=== PATIENT | female | born 1940 | race Caucasian/White ===

== ENCOUNTER → 2017-07-07 09:55 | Outpatient (CLI) | payer MEDICARE, OTHER, SELFPAY ==
--- NOTE | 2017-07-07 | DI.NM.S_ITS ---
PROCEDURE: NM BONE 3 PHASE RADIOPHARMACEUTICAL: 21.5 mCi Tc-99m MDP IV. INDICATIONS: LEFT KNEE PROSTHETIC LOOSENING TECHNIQUE: Multiple bone scintigrams were obtained after intravenous injection of Tc-99m MDP, including flow, blood pool, and delayed images centered to the region of interest. COMPARISON: [facility] MARISOL Bhatti, KNEE SERIES LT, 08/06/2014, 11:54. FINDINGS: On the blood flow and blood pool imaging asymmetric increased isotope deposition at the left knee joint prosthesis margins is not identified. However, on the delayed imaging there is slightly greater isotope deposition at the right knee prosthesis margins when compared to the left knee. IMPRESSION: The patient on plain film imaging of 08/06/14 had a left knee arthroplasty in place and the current nuclear medicine bone scan shows bilateral knee arthroplasties. As discussed above there is mild right-sided asymmetric increased isotope deposition along the borders of the right total knee arthroplasty. The clinical history provided for this examination appears to indicate that the laterality of concern is actually the left knee. Therefore, assuming the laterality of clinical concern is correct there is no evidence of left total knee arthroplasty loosening. Dictated by: Gautam Araiza M.D. on 07/07/2017 at 13:50 Approved by: Gautam Araiza M.D. on 07/07/2017 at 13:54
== END ==
PROVIDERS: Family Provider Internal Medicine; PCP Internal Medicine; Visit Provider Orthopaedic Surgery
DX: T84.033A Mechanical loosening of internal left knee prosthetic joint, initial encounter (principal)
CPT/HCPCS: 78315; A9503

== ENCOUNTER → 2017-07-16 13:25 | Outpatient (CLI) | payer MEDICARE, OTHER, SELFPAY ==
[2017-07-16 14:40] LABS: Add Manual Diff / Slide Review NO; Basophils Percent Auto 0.5 % (0-2); Eosinophils Percent Auto 1.1 % (2-4); Hematocrit 34.3 % (36-46); Hemoglobin 11.5 g/dL (12.0-16.0); Lymphocytes Percent Auto 35.2 % (25-40); Mean Corpuscular HGB Conc 33.6 % (30-36); Mean Corpuscular Hemoglobin 28.1 PG (26-34); Mean Corpuscular Volume 83.7 fL (80-100); Neutrophils Absolute Auto 3700 /uL (3000-5900); Neutrophils Percent Auto 53.2 % (50-75); Platelet Count 181 X10^3/uL (150-400); Red Cell Distribution Width 14.8 % (11.6-14.8); White Blood Cell Count 6.9 X10^3/uL (4.5-11.0)
[2017-07-16 15:04] LABS: Alanine Aminotransferase 28 IU/L (9-52); Albumin 4.1 g/dL (3.5-5.0); Albumin Globulin Ratio 1.2 (1.0-2.8); Alkaline Phosphatase 61 U/L (38-126); Aspartate Aminotransferase 20 IU/L (14-36); BUN Creatinine Ratio 26.3 (6-22); Bilirubin Total 0.4 mg/dL (0.2-1.3); Calcium 9.2 mg/dL (8.4-10.2); Cholesterol 136 mg/dL (140-199); Estimated Glomerular Filt Rate > 60.0 mL/min (>60); Globulin 3.3 g/dL (1.7-4.1); Glucose 100 mg/dL (80-110); HDL Cholesterol 38 mg/dL (40-60); HEMOLYSIS < 15 (0-50); LDL Cholesterol Calculated 76 mg/dL (<100); Potassium 4.6 mmol/L (3.4-5.1); Sodium 138 mmol/L (137-145); Total Protein 7.4 g/dL (6.3-8.2); Triglycerides 110 mg/dL (35-150)
== END ==
PROVIDERS: PCP Physician Assistant; Visit Provider Physician Assistant
DX: E24.8 Other Cushing's syndrome (principal); E78.5 Hyperlipidemia, unspecified; D64.9 Anemia, unspecified
CPT/HCPCS: 36415; 80053; 80061; 85025

== ENCOUNTER → 2017-07-20 13:43 | Outpatient (CLI) | payer MEDICARE, OTHER, SELFPAY ==
[2017-07-22 16:04] LABS: Cortisol, Free, Urine 23.6 mcg/24 h (4.0-50.0); Total Volume 1200 mL
== END ==
PROVIDERS: PCP Physician Assistant; Visit Provider Physician Assistant
DX: E24.8 Other Cushing's syndrome (principal)
CPT/HCPCS: 82530

== ENCOUNTER → 2017-12-21 15:01 | Outpatient (CLI) | payer MEDICARE, OTHER, SELFPAY ==
--- NOTE | 2017-12-21 | DI.RAD.S_ITS ---
PROCEDURE: XR HIP W PEL IF DONE RT 2V INDICATIONS: Right hip pain TECHNIQUE: AP pelvis with lateral view(s) of the right hip(s). COMPARISON: [facility], , ABDOMEN 2 VIEW, 11/16/2014, 17:04. [facility], [place], [place] BONE 3 PHASE, 07/07/2017, 10:31. FINDINGS: Bones: No fractures or dislocations. Pelvic ring appears intact. Mild symmetric hip joint degeneration is noted bilaterally. Mild to moderate degenerative disc disease at L5-S1. No suspicious bony lesions. Soft tissues: The visualized bowel gas pattern is normal. No suspicious soft tissue calcifications. IMPRESSION: 1. 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 2. 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 Dictated by: Rianna Ware M.D. on 12/21/2017 at 17:21 Approved by: Rianna Ware M.D. on 12/21/2017 at 17:24
== END ==
PROVIDERS: Family Provider Internal Medicine; PCP Internal Medicine; Visit Provider Physician Assistant
DX: M25.551 Pain in right hip (principal); M16.0 Bilateral primary osteoarthritis of hip; M51.37 Other intervertebral disc degeneration, lumbosacral region
CPT/HCPCS: 73502

== ENCOUNTER 2017-12-29 12:30 | Outpatient (RCR) | payer MEDICARE, OTHER, SELFPAY ==
--- NOTE | 2017-07-09 17:40 | PT.OIE ---
Current Diagnoses Unspecified rotator cuff tear or rupture of left shoulder, not specified as traumatic (07/09/17) Impingement syndrome of right shoulder (07/09/17) Abnormal posture (07/09/17) Weakness (07/09/17) Provider Visit Care Team Role Provider Type Johnathon Rojas MD Family Provider Physician Primary Care Provider Specialty: Internal Medicine Address: [address] [place] [address], [address] Email: Mario Blair MD Attending Provider Physician Specialty: Orthopedic Surgery Address: [address] [place] [address], [address] Email: [email or web address] Physical Therapy Initial Evaluation PT-OP-A Visit Information Start: 07/09/17 17:07 Freq: Status: Active Protocol: Document 07/09/17 09:03 [facility] (Rec: 07/09/17 17:39 [facility] [id number]) Out-Patient Physical Therapy Visit Information Visit Information Visit Type Initial Evaluation Visit Start Time 09:03 Visit Stop Time 09:58 Total Visit Minutes 55 Visit Number 1 Number of PROJECT MANAGER ENTERTAINMENT AND MEDIA Visits 0 Evaluation Information Evaluation Date 07/09/17 PT-OP-B Current Condition Start: 07/09/17 09:03 Freq: Status: Active Protocol: Document 07/09/17 09:03 [facility] (Rec: 07/09/17 09:17 [facility] [id number]) Current Condition History of Current Condition History of Current Condition Patient evaluated in March for right shoulder pain; had done land-based PT with poor tolerance. Wasn't able to attend aquatic PT due to waiting list as well as going on vacation and had other medical issues which prevented her from coming back. Pain increases with reaching overhead, behind her back, and doing usual ADL's and activities including driving, managing her seatbelt, and computer work. Has not had kinesiotape to right shoulder Prior Treatments and Tests MRI 01/13/17 showed high grade partial thickness articular surface tear anterior supraspinatus, partial thickness tear right infraspinatus musculotendinous junction, mild AC joint degeneration. Treatment Goals Patient/Caregiver Goals Decrease pain to enable reach overhead, behind back, out to side without severe pain. Able to manage seatbelt without severe pain. Prior Functional Status Baseline Function- ADL's Independent Baseline Function- Mobility Independent Current Functional Impairments (Reported) Functional Limitations- ADL's Unable to reach overhead, out to side, behind her back without an increase in pain which is limiting her normal functional activities and tolerance and decreasing her quality of life. PT-OP-C Subjective Start: 07/09/17 09:03 Freq: Status: Active Protocol: Document 07/09/17 09:03 [facility] (Rec: 07/09/17 17:39 [facility] [id number]) Patient Questionnaires Quick Dash- Upper Extremity Quick Dash UE Impairment 40 to 59% Impaired (Score 40- 59) OP-PT Pain Assessment Pain Assessment Grid Paper Pain Assessment Grid Completed Yes Location Right Shoulder Pain Location Details right shoulder Intensity 9 Scale Used Numeric (1 - 10) Description Aching Sharp Shooting Frequency Constant Variations/Patterns always 5-6, increases to 8-9 with movement Pain Aggravating Factors Activity Pain Behaviors Pain Behaviors Facial Grimacing Wincing PT-OP-E Functional Tests Start: 07/09/17 17:07 Freq: Status: Active Protocol: Document 07/09/17 09:03 [facility] (Rec: 07/09/17 17:39 [facility] [id number]) Functional Tests Apley's Scratch Test Action 1: The subject is instructed to touch the opposite shoulder with his/her hand. This motion checks Glenohumeral adduction, internal rotation , horizontal adduction and scapular protraction Action 2: The subject is instructed to place his/her arm overhead and reach behind the neck to touch his/her upper back. This motion checks Glenohumeral abduction, external rotation and scapular upward rotation and elevation. Action 3: The subject puts his/her hand on the lower back and reaches upward as far as possible. This motion checks glenohumeral adduction, internal rotation and scapular retraction with downward rotation Action 1- Left front of shoulder Action 1- Right front of chest Action 2- Left C3 Action 2- Right ear Action 3- Left T10 Action 3- Right lateral hip PT-OP-J Posture/Palpation/Skin Start: 07/09/17 17:07 Freq: Status: Active Protocol: Document 07/09/17 09:03 [facility] (Rec: 07/09/17 17:39 [facility] [id number]) Posture Evaluation Position Sitting Head/C-Spine Posture Forward Head T-Spine Posture Increased Kyphosis PT-OP-K Range of Motion Start: 07/09/17 17:07 Freq: Status: Active Protocol: Document 07/09/17 09:03 [facility] (Rec: 07/09/17 17:39 [facility] [id number]) Cervical Spine Range of Motion Cervical Spine Active ROM Limitations Soft Tissue Tightness Bony Restriction Shoulder Goniometric Range of Motion Shoulder Measured in Degrees Right Shoulder ROM WFL No Testing Position Sitting Flexion 85 Extension 37 Abduction 75 Horizontal Abduction 60 External Rotation at 45 degrees 20 Abduction Internal Rotation 20 Left Shoulder ROM WFL No Testing Position Sitting Flexion 150 Extension 50 Abduction 125 Horizontal Abduction 85 External Rotation at 45 degrees 45 Abduction Internal Rotation 55 Shoulder ROM Limitations Shoulder ROM Limitations Pain PT-OP-L Special Tests Start: 07/09/17 17:07 Freq: Status: Active Protocol: Document 07/09/17 09:03 [facility] (Rec: 07/09/17 17:39 [facility] [id number]) Special Tests Shoulder Special Tests Elevation Impingement Test Results positive bilaterally Drop Arm Rotator Cuff Test Results positive right PT-OP-M Strength Start: 07/09/17 17:07 Freq: Status: Active Protocol: Document 07/09/17 09:03 [facility] (Rec: 07/09/17 17:39 [facility] [id number]) Shoulder Strength Shoulder Manual Muscle Testing Right Reason Not Measured Pain Left Flexion 4- Good- Extension 4 Good Abduction (C5) 4- Good- External Rotation 3+ Fair+ Internal Rotation 4 Good PT-OP-Q Treatments Start: 07/09/17 17:07 Freq: Status: Active Protocol: Document 07/09/17 09:03 [facility] (Rec: 07/09/17 17:39 [facility] [id number]) Manual Therapy Treatment Soft Tissue Mobilization 1 Body Location right upper traps, GH joint region Mobilization Type Strumming Intensity/Depth Moderate Body Position Supine Taping 1 Body Location right shoulder Treatment Focus support and pain management Type of Tape Kinesio Tape Self-Care/Home Management Treatment Education Patient Education Pain Management PT-OP-R Modalities Start: 07/09/17 17:07 Freq: Status: Active Protocol: Document 07/09/17 09:03 [facility] (Rec: 07/09/17 17:39 [facility] [id number]) Hot Pack/Cold Pack Treatment Hot Pack Location right shoulder Patient Position Hooklying Patient Tolerance Good PT-OP-T Assessment and Plan Start: 07/09/17 17:07 Freq: Status: Active Protocol: Document 07/09/17 09:03 [facility] (Rec: 07/09/17 17:39 [facility] [id number]) Physical Therapy Assessment Rehab Potential Rehabilitation Potential Fair Evaluation Complexity Number of Personal Factors/Comorbidities 3 or More Number of Body Systems Impaired 3 Clinical Presentation at Evaluation Unstable Impairments Impairments Activity Tolerance Functional Activities Posture ROM Strength Other Concerns Barriers to Rehabilitation chronicity of condition Goals Four Impairment Activity tolerance Short Term Goal (STG) Patient to tolerate 45 aquatic exercise session without an increase in pain STG Duration 6 wks Tourist Information Officer Goal (LTG) Patient to be safe and independent with aquatic exercise program for residential 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 Three Impairment strength Short Term Goal (STG) Improve right UE strength by 1 /2 grade STG Duration 6 wks Tourist Information Officer Goal (LTG) Improve right UE strength to at least 4+/5 all motions to improve her ability to perform usual activities LTG Duration 12 wks Two Impairment Functional activities Short Term Goal (STG) Improve Quickdash UE score to 30 STG Duration 6 wks Tourist Information Officer Goal (LTG) Improve Quickdash UE score to 20 LTG Duration 12 wks One Impairment functional activites Short Term Goal (STG) Patient to report 50% improvement in ability to reach overhead and behind her back for purposes of ADL's and usual activities` STG Duration 6 wks Halfway Goal (LTG) Patient able to resume all usual activities using right UE without an increase in pain including reaching overhead, behind her back, drive, do computer work LTG Duration 12 wks Assessment Summary Assessment Patient presents with chronic, function-limiting right shoulder pain with rotator cuff pathology diagnosed via imaging. Feel she would benefit from aquatic PT for pain management, ROM, strengthening to address all deficit areas and return her to improved function of her right shoulder and improved quality of life. Physical Therapy Plan Frequency and Duration Frequency of Treatment 2x/Week Duration of Treatment 12 wks Plan of Care Start Date 07/09/17 Plan of Care End Date 09/08/17 Therapeutic Interventions Therapeutic Interventions Aquatic Therapy Manual Therapy Self-Care/Home Management Taping Next Visit Focus/Plan Next Visit Plan Initiate aquatic therapy Provider Signature Date
--- NOTE | 2017-07-09 17:41 | PT.OPPOC ---
Current Diagnoses Unspecified rotator cuff tear or rupture of left shoulder, not specified as traumatic (07/09/17) Impingement syndrome of right shoulder (07/09/17) Abnormal posture (07/09/17) Weakness (07/09/17) Provider Visit Care Team Role Provider Type Johnathon Rojas MD Family Provider Physician Primary Care Provider Specialty: Internal Medicine Address: [address] [place] [address], [id number] Email: Mario Blair MD Attending Provider Physician Specialty: Orthopedic Surgery Address: [address] [place] [address], [address] Email: [email or web address] Plan Of Care PT-OP-T Assessment and Plan Start: 07/09/17 17:07 Freq: Status: Active Protocol: Document 07/09/17 09:03 [facility] (Rec: 07/09/17 17:39 [facility] [id number]) Physical Therapy Assessment Rehab Potential Rehabilitation Potential Fair Evaluation Complexity Number of Personal Factors/Comorbidities 3 or More Number of Body Systems Impaired 3 Clinical Presentation at Evaluation Unstable Impairments Impairments Activity Tolerance Functional Activities Posture ROM Strength Other Concerns Barriers to Rehabilitation chronicity of condition Goals Four Impairment Activity tolerance Short Term Goal (STG) Patient to tolerate 45 aquatic exercise session without an increase in pain STG Duration 6 wks Halfway Goal (LTG) Patient to be safe and independent with aquatic exercise program for retirement 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 Three Impairment strength Short Term Goal (STG) Improve right UE strength by 1 /2 grade STG Duration 6 wks Living Nurse Goal (LTG) Improve right UE strength to at least 4+/5 all motions to improve her ability to perform usual activities LTG Duration 12 wks Two Impairment Functional activities Short Term Goal (STG) Improve Quickdash UE score to 30 STG Duration 6 wks Halfway Goal (LTG) Improve Quickdash UE score to 20 LTG Duration 12 wks One Impairment functional activites Short Term Goal (STG) Patient to report 50% improvement in ability to reach overhead and behind her back for purposes of ADL's and usual activities` STG Duration 6 wks Living Nurse Goal (LTG) Patient able to resume all usual activities using right UE without an increase in pain including reaching overhead, behind her back, drive, do computer work LTG Duration 12 wks Assessment Summary Assessment Patient presents with chronic, function-limiting right shoulder pain with rotator cuff pathology diagnosed via imaging. Feel she would benefit from aquatic PT for pain management, ROM, strengthening to address all deficit areas and return her to improved function of her right shoulder and improved quality of life. Physical Therapy Plan Frequency and Duration Frequency of Treatment 2x/Week Duration of Treatment 12 wks Plan of Care Start Date 07/09/17 Plan of Care End Date 09/08/17 Therapeutic Interventions Therapeutic Interventions Aquatic Therapy Manual Therapy Self-Care/Home Management Taping Next Visit Focus/Plan Next Visit Plan Initiate aquatic therapy Plan of Care Dates Plan of Care Start Date 07/09/17 Plan of Care End Date 09/08/17 Please Sign and Return: I have reviewed this Plan of Care and certify that the skilled therapy services above are required to meet the patient???s needs. Physician Signature Date Printed Name and Credentials
--- NOTE | 2017-07-22 11:29 | PT.OTN ---
Current Diagnoses Unspecified rotator cuff tear or rupture of left shoulder, not specified as traumatic (07/09/17) Impingement syndrome of right shoulder (07/09/17) Abnormal posture (07/09/17) Weakness (07/09/17) Physical Therapy Treatment Note PT-OP-A Visit Information Start: 07/09/17 17:07 Freq: Status: Active Protocol: Document 07/21/17 10:15 [facility] (Rec: 07/22/17 11:26 [facility] [id number]) Out-Patient Physical Therapy Visit Information Visit Information Visit Type Treatment Note Visit Start Time 10:15 Visit Stop Time 11:00 Total Visit Minutes 45 Visit Number 2 Number of OSTOMY NURSE Visits 0 Evaluation Information Evaluation Date 07/09/17 PT-OP-B Current Condition Start: 07/09/17 09:03 Freq: Status: Active Protocol: Document 07/09/17 09:03 [facility] (Rec: 07/09/17 09:17 [facility] [id number]) Current Condition History of Current Condition History of Current Condition Patient evaluated in March for right shoulder pain; had done land-based PT with poor tolerance. Wasn't able to attend aquatic PT due to waiting list as well as going on vacation and had other medical issues which prevented her from coming back. Pain increases with reaching overhead, behind her back, and doing usual ADL's and activities including driving, managing her seatbelt, and computer work. Has not had kinesiotape to right shoulder Prior Treatments and Tests MRI 01/13/17 showed high grade partial thickness articular surface tear anterior supraspinatus, partial thickness tear right infraspinatus musculotendinous junction, mild AC joint degeneration. Treatment Goals Patient/Caregiver Goals Decrease pain to enable reach overhead, behind back, out to side without severe pain. Able to manage seatbelt without severe pain. Prior Functional Status Baseline Function- ADL's Independent Baseline Function- Mobility Independent Current Functional Impairments (Reported) Functional Limitations- ADL's Unable to reach overhead, out to side, behind her back without an increase in pain which is limiting her normal functional activities and tolerance and decreasing her quality of life. PT-OP-C Subjective Start: 07/09/17 09:03 Freq: Status: Active Protocol: Document 07/21/17 10:15 [facility] (Rec: 07/22/17 11:27 [facility] [id number]) OP-PT Subjective Patient Comments Patient Comments excited to start aquatic therapy PT-OP-E Functional Tests Start: 07/09/17 17:07 Freq: Status: Active Protocol: Document 07/09/17 09:03 [facility] (Rec: 07/09/17 17:39 [facility] [id number]) Functional Tests Apley's Scratch Test Action 1: The subject is instructed to touch the opposite shoulder with his/her hand. This motion checks Glenohumeral adduction, internal rotation , horizontal adduction and scapular protraction Action 2: The subject is instructed to place his/her arm overhead and reach behind the neck to touch his/her upper back. This motion checks Glenohumeral abduction, external rotation and scapular upward rotation and elevation. Action 3: The subject puts his/her hand on the lower back and reaches upward as far as possible. This motion checks glenohumeral adduction, internal rotation and scapular retraction with downward rotation Action 1- Left front of shoulder Action 1- Right front of chest Action 2- Left C3 Action 2- Right ear Action 3- Left T10 Action 3- Right lateral hip PT-OP-J Posture/Palpation/Skin Start: 07/09/17 17:07 Freq: Status: Active Protocol: Document 07/09/17 09:03 [facility] (Rec: 07/09/17 17:39 [facility] [id number]) Posture Evaluation Position Sitting Head/C-Spine Posture Forward Head T-Spine Posture Increased Kyphosis PT-OP-K Range of Motion Start: 07/09/17 17:07 Freq: Status: Active Protocol: Document 07/09/17 09:03 [facility] (Rec: 07/09/17 17:39 [facility] [id number]) Cervical Spine Range of Motion Cervical Spine Active ROM Limitations Soft Tissue Tightness Bony Restriction Shoulder Goniometric Range of Motion Shoulder Measured in Degrees Right Shoulder ROM WFL No Testing Position Sitting Flexion 85 Extension 37 Abduction 75 Horizontal Abduction 60 External Rotation at 45 degrees 20 Abduction Internal Rotation 20 Left Shoulder ROM WFL No Testing Position Sitting Flexion 150 Extension 50 Abduction 125 Horizontal Abduction 85 External Rotation at 45 degrees 45 Abduction Internal Rotation 55 Shoulder ROM Limitations Shoulder ROM Limitations Pain PT-OP-L Special Tests Start: 07/09/17 17:07 Freq: Status: Active Protocol: Document 07/09/17 09:03 [facility] (Rec: 07/09/17 17:39 [facility] [id number]) Special Tests Shoulder Special Tests Elevation Impingement Test Results positive bilaterally Drop Arm Rotator Cuff Test Results positive right PT-OP-M Strength Start: 07/09/17 17:07 Freq: Status: Active Protocol: Document 07/09/17 09:03 [facility] (Rec: 07/09/17 17:39 [facility] [id number]) Shoulder Strength Shoulder Manual Muscle Testing Right Reason Not Measured Pain Left Flexion 4- Good- Extension 4 Good Abduction (C5) 4- Good- External Rotation 3+ Fair+ Internal Rotation 4 Good PT-OP-Q Treatments Start: 07/09/17 17:07 Freq: Status: Active Protocol: Document 07/09/17 09:03 [facility] (Rec: 07/09/17 17:39 [facility] [id number]) Manual Therapy Treatment Soft Tissue Mobilization 1 Body Location right upper traps, GH joint region Mobilization Type Strumming Intensity/Depth Moderate Body Position Supine Taping 1 Body Location right shoulder Treatment Focus support and pain management Type of Tape Kinesio Tape Self-Care/Home Management Treatment Education Patient Education Pain Management PT-OP-R Modalities Start: 07/09/17 17:07 Freq: Status: Active Protocol: Document 07/09/17 09:03 [facility] (Rec: 07/09/17 17:39 [facility] [id number]) Hot Pack/Cold Pack Treatment Hot Pack Location right shoulder Patient Position Hooklying Patient Tolerance Good PT-OP-S Aquatic Treatment Start: 07/09/17 17:07 Freq: Status: Active Protocol: Document 07/21/17 10:15 [facility] (Rec: 07/22/17 10:28 [facility] [id number]) Aquatics Treatment Water Walking Other- 1 Comments fwd, back, side, april with gentle UE breastroke/reverse breastroke UE's Upper Extremity Exercises 1 Details shoulder hor ab/ad, flex/ext, circles, shld ER/IR, scapular retraction Body Position Standing Water Level Neck Level Reps/Duration 10x ea [place] Activities [place] Activities Bicycle Equipment small noodle between legs Duration 10' Comments gentle UE breastroke UE's during bicicycle Swim Strokes Crawl Equipment Mask/Snorkel Noodle Laps/Duration 6 min Comments gentle crawl in pain-free ROM PT-OP-T Assessment and Plan Start: 07/09/17 17:07 Freq: Status: Active Protocol: Document 07/21/17 10:15 [facility] (Rec: 07/22/17 11:26 [facility] [id number]) Physical Therapy Assessment Assessment Summary Assessment Patient had good tolerance for aquatic exercises today with cues for exercise in pain-free ROM, emphasis on postural alignment. Some leaking issues with her mask and snorkel limiting prone exercises, improved ability to relax prone with small noodle under pelvis. Physical Therapy Plan Frequency and Duration Frequency of Treatment 2x/Week Duration of Treatment 12 wks Plan of Care Start Date 07/09/17 Plan of Care End Date 09/08/17 Therapeutic Interventions Therapeutic Interventions Aquatic Therapy Manual Therapy Self-Care/Home Management Taping Next Visit Focus/Plan Next Visit Plan progression of aquatic exercises per log with emphasis on shoulder ROM, strengthening,postural alignment. Initiate supine manual techniques for muscle relaxation and pain management , ROM Please Sign and Return: I have reviewed this Plan of Care and certify that the skilled therapy services above are required to meet the patient???s needs. Physician Signature Date Printed Name and Credentials Clinical Instructor Signature Printed Name and Credentials
--- NOTE | 2017-07-26 15:41 | PT.OTN ---
Current Diagnoses Unspecified rotator cuff tear or rupture of left shoulder, not specified as traumatic (07/09/17) Impingement syndrome of right shoulder (07/09/17) Abnormal posture (07/09/17) Weakness (07/09/17) Physical Therapy Treatment Note PT-OP-A Visit Information Start: 07/09/17 17:07 Freq: Status: Active Protocol: Document 07/26/17 15:31 TMS (Rec: 07/26/17 15:41 TMS [email or web address]) Out-Patient Physical Therapy Visit Information Visit Information Visit Type Treatment Note Visit Start Time 11:00 Visit Stop Time 11:45 Total Visit Minutes 45 Visit Number 3 Number of JOINTER OPERATOR Visits 1 PT-OP-B Current Condition Start: 07/09/17 09:03 Freq: Status: Active Protocol: Document 07/09/17 09:03 SAK (Rec: 07/09/17 09:17 SAK [id number]) Current Condition History of Current Condition History of Current Condition Patient evaluated in March for right shoulder pain; had done land-based PT with poor tolerance. Wasn't able to attend aquatic PT due to waiting list as well as going on vacation and had other medical issues which prevented her from coming back. Pain increases with reaching overhead, behind her back, and doing usual ADL's and activities including driving, managing her seatbelt, and computer work. Has not had kinesiotape to right shoulder Prior Treatments and Tests MRI 01/13/17 showed high grade partial thickness articular surface tear anterior supraspinatus, partial thickness tear right infraspinatus musculotendinous junction, mild AC joint degeneration. Treatment Goals Patient/Caregiver Goals Decrease pain to enable reach overhead, behind back, out to side without severe pain. Able to manage seatbelt without severe pain. Prior Functional Status Baseline Function- ADL's Independent Baseline Function- Mobility Independent Current Functional Impairments (Reported) Functional Limitations- ADL's Unable to reach overhead, out to side, behind her back without an increase in pain which is limiting her normal functional activities and tolerance and decreasing her quality of life. PT-OP-C Subjective Start: 07/09/17 09:03 Freq: Status: Active Protocol: Document 07/26/17 15:31 TMS (Rec: 07/26/17 15:41 TMS [email or web address]) OP-PT Subjective Patient Comments Patient Comments Pt. states she tolerated last aquatic session OK. PT-OP-E Functional Tests Start: 07/09/17 17:07 Freq: Status: Active Protocol: Document 07/09/17 09:03 [facility] (Rec: 07/09/17 17:39 [facility] [id number]) Functional Tests Apley's Scratch Test Action 1: The subject is instructed to touch the opposite shoulder with his/her hand. This motion checks Glenohumeral adduction, internal rotation , horizontal adduction and scapular protraction Action 2: The subject is instructed to place his/her arm overhead and reach behind the neck to touch his/her upper back. This motion checks Glenohumeral abduction, external rotation and scapular upward rotation and elevation. Action 3: The subject puts his/her hand on the lower back and reaches upward as far as possible. This motion checks glenohumeral adduction, internal rotation and scapular retraction with downward rotation Action 1- Left front of shoulder Action 1- Right front of chest Action 2- Left C3 Action 2- Right ear Action 3- Left T10 Action 3- Right lateral hip PT-OP-J Posture/Palpation/Skin Start: 07/09/17 17:07 Freq: Status: Active Protocol: Document 07/09/17 09:03 [facility] (Rec: 07/09/17 17:39 [facility] [id number]) Posture Evaluation Position Sitting Head/C-Spine Posture Forward Head T-Spine Posture Increased Kyphosis PT-OP-K Range of Motion Start: 07/09/17 17:07 Freq: Status: Active Protocol: Document 07/09/17 09:03 [facility] (Rec: 07/09/17 17:39 [facility] [id number]) Cervical Spine Range of Motion Cervical Spine Active ROM Limitations Soft Tissue Tightness Bony Restriction Shoulder Goniometric Range of Motion Shoulder Measured in Degrees Right Shoulder ROM WFL No Testing Position Sitting Flexion 85 Extension 37 Abduction 75 Horizontal Abduction 60 External Rotation at 45 degrees 20 Abduction Internal Rotation 20 Left Shoulder ROM WFL No Testing Position Sitting Flexion 150 Extension 50 Abduction 125 Horizontal Abduction 85 External Rotation at 45 degrees 45 Abduction Internal Rotation 55 Shoulder ROM Limitations Shoulder ROM Limitations Pain PT-OP-L Special Tests Start: 07/09/17 17:07 Freq: Status: Active Protocol: Document 07/09/17 09:03 [facility] (Rec: 07/09/17 17:39 [facility] [id number]) Special Tests Shoulder Special Tests Elevation Impingement Test Results positive bilaterally Drop Arm Rotator Cuff Test Results positive right PT-OP-M Strength Start: 07/09/17 17:07 Freq: Status: Active Protocol: Document 07/09/17 09:03 [facility] (Rec: 07/09/17 17:39 [facility] [id number]) Shoulder Strength Shoulder Manual Muscle Testing Right Reason Not Measured Pain Left Flexion 4- Good- Extension 4 Good Abduction (C5) 4- Good- External Rotation 3+ Fair+ Internal Rotation 4 Good PT-OP-Q Treatments Start: 07/09/17 17:07 Freq: Status: Active Protocol: Document 07/09/17 09:03 [facility] (Rec: 07/09/17 17:39 [facility] [id number]) Manual Therapy Treatment Soft Tissue Mobilization 1 Body Location right upper traps, GH joint region Mobilization Type Strumming Intensity/Depth Moderate Body Position Supine Taping 1 Body Location right shoulder Treatment Focus support and pain management Type of Tape Kinesio Tape Self-Care/Home Management Treatment Education Patient Education Pain Management PT-OP-R Modalities Start: 07/09/17 17:07 Freq: Status: Active Protocol: Document 07/09/17 09:03 [facility] (Rec: 07/09/17 17:39 [facility] [id number]) Hot Pack/Cold Pack Treatment Hot Pack Location right shoulder Patient Position Hooklying Patient Tolerance Good PT-OP-S Aquatic Treatment Start: 07/09/17 17:07 Freq: Status: Active Protocol: Document 07/26/17 15:31 TMS (Rec: 07/26/17 15:41 TMS [email or web address]) Aquatics Treatment Pool Entry/Exit Pool Entry/Exit Method Stairs Assistance Standby Assistance Water Walking Other- 1 Comments fwd, back, side, april with gentle UE breastroke/reverse breastroke UE's Upper Extremity Exercises 1 Details shoulder hor ab/ad, flex/ext, circles, shld ER/IR, scapular retraction Body Position Standing Water Level Neck Level Reps/Duration 10x ea [place] Activities [place] Activities Bicycle Equipment small noodle between legs Duration 10' Comments gentle UE breastroke UE's during bicicycle Swim Strokes Backstroke Laps/Duration 2 min Crawl Equipment Mask/Snorkel Laps/Duration 6 min Comments gentle crawl in pain-free ROM PT-OP-T Assessment and Plan Start: 07/09/17 17:07 Freq: Status: Active Protocol: Document 07/26/17 15:31 TMS (Rec: 07/26/17 15:41 TMS [email or web address]) Physical Therapy Assessment Assessment Summary Assessment Pt. complained of right shoulder fatigue with exercises, also complained of a feeling that right lateral lower leg was with swimming. Physical Therapy Plan Frequency and Duration Frequency of Treatment 2x/Week Duration of Treatment 12 wks Plan of Care Start Date 07/09/17 Plan of Care End Date 09/08/17 Next Visit Focus/Plan Next Visit Plan progression of aquatic exercises per log with emphasis on shoulder ROM, strengthening,postural alignment. Initiate supine manual techniques for muscle relaxation and pain management , ROM Please Sign and Return: I have reviewed this Plan of Care and certify that the skilled therapy services above are required to meet the patient?s needs. Physician Signature Date Printed Name and Credentials Clinical Instructor Signature Printed Name and Credentials
--- NOTE | 2017-07-30 15:11 | PT.OTN ---
Current Diagnoses Unspecified rotator cuff tear or rupture of left shoulder, not specified as traumatic (07/26/17) Impingement syndrome of right shoulder (07/26/17) Physical Therapy Treatment Note PT-OP-A Visit Information Start: 07/09/17 17:07 Freq: Status: Active Protocol: Document 07/30/17 15:06 TMS (Rec: 07/30/17 15:11 TMS [email or web address]) Out-Patient Physical Therapy Visit Information Visit Information Visit Type Treatment Note Visit Start Time 11:59 Visit Stop Time 12:30 Total Visit Minutes 31 Number of REAL ESTATE ACCOUNTANT Visits 2 PT-OP-B Current Condition Start: 07/09/17 09:03 Freq: Status: Active Protocol: Document 07/09/17 09:03 SAK (Rec: 07/09/17 09:17 SAK [id number]) Current Condition History of Current Condition History of Current Condition Patient evaluated in March for right shoulder pain; had done land-based PT with poor tolerance. Wasn't able to attend aquatic PT due to waiting list as well as going on vacation and had other medical issues which prevented her from coming back. Pain increases with reaching overhead, behind her back, and doing usual ADL's and activities including driving, managing her seatbelt, and computer work. Has not had kinesiotape to right shoulder Prior Treatments and Tests MRI 01/13/17 showed high grade partial thickness articular surface tear anterior supraspinatus, partial thickness tear right infraspinatus musculotendinous junction, mild AC joint degeneration. Treatment Goals Patient/Caregiver Goals Decrease pain to enable reach overhead, behind back, out to side without severe pain. Able to manage seatbelt without severe pain. Prior Functional Status Baseline Function- ADL's Independent Baseline Function- Mobility Independent Current Functional Impairments (Reported) Functional Limitations- ADL's Unable to reach overhead, out to side, behind her back without an increase in pain which is limiting her normal functional activities and tolerance and decreasing her quality of life. PT-OP-C Subjective Start: 07/09/17 09:03 Freq: Status: Active Protocol: Document 07/30/17 15:06 TMS (Rec: 07/30/17 15:11 TMS [email or web address]) OP-PT Subjective Patient Comments Patient Comments Pt. states she tolerated last treatment well without increased fatigue or pain. PT-OP-E Functional Tests Start: 07/09/17 17:07 Freq: Status: Active Protocol: Document 07/09/17 09:03 [facility] (Rec: 07/09/17 17:39 [facility] [id number]) Functional Tests Apley's Scratch Test Action 1: The subject is instructed to touch the opposite shoulder with his/her hand. This motion checks Glenohumeral adduction, internal rotation , horizontal adduction and scapular protraction Action 2: The subject is instructed to place his/her arm overhead and reach behind the neck to touch his/her upper back. This motion checks Glenohumeral abduction, external rotation and scapular upward rotation and elevation. Action 3: The subject puts his/her hand on the lower back and reaches upward as far as possible. This motion checks glenohumeral adduction, internal rotation and scapular retraction with downward rotation Action 1- Left front of shoulder Action 1- Right front of chest Action 2- Left C3 Action 2- Right ear Action 3- Left T10 Action 3- Right lateral hip PT-OP-J Posture/Palpation/Skin Start: 07/09/17 17:07 Freq: Status: Active Protocol: Document 07/09/17 09:03 [facility] (Rec: 07/09/17 17:39 [facility] [id number]) Posture Evaluation Position Sitting Head/C-Spine Posture Forward Head T-Spine Posture Increased Kyphosis PT-OP-K Range of Motion Start: 07/09/17 17:07 Freq: Status: Active Protocol: Document 07/09/17 09:03 [facility] (Rec: 07/09/17 17:39 [facility] [id number]) Cervical Spine Range of Motion Cervical Spine Active ROM Limitations Soft Tissue Tightness Bony Restriction Shoulder Goniometric Range of Motion Shoulder Measured in Degrees Right Shoulder ROM WFL No Testing Position Sitting Flexion 85 Extension 37 Abduction 75 Horizontal Abduction 60 External Rotation at 45 degrees 20 Abduction Internal Rotation 20 Left Shoulder ROM WFL No Testing Position Sitting Flexion 150 Extension 50 Abduction 125 Horizontal Abduction 85 External Rotation at 45 degrees 45 Abduction Internal Rotation 55 Shoulder ROM Limitations Shoulder ROM Limitations Pain PT-OP-L Special Tests Start: 07/09/17 17:07 Freq: Status: Active Protocol: Document 07/09/17 09:03 [facility] (Rec: 07/09/17 17:39 [facility] [id number]) Special Tests Shoulder Special Tests Elevation Impingement Test Results positive bilaterally Drop Arm Rotator Cuff Test Results positive right PT-OP-M Strength Start: 07/09/17 17:07 Freq: Status: Active Protocol: Document 07/09/17 09:03 SAK (Rec: 07/09/17 17:39 SAK [id number]) Shoulder Strength Shoulder Manual Muscle Testing Right Reason Not Measured Pain Left Flexion 4- Good- Extension 4 Good Abduction (C5) 4- Good- External Rotation 3+ Fair+ Internal Rotation 4 Good PT-OP-Q Treatments Start: 07/09/17 17:07 Freq: Status: Active Protocol: Document 07/09/17 09:03 SAK (Rec: 07/09/17 17:39 [facility] [id number]) Manual Therapy Treatment Soft Tissue Mobilization 1 Body Location right upper traps, GH joint region Mobilization Type Strumming Intensity/Depth Moderate Body Position Supine Taping 1 Body Location right shoulder Treatment Focus support and pain management Type of Tape Kinesio Tape Self-Care/Home Management Treatment Education Patient Education Pain Management PT-OP-R Modalities Start: 07/09/17 17:07 Freq: Status: Active Protocol: Document 07/09/17 09:03 [facility] (Rec: 07/09/17 17:39 [facility] [id number]) Hot Pack/Cold Pack Treatment Hot Pack Location right shoulder Patient Position Hooklying Patient Tolerance Good PT-OP-S Aquatic Treatment Start: 07/09/17 17:07 Freq: Status: Active Protocol: Document 07/30/17 15:06 TMS (Rec: 07/30/17 15:11 TMS [email or web address]) Aquatics Treatment Pool Entry/Exit Pool Entry/Exit Method Stairs Assistance Standby Assistance Water Walking Other- 1 Comments fwd, back, side, april with gentle UE breastroke/reverse breastroke UE's Upper Extremity Exercises 1 Details shoulder hor ab/ad, flex/ext, circles, shld ER/IR, scapular retraction Body Position Standing Water Level Neck Level Reps/Duration 10x ea [place] Activities [place] Activities Bicycle [place] Equipment small noodle between legs Duration 10' Comments gentle UE breastroke UE's during bicicycle PT-OP-T Assessment and Plan Start: 07/09/17 17:07 Freq: Status: Active Protocol: Document 07/30/17 15:06 TMS (Rec: 07/30/17 15:11 TMS [email or web address]) Physical Therapy Assessment Assessment Summary Assessment Pt. complained of right shoulder fatigue at end of treatment, no complaints of right L.E. feeling . Didn't bring swim googles and was late for appointment so swimming was omitted. Physical Therapy Plan Frequency and Duration Frequency of Treatment 2x/Week Duration of Treatment 12 wks Plan of Care Start Date 07/09/17 Plan of Care End Date 09/08/17 Next Visit Focus/Plan Next Visit Plan progression of aquatic exercises per log with emphasis on shoulder ROM, strengthening,postural alignment. Initiate supine manual techniques for muscle relaxation and pain management , ROM Please Sign and Return: I have reviewed this Plan of Care and certify that the skilled therapy services above are required to meet the patient?s needs. Physician Signature Date Printed Name and Credentials Clinical Instructor Signature Printed Name and Credentials
--- NOTE | 2017-08-02 14:59 | PT.OTN ---
Current Diagnoses Unspecified rotator cuff tear or rupture of left shoulder, not specified as traumatic (08/02/17) Impingement syndrome of right shoulder (08/02/17) Physical Therapy Treatment Note PT-OP-A Visit Information Start: 07/09/17 17:07 Freq: Status: Active Protocol: Document 08/02/17 11:50 CLB (Rec: 08/02/17 14:59 CLB [email or web address]) Out-Patient Physical Therapy Visit Information Visit Information Visit Type Treatment Note Visit Start Time 11:50 Visit Stop Time 12:30 Total Visit Minutes 40 Number of STARS COORDINATOR Visits 3 PT-OP-B Current Condition Start: 07/09/17 09:03 Freq: Status: Active Protocol: Document 07/09/17 09:03 SAK (Rec: 07/09/17 09:17 SAK [id number]) Current Condition History of Current Condition History of Current Condition Patient evaluated in March for right shoulder pain; had done land-based PT with poor tolerance. Wasn't able to attend aquatic PT due to waiting list as well as going on vacation and had other medical issues which prevented her from coming back. Pain increases with reaching overhead, behind her back, and doing usual ADL's and activities including driving, managing her seatbelt, and computer work. Has not had kinesiotape to right shoulder Prior Treatments and Tests MRI 01/13/17 showed high grade partial thickness articular surface tear anterior supraspinatus, partial thickness tear right infraspinatus musculotendinous junction, mild AC joint degeneration. Treatment Goals Patient/Caregiver Goals Decrease pain to enable reach overhead, behind back, out to side without severe pain. Able to manage seatbelt without severe pain. Prior Functional Status Baseline Function- ADL's Independent Baseline Function- Mobility Independent Current Functional Impairments (Reported) Functional Limitations- ADL's Unable to reach overhead, out to side, behind her back without an increase in pain which is limiting her normal functional activities and tolerance and decreasing her quality of life. PT-OP-C Subjective Start: 07/09/17 09:03 Freq: Status: Active Protocol: Document 08/02/17 11:50 CLB (Rec: 08/02/17 14:59 CLB [email or web address]) OP-PT Subjective Patient Comments Patient Comments Pt tolerated last treatment well and is encouraged she will make progress. PT-OP-E Functional Tests Start: 07/09/17 17:07 Freq: Status: Active Protocol: Document 07/09/17 09:03 SAK (Rec: 07/09/17 17:39 [facility] [id number]) Functional Tests Apley's Scratch Test Action 1: The subject is instructed to touch the opposite shoulder with his/her hand. This motion checks Glenohumeral adduction, internal rotation , horizontal adduction and scapular protraction Action 2: The subject is instructed to place his/her arm overhead and reach behind the neck to touch his/her upper back. This motion checks Glenohumeral abduction, external rotation and scapular upward rotation and elevation. Action 3: The subject puts his/her hand on the lower back and reaches upward as far as possible. This motion checks glenohumeral adduction, internal rotation and scapular retraction with downward rotation Action 1- Left front of shoulder Action 1- Right front of chest Action 2- Left C3 Action 2- Right ear Action 3- Left T10 Action 3- Right lateral hip PT-OP-J Posture/Palpation/Skin Start: 07/09/17 17:07 Freq: Status: Active Protocol: Document 07/09/17 09:03 [facility] (Rec: 07/09/17 17:39 [facility] [id number]) Posture Evaluation Position Sitting Head/C-Spine Posture Forward Head T-Spine Posture Increased Kyphosis PT-OP-K Range of Motion Start: 07/09/17 17:07 Freq: Status: Active Protocol: Document 07/09/17 09:03 [facility] (Rec: 07/09/17 17:39 [facility] [id number]) Cervical Spine Range of Motion Cervical Spine Active ROM Limitations Soft Tissue Tightness Bony Restriction Shoulder Goniometric Range of Motion Shoulder Measured in Degrees Right Shoulder ROM WFL No Testing Position Sitting Flexion 85 Extension 37 Abduction 75 Horizontal Abduction 60 External Rotation at 45 degrees 20 Abduction Internal Rotation 20 Left Shoulder ROM WFL No Testing Position Sitting Flexion 150 Extension 50 Abduction 125 Horizontal Abduction 85 External Rotation at 45 degrees 45 Abduction Internal Rotation 55 Shoulder ROM Limitations Shoulder ROM Limitations Pain PT-OP-L Special Tests Start: 07/09/17 17:07 Freq: Status: Active Protocol: Document 07/09/17 09:03 SAK (Rec: 07/09/17 17:39 [facility] [id number]) Special Tests Shoulder Special Tests Elevation Impingement Test Results positive bilaterally Drop Arm Rotator Cuff Test Results positive right PT-OP-M Strength Start: 07/09/17 17:07 Freq: Status: Active Protocol: Document 07/09/17 09:03 SAK (Rec: 07/09/17 17:39 SAK [id number]) Shoulder Strength Shoulder Manual Muscle Testing Right Reason Not Measured Pain Left Flexion 4- Good- Extension 4 Good Abduction (C5) 4- Good- External Rotation 3+ Fair+ Internal Rotation 4 Good PT-OP-Q Treatments Start: 07/09/17 17:07 Freq: Status: Active Protocol: Document 07/09/17 09:03 SAK (Rec: 07/09/17 17:39 SAK [id number]) Manual Therapy Treatment Soft Tissue Mobilization 1 Body Location right upper traps, GH joint region Mobilization Type Strumming Intensity/Depth Moderate Body Position Supine Taping 1 Body Location right shoulder Treatment Focus support and pain management Type of Tape Kinesio Tape Self-Care/Home Management Treatment Education Patient Education Pain Management PT-OP-R Modalities Start: 07/09/17 17:07 Freq: Status: Active Protocol: Document 07/09/17 09:03 SAK (Rec: 07/09/17 17:39 [facility] [id number]) Hot Pack/Cold Pack Treatment Hot Pack Location right shoulder Patient Position Hooklying Patient Tolerance Good PT-OP-S Aquatic Treatment Start: 07/09/17 17:07 Freq: Status: Active Protocol: Document 08/02/17 11:50 CLB (Rec: 08/02/17 14:59 CLB [email or web address]) Aquatics Treatment Pool Entry/Exit Pool Entry/Exit Method Stairs Assistance Standby Assistance Water Walking Other- 1 Comments fwd, back, side, april with gentle UE breaststroke/reverse breaststroke UE's Upper Extremity Exercises 1 Details shoulder hor ab/ad, flex/ext, circles, shld ER/IR, scapular retraction Body Position Standing Water Level Neck Level Reps/Duration 10x ea [place] Activities [place] Activities Bicycle [place] Equipment small noodle between legs Duration 15 minutes Comments gentle UE breaststroke UE's during bicycle Swim Strokes Crawl Laps/Duration 6 min Comments gentle crawl in pain-free ROM PT-OP-T Assessment and Plan Start: 07/09/17 17:07 Freq: Status: Active Protocol: Document 08/02/17 11:50 [facility] (Rec: 08/02/17 14:59 CLJerry [email or web address]) Physical Therapy Assessment Assessment Summary Assessment Pt tolerated todays treatment well, pt did c/o left knee pain during swim strokes but did not experience the feeling in her leg with todays treatment. Physical Therapy Plan Frequency and Duration Frequency of Treatment 2x/Week Duration of Treatment 12 wks Plan of Care Start Date 07/09/17 Plan of Care End Date 09/08/17 Next Visit Focus/Plan Next Visit Plan progression of aquatic exercises per log with emphasis on shoulder ROM, strengthening,postural alignment. Initiate supine manual techniques for muscle relaxation and pain management , ROM Please Sign and Return: I have reviewed this Plan of Care and certify that the skilled therapy services above are required to meet the patient?s needs. Physician Signature Date Printed Name and Credentials Clinical Instructor Signature Printed Name and Credentials
--- NOTE | 2017-08-09 16:13 | PT.OTN ---
Current Diagnoses Unspecified rotator cuff tear or rupture of left shoulder, not specified as traumatic (08/02/17) Impingement syndrome of right shoulder (08/02/17) Physical Therapy Treatment Note PT-OP-A Visit Information Start: 07/09/17 17:07 Freq: Status: Active Protocol: Document 08/02/17 11:50 CLB (Rec: 08/02/17 14:59 CLB [id number]) Out-Patient Physical Therapy Visit Information Visit Information Visit Type Treatment Note Visit Start Time 11:50 Visit Stop Time 12:30 Total Visit Minutes 40 Number of COMPLEX CASE MANAGER Visits 3 PT-OP-B Current Condition Start: 07/09/17 09:03 Freq: Status: Active Protocol: Document 07/09/17 09:03 SAK (Rec: 07/09/17 09:17 SAK [id number]) Current Condition History of Current Condition History of Current Condition Patient evaluated in March for right shoulder pain; had done land-based PT with poor tolerance. Wasn't able to attend aquatic PT due to waiting list as well as going on vacation and had other medical issues which prevented her from coming back. Pain increases with reaching overhead, behind her back, and doing usual ADL's and activities including driving, managing her seatbelt, and computer work. Has not had kinesiotape to right shoulder Prior Treatments and Tests MRI 01/13/17 showed high grade partial thickness articular surface tear anterior supraspinatus, partial thickness tear right infraspinatus musculotendinous junction, mild AC joint degeneration. Treatment Goals Patient/Caregiver Goals Decrease pain to enable reach overhead, behind back, out to side without severe pain. Able to manage seatbelt without severe pain. Prior Functional Status Baseline Function- ADL's Independent Baseline Function- Mobility Independent Current Functional Impairments (Reported) Functional Limitations- ADL's Unable to reach overhead, out to side, behind her back without an increase in pain which is limiting her normal functional activities and tolerance and decreasing her quality of life. PT-OP-C Subjective Start: 07/09/17 09:03 Freq: Status: Active Protocol: Document 08/02/17 11:50 CLB (Rec: 08/02/17 14:59 CLB [email or web address]) OP-PT Subjective Patient Comments Patient Comments Pt tolerated last treatment well and is encouraged she will make progress. PT-OP-E Functional Tests Start: 07/09/17 17:07 Freq: Status: Active Protocol: Document 07/09/17 09:03 SAK (Rec: 07/09/17 17:39 [facility] [id number]) Functional Tests Apley's Scratch Test Action 1: The subject is instructed to touch the opposite shoulder with his/her hand. This motion checks Glenohumeral adduction, internal rotation , horizontal adduction and scapular protraction Action 2: The subject is instructed to place his/her arm overhead and reach behind the neck to touch his/her upper back. This motion checks Glenohumeral abduction, external rotation and scapular upward rotation and elevation. Action 3: The subject puts his/her hand on the lower back and reaches upward as far as possible. This motion checks glenohumeral adduction, internal rotation and scapular retraction with downward rotation Action 1- Left front of shoulder Action 1- Right front of chest Action 2- Left C3 Action 2- Right ear Action 3- Left T10 Action 3- Right lateral hip PT-OP-J Posture/Palpation/Skin Start: 07/09/17 17:07 Freq: Status: Active Protocol: Document 07/09/17 09:03 [facility] (Rec: 07/09/17 17:39 [facility] [id number]) Posture Evaluation Position Sitting Head/C-Spine Posture Forward Head T-Spine Posture Increased Kyphosis PT-OP-K Range of Motion Start: 07/09/17 17:07 Freq: Status: Active Protocol: Document 07/09/17 09:03 [facility] (Rec: 07/09/17 17:39 [facility] [id number]) Cervical Spine Range of Motion Cervical Spine Active ROM Limitations Soft Tissue Tightness Bony Restriction Shoulder Goniometric Range of Motion Shoulder Measured in Degrees Right Shoulder ROM WFL No Testing Position Sitting Flexion 85 Extension 37 Abduction 75 Horizontal Abduction 60 External Rotation at 45 degrees 20 Abduction Internal Rotation 20 Left Shoulder ROM WFL No Testing Position Sitting Flexion 150 Extension 50 Abduction 125 Horizontal Abduction 85 External Rotation at 45 degrees 45 Abduction Internal Rotation 55 Shoulder ROM Limitations Shoulder ROM Limitations Pain PT-OP-L Special Tests Start: 07/09/17 17:07 Freq: Status: Active Protocol: Document 07/09/17 09:03 SAK (Rec: 07/09/17 17:39 [facility] [id number]) Special Tests Shoulder Special Tests Elevation Impingement Test Results positive bilaterally Drop Arm Rotator Cuff Test Results positive right PT-OP-M Strength Start: 07/09/17 17:07 Freq: Status: Active Protocol: Document 07/09/17 09:03 SAK (Rec: 07/09/17 17:39 SAK [id number]) Shoulder Strength Shoulder Manual Muscle Testing Right Reason Not Measured Pain Left Flexion 4- Good- Extension 4 Good Abduction (C5) 4- Good- External Rotation 3+ Fair+ Internal Rotation 4 Good PT-OP-Q Treatments Start: 07/09/17 17:07 Freq: Status: Active Protocol: Document 07/09/17 09:03 SAK (Rec: 07/09/17 17:39 SAK [id number]) Manual Therapy Treatment Soft Tissue Mobilization 1 Body Location right upper traps, GH joint region Mobilization Type Strumming Intensity/Depth Moderate Body Position Supine Taping 1 Body Location right shoulder Treatment Focus support and pain management Type of Tape Kinesio Tape Self-Care/Home Management Treatment Education Patient Education Pain Management PT-OP-R Modalities Start: 07/09/17 17:07 Freq: Status: Active Protocol: Document 07/09/17 09:03 SAK (Rec: 07/09/17 17:39 SAK [id number]) Hot Pack/Cold Pack Treatment Hot Pack Location right shoulder Patient Position Hooklying Patient Tolerance Good PT-OP-S Aquatic Treatment Start: 07/09/17 17:07 Freq: Status: Active Protocol: Document 08/02/17 11:50 CLB (Rec: 08/02/17 14:59 CLB [email or web address]) Aquatics Treatment Pool Entry/Exit Pool Entry/Exit Method Stairs Assistance Standby Assistance Water Walking Other- 1 Comments fwd, back, side, april with gentle UE breastroke/reverse breastroke UE's Upper Extremity Exercises 1 Details shoulder hor ab/ad, flex/ext, circles, shld ER/IR, scapular retraction Body Position Standing Water Level Neck Level Reps/Duration 10x ea [place] Activities [place] Activities Bicycle Cross [place] Equipment small noodle between legs Duration 15 minutes Comments gentle UE breastroke UE's during bicicycle Swim Strokes Crawl Laps/Duration 6 min Comments gentle crawl in pain-free ROM PT-OP-T Assessment and Plan Start: 07/09/17 17:07 Freq: Status: Active Protocol: Document 08/02/17 11:50 CLB (Rec: 08/02/17 14:59 CLB [email or web address]) Physical Therapy Assessment Assessment Summary Assessment Pt tolerated todays treatment well, pt did c/o left knee pain during swim strokes but did not experience the feeling in her leg with todays treatment. Physical Therapy Plan Frequency and Duration Frequency of Treatment 2x/Week Duration of Treatment 12 wks Plan of Care Start Date 07/09/17 Plan of Care End Date 09/08/17 Next Visit Focus/Plan Next Visit Plan progression of aquatic exercises per log with emphasis on shoulder ROM, strengthening,postural alignment. Initiate supine manual techniques for muscle relaxation and pain management , ROM
--- NOTE | 2017-08-09 16:16 | PT.OTN ---
Current Diagnoses Unspecified rotator cuff tear or rupture of left shoulder, not specified as traumatic (08/02/17) Impingement syndrome of right shoulder (08/02/17) Physical Therapy Treatment Note PT-OP-A Visit Information Start: 07/09/17 17:07 Freq: Status: Active Protocol: Document 08/02/17 11:50 CLB (Rec: 08/02/17 14:59 CLB [email or web address]) Out-Patient Physical Therapy Visit Information Visit Information Visit Type Treatment Note Visit Start Time 11:50 Visit Stop Time 12:30 Total Visit Minutes 40 Number of JOURNALIST Visits 3 PT-OP-B Current Condition Start: 07/09/17 09:03 Freq: Status: Active Protocol: Document 07/09/17 09:03 SAK (Rec: 07/09/17 09:17 SAK [id number]) Current Condition History of Current Condition History of Current Condition Patient evaluated in March for right shoulder pain; had done land-based PT with poor tolerance. Wasn't able to attend aquatic PT due to waiting list as well as going on vacation and had other medical issues which prevented her from coming back. Pain increases with reaching overhead, behind her back, and doing usual ADL's and activities including driving, managing her seatbelt, and computer work. Has not had kinesiotape to right shoulder Prior Treatments and Tests MRI 01/13/17 showed high grade partial thickness articular surface tear anterior supraspinatus, partial thickness tear right infraspinatus musculotendinous junction, mild AC joint degeneration. Treatment Goals Patient/Caregiver Goals Decrease pain to enable reach overhead, behind back, out to side without severe pain. Able to manage seatbelt without severe pain. Prior Functional Status Baseline Function- ADL's Independent Baseline Function- Mobility Independent Current Functional Impairments (Reported) Functional Limitations- ADL's Unable to reach overhead, out to side, behind her back without an increase in pain which is limiting her normal functional activities and tolerance and decreasing her quality of life. PT-OP-C Subjective Start: 07/09/17 09:03 Freq: Status: Active Protocol: Document 08/02/17 11:50 CLB (Rec: 08/02/17 14:59 CLB [email or web address]) OP-PT Subjective Patient Comments Patient Comments Pt tolerated last treatment well and is encouraged she will make progress. PT-OP-E Functional Tests Start: 07/09/17 17:07 Freq: Status: Active Protocol: Document 07/09/17 09:03 SAK (Rec: 07/09/17 17:39 [facility] [id number]) Functional Tests Apley's Scratch Test Action 1: The subject is instructed to touch the opposite shoulder with his/her hand. This motion checks Glenohumeral adduction, internal rotation , horizontal adduction and scapular protraction Action 2: The subject is instructed to place his/her arm overhead and reach behind the neck to touch his/her upper back. This motion checks Glenohumeral abduction, external rotation and scapular upward rotation and elevation. Action 3: The subject puts his/her hand on the lower back and reaches upward as far as possible. This motion checks glenohumeral adduction, internal rotation and scapular retraction with downward rotation Action 1- Left front of shoulder Action 1- Right front of chest Action 2- Left C3 Action 2- Right ear Action 3- Left T10 Action 3- Right lateral hip PT-OP-J Posture/Palpation/Skin Start: 07/09/17 17:07 Freq: Status: Active Protocol: Document 07/09/17 09:03 [facility] (Rec: 07/09/17 17:39 [facility] [id number]) Posture Evaluation Position Sitting Head/C-Spine Posture Forward Head T-Spine Posture Increased Kyphosis PT-OP-K Range of Motion Start: 07/09/17 17:07 Freq: Status: Active Protocol: Document 07/09/17 09:03 [facility] (Rec: 07/09/17 17:39 [facility] [id number]) Cervical Spine Range of Motion Cervical Spine Active ROM Limitations Soft Tissue Tightness Bony Restriction Shoulder Goniometric Range of Motion Shoulder Measured in Degrees Right Shoulder ROM WFL No Testing Position Sitting Flexion 85 Extension 37 Abduction 75 Horizontal Abduction 60 External Rotation at 45 degrees 20 Abduction Internal Rotation 20 Left Shoulder ROM WFL No Testing Position Sitting Flexion 150 Extension 50 Abduction 125 Horizontal Abduction 85 External Rotation at 45 degrees 45 Abduction Internal Rotation 55 Shoulder ROM Limitations Shoulder ROM Limitations Pain PT-OP-L Special Tests Start: 07/09/17 17:07 Freq: Status: Active Protocol: Document 07/09/17 09:03 SAK (Rec: 07/09/17 17:39 [facility] [id number]) Special Tests Shoulder Special Tests Elevation Impingement Test Results positive bilaterally Drop Arm Rotator Cuff Test Results positive right PT-OP-M Strength Start: 07/09/17 17:07 Freq: Status: Active Protocol: Document 07/09/17 09:03 SAK (Rec: 07/09/17 17:39 SAK [id number]) Shoulder Strength Shoulder Manual Muscle Testing Right Reason Not Measured Pain Left Flexion 4- Good- Extension 4 Good Abduction (C5) 4- Good- External Rotation 3+ Fair+ Internal Rotation 4 Good PT-OP-Q Treatments Start: 07/09/17 17:07 Freq: Status: Active Protocol: Document 07/09/17 09:03 SAK (Rec: 07/09/17 17:39 SAK [id number]) Manual Therapy Treatment Soft Tissue Mobilization 1 Body Location right upper traps, GH joint region Mobilization Type Strumming Intensity/Depth Moderate Body Position Supine Taping 1 Body Location right shoulder Treatment Focus support and pain management Type of Tape Kinesio Tape Self-Care/Home Management Treatment Education Patient Education Pain Management PT-OP-R Modalities Start: 07/09/17 17:07 Freq: Status: Active Protocol: Document 07/09/17 09:03 SAK (Rec: 07/09/17 17:39 SAK [id number]) Hot Pack/Cold Pack Treatment Hot Pack Location right shoulder Patient Position Hooklying Patient Tolerance Good PT-OP-S Aquatic Treatment Start: 07/09/17 17:07 Freq: Status: Active Protocol: Document 08/02/17 11:50 CLB (Rec: 08/02/17 14:59 CLB [email or web address]) Aquatics Treatment Pool Entry/Exit Pool Entry/Exit Method Stairs Assistance Standby Assistance Water Walking Other- 1 Comments fwd, back, side, april with gentle UE breastroke/reverse breastroke UE's Upper Extremity Exercises 1 Details shoulder hor ab/ad, flex/ext, circles, shld ER/IR, scapular retraction Body Position Standing Water Level Neck Level Reps/Duration 10x ea [place] Activities [place] Activities Bicycle [place] Equipment small noodle between legs Duration 15 minutes Comments gentle UE breastroke UE's during bicicycle Swim Strokes Crawl Laps/Duration 6 min Comments gentle crawl in pain-free ROM PT-OP-T Assessment and Plan Start: 07/09/17 17:07 Freq: Status: Active Protocol: Document 08/02/17 11:50 CLB (Rec: 08/02/17 14:59 CLB [email or web address]) Physical Therapy Assessment Assessment Summary Assessment Pt tolerated todays treatment well, pt did c/o left knee pain during swim strokes but did not experience the feeling in her leg with todays treatment. Physical Therapy Plan Frequency and Duration Frequency of Treatment 2x/Week Duration of Treatment 12 wks Plan of Care Start Date 07/09/17 Plan of Care End Date 09/08/17 Next Visit Focus/Plan Next Visit Plan progression of aquatic exercises per log with emphasis on shoulder ROM, strengthening,postural alignment. Initiate supine manual techniques for muscle relaxation and pain management , ROM
--- NOTE | 2017-08-09 16:23 | PT.OTN ---
Current Diagnoses Unspecified rotator cuff tear or rupture of left shoulder, not specified as traumatic (08/09/17) Impingement syndrome of right shoulder (08/09/17) Physical Therapy Treatment Note PT-OP-A Visit Information Start: 07/09/17 17:07 Freq: Status: Active Protocol: Document 08/09/17 16:07 TMS (Rec: 08/09/17 16:23 TMS [id number]) Out-Patient Physical Therapy Visit Information Visit Information Visit Type Treatment Note Visit Start Time 13:05 Visit Stop Time 13:45 Total Visit Minutes 40 Visit Number 6 Number of CATH LABORATORY TECHNICIAN Visits 4 PT-OP-B Current Condition Start: 07/09/17 09:03 Freq: Status: Active Protocol: Document 07/09/17 09:03 SAK (Rec: 07/09/17 09:17 SAK [id number]) Current Condition History of Current Condition History of Current Condition Patient evaluated in March for right shoulder pain; had done land-based PT with poor tolerance. Wasn't able to attend aquatic PT due to waiting list as well as going on vacation and had other medical issues which prevented her from coming back. Pain increases with reaching overhead, behind her back, and doing usual ADL's and activities including driving, managing her seatbelt, and computer work. Has not had kinesiotape to right shoulder Prior Treatments and Tests MRI 01/13/17 showed high grade partial thickness articular surface tear anterior supraspinatus, partial thickness tear right infraspinatus musculotendinous junction, mild AC joint degeneration. Treatment Goals Patient/Caregiver Goals Decrease pain to enable reach overhead, behind back, out to side without severe pain. Able to manage seatbelt without severe pain. Prior Functional Status Baseline Function- ADL's Independent Baseline Function- Mobility Independent Current Functional Impairments (Reported) Functional Limitations- ADL's Unable to reach overhead, out to side, behind her back without an increase in pain which is limiting her normal functional activities and tolerance and decreasing her quality of life. PT-OP-C Subjective Start: 07/09/17 09:03 Freq: Status: Active Protocol: Document 08/09/17 16:07 TMS (Rec: 08/09/17 16:23 TMS [id number]) OP-PT Subjective Patient Comments Patient Comments Pt. states she drove to [facility] and back last week. States increased shoulder and knee pain since. PT-OP-E Functional Tests Start: 07/09/17 17:07 Freq: Status: Active Protocol: Document 07/09/17 09:03 SAK (Rec: 07/09/17 17:39 [facility] [id number]) Functional Tests Apley's Scratch Test Action 1: The subject is instructed to touch the opposite shoulder with his/her hand. This motion checks Glenohumeral adduction, internal rotation , horizontal adduction and scapular protraction Action 2: The subject is instructed to place his/her arm overhead and reach behind the neck to touch his/her upper back. This motion checks Glenohumeral abduction, external rotation and scapular upward rotation and elevation. Action 3: The subject puts his/her hand on the lower back and reaches upward as far as possible. This motion checks glenohumeral adduction, internal rotation and scapular retraction with downward rotation Action 1- Left front of shoulder Action 1- Right front of chest Action 2- Left C3 Action 2- Right ear Action 3- Left T10 Action 3- Right lateral hip PT-OP-J Posture/Palpation/Skin Start: 07/09/17 17:07 Freq: Status: Active Protocol: Document 07/09/17 09:03 [facility] (Rec: 07/09/17 17:39 [facility] [id number]) Posture Evaluation Position Sitting Head/C-Spine Posture Forward Head T-Spine Posture Increased Kyphosis PT-OP-K Range of Motion Start: 07/09/17 17:07 Freq: Status: Active Protocol: Document 07/09/17 09:03 [facility] (Rec: 07/09/17 17:39 [facility] [id number]) Cervical Spine Range of Motion Cervical Spine Active ROM Limitations Soft Tissue Tightness Bony Restriction Shoulder Goniometric Range of Motion Shoulder Measured in Degrees Right Shoulder ROM WFL No Testing Position Sitting Flexion 85 Extension 37 Abduction 75 Horizontal Abduction 60 External Rotation at 45 degrees 20 Abduction Internal Rotation 20 Left Shoulder ROM WFL No Testing Position Sitting Flexion 150 Extension 50 Abduction 125 Horizontal Abduction 85 External Rotation at 45 degrees 45 Abduction Internal Rotation 55 Shoulder ROM Limitations Shoulder ROM Limitations Pain PT-OP-L Special Tests Start: 07/09/17 17:07 Freq: Status: Active Protocol: Document 07/09/17 09:03 SAK (Rec: 07/09/17 17:39 [facility] [id number]) Special Tests Shoulder Special Tests Elevation Impingement Test Results positive bilaterally Drop Arm Rotator Cuff Test Results positive right PT-OP-M Strength Start: 07/09/17 17:07 Freq: Status: Active Protocol: Document 07/09/17 09:03 SAK (Rec: 07/09/17 17:39 SAK [id number]) Shoulder Strength Shoulder Manual Muscle Testing Right Reason Not Measured Pain Left Flexion 4- Good- Extension 4 Good Abduction (C5) 4- Good- External Rotation 3+ Fair+ Internal Rotation 4 Good PT-OP-Q Treatments Start: 07/09/17 17:07 Freq: Status: Active Protocol: Document 07/09/17 09:03 SAK (Rec: 07/09/17 17:39 SAK [id number]) Manual Therapy Treatment Soft Tissue Mobilization 1 Body Location right upper traps, GH joint region Mobilization Type Strumming Intensity/Depth Moderate Body Position Supine Taping 1 Body Location right shoulder Treatment Focus support and pain management Type of Tape Kinesio Tape Self-Care/Home Management Treatment Education Patient Education Pain Management PT-OP-R Modalities Start: 07/09/17 17:07 Freq: Status: Active Protocol: Document 07/09/17 09:03 SAK (Rec: 07/09/17 17:39 SAK [id number]) Hot Pack/Cold Pack Treatment Hot Pack Location right shoulder Patient Position Hooklying Patient Tolerance Good PT-OP-S Aquatic Treatment Start: 07/09/17 17:07 Freq: Status: Active Protocol: Document 08/09/17 16:07 TMS (Rec: 08/09/17 16:23 TMS [email or web address]) Aquatics Treatment Water Walking Other- 1 Comments fwd, back, side, april with gentle UE breastroke/reverse breastroke UE's [place] Activities [place] Activities Bicycle [place] Equipment small noodle between legs Duration 15 minutes Comments gentle UE breastroke UE's during bicicycle Swim Strokes Crawl Equipment Mask/Snorkel Laps/Duration 6 min Comments gentle crawl in pain-free ROM PT-OP-T Assessment and Plan Start: 07/09/17 17:07 Freq: Status: Active Protocol: Document 08/09/17 16:07 TMS (Rec: 08/09/17 16:23 TMS [email or web address]) Physical Therapy Plan Frequency and Duration Frequency of Treatment 2x/Week Duration of Treatment 12 wks
--- NOTE | 2017-08-16 16:40 | PT.OTN ---
Current Diagnoses Unspecified rotator cuff tear or rupture of left shoulder, not specified as traumatic (08/16/17) Impingement syndrome of right shoulder (08/16/17) Physical Therapy Treatment Note PT-OP-A Visit Information Start: 07/09/17 17:07 Freq: Status: Active Protocol: Document 08/16/17 14:30 TMS (Rec: 08/16/17 16:40 TMS [id number]) Out-Patient Physical Therapy Visit Information Visit Information Visit Type Treatment Note Visit Start Time 13:45 Visit Stop Time 14:30 Total Visit Minutes 45 Visit Number 7 Number of [employer] Visits 0 PT-OP-B Current Condition Start: 07/09/17 09:03 Freq: Status: Active Protocol: Document 07/09/17 09:03 SAK (Rec: 07/09/17 09:17 SAK [id number]) Current Condition History of Current Condition History of Current Condition Patient evaluated in March for right shoulder pain; had done land-based PT with poor tolerance. Wasn't able to attend aquatic PT due to waiting list as well as going on vacation and had other medical issues which prevented her from coming back. Pain increases with reaching overhead, behind her back, and doing usual ADL's and activities including driving, managing her seatbelt, and computer work. Has not had kinesiotape to right shoulder Prior Treatments and Tests MRI 01/13/17 showed high grade partial thickness articular surface tear anterior supraspinatus, partial thickness tear right infraspinatus musculotendinous junction, mild AC joint degeneration. Treatment Goals Patient/Caregiver Goals Decrease pain to enable reach overhead, behind back, out to side without severe pain. Able to manage seatbelt without severe pain. Prior Functional Status Baseline Function- ADL's Independent Baseline Function- Mobility Independent Current Functional Impairments (Reported) Functional Limitations- ADL's Unable to reach overhead, out to side, behind her back without an increase in pain which is limiting her normal functional activities and tolerance and decreasing her quality of life. PT-OP-C Subjective Start: 07/09/17 09:03 Freq: Status: Active Protocol: Document 08/16/17 14:30 TMS (Rec: 08/16/17 16:40 TMS [id number]) OP-PT Subjective Patient Comments Patient Comments Pt. states she's going to call Orthopedic surgeon this afternoon about her left knee. PT-OP-E Functional Tests Start: 07/09/17 17:07 Freq: Status: Active Protocol: Document 07/09/17 09:03 SAK (Rec: 07/09/17 17:39 [facility] [id number]) Functional Tests Apley's Scratch Test Action 1: The subject is instructed to touch the opposite shoulder with his/her hand. This motion checks Glenohumeral adduction, internal rotation , horizontal adduction and scapular protraction Action 2: The subject is instructed to place his/her arm overhead and reach behind the neck to touch his/her upper back. This motion checks Glenohumeral abduction, external rotation and scapular upward rotation and elevation. Action 3: The subject puts his/her hand on the lower back and reaches upward as far as possible. This motion checks glenohumeral adduction, internal rotation and scapular retraction with downward rotation Action 1- Left front of shoulder Action 1- Right front of chest Action 2- Left C3 Action 2- Right ear Action 3- Left T10 Action 3- Right lateral hip PT-OP-J Posture/Palpation/Skin Start: 07/09/17 17:07 Freq: Status: Active Protocol: Document 07/09/17 09:03 [facility] (Rec: 07/09/17 17:39 [facility] [id number]) Posture Evaluation Position Sitting Head/C-Spine Posture Forward Head T-Spine Posture Increased Kyphosis PT-OP-K Range of Motion Start: 07/09/17 17:07 Freq: Status: Active Protocol: Document 07/09/17 09:03 [facility] (Rec: 07/09/17 17:39 [facility] [id number]) Cervical Spine Range of Motion Cervical Spine Active ROM Limitations Soft Tissue Tightness Bony Restriction Shoulder Goniometric Range of Motion Shoulder Measured in Degrees Right Shoulder ROM WFL No Testing Position Sitting Flexion 85 Extension 37 Abduction 75 Horizontal Abduction 60 External Rotation at 45 degrees 20 Abduction Internal Rotation 20 Left Shoulder ROM WFL No Testing Position Sitting Flexion 150 Extension 50 Abduction 125 Horizontal Abduction 85 External Rotation at 45 degrees 45 Abduction Internal Rotation 55 Shoulder ROM Limitations Shoulder ROM Limitations Pain PT-OP-L Special Tests Start: 07/09/17 17:07 Freq: Status: Active Protocol: Document 07/09/17 09:03 SAK (Rec: 07/09/17 17:39 [facility] [id number]) Special Tests Shoulder Special Tests Elevation Impingement Test Results positive bilaterally Drop Arm Rotator Cuff Test Results positive right PT-OP-M Strength Start: 07/09/17 17:07 Freq: Status: Active Protocol: Document 07/09/17 09:03 SAK (Rec: 07/09/17 17:39 SAK [id number]) Shoulder Strength Shoulder Manual Muscle Testing Right Reason Not Measured Pain Left Flexion 4- Good- Extension 4 Good Abduction (C5) 4- Good- External Rotation 3+ Fair+ Internal Rotation 4 Good PT-OP-Q Treatments Start: 07/09/17 17:07 Freq: Status: Active Protocol: Document 07/09/17 09:03 SAK (Rec: 07/09/17 17:39 SAK [id number]) Manual Therapy Treatment Soft Tissue Mobilization 1 Body Location right upper traps, GH joint region Mobilization Type Strumming Intensity/Depth Moderate Body Position Supine Taping 1 Body Location right shoulder Treatment Focus support and pain management Type of Tape Kinesio Tape Self-Care/Home Management Treatment Education Patient Education Pain Management PT-OP-R Modalities Start: 07/09/17 17:07 Freq: Status: Active Protocol: Document 07/09/17 09:03 SAK (Rec: 07/09/17 17:39 SAK [id number]) Hot Pack/Cold Pack Treatment Hot Pack Location right shoulder Patient Position Hooklying Patient Tolerance Good PT-OP-S Aquatic Treatment Start: 07/09/17 17:07 Freq: Status: Active Protocol: Document 08/16/17 14:30 TMS (Rec: 08/16/17 16:40 TMS [id number]) Aquatics Treatment Pool Entry/Exit Pool Entry/Exit Method Stairs Assistance Standby Assistance Water Walking Other- 1 Water Level Waist Level Comments With U.E. gentle breast stroke motion Lower Extremity Exercises 1 Details Step up on box Body Position Standing Water Level Waist Level Comments 4 inch step, U.E. support. Upper Extremity Exercises 1 Details shoulder hor ab/ad, flex/ext, circles, shld ER/IR, scapular ction Body Position Standing Water Level Neck Level Reps/Duration 12x each [place] Activities [place] Activities Bicycle [place] Equipment white noodle between legs Duration 15 minutes Comments gentle UE breastroke UE's during bicicycle Swim Strokes Crawl Equipment Mask/Snorkel Laps/Duration 6 min Comments gentle crawl in pain-free ROM PT-OP-T Assessment and Plan Start: 07/09/17 17:07 Freq: Status: Active Protocol: Document 08/16/17 14:30 TMS (Rec: 08/16/17 16:40 TMS [id number]) Physical Therapy Plan Frequency and Duration Frequency of Treatment 2x/Week Duration of Treatment 12 wks Plan of Care Start Date 07/09/17 Plan of Care End Date 09/08/17 Next Visit Focus/Plan Next Visit Plan progression of aquatic exercises per log with emphasis on shoulder ROM, strengthening,postural alignment. Initiate supine manual techniques for muscle relaxation and pain management , ROM
--- NOTE | 2017-08-20 15:52 | PT.OTN ---
Current Diagnoses Unspecified rotator cuff tear or rupture of left shoulder, not specified as traumatic (08/20/17) Impingement syndrome of right shoulder (08/20/17) Physical Therapy Treatment Note PT-OP-A Visit Information Start: 07/09/17 17:07 Freq: Status: Active Protocol: Document 08/20/17 15:32 [facility] (Rec: 08/20/17 15:48 [facility] [id number]) Out-Patient Physical Therapy Visit Information Visit Information Visit Type Treatment Note Visit Start Time 11:45 Visit Stop Time 12:30 Total Visit Minutes 45 Visit Number [address] PT-OP-B Current Condition Start: 07/09/17 09:03 Freq: Status: Active Protocol: Document 07/09/17 09:03 SAK (Rec: 07/09/17 09:17 [facility] [id number]) Current Condition History of Current Condition History of Current Condition Patient evaluated in March for right shoulder pain; had done land-based PT with poor tolerance. Wasn't able to attend aquatic PT due to waiting list as well as going on vacation and had other medical issues which prevented her from coming back. Pain increases with reaching overhead, behind her back, and doing usual ADL's and activities including driving, managing her seatbelt, and computer work. Has not had kinesiotape to right shoulder Prior Treatments and Tests MRI 01/13/17 showed high grade partial thickness articular surface tear anterior supraspinatus, partial thickness tear right infraspinatus musculotendinous junction, mild AC joint degeneration. Treatment Goals Patient/Caregiver Goals Decrease pain to enable reach overhead, behind back, out to side without severe pain. Able to manage seatbelt without severe pain. Prior Functional Status Baseline Function- ADL's Independent Baseline Function- Mobility Independent Current Functional Impairments (Reported) Functional Limitations- ADL's Unable to reach overhead, out to side, behind her back without an increase in pain which is limiting her normal functional activities and tolerance and decreasing her quality of life. PT-OP-C Subjective Start: 07/09/17 09:03 Freq: Status: Active Protocol: Document 08/20/17 15:32 SAK (Rec: 08/20/17 15:48 [facility] [id number]) OP-PT Subjective Patient Comments Patient Comments Reports aquatic PT mostly tolerated well but minimal change in symptoms. PT-OP-E Functional Tests Start: 07/09/17 17:07 Freq: Status: Active Protocol: Document 07/09/17 09:03 SAK (Rec: 07/09/17 17:39 [facility] [id number]) Functional Tests Apley's Scratch Test Action 1: The subject is instructed to touch the opposite shoulder with his/her hand. This motion checks Glenohumeral adduction, internal rotation , horizontal adduction and scapular protraction Action 2: The subject is instructed to place his/her arm overhead and reach behind the neck to touch his/her upper back. This motion checks Glenohumeral abduction, external rotation and scapular upward rotation and elevation. Action 3: The subject puts his/her hand on the lower back and reaches upward as far as possible. This motion checks glenohumeral adduction, internal rotation and scapular retraction with downward rotation Action 1- Left front of shoulder Action 1- Right front of chest Action 2- Left C3 Action 2- Right ear Action 3- Left T10 Action 3- Right lateral hip PT-OP-J Posture/Palpation/Skin Start: 07/09/17 17:07 Freq: Status: Active Protocol: Document 07/09/17 09:03 [facility] (Rec: 07/09/17 17:39 [facility] [id number]) Posture Evaluation Position Sitting Head/C-Spine Posture Forward Head T-Spine Posture Increased Kyphosis PT-OP-K Range of Motion Start: 07/09/17 17:07 Freq: Status: Active Protocol: Document 07/09/17 09:03 [facility] (Rec: 07/09/17 17:39 [facility] [id number]) Cervical Spine Range of Motion Cervical Spine Active ROM Limitations Soft Tissue Tightness Bony Restriction Shoulder Goniometric Range of Motion Shoulder Measured in Degrees Right Shoulder ROM WFL No Testing Position Sitting Flexion 85 Extension 37 Abduction 75 Horizontal Abduction 60 External Rotation at 45 degrees 20 Abduction Internal Rotation 20 Left Shoulder ROM WFL No Testing Position Sitting Flexion 150 Extension 50 Abduction 125 Horizontal Abduction 85 External Rotation at 45 degrees 45 Abduction Internal Rotation 55 Shoulder ROM Limitations Shoulder ROM Limitations Pain PT-OP-L Special Tests Start: 07/09/17 17:07 Freq: Status: Active Protocol: Document 07/09/17 09:03 SAK (Rec: 07/09/17 17:39 [facility] [id number]) Special Tests Shoulder Special Tests Elevation Impingement Test Results positive bilaterally Drop Arm Rotator Cuff Test Results positive right PT-OP-M Strength Start: 07/09/17 17:07 Freq: Status: Active Protocol: Document 07/09/17 09:03 [facility] (Rec: 07/09/17 17:39 [facility] [id number]) Shoulder Strength Shoulder Manual Muscle Testing Right Reason Not Measured Pain Left Flexion 4- Good- Extension 4 Good Abduction (C5) 4- Good- External Rotation 3+ Fair+ Internal Rotation 4 Good PT-OP-Q Treatments Start: 07/09/17 17:07 Freq: Status: Active Protocol: Document 07/09/17 09:03 [facility] (Rec: 07/09/17 17:39 [facility] [id number]) Manual Therapy Treatment Soft Tissue Mobilization 1 Body Location right upper traps, GH joint region Mobilization Type Strumming Intensity/Depth Moderate Body Position Supine Taping 1 Body Location right shoulder Treatment Focus support and pain management Type of Tape Kinesio Tape Self-Care/Home Management Treatment Education Patient Education Pain Management PT-OP-R Modalities Start: 07/09/17 17:07 Freq: Status: Active Protocol: Document 07/09/17 09:03 [facility] (Rec: 07/09/17 17:39 [facility] [id number]) Hot Pack/Cold Pack Treatment Hot Pack Location right shoulder Patient Position Hooklying Patient Tolerance Good PT-OP-S Aquatic Treatment Start: 07/09/17 17:07 Freq: Status: Active Protocol: Document 08/20/17 15:32 [facility] (Rec: 08/20/17 15:48 [facility] [id number]) Aquatics Treatment Pool Entry/Exit Pool Entry/Exit Method Stairs Water Walking Other- 1 Water Level Waist Level Comments With U.E. gentle breast stroke motion Upper Extremity Exercises 3 Details standing gentle humeral rotation (pull posterior shoulder crease to armpit Reps/Duration 10 Comments manual cues 2 Details scapular clock with manual facilitation Body Position Standing Water Level Chest Level Reps/Duration 10 1 Details shoulder hor ab/ad, flex/ext, circles, shld ER/IR, scapular ction Body Position Standing Water Level Neck Level Reps/Duration 12x each Spinal Exercises 1 Details standing UT stretch with deep breathing Reps/Duration 2 Manual Techniques Bad Ragaz supine Bad Ragaz for thoracic, scapulothoracic and GH mobility Aquatic Joint Mobilizations Gentle thoracic PA's for increasing thoracic mobility Aquatic Massage supine aquatic massage to upper traps, rhomboids, Other 1 Details kinesiotape Body Position Sitting Comments right RC, left knee PT-OP-T Assessment and Plan Start: 07/09/17 17:07 Freq: Status: Active Protocol: Document 08/20/17 15:32 [facility] (Rec: 08/20/17 15:48 [facility] [id number]) Physical Therapy Assessment Assessment Summary Assessment Patient needed much verbal and manual cues for new exercises , to prevent overuse of upper traps with all activities, and to incorparate deep breathing into activities. Difficulty relaxing with supine manual treatment Physical Therapy Plan Frequency and Duration Frequency of Treatment 2x/Week Duration of Treatment 12 wks Plan of Care Start Date 07/09/17 Plan of Care End Date 09/08/17 Next Visit Focus/Plan Next Visit Plan Assess response to treatment modification last session including kinesiotape and progress as indicated.
--- NOTE | 2017-09-01 16:55 | PT.OTN ---
Current Diagnoses Unspecified rotator cuff tear or rupture of left shoulder, not specified as traumatic (08/20/17) Impingement syndrome of right shoulder (08/20/17) Physical Therapy Treatment Note PT-OP-A Visit Information Start: 07/09/17 17:07 Freq: Status: Active Protocol: Document 09/01/17 12:15 [facility] (Rec: 09/01/17 16:55 [facility] [id number]) Out-Patient Physical Therapy Visit Information Visit Information Visit Type Treatment Note Visit Start Time 12:15 Visit Stop Time 13:00 Total Visit Minutes 45 Visit Number 9 Number of HEEL PAINTER Visits 0 PT-OP-B Current Condition Start: 07/09/17 09:03 Freq: Status: Active Protocol: Document 07/09/17 09:03 [facility] (Rec: 07/09/17 09:17 [facility] [id number]) Current Condition History of Current Condition History of Current Condition Patient evaluated in March for right shoulder pain; had done land-based PT with poor tolerance. Wasn't able to attend aquatic PT due to waiting list as well as going on vacation and had other medical issues which prevented her from coming back. Pain increases with reaching overhead, behind her back, and doing usual ADL's and activities including driving, managing her seatbelt, and computer work. Has not had kinesiotape to right shoulder Prior Treatments and Tests MRI 01/13/17 showed high grade partial thickness articular surface tear anterior supraspinatus, partial thickness tear right infraspinatus musculotendinous junction, mild AC joint degeneration. Treatment Goals Patient/Caregiver Goals Decrease pain to enable reach overhead, behind back, out to side without severe pain. Able to manage seatbelt without severe pain. Prior Functional Status Baseline Function- ADL's Independent Baseline Function- Mobility Independent Current Functional Impairments (Reported) Functional Limitations- ADL's Unable to reach overhead, out to side, behind her back without an increase in pain which is limiting her normal functional activities and tolerance and decreasing her quality of life. PT-OP-C Subjective Start: 07/09/17 09:03 Freq: Status: Active Protocol: Document 09/01/17 12:15 [facility] (Rec: 09/01/17 16:55 [facility] [id number]) OP-PT Subjective Patient Comments Patient Comments Had injections 08/27/17 bilateral shoulders, thinks pain may be a little better. Hoping to be able to get into aquatic therapy more frequently PT-OP-E Functional Tests Start: 07/09/17 17:07 Freq: Status: Active Protocol: Document 07/09/17 09:03 [facility] (Rec: 07/09/17 17:39 [facility] [id number]) Functional Tests Apley's Scratch Test Action 1: The subject is instructed to touch the opposite shoulder with his/her hand. This motion checks Glenohumeral adduction, internal rotation , horizontal adduction and scapular protraction Action 2: The subject is instructed to place his/her arm overhead and reach behind the neck to touch his/her upper back. This motion checks Glenohumeral abduction, external rotation and scapular upward rotation and elevation. Action 3: The subject puts his/her hand on the lower back and reaches upward as far as possible. This motion checks glenohumeral adduction, internal rotation and scapular retraction with downward rotation Action 1- Left front of shoulder Action 1- Right front of chest Action 2- Left C3 Action 2- Right ear Action 3- Left T10 Action 3- Right lateral hip PT-OP-J Posture/Palpation/Skin Start: 07/09/17 17:07 Freq: Status: Active Protocol: Document 07/09/17 09:03 [facility] (Rec: 07/09/17 17:39 [facility] [id number]) Posture Evaluation Position Sitting Head/C-Spine Posture Forward Head T-Spine Posture Increased Kyphosis PT-OP-K Range of Motion Start: 07/09/17 17:07 Freq: Status: Active Protocol: Document 07/09/17 09:03 [facility] (Rec: 07/09/17 17:39 [facility] [id number]) Cervical Spine Range of Motion Cervical Spine Active ROM Limitations Soft Tissue Tightness Bony Restriction Shoulder Goniometric Range of Motion Shoulder Measured in Degrees Right Shoulder ROM WFL No Testing Position Sitting Flexion 85 Extension 37 Abduction 75 Horizontal Abduction 60 External Rotation at 45 degrees 20 Abduction Internal Rotation 20 Left Shoulder ROM WFL No Testing Position Sitting Flexion 150 Extension 50 Abduction 125 Horizontal Abduction 85 External Rotation at 45 degrees 45 Abduction Internal Rotation 55 Shoulder ROM Limitations Shoulder ROM Limitations Pain PT-OP-L Special Tests Start: 07/09/17 17:07 Freq: Status: Active Protocol: Document 07/09/17 09:03 [facility] (Rec: 07/09/17 17:39 [facility] [id number]) Special Tests Shoulder Special Tests Elevation Impingement Test Results positive bilaterally Drop Arm Rotator Cuff Test Results positive right PT-OP-M Strength Start: 07/09/17 17:07 Freq: Status: Active Protocol: Document 07/09/17 09:03 [facility] (Rec: 07/09/17 17:39 [facility] [id number]) Shoulder Strength Shoulder Manual Muscle Testing Right Reason Not Measured Pain Left Flexion 4- Good- Extension 4 Good Abduction (C5) 4- Good- External Rotation 3+ Fair+ Internal Rotation 4 Good PT-OP-Q Treatments Start: 07/09/17 17:07 Freq: Status: Active Protocol: Document 07/09/17 09:03 [facility] (Rec: 07/09/17 17:39 [facility] [id number]) Manual Therapy Treatment Soft Tissue Mobilization 1 Body Location right upper traps, GH joint region Mobilization Type Strumming Intensity/Depth Moderate Body Position Supine Taping 1 Body Location right shoulder Treatment Focus support and pain management Type of Tape Kinesio Tape Self-Care/Home Management Treatment Education Patient Education Pain Management PT-OP-R Modalities Start: 07/09/17 17:07 Freq: Status: Active Protocol: Document 07/09/17 09:03 [facility] (Rec: 07/09/17 17:39 [facility] [id number]) Hot Pack/Cold Pack Treatment Hot Pack Location right shoulder Patient Position Hooklying Patient Tolerance Good PT-OP-S Aquatic Treatment Start: 07/09/17 17:07 Freq: Status: Active Protocol: Document 08/20/17 15:32 [facility] (Rec: 08/20/17 15:48 [facility] [id number]) Aquatics Treatment Pool Entry/Exit Pool Entry/Exit Method Stairs Water Walking Other- 1 Water Level Waist Level Comments With U.E. gentle breast stroke motion Upper Extremity Exercises 3 Details standing gentle humeral rotation (pull posterior shoulder crease to armpit Reps/Duration 10 Comments manual cues 2 Details scapular clock with manual facilitation Body Position Standing Water Level Chest Level Reps/Duration 10 1 Details shoulder hor ab/ad, flex/ext, circles, shld ER/IR, scapular ction Body Position Standing Water Level Neck Level Reps/Duration 12x each Spinal Exercises 1 Details standing UT stretch with deep breathing Reps/Duration 2 Manual Techniques Bad Ragaz supine Bad Ragaz for thoracic, scapulothoracic and GH mobility Aquatic Joint Mobilizations Gentle thoracic PA's for increasing thoracic mobility Aquatic Massage supine aquatic massage to upper traps, rhomboids, Other 1 Details kinesiotape Body Position Sitting Comments right RC, left knee PT-OP-T Assessment and Plan Start: 07/09/17 17:07 Freq: Status: Active Protocol: Document 09/01/17 12:15 [facility] (Rec: 09/01/17 16:55 [facility] [id number]) Physical Therapy Assessment Goals Four Impairment Activity tolerance Short Term Goal (STG) Patient to tolerate 45 aquatic exercise session without an increase in pain (goal progress) STG Duration 6 wks Insurance Claims Analyst Goal (LTG) Patient to be safe and independent with aquatic exercise program for senior living 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 Three Impairment strength Short Term Goal (STG) Improve right UE strength by 1 /2 grade (goal progress) STG Duration 6 wks Insurance Claims Analyst Goal (LTG) Improve right UE strength to at least 4+/5 all motions to improve her ability to perform usual activities LTG Duration 12 wks Two Impairment Functional activities Short Term Goal (STG) Improve Quickdash UE score to 30 (goal progress) STG Duration 6 wks Insurance Claims Analyst Goal (LTG) Improve Quickdash UE score to 20 LTG Duration 12 wks One Impairment functional activites Short Term Goal (STG) Patient to report 50% improvement in ability to reach overhead and behind her back for purposes of ADL's and usual activities (goal progress) STG Duration 6 wks Insurance Claims Analyst Goal (LTG) Patient able to resume all usual activities using right UE without an increase in pain including reaching overhead, behind her back, drive, do computer work LTG Duration 12 wks Progress Towards Goals Progress Comments Patient would benefit from continued aquatic PT, hopefully on a more regular basis. She hopes to prevent the need for shoulder surgery. Is highly motivated. Assessment Summary Assessment Improved ability to activate lower traps and inhibit upper traps; better body awareness. Physical Therapy Plan Frequency and Duration Frequency of Treatment 2x/Week Duration of Treatment 12 wks Plan of Care Start Date 09/01/17 Plan of Care End Date 12/02/17 Therapeutic Interventions Therapeutic Interventions Aquatic Therapy Manual Therapy Self-Care/Home Management Taping Next Visit Focus/Plan Next Note Type Treatment Note Next Visit Plan Progression of aquatic therapy activities as tolerated for pain management, strengthening , postural correction.
--- NOTE | 2017-09-01 16:55 | PT.OPPOC ---
Current Diagnoses Unspecified rotator cuff tear or rupture of left shoulder, not specified as traumatic (08/20/17) Impingement syndrome of right shoulder (08/20/17) Provider Visit Care Team Role Provider Type Johnathon Rojas MD Family Provider Physician Primary Care Provider Specialty: Internal Medicine Address: [address] [place] [address], [id number] Email: Mario Blair MD Attending Provider Physician Specialty: Orthopedic Surgery Address: [address] [place] [address], [id number] Email: [email or web address] Plan Of Care PT-OP-T Assessment and Plan Start: 07/09/17 17:07 Freq: Status: Active Protocol: Document 09/01/17 12:15 [facility] (Rec: 09/01/17 16:55 [facility] [id number]) Physical Therapy Assessment Goals Four Impairment Activity tolerance Short Term Goal (STG) Patient to tolerate 45 aquatic exercise session without an increase in pain (goal progress) STG Duration 6 wks Principal Security Architect Goal (LTG) Patient to be safe and independent with aquatic exercise program for retirement 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 Three Impairment strength Short Term Goal (STG) Improve right UE strength by 1 /2 grade (goal progress) STG Duration 6 wks Half-Way Goal (LTG) Improve right UE strength to at least 4+/5 all motions to improve her ability to perform usual activities LTG Duration 12 wks Two Impairment Functional activities Short Term Goal (STG) Improve Quickdash UE score to 30 (goal progress) STG Duration 6 wks Principal Security Architect Goal (LTG) Improve Quickdash UE score to 20 LTG Duration 12 wks One Impairment functional activites Short Term Goal (STG) Patient to report 50% improvement in ability to reach overhead and behind her back for purposes of ADL's and usual activities (goal progress) STG Duration 6 wks Principal Security Architect Goal (LTG) Patient able to resume all usual activities using right UE without an increase in pain including reaching overhead, behind her back, drive, do computer work LTG Duration 12 wks Progress Towards Goals Progress Comments Patient would benefit from continued aquatic PT, hopefully on a more regular basis. She hopes to prevent the need for shoulder surgery. Is highly motivated. Assessment Summary Assessment Improved ability to activate lower traps and inhibit upper traps; better body awareness. Physical Therapy Plan Frequency and Duration Frequency of Treatment 2x/Week Duration of Treatment 12 wks Plan of Care Start Date 09/01/17 Plan of Care End Date 12/02/17 Therapeutic Interventions Therapeutic Interventions Aquatic Therapy Manual Therapy Self-Care/Home Management Taping Next Visit Focus/Plan Next Note Type Treatment Note Next Visit Plan Progression of aquatic therapy activities as tolerated for pain management, strengthening , postural correction. Plan of Care Dates Plan of Care Start Date 09/01/17 Plan of Care End Date 12/02/17 Please Sign and Return: I have reviewed this Plan of Care and certify that the skilled therapy services above are required to meet the patient?s needs. Physician Signature Date Printed Name and Credentials Clinical Instructor Signature Printed Name and Credentials
--- NOTE | 2017-09-06 16:44 | PT.OTN ---
Current Diagnoses Unspecified rotator cuff tear or rupture of left shoulder, not specified as traumatic (09/06/17) Impingement syndrome of right shoulder (09/06/17) Physical Therapy Treatment Note PT-OP-A Visit Information Start: 07/09/17 17:07 Freq: Status: Active Protocol: Document 09/06/17 11:00 [facility] (Rec: 09/06/17 16:43 [facility] [id number]) Out-Patient Physical Therapy Visit Information Visit Information Visit Type Treatment Note Visit Start Time 11:00 Visit Stop Time 11:45 Total Visit Minutes 45 Visit Number 10 Number of FIELD GEOLOGIST Visits 0 PT-OP-B Current Condition Start: 07/09/17 09:03 Freq: Status: Active Protocol: Document 07/09/17 09:03 [facility] (Rec: 07/09/17 09:17 [facility] [id number]) Current Condition History of Current Condition History of Current Condition Patient evaluated in March for right shoulder pain; had done land-based PT with poor tolerance. Wasn't able to attend aquatic PT due to waiting list as well as going on vacation and had other medical issues which prevented her from coming back. Pain increases with reaching overhead, behind her back, and doing usual ADL's and activities including driving, managing her seatbelt, and computer work. Has not had kinesiotape to right shoulder Prior Treatments and Tests MRI 01/13/17 showed high grade partial thickness articular surface tear anterior supraspinatus, partial thickness tear right infraspinatus musculotendinous junction, mild AC joint degeneration. Treatment Goals Patient/Caregiver Goals Decrease pain to enable reach overhead, behind back, out to side without severe pain. Able to manage seatbelt without severe pain. Prior Functional Status Baseline Function- ADL's Independent Baseline Function- Mobility Independent Current Functional Impairments (Reported) Functional Limitations- ADL's Unable to reach overhead, out to side, behind her back without an increase in pain which is limiting her normal functional activities and tolerance and decreasing her quality of life. PT-OP-C Subjective Start: 07/09/17 09:03 Freq: Status: Active Protocol: Document 09/06/17 11:00 [facility] (Rec: 09/06/17 16:43 [facility] [id number]) OP-PT Subjective Patient Comments Patient Comments Overall feeling better, feels aquatc therapy helpful and shots are working Patient Reported Progress Improving PT-OP-E Functional Tests Start: 07/09/17 17:07 Freq: Status: Active Protocol: Document 07/09/17 09:03 [facility] (Rec: 07/09/17 17:39 [facility] [id number]) Functional Tests Apley's Scratch Test Action 1: The subject is instructed to touch the opposite shoulder with his/her hand. This motion checks Glenohumeral adduction, internal rotation , horizontal adduction and scapular protraction Action 2: The subject is instructed to place his/her arm overhead and reach behind the neck to touch his/her upper back. This motion checks Glenohumeral abduction, external rotation and scapular upward rotation and elevation. Action 3: The subject puts his/her hand on the lower back and reaches upward as far as possible. This motion checks glenohumeral adduction, internal rotation and scapular retraction with downward rotation Action 1- Left front of shoulder Action 1- Right front of chest Action 2- Left C3 Action 2- Right ear Action 3- Left T10 Action 3- Right lateral hip PT-OP-J Posture/Palpation/Skin Start: 07/09/17 17:07 Freq: Status: Active Protocol: Document 07/09/17 09:03 [facility] (Rec: 07/09/17 17:39 [facility] [id number]) Posture Evaluation Position Sitting Head/C-Spine Posture Forward Head T-Spine Posture Increased Kyphosis PT-OP-K Range of Motion Start: 07/09/17 17:07 Freq: Status: Active Protocol: Document 07/09/17 09:03 [facility] (Rec: 07/09/17 17:39 [facility] [id number]) Cervical Spine Range of Motion Cervical Spine Active ROM Limitations Soft Tissue Tightness Bony Restriction Shoulder Goniometric Range of Motion Shoulder Measured in Degrees Right Shoulder ROM WFL No Testing Position Sitting Flexion 85 Extension 37 Abduction 75 Horizontal Abduction 60 External Rotation at 45 degrees 20 Abduction Internal Rotation 20 Left Shoulder ROM WFL No Testing Position Sitting Flexion 150 Extension 50 Abduction 125 Horizontal Abduction 85 External Rotation at 45 degrees 45 Abduction Internal Rotation 55 Shoulder ROM Limitations Shoulder ROM Limitations Pain PT-OP-L Special Tests Start: 07/09/17 17:07 Freq: Status: Active Protocol: Document 07/09/17 09:03 [facility] (Rec: 07/09/17 17:39 [facility] [id number]) Special Tests Shoulder Special Tests Elevation Impingement Test Results positive bilaterally Drop Arm Rotator Cuff Test Results positive right PT-OP-M Strength Start: 07/09/17 17:07 Freq: Status: Active Protocol: Document 07/09/17 09:03 [facility] (Rec: 07/09/17 17:39 [facility] [id number]) Shoulder Strength Shoulder Manual Muscle Testing Right Reason Not Measured Pain Left Flexion 4- Good- Extension 4 Good Abduction (C5) 4- Good- External Rotation 3+ Fair+ Internal Rotation 4 Good PT-OP-Q Treatments Start: 07/09/17 17:07 Freq: Status: Active Protocol: Document 07/09/17 09:03 [facility] (Rec: 07/09/17 17:39 [facility] [id number]) Manual Therapy Treatment Soft Tissue Mobilization 1 Body Location right upper traps, GH joint region Mobilization Type Strumming Intensity/Depth Moderate Body Position Supine Taping 1 Body Location right shoulder Treatment Focus support and pain management Type of Tape Kinesio Tape Self-Care/Home Management Treatment Education Patient Education Pain Management PT-OP-R Modalities Start: 07/09/17 17:07 Freq: Status: Active Protocol: Document 07/09/17 09:03 [facility] (Rec: 07/09/17 17:39 [facility] [id number]) Hot Pack/Cold Pack Treatment Hot Pack Location right shoulder Patient Position Hooklying Patient Tolerance Good PT-OP-S Aquatic Treatment Start: 07/09/17 17:07 Freq: Status: Active Protocol: Document 09/06/17 11:00 [facility] (Rec: 09/06/17 16:43 [facility] [id number]) Aquatics Treatment Upper Extremity Exercises 4 Details serratus punches with hands on pool wall Reps/Duration 10 3 Details standing gentle humeral rotation (pull posterior shoulder crease to armpit Reps/Duration 10 Comments manual cues 2 Details scapular clock with manual facilitation Body Position Standing Water Level Chest Level Reps/Duration 10 1 Details shoulder hor ab/ad, flex/ext, circles, shld ER/IR, scapular ction Body Position Standing Water Level Neck Level Reps/Duration 12x each Spinal Exercises 1 Details standing UT stretch with deep breathing Reps/Duration 2 Swim Strokes Crawl Equipment Mask/Snorkel Laps/Duration 6 min Comments gentle crawl in pain-free ROM Manual Techniques Bad Ragaz supine Bad Ragaz for thoracic, scapulothoracic and GH mobility Aquatic Joint Mobilizations Gentle thoracic PA's for increasing thoracic mobility Aquatic Massage supine aquatic massage to upper traps, rhomboids, PT-OP-T Assessment and Plan Start: 07/09/17 17:07 Freq: Status: Active Protocol: Document 09/06/17 11:00 [facility] (Rec: 09/06/17 16:43 [facility] [id number]) Physical Therapy Assessment Goals Four Impairment Activity tolerance Short Term Goal (STG) Patient to tolerate 45 aquatic exercise session without an increase in pain (goal progress) STG Duration 6 wks Loss Prevention Auditor Goal (LTG) Patient to be safe and independent with aquatic 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 Three Impairment strength Short Term Goal (STG) Improve right UE strength by 1 /2 grade (goal progress) STG Duration 6 wks Half-Way Goal (LTG) Improve right UE strength to at least 4+/5 all motions to improve her ability to perform usual activities LTG Duration 12 wks Two Impairment Functional activities Short Term Goal (STG) Improve Quickdash UE score to 30 (goal progress) STG Duration 6 wks Loss Prevention Auditor Goal (LTG) Improve Quickdash UE score to 20 LTG Duration 12 wks One Impairment functional activites Short Term Goal (STG) Patient to report 50% improvement in ability to reach overhead and behind her back for purposes of ADL's and usual activities (goal progress) STG Duration 6 wks Loss Prevention Auditor Goal (LTG) Patient able to resume all usual activities using right UE without an increase in pain including reaching overhead, behind her back, drive, do computer work LTG Duration 12 wks Assessment Summary Assessment Needs moderate cues for best performance of exercises and activation of appropriate scapular stabilizers. Physical Therapy Plan Next Visit Focus/Plan Next Note Type Treatment Note Next Visit Plan Progression of aquatic therapy activities as tolerated for pain management, strengthening , postural correction.
--- NOTE | 2017-10-13 16:34 | PT.OTN ---
Current Diagnoses Unspecified rotator cuff tear or rupture of left shoulder, not specified as traumatic (10/13/17) Impingement syndrome of right shoulder (10/13/17) Physical Therapy Treatment Note PT-OP-A Visit Information Start: 07/09/17 17:07 Freq: Status: Active Protocol: Document 10/13/17 13:00 [facility] (Rec: 10/13/17 16:34 [facility] [id number]) Out-Patient Physical Therapy Visit Information Visit Information Visit Type Treatment Note Visit Start Time 13:00 Visit Stop Time 13:45 Total Visit Minutes 45 Visit Number 11 Number of QUALITY IMPROVEMENT COORDINATOR Visits 0 Evaluation Information Evaluation Date 07/09/17 PT-OP-B Current Condition Start: 07/09/17 09:03 Freq: Status: Active Protocol: Document 07/09/17 09:03 [facility] (Rec: 07/09/17 09:17 [facility] [id number]) Current Condition History of Current Condition History of Current Condition Patient evaluated in March for right shoulder pain; had done land-based PT with poor tolerance. Wasn't able to attend aquatic PT due to waiting list as well as going on vacation and had other medical issues which prevented her from coming back. Pain increases with reaching overhead, behind her back, and doing usual ADL's and activities including driving, managing her seatbelt, and computer work. Has not had kinesiotape to right shoulder Prior Treatments and Tests MRI 01/13/17 showed high grade partial thickness articular surface tear anterior supraspinatus, partial thickness tear right infraspinatus musculotendinous junction, mild AC joint degeneration. Treatment Goals Patient/Caregiver Goals Decrease pain to enable reach overhead, behind back, out to side without severe pain. Able to manage seatbelt without severe pain. Prior Functional Status Baseline Function- ADL's Independent Baseline Function- Mobility Independent Current Functional Impairments (Reported) Functional Limitations- ADL's Unable to reach overhead, out to side, behind her back without an increase in pain which is limiting her normal functional activities and tolerance and decreasing her quality of life. PT-OP-C Subjective Start: 07/09/17 09:03 Freq: Status: Active Protocol: Document 10/13/17 13:00 [facility] (Rec: 10/13/17 16:34 [facility] [id number]) OP-PT Subjective Patient Comments Patient Comments Not seen in PT for over a month, didn't get to pool on own at all. States she feels shot has worn off, pain inc again PT-OP-E Functional Tests Start: 07/09/17 17:07 Freq: Status: Active Protocol: Document 07/09/17 09:03 [facility] (Rec: 07/09/17 17:39 [facility] [id number]) Functional Tests Apley's Scratch Test Action 1: The subject is instructed to touch the opposite shoulder with his/her hand. This motion checks Glenohumeral adduction, internal rotation , horizontal adduction and scapular protraction Action 2: The subject is instructed to place his/her arm overhead and reach behind the neck to touch his/her upper back. This motion checks Glenohumeral abduction, external rotation and scapular upward rotation and elevation. Action 3: The subject puts his/her hand on the lower back and reaches upward as far as possible. This motion checks glenohumeral adduction, internal rotation and scapular retraction with downward rotation Action 1- Left front of shoulder Action 1- Right front of chest Action 2- Left C3 Action 2- Right ear Action 3- Left T10 Action 3- Right lateral hip PT-OP-J Posture/Palpation/Skin Start: 07/09/17 17:07 Freq: Status: Active Protocol: Document 07/09/17 09:03 [facility] (Rec: 07/09/17 17:39 [facility] [id number]) Posture Evaluation Position Sitting Head/C-Spine Posture Forward Head T-Spine Posture Increased Kyphosis PT-OP-K Range of Motion Start: 07/09/17 17:07 Freq: Status: Active Protocol: Document 07/09/17 09:03 [facility] (Rec: 07/09/17 17:39 [facility] [id number]) Cervical Spine Range of Motion Cervical Spine Active ROM Limitations Soft Tissue Tightness Bony Restriction Shoulder Goniometric Range of Motion Shoulder Measured in Degrees Right Shoulder ROM WFL No Testing Position Sitting Flexion 85 Extension 37 Abduction 75 Horizontal Abduction 60 External Rotation at 45 degrees 20 Abduction Internal Rotation 20 Left Shoulder ROM WFL No Testing Position Sitting Flexion 150 Extension 50 Abduction 125 Horizontal Abduction 85 External Rotation at 45 degrees 45 Abduction Internal Rotation 55 Shoulder ROM Limitations Shoulder ROM Limitations Pain PT-OP-L Special Tests Start: 07/09/17 17:07 Freq: Status: Active Protocol: Document 07/09/17 09:03 [facility] (Rec: 07/09/17 17:39 [facility] [id number]) Special Tests Shoulder Special Tests Elevation Impingement Test Results positive bilaterally Drop Arm Rotator Cuff Test Results positive right PT-OP-M Strength Start: 07/09/17 17:07 Freq: Status: Active Protocol: Document 07/09/17 09:03 [facility] (Rec: 07/09/17 17:39 [facility] [id number]) Shoulder Strength Shoulder Manual Muscle Testing Right Reason Not Measured Pain Left Flexion 4- Good- Extension 4 Good Abduction (C5) 4- Good- External Rotation 3+ Fair+ Internal Rotation 4 Good PT-OP-Q Treatments Start: 07/09/17 17:07 Freq: Status: Active Protocol: Document 07/09/17 09:03 [facility] (Rec: 07/09/17 17:39 [facility] [id number]) Manual Therapy Treatment Soft Tissue Mobilization 1 Body Location right upper traps, GH joint region Mobilization Type Strumming Intensity/Depth Moderate Body Position Supine Taping 1 Body Location right shoulder Treatment Focus support and pain management Type of Tape Kinesio Tape Self-Care/Home Management Treatment Education Patient Education Pain Management PT-OP-R Modalities Start: 07/09/17 17:07 Freq: Status: Active Protocol: Document 07/09/17 09:03 [facility] (Rec: 07/09/17 17:39 [facility] [id number]) Hot Pack/Cold Pack Treatment Hot Pack Location right shoulder Patient Position Hooklying Patient Tolerance Good PT-OP-S Aquatic Treatment Start: 07/09/17 17:07 Freq: Status: Active Protocol: Document 10/13/17 13:00 [facility] (Rec: 10/13/17 16:34 [facility] [id number]) Aquatics Treatment Pool Entry/Exit Pool Entry/Exit Method Stairs Water Walking Other- 1 Water Level Chest Level Comments With U.E. gentle breast stroke motion Upper Extremity Exercises 3 Details standing gentle humeral rotation (pull posterior shoulder crease to armpit Reps/Duration 10 Comments manual cues 2 Details scapular clock with manual facilitation Body Position Standing Water Level Chest Level Reps/Duration 10 1 Details shoulder hor ab/ad, flex/ext, circles, shld ER/IR, scapular ction Body Position Standing Water Level Neck Level Reps/Duration 12x each Spinal Exercises 1 Details standing UT stretch with deep breathing Reps/Duration 2 [place] Activities [place] Activities Bicycle Cross [place] Equipment flotation belt Duration 15 minutes Comments gentle UE breastroke UE's during bicicycle Swim Strokes Crawl Equipment Mask/Snorkel Laps/Duration 6 min Comments gentle crawl in pain-free ROM Manual Techniques Bad Ragaz supine Bad Ragaz for thoracic, scapulothoracic and GH mobility Aquatic Joint Mobilizations Gentle thoracic PA's for increasing thoracic mobility Aquatic Massage supine aquatic massage to upper traps, rhomboids, PT-OP-T Assessment and Plan Start: 07/09/17 17:07 Freq: Status: Active Protocol: Document 10/13/17 13:00 [facility] (Rec: 10/13/17 16:34 [facility] [id number]) Physical Therapy Assessment Goals Four Impairment Activity tolerance Short Term Goal (STG) Patient to tolerate 45 aquatic exercise session without an increase in pain (goal progress) STG Duration 6 wks Chef Instructor Goal (LTG) Patient to be safe and independent with aquatic 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 Three Impairment strength Short Term Goal (STG) Improve right UE strength by 1 /2 grade (goal progress) STG Duration 6 wks Assisted Goal (LTG) Improve right UE strength to at least 4+/5 all motions to improve her ability to perform usual activities LTG Duration 12 wks Two Impairment Functional activities Short Term Goal (STG) Improve Quickdash UE score to 30 (goal progress) STG Duration 6 wks Assisted Goal (LTG) Improve Quickdash UE score to 20 LTG Duration 12 wks One Impairment functional activites Short Term Goal (STG) Patient to report 50% improvement in ability to reach overhead and behind her back for purposes of ADL's and usual activities (goal progress) STG Duration 6 wks Assisted Goal (LTG) Patient able to resume all usual activities using right UE without an increase in pain including reaching overhead, behind her back, drive, do computer work LTG Duration 12 wks Assessment Summary Assessment Patient reporting increase in pain, decreased functional use of UE. No compliance with coming to pool for gentle exercise when not scheduled for PT. Physical Therapy Plan Frequency and Duration Frequency of Treatment 2x/Week Duration of Treatment 12 wks Plan of Care Start Date 09/01/17 Plan of Care End Date 12/02/17 Therapeutic Interventions Therapeutic Interventions Aquatic Therapy Manual Therapy Self-Care/Home Management Taping Next Visit Focus/Plan Next Note Type Treatment Note Next Visit Plan Continue with aquatic PT for pain management, strengthening , postural correction, ROM.
--- NOTE | 2017-10-15 16:51 | PT.OPPN ---
Current Diagnoses Unspecified rotator cuff tear or rupture of left shoulder, not specified as traumatic (10/15/17) Impingement syndrome of right shoulder (10/15/17) Physical Therapy Progress Note PT-OP-A Visit Information Start: 07/09/17 17:07 Freq: Status: Active Protocol: Document 10/13/17 13:00 [facility] (Rec: 10/13/17 16:34 [facility] [id number]) Out-Patient Physical Therapy Visit Information Visit Information Visit Type Treatment Note Visit Start Time 13:00 Visit Stop Time 13:45 Total Visit Minutes 45 Visit Number 11 Number of GIS MANAGER Visits 0 Evaluation Information Evaluation Date 07/09/17 PT-OP-B Current Condition Start: 07/09/17 09:03 Freq: Status: Active Protocol: Document 07/09/17 09:03 [facility] (Rec: 07/09/17 09:17 [facility] [id number]) Current Condition History of Current Condition History of Current Condition Patient evaluated in March for right shoulder pain; had done land-based PT with poor tolerance. Wasn't able to attend aquatic PT due to waiting list as well as going on vacation and had other medical issues which prevented her from coming back. Pain increases with reaching overhead, behind her back, and doing usual ADL's and activities including driving, managing her seatbelt, and computer work. Has not had kinesiotape to right shoulder Prior Treatments and Tests MRI 01/13/17 showed high grade partial thickness articular surface tear anterior supraspinatus, partial thickness tear right infraspinatus musculotendinous junction, mild AC joint degeneration. Treatment Goals Patient/Caregiver Goals Decrease pain to enable reach overhead, behind back, out to side without severe pain. Able to manage seatbelt without severe pain. Prior Functional Status Baseline Function- ADL's Independent Baseline Function- Mobility Independent Current Functional Impairments (Reported) Functional Limitations- ADL's Unable to reach overhead, out to side, behind her back without an increase in pain which is limiting her normal functional activities and tolerance and decreasing her quality of life. PT-OP-C Subjective Start: 07/09/17 09:03 Freq: Status: Active Protocol: Document 10/13/17 13:00 [facility] (Rec: 10/13/17 16:34 [facility] [id number]) OP-PT Subjective Patient Comments Patient Comments Not seen in PT for over a month, didn't get to pool on own at all. States she feels shot has worn off, pain inc again PT-OP-E Functional Tests Start: 07/09/17 17:07 Freq: Status: Active Protocol: Document 07/09/17 09:03 [facility] (Rec: 07/09/17 17:39 [facility] [id number]) Functional Tests Apley's Scratch Test Action 1: The subject is instructed to touch the opposite shoulder with his/her hand. This motion checks Glenohumeral adduction, internal rotation , horizontal adduction and scapular protraction Action 2: The subject is instructed to place his/her arm overhead and reach behind the neck to touch his/her upper back. This motion checks Glenohumeral abduction, external rotation and scapular upward rotation and elevation. Action 3: The subject puts his/her hand on the lower back and reaches upward as far as possible. This motion checks glenohumeral adduction, internal rotation and scapular retraction with downward rotation Action 1- Left front of shoulder Action 1- Right front of chest Action 2- Left C3 Action 2- Right ear Action 3- Left T10 Action 3- Right lateral hip PT-OP-J Posture/Palpation/Skin Start: 07/09/17 17:07 Freq: Status: Active Protocol: Document 07/09/17 09:03 [facility] (Rec: 07/09/17 17:39 [facility] [id number]) Posture Evaluation Position Sitting Head/C-Spine Posture Forward Head T-Spine Posture Increased Kyphosis PT-OP-K Range of Motion Start: 07/09/17 17:07 Freq: Status: Active Protocol: Document 07/09/17 09:03 [facility] (Rec: 07/09/17 17:39 [facility] [id number]) Cervical Spine Range of Motion Cervical Spine Active ROM Limitations Soft Tissue Tightness Bony Restriction Shoulder Goniometric Range of Motion Shoulder Measured in Degrees Right Shoulder ROM WFL No Testing Position Sitting Flexion 85 Extension 37 Abduction 75 Horizontal Abduction 60 External Rotation at 45 degrees 20 Abduction Internal Rotation 20 Left Shoulder ROM WFL No Testing Position Sitting Flexion 150 Extension 50 Abduction 125 Horizontal Abduction 85 External Rotation at 45 degrees 45 Abduction Internal Rotation 55 Shoulder ROM Limitations Shoulder ROM Limitations Pain PT-OP-L Special Tests Start: 07/09/17 17:07 Freq: Status: Active Protocol: Document 07/09/17 09:03 [facility] (Rec: 07/09/17 17:39 [facility] [id number]) Special Tests Shoulder Special Tests Elevation Impingement Test Results positive bilaterally Drop Arm Rotator Cuff Test Results positive right PT-OP-M Strength Start: 07/09/17 17:07 Freq: Status: Active Protocol: Document 07/09/17 09:03 [facility] (Rec: 07/09/17 17:39 [facility] [id number]) Shoulder Strength Shoulder Manual Muscle Testing Right Reason Not Measured Pain Left Flexion 4- Good- Extension 4 Good Abduction (C5) 4- Good- External Rotation 3+ Fair+ Internal Rotation 4 Good PT-OP-T Assessment and Plan Start: 07/09/17 17:07 Freq: Status: Active Protocol: Document 10/13/17 13:00 [facility] (Rec: 10/13/17 16:34 [facility] [id number]) Physical Therapy Assessment Goals Four Impairment Activity tolerance Short Term Goal (STG) Patient to tolerate 45 aquatic exercise session without an increase in pain (goal progress) STG Duration 6 wks Jail Goal (LTG) Patient to be safe and independent 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 Three Impairment strength Short Term Goal (STG) Improve right UE strength by 1 /2 grade (goal progress) STG Duration 6 wks Milking System Installer Goal (LTG) Improve right UE strength to at least 4+/5 all motions to improve her ability to perform usual activities LTG Duration 12 wks Two Impairment Functional activities Short Term Goal (STG) Improve Quickdash UE score to 30 (goal progress) STG Duration 6 wks Milking System Installer Goal (LTG) Improve Quickdash UE score to 20 LTG Duration 12 wks One Impairment functional activites Short Term Goal (STG) Patient to report 50% improvement in ability to reach overhead and behind her back for purposes of ADL's and usual activities (goal progress) STG Duration 6 wks Milking System Installer Goal (LTG) Patient able to resume all usual activities using right UE without an increase in pain including reaching overhead, behind her back, drive, do computer work LTG Duration 12 wks Assessment Summary Assessment Patient reporting increase in pain, decreased functional use of UE. No compliance with coming to pool for gentle exercise when not scheduled for PT. Physical Therapy Plan Frequency and Duration Frequency of Treatment 2x/Week Duration of Treatment 12 wks Plan of Care Start Date 09/01/17 Plan of Care End Date 12/02/17 Therapeutic Interventions Therapeutic Interventions Aquatic Therapy Manual Therapy Self-Care/Home Management Taping Next Visit Focus/Plan Next Note Type Treatment Note Next Visit Plan Continue with aquatic PT for pain management, strengthening , postural correction, ROM.
--- NOTE | 2017-10-15 16:58 | PT.OTN ---
Current Diagnoses Unspecified rotator cuff tear or rupture of left shoulder, not specified as traumatic (10/15/17) Impingement syndrome of right shoulder (10/15/17) Physical Therapy Treatment Note PT-OP-A Visit Information Start: 07/09/17 17:07 Freq: Status: Active Protocol: Document 10/15/17 11:45 [facility]AK (Rec: 10/15/17 16:58 [facility] [id number]) Out-Patient Physical Therapy Visit Information Visit Information Visit Type Treatment Note Visit Start Time 13:00 Visit Stop Time 13:45 Total Visit Minutes 45 Visit Number 12 Number of ORGANIZATIONAL EFFECTIVENESS DIRECTOR Visits 0 Evaluation Information Evaluation Date 07/09/17 PT-OP-B Current Condition Start: 07/09/17 09:03 Freq: Status: Active Protocol: Document 07/09/17 09:03 SAK (Rec: 07/09/17 09:17 [facility] [id number]) Current Condition History of Current Condition History of Current Condition Patient evaluated in March for right shoulder pain; had done land-based PT with poor tolerance. Wasn't able to attend aquatic PT due to waiting list as well as going on vacation and had other medical issues which prevented her from coming back. Pain increases with reaching overhead, behind her back, and doing usual ADL's and activities including driving, managing her seatbelt, and computer work. Has not had kinesiotape to right shoulder Prior Treatments and Tests MRI 01/13/17 showed high grade partial thickness articular surface tear anterior supraspinatus, partial thickness tear right infraspinatus musculotendinous junction, mild AC joint degeneration. Treatment Goals Patient/Caregiver Goals Decrease pain to enable reach overhead, behind back, out to side without severe pain. Able to manage seatbelt without severe pain. Prior Functional Status Baseline Function- ADL's Independent Baseline Function- Mobility Independent Current Functional Impairments (Reported) Functional Limitations- ADL's Unable to reach overhead, out to side, behind her back without an increase in pain which is limiting her normal functional activities and tolerance and decreasing her quality of life. PT-OP-C Subjective Start: 07/09/17 09:03 Freq: Status: Active Protocol: Document 10/15/17 11:45 SAK (Rec: 10/15/17 16:58 [facility] [id number]) OP-PT Subjective Patient Comments Patient Comments Patient reported sore, a little increase in pain after last session but glad to be back at therapy and trying to motivate herself to commit to increasing fitness and compliance to HEP. PT-OP-E Functional Tests Start: 07/09/17 17:07 Freq: Status: Active Protocol: Document 07/09/17 09:03 [facility] (Rec: 07/09/17 17:39 [facility] [id number]) Functional Tests Apley's Scratch Test Action 1: The subject is instructed to touch the opposite shoulder with his/her hand. This motion checks Glenohumeral adduction, internal rotation , horizontal adduction and scapular protraction Action 2: The subject is instructed to place his/her arm overhead and reach behind the neck to touch his/her upper back. This motion checks Glenohumeral abduction, external rotation and scapular upward rotation and elevation. Action 3: The subject puts his/her hand on the lower back and reaches upward as far as possible. This motion checks glenohumeral adduction, internal rotation and scapular retraction with downward rotation Action 1- Left front of shoulder Action 1- Right front of chest Action 2- Left C3 Action 2- Right ear Action 3- Left T10 Action 3- Right lateral hip PT-OP-J Posture/Palpation/Skin Start: 07/09/17 17:07 Freq: Status: Active Protocol: Document 07/09/17 09:03 [facility] (Rec: 07/09/17 17:39 [facility] [id number]) Posture Evaluation Position Sitting Head/C-Spine Posture Forward Head T-Spine Posture Increased Kyphosis PT-OP-K Range of Motion Start: 07/09/17 17:07 Freq: Status: Active Protocol: Document 07/09/17 09:03 [facility] (Rec: 07/09/17 17:39 [facility] [id number]) Cervical Spine Range of Motion Cervical Spine Active ROM Limitations Soft Tissue Tightness Bony Restriction Shoulder Goniometric Range of Motion Shoulder Measured in Degrees Right Shoulder ROM WFL No Testing Position Sitting Flexion 85 Extension 37 Abduction 75 Horizontal Abduction 60 External Rotation at 45 degrees 20 Abduction Internal Rotation 20 Left Shoulder ROM WFL No Testing Position Sitting Flexion 150 Extension 50 Abduction 125 Horizontal Abduction 85 External Rotation at 45 degrees 45 Abduction Internal Rotation 55 Shoulder ROM Limitations Shoulder ROM Limitations Pain PT-OP-L Special Tests Start: 07/09/17 17:07 Freq: Status: Active Protocol: Document 07/09/17 09:03 [facility] (Rec: 07/09/17 17:39 [facility] [id number]) Special Tests Shoulder Special Tests Elevation Impingement Test Results positive bilaterally Drop Arm Rotator Cuff Test Results positive right PT-OP-M Strength Start: 07/09/17 17:07 Freq: Status: Active Protocol: Document 07/09/17 09:03 [facility]AK (Rec: 07/09/17 17:39 [facility] [id number]) Shoulder Strength Shoulder Manual Muscle Testing Right Reason Not Measured Pain Left Flexion 4- Good- Extension 4 Good Abduction (C5) 4- Good- External Rotation 3+ Fair+ Internal Rotation 4 Good PT-OP-Q Treatments Start: 07/09/17 17:07 Freq: Status: Active Protocol: Document 07/09/17 09:03 [facility] (Rec: 07/09/17 17:39 [facility] [id number]) Manual Therapy Treatment Soft Tissue Mobilization 1 Body Location right upper traps, GH joint region Mobilization Type Strumming Intensity/Depth Moderate Body Position Supine Taping 1 Body Location right shoulder Treatment Focus support and pain management Type of Tape Kinesio Tape Self-Care/Home Management Treatment Education Patient Education Pain Management PT-OP-R Modalities Start: 07/09/17 17:07 Freq: Status: Active Protocol: Document 07/09/17 09:03 [facility] (Rec: 07/09/17 17:39 [facility] [id number]) Hot Pack/Cold Pack Treatment Hot Pack Location right shoulder Patient Position Hooklying Patient Tolerance Good PT-OP-S Aquatic Treatment Start: 07/09/17 17:07 Freq: Status: Active Protocol: Document 10/15/17 11:45 [facility] (Rec: 10/15/17 16:58 [facility] [id number]) Aquatics Treatment Pool Entry/Exit Pool Entry/Exit Method Stairs Water Walking Other- 1 Water Level Chest Level Comments With U.E. gentle breast stroke motion Lower Extremity Stretches 2 Details DKTC, SKTC Body Position Standing Water Level [place] Equipment wall Reps/Duration 2x 1 Details HS, hip add, IT band Body Position Standing Water Level Chest Level Equipment Small Noodle Reps/Duration 2x Upper Extremity Exercises 3 Details standing gentle humeral rotation (pull posterior shoulder crease to armpit Reps/Duration 10 Comments manual cues 2 Details scapular clock with manual facilitation Body Position Standing Water Level Chest Level Reps/Duration 10 1 Details shoulder hor ab/ad, flex/ext, circles, shld ER/IR, scapular ction Body Position Standing Water Level Neck Level Reps/Duration 12x each [place] Activities [place] Activities Bicycle Bicycle Backwards [place] Hip Abduction/Adduction Equipment flotation belt Duration 20 minutes Comments gentle UE breastroke UE's during bicicycle Swim Strokes Crawl Equipment Mask/Snorkel Laps/Duration 5 min Comments gentle crawl in pain-free ROM PT-OP-T Assessment and Plan Start: 07/09/17 17:07 Freq: Status: Active Protocol: Document 10/15/17 11:45 [facility]AK (Rec: 10/15/17 16:58 [facility] [id number]) Physical Therapy Assessment Goals Four Impairment Activity tolerance Short Term Goal (STG) Patient to tolerate 45 aquatic exercise session without an increase in pain (goal progress) STG Duration 6 wks Mcfp Goal (LTG) 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 Three Impairment strength Short Term Goal (STG) Improve right UE strength by 1 /2 grade (goal progress) STG Duration 6 wks Mcfp Goal (LTG) Improve right UE strength to at least 4+/5 all motions to improve her ability to perform usual activities LTG Duration 12 wks Two Impairment Functional activities Short Term Goal (STG) Improve Quickdash UE score to 30 (goal progress) STG Duration 6 wks [facility]fp Goal (LTG) Improve Quickdash UE score to 20 LTG Duration 12 wks One Impairment functional activites Short Term Goal (STG) Patient to report 50% improvement in ability to reach overhead and behind her back for purposes of ADL's and usual activities (goal progress) STG Duration 6 wks Mcfp Goal (LTG) Patient able to resume all usual activities using right UE without an increase in pain including reaching overhead, behind her back, drive, do computer work LTG Duration 12 wks Assessment Summary Assessment Good tolerance for aquatic exercise today, increased emphasis on LE flexibility and strengthening as 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 UE's incorporated into all ther ex Physical Therapy Plan Frequency and Duration Frequency of Treatment 2x/Week Duration of Treatment 12 wks Plan of Care Start Date 09/01/17 Plan of Care End Date 12/02/17 Next Visit Focus/Plan Next Note Type Treatment Note Next Visit Plan Continue with aquatic PT for pain management, strengthening , postural correction, ROM.
--- NOTE | 2017-10-19 10:31 | PT.OTN ---
Current Diagnoses Unspecified rotator cuff tear or rupture of left shoulder, not specified as traumatic (10/18/17) Impingement syndrome of right shoulder (10/18/17) Physical Therapy Treatment Note PT-OP-A Visit Information Start: 07/09/17 17:07 Freq: Status: Active Protocol: Document 10/18/17 13:00 [facility] (Rec: 10/19/17 10:31 [facility] [id number]) Out-Patient Physical Therapy Visit Information Visit Information Visit Type Treatment Note Visit Start Time 13:00 Visit Stop Time 13:45 Total Visit Minutes 45 Visit Number 13 Number of INSIDE PHONE SALES Visits 0 PT-OP-B Current Condition Start: 07/09/17 09:03 Freq: Status: Active Protocol: Document 07/09/17 09:03 [facility] (Rec: 07/09/17 09:17 [facility] [id number]) Current Condition History of Current Condition History of Current Condition Patient evaluated in March for right shoulder pain; had done land-based PT with poor tolerance. Wasn't able to attend aquatic PT due to waiting list as well as going on vacation and had other medical issues which prevented her from coming back. Pain increases with reaching overhead, behind her back, and doing usual ADL's and activities including driving, managing her seatbelt, and computer work. Has not had kinesiotape to right shoulder Prior Treatments and Tests MRI 01/13/17 showed high grade partial thickness articular surface tear anterior supraspinatus, partial thickness tear right infraspinatus musculotendinous junction, mild AC joint degeneration. Treatment Goals Patient/Caregiver Goals Decrease pain to enable reach overhead, behind back, out to side without severe pain. Able to manage seatbelt without severe pain. Prior Functional Status Baseline Function- ADL's Independent Baseline Function- Mobility Independent Current Functional Impairments (Reported) Functional Limitations- ADL's Unable to reach overhead, out to side, behind her back without an increase in pain which is limiting her normal functional activities and tolerance and decreasing her quality of life. PT-OP-C Subjective Start: 07/09/17 09:03 Freq: Status: Active Protocol: Document 10/18/17 13:00 [facility] (Rec: 10/19/17 10:31 [facility] [id number]) OP-PT Subjective Patient Comments Patient Comments No new c/o, fatigued but no increase in pain after last PT session. PT-OP-E Functional Tests Start: 07/09/17 17:07 Freq: Status: Active Protocol: Document 07/09/17 09:03 [facility] (Rec: 07/09/17 17:39 [facility] [id number]) Functional Tests Apley's Scratch Test Action 1: The subject is instructed to touch the opposite shoulder with his/her hand. This motion checks Glenohumeral adduction, internal rotation , horizontal adduction and scapular protraction Action 2: The subject is instructed to place his/her arm overhead and reach behind the neck to touch his/her upper back. This motion checks Glenohumeral abduction, external rotation and scapular upward rotation and elevation. Action 3: The subject puts his/her hand on the lower back and reaches upward as far as possible. This motion checks glenohumeral adduction, internal rotation and scapular retraction with downward rotation Action 1- Left front of shoulder Action 1- Right front of chest Action 2- Left C3 Action 2- Right ear Action 3- Left T10 Action 3- Right lateral hip PT-OP-J Posture/Palpation/Skin Start: 07/09/17 17:07 Freq: Status: Active Protocol: Document 07/09/17 09:03 [facility] (Rec: 07/09/17 17:39 [facility] [id number]) Posture Evaluation Position Sitting Head/C-Spine Posture Forward Head T-Spine Posture Increased Kyphosis PT-OP-K Range of Motion Start: 07/09/17 17:07 Freq: Status: Active Protocol: Document 07/09/17 09:03 [facility] (Rec: 07/09/17 17:39 [facility] [id number]) Cervical Spine Range of Motion Cervical Spine Active ROM Limitations Soft Tissue Tightness Bony Restriction Shoulder Goniometric Range of Motion Shoulder Measured in Degrees Right Shoulder ROM WFL No Testing Position Sitting Flexion 85 Extension 37 Abduction 75 Horizontal Abduction 60 External Rotation at 45 degrees 20 Abduction Internal Rotation 20 Left Shoulder ROM WFL No Testing Position Sitting Flexion 150 Extension 50 Abduction 125 Horizontal Abduction 85 External Rotation at 45 degrees 45 Abduction Internal Rotation 55 Shoulder ROM Limitations Shoulder ROM Limitations Pain PT-OP-L Special Tests Start: 07/09/17 17:07 Freq: Status: Active Protocol: Document 07/09/17 09:03 [facility] (Rec: 07/09/17 17:39 [facility] [id number]) Special Tests Shoulder Special Tests Elevation Impingement Test Results positive bilaterally Drop Arm Rotator Cuff Test Results positive right PT-OP-M Strength Start: 07/09/17 17:07 Freq: Status: Active Protocol: Document 07/09/17 09:03 [facility] (Rec: 07/09/17 17:39 [facility] [id number]) Shoulder Strength Shoulder Manual Muscle Testing Right Reason Not Measured Pain Left Flexion 4- Good- Extension 4 Good Abduction (C5) 4- Good- External Rotation 3+ Fair+ Internal Rotation 4 Good PT-OP-Q Treatments Start: 07/09/17 17:07 Freq: Status: Active Protocol: Document 07/09/17 09:03 [facility] (Rec: 07/09/17 17:39 [facility] [id number]) Manual Therapy Treatment Soft Tissue Mobilization 1 Body Location right upper traps, GH joint region Mobilization Type Strumming Intensity/Depth Moderate Body Position Supine Taping 1 Body Location right shoulder Treatment Focus support and pain management Type of Tape Kinesio Tape Self-Care/Home Management Treatment Education Patient Education Pain Management PT-OP-R Modalities Start: 07/09/17 17:07 Freq: Status: Active Protocol: Document 07/09/17 09:03 [facility] (Rec: 07/09/17 17:39 [facility] [id number]) Hot Pack/Cold Pack Treatment Hot Pack Location right shoulder Patient Position Hooklying Patient Tolerance Good PT-OP-S Aquatic Treatment Start: 07/09/17 17:07 Freq: Status: Active Protocol: Document 10/18/17 13:00 [facility] (Rec: 10/19/17 10:31 [facility] [id number]) Aquatics Treatment Pool Entry/Exit Pool Entry/Exit Method Stairs Assistance Independent Water Walking Other- 1 Water Level Chest Level Comments With U.E. gentle breast stroke motion Upper Extremity Exercises 4 Details serratus punches with hands on pool wall Reps/Duration 10 1 Details shoulder hor ab/ad, flex/ext, circles, shld ER/IR, scapular ction Body Position Standing Water Level Neck Level Reps/Duration 12x each Spinal Exercises 1 Details standing UT stretch with deep breathing Reps/Duration 2 [place] Activities [place] Activities Bicycle Bicycle Backwards [place] Hip Abduction/Adduction Equipment flotation belt Duration 20 minutes Comments gentle UE breastroke UE's during all activities Manual Techniques Bad Ragaz supine Bad Ragaz for thoracic, scapulothoracic and GH mobility Aquatic Joint Mobilizations Gentle thoracic PA's for increasing thoracic mobility Aquatic Massage supine aquatic massage to upper traps, rhomboids, PT-OP-T Assessment and Plan Start: 07/09/17 17:07 Freq: Status: Active Protocol: Document 10/18/17 13:00 [facility] (Rec: 10/19/17 10:31 [facility] [id number]) Physical Therapy Assessment Goals Four Impairment Activity tolerance Short Term Goal (STG) Patient to tolerate 45 aquatic exercise session without an increase in pain (goal progress) STG Duration 6 wks Nursing Home Goal (LTG) Patient to be safe and independent with aquatic exercise program for [facility] 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 Three Impairment strength Short Term Goal (STG) Improve right UE strength by 1 /2 grade (goal progress) STG Duration 6 wks Nursing Home Goal (LTG) Improve right UE strength to at least 4+/5 all motions to improve her ability to perform usual activities LTG Duration 12 wks Two Impairment Functional activities Short Term Goal (STG) Improve Quickdash UE score to 30 (goal progress) STG Duration 6 wks Service Sprinkler Helper Goal (LTG) Improve Quickdash UE score to 20 LTG Duration 12 wks One Impairment functional activites Short Term Goal (STG) Patient to report 50% improvement in ability to reach overhead and behind her back for purposes of ADL's and usual activities (goal progress) STG Duration 6 wks Nursing Home Goal (LTG) Patient able to resume all usual activities using right UE without an increase in pain including reaching overhead, behind her back, drive, do computer work LTG Duration 12 wks Assessment Summary Assessment Improved GH motion with manual techniques today, denied pain , improving postural awareness . Physical Therapy Plan Frequency and Duration Frequency of Treatment 2x/Week Duration of Treatment 12 wks Plan of Care Start Date 09/01/17 Plan of Care End Date 12/02/17 Therapeutic Interventions Therapeutic Interventions Aquatic Therapy Manual Therapy Self-Care/Home Management Taping Next Visit Focus/Plan Next Note Type Treatment Note Next Visit Plan emphasis on posterior shoulder strengthening, postural correction, manual techniques for pain management and ROM.
--- NOTE | 2017-10-20 16:53 | PT.OTN ---
Current Diagnoses Unspecified rotator cuff tear or rupture of left shoulder, not specified as traumatic (10/20/17) Impingement syndrome of right shoulder (10/20/17) Physical Therapy Treatment Note PT-OP-A Visit Information Start: 07/09/17 17:07 Freq: Status: Active Protocol: Document 10/20/17 13:45 [facility]B (Rec: 10/20/17 16:52 [facility]B [id number]) Out-Patient Physical Therapy Visit Information Visit Information Visit Type Treatment Note Visit Start Time 13:00 Visit Stop Time 13:45 Total Visit Minutes 45 Visit Number 14 Number of BUILDING TECH Visits 1 PT-OP-B Current Condition Start: 07/09/17 09:03 Freq: Status: Active Protocol: Document 07/09/17 09:03 [facility] (Rec: 07/09/17 09:17 [facility] [id number]) Current Condition History of Current Condition History of Current Condition Patient evaluated in March for right shoulder pain; had done land-based PT with poor tolerance. Wasn't able to attend aquatic PT due to waiting list as well as going on vacation and had other medical issues which prevented her from coming back. Pain increases with reaching overhead, behind her back, and doing usual ADL's and activities including driving, managing her seatbelt, and computer work. Has not had kinesiotape to right shoulder Prior Treatments and Tests MRI 01/13/17 showed high grade partial thickness articular surface tear anterior supraspinatus, partial thickness tear right infraspinatus musculotendinous junction, mild AC joint degeneration. Treatment Goals Patient/Caregiver Goals Decrease pain to enable reach overhead, behind back, out to side without severe pain. Able to manage seatbelt without severe pain. Prior Functional Status Baseline Function- ADL's Independent Baseline Function- Mobility Independent Current Functional Impairments (Reported) Functional Limitations- ADL's Unable to reach overhead, out to side, behind her back without an increase in pain which is limiting her normal functional activities and tolerance and decreasing her quality of life. PT-OP-C Subjective Start: 07/09/17 09:03 Freq: Status: Active Protocol: Document 10/20/17 13:45 CLB (Rec: 10/20/17 16:52 CLB [id number]) OP-PT Subjective Patient Comments Patient Comments Pt c/o pain after last treatment session but overall feels aquatic therapy is going well for her. PT-OP-E Functional Tests Start: 07/09/17 17:07 Freq: Status: Active Protocol: Document 07/09/17 09:03 [facility] (Rec: 07/09/17 17:39 [facility] [id number]) Functional Tests Apley's Scratch Test Action 1: The subject is instructed to touch the opposite shoulder with his/her hand. This motion checks Glenohumeral adduction, internal rotation , horizontal adduction and scapular protraction Action 2: The subject is instructed to place his/her arm overhead and reach behind the neck to touch his/her upper back. This motion checks Glenohumeral abduction, external rotation and scapular upward rotation and elevation. Action 3: The subject puts his/her hand on the lower back and reaches upward as far as possible. This motion checks glenohumeral adduction, internal rotation and scapular retraction with downward rotation Action 1- Left front of shoulder Action 1- Right front of chest Action 2- Left C3 Action 2- Right ear Action 3- Left T10 Action 3- Right lateral hip PT-OP-J Posture/Palpation/Skin Start: 07/09/17 17:07 Freq: Status: Active Protocol: Document 07/09/17 09:03 [facility] (Rec: 07/09/17 17:39 [facility] [id number]) Posture Evaluation Position Sitting Head/C-Spine Posture Forward Head T-Spine Posture Increased Kyphosis PT-OP-K Range of Motion Start: 07/09/17 17:07 Freq: Status: Active Protocol: Document 07/09/17 09:03 [facility] (Rec: 07/09/17 17:39 [facility] [id number]) Cervical Spine Range of Motion Cervical Spine Active ROM Limitations Soft Tissue Tightness Bony Restriction Shoulder Goniometric Range of Motion Shoulder Measured in Degrees Right Shoulder ROM WFL No Testing Position Sitting Flexion 85 Extension 37 Abduction 75 Horizontal Abduction 60 External Rotation at 45 degrees 20 Abduction Internal Rotation 20 Left Shoulder ROM WFL No Testing Position Sitting Flexion 150 Extension 50 Abduction 125 Horizontal Abduction 85 External Rotation at 45 degrees 45 Abduction Internal Rotation 55 Shoulder ROM Limitations Shoulder ROM Limitations Pain PT-OP-L Special Tests Start: 07/09/17 17:07 Freq: Status: Active Protocol: Document 07/09/17 09:03 [facility] (Rec: 07/09/17 17:39 [facility] [id number]) Special Tests Shoulder Special Tests Elevation Impingement Test Results positive bilaterally Drop Arm Rotator Cuff Test Results positive right PT-OP-M Strength Start: 07/09/17 17:07 Freq: Status: Active Protocol: Document 07/09/17 09:03 [facility] (Rec: 07/09/17 17:39 [facility] [id number]) Shoulder Strength Shoulder Manual Muscle Testing Right Reason Not Measured Pain Left Flexion 4- Good- Extension 4 Good Abduction (C5) 4- Good- External Rotation 3+ Fair+ Internal Rotation 4 Good PT-OP-Q Treatments Start: 07/09/17 17:07 Freq: Status: Active Protocol: Document 07/09/17 09:03 [facility] (Rec: 07/09/17 17:39 [facility] [id number]) Manual Therapy Treatment Soft Tissue Mobilization 1 Body Location right upper traps, GH joint region Mobilization Type Strumming Intensity/Depth Moderate Body Position Supine Taping 1 Body Location right shoulder Treatment Focus support and pain management Type of Tape Kinesio Tape Self-Care/Home Management Treatment Education Patient Education Pain Management PT-OP-R Modalities Start: 07/09/17 17:07 Freq: Status: Active Protocol: Document 07/09/17 09:03 [facility] (Rec: 07/09/17 17:39 [facility] [id number]) Hot Pack/Cold Pack Treatment Hot Pack Location right shoulder Patient Position Hooklying Patient Tolerance Good PT-OP-S Aquatic Treatment Start: 07/09/17 17:07 Freq: Status: Active Protocol: Document 10/20/17 13:45 [facility] (Rec: 10/20/17 16:52 [facility] [id number]) Aquatics Treatment Pool Entry/Exit Pool Entry/Exit Method Stairs Assistance Independent Water Walking Other- 1 Water Level Chest Level Comments With U.E. gentle breast stroke motion Upper Extremity Exercises 4 Details serratus punches with hands on pool wall Reps/Duration 10 1 Details shoulder hor ab/ad, flex/ext, circles, shld ER/IR, scapular ction Body Position Standing Water Level Neck Level Reps/Duration 15x each Spinal Exercises 1 Details standing UT stretch with deep breathing Reps/Duration 2 [place] Activities [place] Activities Bicycle Bicycle Backwards [place] Hip Abduction/Adduction Equipment flotation belt Duration 20 minutes Comments gentle UE breastroke UE's during all activities Swim Strokes Crawl Equipment Mask/Snorkel Laps/Duration 6 min Comments gentle crawl in pain-free ROM PT-OP-T Assessment and Plan Start: 07/09/17 17:07 Freq: Status: Active Protocol: Document 10/20/17 13:45 [facility] (Rec: 10/20/17 16:52 [facility] [id number]) Physical Therapy Assessment Goals Four Impairment Activity tolerance Short Term Goal (STG) Patient to tolerate 45 aquatic exercise session without an increase in pain (goal progress) STG Duration 6 wks Water Project Engineer Goal (LTG) Patient to be safe and independent with aquatic exercise program for long term care 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 Three Impairment strength Short Term Goal (STG) Improve right UE strength by 1 /2 grade (goal progress) STG Duration 6 wks Water Project Engineer Goal (LTG) Improve right UE strength to at least 4+/5 all motions to improve her ability to perform usual activities LTG Duration 12 wks Two Impairment Functional activities Short Term Goal (STG) Improve Quickdash UE score to 30 (goal progress) STG Duration 6 wks Water Project Engineer Goal (LTG) Improve Quickdash UE score to 20 LTG Duration 12 wks One Impairment functional activities Short Term Goal (STG) Patient to report 50% improvement in ability to reach overhead and behind her back for purposes of ADL's and usual activities (goal progress) STG Duration 6 wks Detention Goal (LTG) Patient able to resume all usual activities using right UE without an increase in pain including reaching overhead, behind her back, drive, do computer work LTG Duration 12 wks Assessment Summary Assessment Pt needing cues for posture in deep water. Pt tolerated shoulder ther ex and crawl strokes w/o complaint of increased pain. Physical Therapy Plan Frequency and Duration Frequency of Treatment 2x/Week Duration of Treatment 12 wks Plan of Care Start Date 09/01/17 Plan of Care End Date 12/02/17 Next Visit Focus/Plan Next Visit Plan Continue with aquatic therapy for strengthening, pain management and ROM of shoulder region.
--- NOTE | 2017-10-28 09:39 | PT.OTN ---
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 Wasn't able to attend aquatic PT due to waiting list as well as going on vacation and had other medical issues which prevented her from coming back. Pain increases with reaching overhead, behind her back, and doing usual ADL's and activities including driving, managing her seatbelt, and computer work. Has not had kinesiotape to right shoulder Prior Treatments and Tests MRI 01/13/17 showed high grade partial thickness articular surface tear anterior supraspinatus, partial thickness tear right infraspinatus musculotendinous junction, mild AC joint degeneration. Treatment Goals Patient/Caregiver Goals Decrease pain to enable reach overhead, behind back, out to side without severe pain. Able to manage seatbelt without severe pain. Prior Functional Status Baseline Function- ADL's Independent Baseline Function- Mobility Independent Current Functional Impairments (Reported) Functional Limitations- ADL's Unable to reach overhead, out to side, behind her back without an increase in pain which is limiting her normal functional activities and tolerance and decreasing her quality of life. PT-OP-C Subjective Start: 07/09/17 09:03 Freq: Status: Active Protocol: Document 10/27/17 11:00 [facility] (Rec: 10/28/17 09:39 [facility] [id number]) OP-PT Subjective Patient Comments Patient Comments No new c/o, states it is difficult for her to try to correct her posture at this stage in her life. PT-OP-E Functional Tests Start: 07/09/17 17:07 Freq: Status: Active Protocol: Document 07/09/17 09:03 [facility] (Rec: 07/09/17 17:39 [facility] [id number]) Functional Tests Apley's Scratch Test Action 1: The subject is instructed to touch the opposite shoulder with his/her hand. This motion checks Glenohumeral adduction, internal rotation , horizontal adduction and scapular protraction Action 2: The subject is instructed to place his/her arm overhead and reach behind the neck to touch his/her upper back. This motion checks Glenohumeral abduction, external rotation and scapular upward rotation and elevation. Action 3: The subject puts his/her hand on the lower back and reaches upward as far as possible. This motion checks glenohumeral adduction, internal rotation and scapular retraction with downward rotation Action 1- Left front of shoulder Action 1- Right front of chest Action 2- Left C3 Action 2- Right ear Action 3- Left T10 Action 3- Right lateral hip PT-OP-J Posture/Palpation/Skin Start: 07/09/17 17:07 Freq: Status: Active Protocol: Document 07/09/17 09:03 [facility] (Rec: 07/09/17 17:39 [facility] [id number]) Posture Evaluation Position Sitting Head/C-Spine Posture Forward Head T-Spine Posture Increased Kyphosis PT-OP-K Range of Motion Start: 07/09/17 17:07 Freq: Status: Active Protocol: Document 07/09/17 09:03 [facility] (Rec: 07/09/17 17:39 [facility] [id number]) Cervical Spine Range of Motion Cervical Spine Active ROM Limitations Soft Tissue Tightness Bony Restriction Shoulder Goniometric Range of Motion Shoulder Measured in Degrees Right Shoulder ROM WFL No Testing Position Sitting Flexion 85 Extension 37 Abduction 75 Horizontal Abduction 60 External Rotation at 45 degrees 20 Abduction Internal Rotation 20 Left Shoulder ROM WFL No Testing Position Sitting Flexion 150 Extension 50 Abduction 125 Horizontal Abduction 85 External Rotation at 45 degrees 45 Abduction Internal Rotation 55 Shoulder ROM Limitations Shoulder ROM Limitations Pain PT-OP-L Special Tests Start: 07/09/17 17:07 Freq: Status: Active Protocol: Document 07/09/17 09:03 [facility] (Rec: 07/09/17 17:39 [facility] [id number]) Special Tests Shoulder Special Tests Elevation Impingement Test Results positive bilaterally Drop Arm Rotator Cuff Test Results positive right PT-OP-M Strength Start: 07/09/17 17:07 Freq: Status: Active Protocol: Document 07/09/17 09:03 [facility] (Rec: 07/09/17 17:39 [facility] [id number]) Shoulder Strength Shoulder Manual Muscle Testing Right Reason Not Measured Pain Left Flexion 4- Good- Extension 4 Good Abduction (C5) 4- Good- External Rotation 3+ Fair+ Internal Rotation 4 Good PT-OP-Q Treatments Start: 07/09/17 17:07 Freq: Status: Active Protocol: Document 07/09/17 09:03 [facility] (Rec: 07/09/17 17:39 [facility] [id number]) Manual Therapy Treatment Soft Tissue Mobilization 1 Body Location right upper traps, GH joint region Mobilization Type Strumming Intensity/Depth Moderate Body Position Supine Taping 1 Body Location right shoulder Treatment Focus support and pain management Type of Tape Kinesio Tape Self-Care/Home Management Treatment Education Patient Education Pain Management PT-OP-R Modalities Start: 07/09/17 17:07 Freq: Status: Active Protocol: Document 07/09/17 09:03 [facility] (Rec: 07/09/17 17:39 [facility] [id number]) Hot Pack/Cold Pack Treatment Hot Pack Location right shoulder Patient Position Hooklying Patient Tolerance Good PT-OP-S Aquatic Treatment Start: 07/09/17 17:07 Freq: Status: Active Protocol: Document 10/27/17 11:00 [facility] (Rec: 10/28/17 09:39 [facility] [id number]) Aquatics Treatment Pool Entry/Exit Pool Entry/Exit Method Stairs Assistance Independent Water Walking Other- 1 Water Level Chest Level Comments With U.E. gentle breast stroke motion Lower Extremity Stretches 2 Details DKTC, SKTC Body Position Standing Water Level [place] Equipment wall Reps/Duration 2x 1 Details HS, hip add, IT band Body Position Standing Water Level Chest Level Equipment Small Noodle Reps/Duration 2x Upper Extremity Exercises 3 Details standing gentle humeral rotation (pull posterior shoulder crease to armpit Reps/Duration 10 Comments manual cues 2 Details scapular clock with manual facilitation Body Position Standing Water Level Chest Level Reps/Duration 10 1 Details shoulder hor ab/ad, flex/ext, circles, shld ER/IR, scapular ction Body Position Standing Water Level Neck Level Reps/Duration 15x each [place] Activities [place] Activities Bicycle Bicycle Backwards [place] Hip Abduction/Adduction Equipment flotation belt Duration 20 minutes Comments gentle UE breastroke, reverse breastroke, UE's during all activities Manual Techniques Bad Ragaz supine Bad Ragaz for thoracic, scapulothoracic and GH mobility Aquatic Joint Mobilizations Gentle thoracic PA's for increasing thoracic mobility Aquatic Massage supine aquatic massage to upper traps, rhomboids, PT-OP-T Assessment and Plan Start: 07/09/17 17:07 Freq: Status: Active Protocol: Document 10/27/17 11:00 [facility] (Rec: 10/28/17 09:39 [facility] [id number]) Physical Therapy Assessment Goals Four Impairment Activity tolerance Short Term Goal (STG) Patient to tolerate 45 aquatic exercise session without an increase in pain (goal progress) STG Duration 6 wks Halfway Goal (LTG) Patient to be safe and independent with aquatic exercise program for skilled nursing 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 Three Impairment strength Short Term Goal (STG) Improve right UE strength by 1 /2 grade (goal progress) STG Duration 6 wks Membership Director Goal (LTG) Improve right UE strength to at least 4+/5 all motions to improve her ability to perform usual activities LTG Duration 12 wks Two Impairment Functional activities Short Term Goal (STG) Improve Quickdash UE score to 30 (goal progress) STG Duration 6 wks Halfway Goal (LTG) Improve Quickdash UE score to 20 LTG Duration 12 wks One Impairment functional activites Short Term Goal (STG) Patient to report 50% improvement in ability to reach overhead and behind her back for purposes of ADL's and usual activities (goal progress) STG Duration 6 wks Halfway Goal (LTG) Patient able to resume all usual activities using right UE without an increase in pain including reaching overhead, behind her back, drive, do computer work LTG Duration 12 wks Assessment Summary Assessment Improved GH motion again with manual techniques but c/o some pain on right so intensity of stretch decreased. Physical Therapy Plan Frequency and Duration Frequency of Treatment 2x/Week Duration of Treatment 12 wks Plan of Care Start Date 09/01/17 Plan of Care End Date 12/02/17 Therapeutic Interventions Therapeutic Interventions Aquatic Therapy Manual Therapy Self-Care/Home Management Taping Next Visit Focus/Plan Next Visit Plan Continue with aquatic therapy for strengthening, pain management and ROM of shoulder region.
--- NOTE | 2017-11-01 14:54 | PT.OTN ---
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 Wasn't able to attend aquatic PT due to waiting list as well as going on vacation and had other medical issues which prevented her from coming back. Pain increases with reaching overhead, behind her back, and doing usual ADL's and activities including driving, managing her seatbelt, and computer work. Has not had kinesiotape to right shoulder Prior Treatments and Tests MRI 01/13/17 showed high grade partial thickness articular surface tear anterior supraspinatus, partial thickness tear right infraspinatus musculotendinous junction, mild AC joint degeneration. Treatment Goals Patient/Caregiver Goals Decrease pain to enable reach overhead, behind back, out to side without severe pain. Able to manage seatbelt without severe pain. Prior Functional Status Baseline Function- ADL's Independent Baseline Function- Mobility Independent Current Functional Impairments (Reported) Functional Limitations- ADL's Unable to reach overhead, out to side, behind her back without an increase in pain which is limiting her normal functional activities and tolerance and decreasing her quality of life. PT-OP-C Subjective Start: 07/09/17 09:03 Freq: Status: Active Protocol: Document 11/01/17 11:00 CLB (Rec: 11/01/17 14:54 CLB [id number]) OP-PT Subjective Patient Comments Patient Comments Pt c/o knee pain with deep water cycling. PT-OP-E Functional Tests Start: 07/09/17 17:07 Freq: Status: Active Protocol: Document 07/09/17 09:03 [facility] (Rec: 07/09/17 17:39 [facility] [id number]) Functional Tests Apley's Scratch Test Action 1: The subject is instructed to touch the opposite shoulder with his/her hand. This motion checks Glenohumeral adduction, internal rotation , horizontal adduction and scapular protraction Action 2: The subject is instructed to place his/her arm overhead and reach behind the neck to touch his/her upper back. This motion checks Glenohumeral abduction, external rotation and scapular upward rotation and elevation. Action 3: The subject puts his/her hand on the lower back and reaches upward as far as possible. This motion checks glenohumeral adduction, internal rotation and scapular retraction with downward rotation Action 1- Left front of shoulder Action 1- Right front of chest Action 2- Left C3 Action 2- Right ear Action 3- Left T10 Action 3- Right lateral hip PT-OP-J Posture/Palpation/Skin Start: 07/09/17 17:07 Freq: Status: Active Protocol: Document 07/09/17 09:03 [facility] (Rec: 07/09/17 17:39 [facility] [id number]) Posture Evaluation Position Sitting Head/C-Spine Posture Forward Head T-Spine Posture Increased Kyphosis PT-OP-K Range of Motion Start: 07/09/17 17:07 Freq: Status: Active Protocol: Document 07/09/17 09:03 [facility] (Rec: 07/09/17 17:39 [facility] [id number]) Cervical Spine Range of Motion Cervical Spine Active ROM Limitations Soft Tissue Tightness Bony Restriction Shoulder Goniometric Range of Motion Shoulder Measured in Degrees Right Shoulder ROM WFL No Testing Position Sitting Flexion 85 Extension 37 Abduction 75 Horizontal Abduction 60 External Rotation at 45 degrees 20 Abduction Internal Rotation 20 Left Shoulder ROM WFL No Testing Position Sitting Flexion 150 Extension 50 Abduction 125 Horizontal Abduction 85 External Rotation at 45 degrees 45 Abduction Internal Rotation 55 Shoulder ROM Limitations Shoulder ROM Limitations Pain PT-OP-L Special Tests Start: 07/09/17 17:07 Freq: Status: Active Protocol: Document 07/09/17 09:03 SAK (Rec: 07/09/17 17:39 [facility] [id number]) Special Tests Shoulder Special Tests Elevation Impingement Test Results positive bilaterally Drop Arm Rotator Cuff Test Results positive right PT-OP-M Strength Start: 07/09/17 17:07 Freq: Status: Active Protocol: Document 07/09/17 09:03 SAK (Rec: 07/09/17 17:39 SAK [id number]) Shoulder Strength Shoulder Manual Muscle Testing Right Reason Not Measured Pain Left Flexion 4- Good- Extension 4 Good Abduction (C5) 4- Good- External Rotation 3+ Fair+ Internal Rotation 4 Good PT-OP-Q Treatments Start: 07/09/17 17:07 Freq: Status: Active Protocol: Document 07/09/17 09:03 SAK (Rec: 07/09/17 17:39 SAK [id number]) Manual Therapy Treatment Soft Tissue Mobilization 1 Body Location right upper traps, GH joint region Mobilization Type Strumming Intensity/Depth Moderate Body Position Supine Taping 1 Body Location right shoulder Treatment Focus support and pain management Type of Tape Kinesio Tape Self-Care/Home Management Treatment Education Patient Education Pain Management PT-OP-R Modalities Start: 07/09/17 17:07 Freq: Status: Active Protocol: Document 07/09/17 09:03 SAK (Rec: 07/09/17 17:39 [facility] [id number]) Hot Pack/Cold Pack Treatment Hot Pack Location right shoulder Patient Position Hooklying Patient Tolerance Good PT-OP-S Aquatic Treatment Start: 07/09/17 17:07 Freq: Status: Active Protocol: Document 11/01/17 11:00 CLB (Rec: 11/01/17 14:54 CLB [id number]) Aquatics Treatment Pool Entry/Exit Pool Entry/Exit Method Stairs Assistance Independent Water Walking Other- 1 Water Level Chest Level Comments With U.E. gentle breast stroke motion Lower Extremity Stretches 2 Details DKTC, SKTC Body Position Standing Water Level [place] Equipment wall Reps/Duration 2x 1 Details HS, hip add, IT band Body Position Standing Water Level Chest Level Equipment Small Noodle Reps/Duration 2x Upper Extremity Exercises 1 Details shoulder hor ab/ad, flex/ext, circles, shld ER/IR, scapular ction Body Position Standing Water Level Neck Level Reps/Duration 15x each Spinal Exercises 1 Details standing UT stretch with deep breathing Reps/Duration 2 Swim Strokes Crawl Equipment Mask/Snorkel Laps/Duration 6 min Comments gentle crawl in pain-free ROM PT-OP-T Assessment and Plan Start: 07/09/17 17:07 Freq: Status: Active Protocol: Document 11/01/17 11:00 CLB (Rec: 11/01/17 14:54 CLB [id number]) Physical Therapy Assessment Goals Four Impairment Activity tolerance Short Term Goal (STG) Patient to tolerate 45 aquatic exercise session without an increase in pain (goal progress) STG Duration 6 wks Senior Care Goal (LTG) Patient to be safe and independent with aquatic exercise program for intermediate card tender 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 Three Impairment strength Short Term Goal (STG) Improve right UE strength by 1 /2 grade (goal progress) STG Duration 6 wks Drying Tumbler Operator Goal (LTG) Improve right UE strength to at least 4+/5 all motions to improve her ability to perform usual activities LTG Duration 12 wks Two Impairment Functional activities Short Term Goal (STG) Improve Quickdash UE score to 30 (goal progress) STG Duration 6 wks Senior Care Goal (LTG) Improve Quickdash UE score to 20 LTG Duration 12 wks One Impairment functional activites Short Term Goal (STG) Patient to report 50% improvement in ability to reach overhead and behind her back for purposes of ADL's and usual activities (goal progress) STG Duration 6 wks Senior Care Goal (LTG) Patient able to resume all usual activities using right UE without an increase in pain including reaching overhead, behind her back, drive, do computer work LTG Duration 12 wks Assessment Summary Assessment Pt reported pain of L knee with deep water bicycling and needed cues to use small ROM. Pt needed cues to relax shoulders during UE ther ex. Physical Therapy Plan Frequency and Duration Frequency of Treatment 2x/Week Duration of Treatment 12 wks Plan of Care Start Date 09/01/17 Plan of Care End Date 12/02/17 Next Visit Focus/Plan Next Visit Plan Continue with aquatic therapy for strengthening, pain management and ROM of shoulder region.
--- NOTE | 2017-11-03 15:05 | PT.OTN ---
Current Diagnoses Unspecified rotator cuff tear or rupture of left shoulder, not specified as traumatic (11/01/17) Impingement syndrome of right shoulder (11/01/17) Physical Therapy Treatment Note PT-OP-A Visit Information Start: 07/09/17 17:07 Freq: Status: Active Protocol: Document 11/03/17 15:00 [facility] (Rec: 11/03/17 15:05 [facility] [id number]) Out-Patient Physical Therapy Visit Information Visit Information Visit Type Treatment Note Visit Start Time 12:00 Visit Stop Time 12:30 Total Visit Minutes 30 Visit Number 17 Number of LEAD TECHNOLOGIST IN CYTOGENETICS Visits 0 PT-OP-B Current Condition Start: 07/09/17 09:03 Freq: Status: Active Protocol: Document 07/09/17 09:03 SAK (Rec: 07/09/17 09:17 [facility] [id number]) Current Condition History of Current Condition History of Current Condition Patient evaluated in March for right shoulder pain; had done land-based PT with poor tolerance. Wasn't able to attend aquatic PT due to waiting list as well as going on vacation and had other medical issues which prevented her from coming back. Pain increases with reaching overhead, behind her back, and doing usual ADL's and activities including driving, managing her seatbelt, and computer work. Has not had kinesiotape to right shoulder Prior Treatments and Tests MRI 01/13/17 showed high grade partial thickness articular surface tear anterior supraspinatus, partial thickness tear right infraspinatus musculotendinous junction, mild AC joint degeneration. Treatment Goals Patient/Caregiver Goals Decrease pain to enable reach overhead, behind back, out to side without severe pain. Able to manage seatbelt without severe pain. Prior Functional Status Baseline Function- ADL's Independent Baseline Function- Mobility Independent Current Functional Impairments (Reported) Functional Limitations- ADL's Unable to reach overhead, out to side, behind her back without an increase in pain which is limiting her normal functional activities and tolerance and decreasing her quality of life. PT-OP-C Subjective Start: 07/09/17 09:03 Freq: Status: Active Protocol: Document 11/03/17 15:00 [facility] (Rec: 11/03/17 15:05 [facility] [id number]) OP-PT Subjective Patient Comments Patient Comments Everything hurts. I feel better for a few hours after PT, but then pain returns. PT-OP-E Functional Tests Start: 07/09/17 17:07 Freq: Status: Active Protocol: Document 07/09/17 09:03 SAK (Rec: 07/09/17 17:39 [facility] [id number]) Functional Tests Apley's Scratch Test Action 1: The subject is instructed to touch the opposite shoulder with his/her hand. This motion checks Glenohumeral adduction, internal rotation , horizontal adduction and scapular protraction Action 2: The subject is instructed to place his/her arm overhead and reach behind the neck to touch his/her upper back. This motion checks Glenohumeral abduction, external rotation and scapular upward rotation and elevation. Action 3: The subject puts his/her hand on the lower back and reaches upward as far as possible. This motion checks glenohumeral adduction, internal rotation and scapular retraction with downward rotation Action 1- Left front of shoulder Action 1- Right front of chest Action 2- Left C3 Action 2- Right ear Action 3- Left T10 Action 3- Right lateral hip PT-OP-J Posture/Palpation/Skin Start: 07/09/17 17:07 Freq: Status: Active Protocol: Document 07/09/17 09:03 [facility] (Rec: 07/09/17 17:39 [facility] [id number]) Posture Evaluation Position Sitting Head/C-Spine Posture Forward Head T-Spine Posture Increased Kyphosis PT-OP-K Range of Motion Start: 07/09/17 17:07 Freq: Status: Active Protocol: Document 07/09/17 09:03 [facility] (Rec: 07/09/17 17:39 [facility] [id number]) Cervical Spine Range of Motion Cervical Spine Active ROM Limitations Soft Tissue Tightness Bony Restriction Shoulder Goniometric Range of Motion Shoulder Measured in Degrees Right Shoulder ROM WFL No Testing Position Sitting Flexion 85 Extension 37 Abduction 75 Horizontal Abduction 60 External Rotation at 45 degrees 20 Abduction Internal Rotation 20 Left Shoulder ROM WFL No Testing Position Sitting Flexion 150 Extension 50 Abduction 125 Horizontal Abduction 85 External Rotation at 45 degrees 45 Abduction Internal Rotation 55 Shoulder ROM Limitations Shoulder ROM Limitations Pain PT-OP-L Special Tests Start: 07/09/17 17:07 Freq: Status: Active Protocol: Document 07/09/17 09:03 SAK (Rec: 07/09/17 17:39 [facility] [id number]) Special Tests Shoulder Special Tests Elevation Impingement Test Results positive bilaterally Drop Arm Rotator Cuff Test Results positive right PT-OP-M Strength Start: 07/09/17 17:07 Freq: Status: Active Protocol: Document 07/09/17 09:03 [facility] (Rec: 07/09/17 17:39 [facility] [id number]) Shoulder Strength Shoulder Manual Muscle Testing Right Reason Not Measured Pain Left Flexion 4- Good- Extension 4 Good Abduction (C5) 4- Good- External Rotation 3+ Fair+ Internal Rotation 4 Good PT-OP-Q Treatments Start: 07/09/17 17:07 Freq: Status: Active Protocol: Document 07/09/17 09:03 [facility] (Rec: 07/09/17 17:39 [facility] [id number]) Manual Therapy Treatment Soft Tissue Mobilization 1 Body Location right upper traps, GH joint region Mobilization Type Strumming Intensity/Depth Moderate Body Position Supine Taping 1 Body Location right shoulder Treatment Focus support and pain management Type of Tape Kinesio Tape Self-Care/Home Management Treatment Education Patient Education Pain Management PT-OP-R Modalities Start: 07/09/17 17:07 Freq: Status: Active Protocol: Document 07/09/17 09:03 [facility] (Rec: 07/09/17 17:39 [facility] [id number]) Hot Pack/Cold Pack Treatment Hot Pack Location right shoulder Patient Position Hooklying Patient Tolerance Good PT-OP-S Aquatic Treatment Start: 07/09/17 17:07 Freq: Status: Active Protocol: Document 11/03/17 15:00 [facility] (Rec: 11/03/17 15:05 [facility] [id number]) Aquatics Treatment Pool Entry/Exit Pool Entry/Exit Method Stairs Assistance Independent Water Walking Other- 1 Water Level Chest Level Comments With U.E. gentle breast stroke motion Lower Extremity Exercises 1 Details Step up on box Body Position Standing Water Level Waist Level Comments 4 inch step, U.E. support. Lower Extremity Stretches 2 Details DKTC, SKTC Body Position Standing Water Level [place] Equipment wall Reps/Duration 2x 1 Details HS, hip add, IT band Body Position Standing Water Level Chest Level Equipment Small Noodle Reps/Duration 2x Upper Extremity Exercises 4 Details serratus punches with hands on pool wall Reps/Duration 10 3 Details standing gentle humeral rotation (pull posterior shoulder crease to armpit Reps/Duration 10 Comments manual cues 2 Details scapular clock with manual facilitation Body Position Standing Water Level Chest Level Reps/Duration 10 1 Details shoulder hor ab/ad, flex/ext, circles, shld ER/IR, scapular ction Body Position Standing Water Level Neck Level Reps/Duration 15x each Spinal Exercises 1 Details standing UT stretch with deep breathing Reps/Duration 2 [place] Activities [place] Activities Bicycle [place] Hip Abduction/Adduction Equipment flotation belt Duration 10 minutes Comments gentle UE breastroke, reverse breastroke, UE's during all activities Manual Techniques Bad Ragaz supine Bad Ragaz for thoracic, scapulothoracic and GH mobility Aquatic Joint Mobilizations Gentle thoracic PA's for increasing thoracic mobility Aquatic Massage supine aquatic massage to upper traps, rhomboids, PT-OP-T Assessment and Plan Start: 07/09/17 17:07 Freq: Status: Active Protocol: Document 11/03/17 15:00 [facility] (Rec: 11/03/17 15:05 [facility] [id number]) Physical Therapy Assessment Goals Four Impairment Activity tolerance Short Term Goal (STG) Patient to tolerate 45 aquatic exercise session without an increase in pain (goal progress) STG Duration 6 wks Space Systems Operations Superintendent Goal (LTG) Patient to be safe and independent with aquatic exercise program for shelter 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 Three Impairment strength Short Term Goal (STG) Improve right UE strength by 1 /2 grade (goal progress) STG Duration 6 wks Senior Living Goal (LTG) Improve right UE strength to at least 4+/5 all motions to improve her ability to perform usual activities LTG Duration 12 wks Two Impairment Functional activities Short Term Goal (STG) Improve Quickdash UE score to 30 (goal progress) STG Duration 6 wks Space Systems Operations Superintendent Goal (LTG) Improve Quickdash UE score to 20 LTG Duration 12 wks One Impairment functional activites Short Term Goal (STG) Patient to report 50% improvement in ability to reach overhead and behind her back for purposes of ADL's and usual activities (goal progress) STG Duration 6 wks Senior Living Goal (LTG) Patient able to resume all usual activities using right UE without an increase in pain including reaching overhead, behind her back, drive, do computer work LTG Duration 12 wks Assessment Summary Assessment shortened treatment due to patient being late. Long-term postural habits with tissue changes highly contributory to patient's pain. Decreased body awareness requiring verbal and manual cues for exercise performance and muscle activation. Physical Therapy Plan Frequency and Duration Frequency of Treatment 2x/Week Duration of Treatment 12 wks Plan of Care Start Date 09/01/17 Plan of Care End Date 12/02/17 Therapeutic Interventions Therapeutic Interventions Aquatic Therapy Manual Therapy Self-Care/Home Management Taping Next Visit Focus/Plan Next Note Type Treatment Note Next Visit Plan Progression of aquatic exercise and aquatic manual therapy tecniques as tolerated
--- NOTE | 2017-11-08 16:32 | PT.OTN ---
Current Diagnoses Unspecified rotator cuff tear or rupture of left shoulder, not specified as traumatic (11/08/17) Impingement syndrome of right shoulder (11/08/17) Physical Therapy Treatment Note PT-OP-A Visit Information Start: 07/09/17 17:07 Freq: Status: Active Protocol: Document 11/08/17 16:25 [facility] (Rec: 11/08/17 16:32 [facility] [id number]) Out-Patient Physical Therapy Visit Information Visit Information Visit Type Treatment Note Visit Start Time 11:45 Visit Stop Time 12:30 Total Visit Minutes 30 Visit Number 18 Number of FUNCTIONAL MANAGER Visits 0 Evaluation Information Evaluation Date 07/09/17 PT-OP-B Current Condition Start: 07/09/17 09:03 Freq: Status: Active Protocol: Document 07/09/17 09:03 [facility]AK (Rec: 07/09/17 09:17 [facility] [id number]) Current Condition History of Current Condition History of Current Condition Patient evaluated in March for right shoulder pain; had done land-based PT with poor tolerance. Wasn't able to attend aquatic PT due to waiting list as well as going on vacation and had other medical issues which prevented her from coming back. Pain increases with reaching overhead, behind her back, and doing usual ADL's and activities including driving, managing her seatbelt, and computer work. Has not had kinesiotape to right shoulder Prior Treatments and Tests MRI 01/13/17 showed high grade partial thickness articular surface tear anterior supraspinatus, partial thickness tear right infraspinatus musculotendinous junction, mild AC joint degeneration. Treatment Goals Patient/Caregiver Goals Decrease pain to enable reach overhead, behind back, out to side without severe pain. Able to manage seatbelt without severe pain. Prior Functional Status Baseline Function- ADL's Independent Baseline Function- Mobility Independent Current Functional Impairments (Reported) Functional Limitations- ADL's Unable to reach overhead, out to side, behind her back without an increase in pain which is limiting her normal functional activities and tolerance and decreasing her quality of life. PT-OP-C Subjective Start: 07/09/17 09:03 Freq: Status: Active Protocol: Document 11/08/17 16:25 SAK (Rec: 11/08/17 16:32 [facility] [id number]) OP-PT Subjective Patient Comments Patient Comments Feel like I'm getting stronger, but still really hurt. OP-PT Pain Assessment Pain Behaviors Pain Behaviors Facial Grimacing Wincing PT-OP-E Functional Tests Start: 07/09/17 17:07 Freq: Status: Active Protocol: Document 07/09/17 09:03 [facility] (Rec: 07/09/17 17:39 [facility] [id number]) Functional Tests Apley's Scratch Test Action 1: The subject is instructed to touch the opposite shoulder with his/her hand. This motion checks Glenohumeral adduction, internal rotation , horizontal adduction and scapular protraction Action 2: The subject is instructed to place his/her arm overhead and reach behind the neck to touch his/her upper back. This motion checks Glenohumeral abduction, external rotation and scapular upward rotation and elevation. Action 3: The subject puts his/her hand on the lower back and reaches upward as far as possible. This motion checks glenohumeral adduction, internal rotation and scapular retraction with downward rotation Action 1- Left front of shoulder Action 1- Right front of chest Action 2- Left C3 Action 2- Right ear Action 3- Left T10 Action 3- Right lateral hip PT-OP-J Posture/Palpation/Skin Start: 07/09/17 17:07 Freq: Status: Active Protocol: Document 07/09/17 09:03 [facility] (Rec: 07/09/17 17:39 [facility] [id number]) Posture Evaluation Position Sitting Head/C-Spine Posture Forward Head T-Spine Posture Increased Kyphosis PT-OP-K Range of Motion Start: 07/09/17 17:07 Freq: Status: Active Protocol: Document 07/09/17 09:03 [facility] (Rec: 07/09/17 17:39 [facility] [id number]) Cervical Spine Range of Motion Cervical Spine Active ROM Limitations Soft Tissue Tightness Bony Restriction Shoulder Goniometric Range of Motion Shoulder Measured in Degrees Right Shoulder ROM WFL No Testing Position Sitting Flexion 85 Extension 37 Abduction 75 Horizontal Abduction 60 External Rotation at 45 degrees 20 Abduction Internal Rotation 20 Left Shoulder ROM WFL No Testing Position Sitting Flexion 150 Extension 50 Abduction 125 Horizontal Abduction 85 External Rotation at 45 degrees 45 Abduction Internal Rotation 55 Shoulder ROM Limitations Shoulder ROM Limitations Pain PT-OP-L Special Tests Start: 07/09/17 17:07 Freq: Status: Active Protocol: Document 07/09/17 09:03 [facility] (Rec: 07/09/17 17:39 [facility] [id number]) Special Tests Shoulder Special Tests Elevation Impingement Test Results positive bilaterally Drop Arm Rotator Cuff Test Results positive right PT-OP-M Strength Start: 07/09/17 17:07 Freq: Status: Active Protocol: Document 07/09/17 09:03 [facility] (Rec: 07/09/17 17:39 [facility] [id number]) Shoulder Strength Shoulder Manual Muscle Testing Right Reason Not Measured Pain Left Flexion 4- Good- Extension 4 Good Abduction (C5) 4- Good- External Rotation 3+ Fair+ Internal Rotation 4 Good PT-OP-Q Treatments Start: 07/09/17 17:07 Freq: Status: Active Protocol: Document 07/09/17 09:03 [facility] (Rec: 07/09/17 17:39 [facility] [id number]) Manual Therapy Treatment Soft Tissue Mobilization 1 Body Location right upper traps, GH joint region Mobilization Type Strumming Intensity/Depth Moderate Body Position Supine Taping 1 Body Location right shoulder Treatment Focus support and pain management Type of Tape Kinesio Tape Self-Care/Home Management Treatment Education Patient Education Pain Management PT-OP-R Modalities Start: 07/09/17 17:07 Freq: Status: Active Protocol: Document 07/09/17 09:03 [facility] (Rec: 07/09/17 17:39 [facility] [id number]) Hot Pack/Cold Pack Treatment Hot Pack Location right shoulder Patient Position Hooklying Patient Tolerance Good PT-OP-S Aquatic Treatment Start: 07/09/17 17:07 Freq: Status: Active Protocol: Document 11/08/17 16:25 [facility] (Rec: 11/08/17 16:32 [facility] [id number]) Aquatics Treatment Pool Entry/Exit Pool Entry/Exit Method Stairs Assistance Independent Water Walking Other- 1 Water Level Chest Level Comments With U.E. gentle breast stroke motion Lower Extremity Exercises 1 Details Step up on box Body Position Standing Water Level Waist Level Comments 4 inch step, U.E. support. Lower Extremity Stretches 2 Details DKTC, SKTC Body Position Standing Water Level [place] Equipment wall Reps/Duration 2x 1 Details HS, hip add, IT band Body Position Standing Water Level Chest Level Equipment Small Noodle Reps/Duration 2x Upper Extremity Exercises 4 Details serratus punches with hands on pool wall Reps/Duration 10 3 Details standing gentle humeral rotation (pull posterior shoulder crease to armpit Reps/Duration 10 Comments manual cues 2 Details scapular clock with manual facilitation Body Position Standing Water Level Chest Level Reps/Duration 10 1 Details shoulder hor ab/ad, flex/ext, circles, shld ER/IR, scapular ction Body Position Standing Water Level Neck Level Reps/Duration 15x each Spinal Exercises 1 Details standing UT stretch with deep breathing Reps/Duration 2 Plains Activities Plains Activities Bicycle Cross Country Hip Abduction/Adduction Equipment flotation belt Duration 10 minutes Comments gentle UE breastroke, reverse breastroke, UE's during all activities Swim Strokes Backstroke Laps/Duration 2 min Crawl Equipment Mask/Snorkel Laps/Duration 6 min Comments gentle crawl in pain-free ROM Manual Techniques Bad Ragaz supine Bad Ragaz for thoracic, scapulothoracic and GH mobility Aquatic Joint Mobilizations Gentle thoracic PA's for increasing thoracic mobility Inferior glide R GH joint Aquatic Massage supine aquatic massage to upper traps, rhomboids, PT-OP-T Assessment and Plan Start: 07/09/17 17:07 Freq: Status: Active Protocol: Document 11/08/17 16:25 [facility] (Rec: 11/08/17 16:32 [facility] [id number]) Physical Therapy Assessment Impairments Impairments Activity Tolerance Functional Activities Posture ROM Strength Other Concerns Barriers to Rehabilitation chronicity of condition Goals Four Impairment Activity tolerance Short Term Goal (STG) Patient to tolerate 45 aquatic exercise session without an increase in pain (goal progress) STG Duration 6 wks Fpc Goal (LTG) Patient to be safe and independent with aquatic 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 Three Impairment strength Short Term Goal (STG) Improve right UE strength by 1 /2 grade (goal progress) STG Duration 6 wks Fpc Goal (LTG) Improve right UE strength to at least 4+/5 all motions to improve her ability to perform usual activities LTG Duration 12 wks Two Impairment Functional activities Short Term Goal (STG) Improve Quickdash UE score to 30 (goal progress) STG Duration 6 wks Transportation Design Engineer Goal (LTG) Improve Quickdash UE score to 20 LTG Duration 12 wks One Impairment functional activites Short Term Goal (STG) Patient to report 50% improvement in ability to reach overhead and behind her back for purposes of ADL's and usual activities (goal progress) STG Duration 6 wks Fpc Goal (LTG) Patient able to resume all usual activities using right UE without an increase in pain including reaching overhead, behind her back, drive, do computer work LTG Duration 12 wks Assessment Summary Assessment Improved shoulder ROM with treatment; patient able to partially lift UE's out of water for modified crawl stroke after manual treatment for first time Physical Therapy Plan Frequency and Duration Frequency of Treatment 2x/Week Duration of Treatment 12 wks Plan of Care Start Date 09/01/17 Plan of Care End Date 12/02/17 Therapeutic Interventions Therapeutic Interventions Aquatic Therapy Manual Therapy Self-Care/Home Management Taping Next Visit Focus/Plan Next Note Type Treatment Note Next Visit Plan Emphasis on increasing shoulder girdle mobility and strength, decrease pain through aquatic PT exercises and manual techniques
--- NOTE | 2017-11-10 16:01 | PT.OTN ---
Current Diagnoses Unspecified rotator cuff tear or rupture of left shoulder, not specified as traumatic (11/10/17) Impingement syndrome of right shoulder (11/10/17) Physical Therapy Treatment Note PT-OP-A Visit Information Start: 07/09/17 17:07 Freq: Status: Active Protocol: Document 11/10/17 15:56 [facility] (Rec: 11/10/17 16:01 [facility] [id number]) Out-Patient Physical Therapy Visit Information Visit Information Visit Type Treatment Note Visit Start Time 11:45 Visit Stop Time 12:30 Total Visit Minutes 45 Visit Number 19 Number of ENTRY LEVEL BUYER Visits 0 Evaluation Information Evaluation Date 07/09/17 PT-OP-B Current Condition Start: 07/09/17 09:03 Freq: Status: Active Protocol: Document 07/09/17 09:03 [facility] (Rec: 07/09/17 09:17 [facility] [id number]) Current Condition History of Current Condition History of Current Condition Patient evaluated in March for right shoulder pain; had done land-based PT with poor tolerance. Wasn't able to attend aquatic PT due to waiting list as well as going on vacation and had other medical issues which prevented her from coming back. Pain increases with reaching overhead, behind her back, and doing usual ADL's and activities including driving, managing her seatbelt, and computer work. Has not had kinesiotape to right shoulder Prior Treatments and Tests MRI 01/13/17 showed high grade partial thickness articular surface tear anterior supraspinatus, partial thickness tear right infraspinatus musculotendinous junction, mild AC joint degeneration. Treatment Goals Patient/Caregiver Goals Decrease pain to enable reach overhead, behind back, out to side without severe pain. Able to manage seatbelt without severe pain. Prior Functional Status Baseline Function- ADL's Independent Baseline Function- Mobility Independent Current Functional Impairments (Reported) Functional Limitations- ADL's Unable to reach overhead, out to side, behind her back without an increase in pain which is limiting her normal functional activities and tolerance and decreasing her quality of life. PT-OP-C Subjective Start: 07/09/17 09:03 Freq: Status: Active Protocol: Document 11/10/17 15:56 [facility] (Rec: 11/10/17 16:01 [facility] [id number]) OP-PT Subjective Patient Comments Patient Comments Pleased with ability to reach arm out of water for crawl stroke last session though reports soreness after. Didn' t use ice. PT-OP-E Functional Tests Start: 07/09/17 17:07 Freq: Status: Active Protocol: Document 07/09/17 09:03 [facility] (Rec: 07/09/17 17:39 [facility] [id number]) Functional Tests Apley's Scratch Test Action 1: The subject is instructed to touch the opposite shoulder with his/her hand. This motion checks Glenohumeral adduction, internal rotation , horizontal adduction and scapular protraction Action 2: The subject is instructed to place his/her arm overhead and reach behind the neck to touch his/her upper back. This motion checks Glenohumeral abduction, external rotation and scapular upward rotation and elevation. Action 3: The subject puts his/her hand on the lower back and reaches upward as far as possible. This motion checks glenohumeral adduction, internal rotation and scapular retraction with downward rotation Action 1- Left front of shoulder Action 1- Right front of chest Action 2- Left C3 Action 2- Right ear Action 3- Left T10 Action 3- Right lateral hip PT-OP-J Posture/Palpation/Skin Start: 07/09/17 17:07 Freq: Status: Active Protocol: Document 07/09/17 09:03 [facility] (Rec: 07/09/17 17:39 [facility] [id number]) Posture Evaluation Position Sitting Head/C-Spine Posture Forward Head T-Spine Posture Increased Kyphosis PT-OP-K Range of Motion Start: 07/09/17 17:07 Freq: Status: Active Protocol: Document 07/09/17 09:03 [facility] (Rec: 07/09/17 17:39 [facility] [id number]) Cervical Spine Range of Motion Cervical Spine Active ROM Limitations Soft Tissue Tightness Bony Restriction Shoulder Goniometric Range of Motion Shoulder Measured in Degrees Right Shoulder ROM WFL No Testing Position Sitting Flexion 85 Extension 37 Abduction 75 Horizontal Abduction 60 External Rotation at 45 degrees 20 Abduction Internal Rotation 20 Left Shoulder ROM WFL No Testing Position Sitting Flexion 150 Extension 50 Abduction 125 Horizontal Abduction 85 External Rotation at 45 degrees 45 Abduction Internal Rotation 55 Shoulder ROM Limitations Shoulder ROM Limitations Pain PT-OP-L Special Tests Start: 07/09/17 17:07 Freq: Status: Active Protocol: Document 07/09/17 09:03 [facility] (Rec: 07/09/17 17:39 [facility] [id number]) Special Tests Shoulder Special Tests Elevation Impingement Test Results positive bilaterally Drop Arm Rotator Cuff Test Results positive right PT-OP-M Strength Start: 07/09/17 17:07 Freq: Status: Active Protocol: Document 07/09/17 09:03 [facility] (Rec: 07/09/17 17:39 [facility] [id number]) Shoulder Strength Shoulder Manual Muscle Testing Right Reason Not Measured Pain Left Flexion 4- Good- Extension 4 Good Abduction (C5) 4- Good- External Rotation 3+ Fair+ Internal Rotation 4 Good PT-OP-Q Treatments Start: 07/09/17 17:07 Freq: Status: Active Protocol: Document 07/09/17 09:03 [facility] (Rec: 07/09/17 17:39 [facility] [id number]) Manual Therapy Treatment Soft Tissue Mobilization 1 Body Location right upper traps, GH joint region Mobilization Type Strumming Intensity/Depth Moderate Body Position Supine Taping 1 Body Location right shoulder Treatment Focus support and pain management Type of Tape Kinesio Tape Self-Care/Home Management Treatment Education Patient Education Pain Management PT-OP-R Modalities Start: 07/09/17 17:07 Freq: Status: Active Protocol: Document 07/09/17 09:03 [facility] (Rec: 07/09/17 17:39 [facility] [id number]) Hot Pack/Cold Pack Treatment Hot Pack Location right shoulder Patient Position Hooklying Patient Tolerance Good PT-OP-S Aquatic Treatment Start: 07/09/17 17:07 Freq: Status: Active Protocol: Document 11/10/17 15:56 [facility] (Rec: 11/10/17 16:01 [facility] [id number]) Aquatics Treatment Pool Entry/Exit Pool Entry/Exit Method Stairs Assistance Independent Water Walking Other- 1 Water Level Chest Level Comments With U.E. gentle breast stroke motion Upper Extremity Exercises 4 Details serratus punches with hands on pool wall Reps/Duration 10 3 Details standing gentle humeral rotation (pull posterior shoulder crease to armpit Reps/Duration 10 Comments manual cues 2 Details scapular clock with manual facilitation Body Position Standing Water Level Chest Level Reps/Duration 10 1 Details shoulder hor ab/ad, flex/ext, circles, shld ER/IR, scapular ction Body Position Standing Water Level Neck Level Reps/Duration 15x each [place] Activities [place] Activities Bicycle [place] Hip Abduction/Adduction Equipment flotation belt Duration 10 minutes Comments gentle UE breastroke, reverse breastroke, UE's during all activities Manual Techniques Bad Ragaz supine Bad Ragaz for thoracic, scapulothoracic and GH mobility Aquatic Joint Mobilizations Gentle thoracic PA's for increasing thoracic mobility Inferior glide R GH joint Aquatic Massage supine aquatic massage to upper traps, rhomboids, PT-OP-T Assessment and Plan Start: 07/09/17 17:07 Freq: Status: Active Protocol: Document 11/10/17 15:56 [facility] (Rec: 11/10/17 16:01 [facility] [id number]) Physical Therapy Assessment Goals Four Impairment Activity tolerance Short Term Goal (STG) Patient to tolerate 45 aquatic exercise session without an increase in pain (goal progress) STG Duration 6 wks Accordion Repairer Goal (LTG) Patient to be safe and independent with aquatic exercise program for senior living 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 Three Impairment strength Short Term Goal (STG) Improve right UE strength by 1 /2 grade (goal progress) STG Duration 6 wks Accordion Repairer Goal (LTG) Improve right UE strength to at least 4+/5 all motions to improve her ability to perform usual activities LTG Duration 12 wks Two Impairment Functional activities Short Term Goal (STG) Improve Quickdash UE score to 30 (goal progress) STG Duration 6 wks Intermediate Goal (LTG) Improve Quickdash UE score to 20 LTG Duration 12 wks One Impairment functional activites Short Term Goal (STG) Patient to report 50% improvement in ability to reach overhead and behind her back for purposes of ADL's and usual activities (goal progress) STG Duration 6 wks Accordion Repairer Goal (LTG) Patient able to resume all usual activities using right UE without an increase in pain including reaching overhead, behind her back, drive, do computer work LTG Duration 12 wks Assessment Summary Assessment Longer time spent with manual techniques and noted increased right shoulder ROM and increased thoracic and scapular mobility. Denied increase in pain Physical Therapy Plan Frequency and Duration Frequency of Treatment 2x/Week Duration of Treatment 12 wks Plan of Care Start Date 09/01/17 Plan of Care End Date 12/02/17 Therapeutic Interventions Therapeutic Interventions Aquatic Therapy Manual Therapy Self-Care/Home Management Taping Next Visit Focus/Plan Next Note Type Re-Evaluation Next Visit Plan Continue aquatic PT with emphasis on manual techniques for GH and scapulothoracic mobility; patient doing prone swim after PT.
--- NOTE | 2017-11-15 14:33 | PT.OTN ---
Current Diagnoses Unspecified rotator cuff tear or rupture of left shoulder, not specified as traumatic (11/15/17) Impingement syndrome of right shoulder (11/15/17) Physical Therapy Treatment Note PT-OP-A Visit Information Start: 07/09/17 17:07 Freq: Status: Active Protocol: Document 11/15/17 14:18 CLB (Rec: 11/15/17 14:31 CLB [id number]) Out-Patient Physical Therapy Visit Information Visit Information Visit Start Time 10:20 Visit Stop Time 11:00 Total Visit Minutes 40 Visit Number 20 Number of MACHINE BUNCH MAKER Visits 1 PT-OP-B Current Condition Start: 07/09/17 09:03 Freq: Status: Active Protocol: Document 07/09/17 09:03 SAK (Rec: 07/09/17 09:17 SAK [id number]) Current Condition History of Current Condition History of Current Condition Patient evaluated in March for right shoulder pain; had done land-based PT with poor tolerance. Wasn't able to attend aquatic PT due to waiting list as well as going on vacation and had other medical issues which prevented her from coming back. Pain increases with reaching overhead, behind her back, and doing usual ADL's and activities including driving, managing her seatbelt, and computer work. Has not had kinesiotape to right shoulder Prior Treatments and Tests MRI 01/13/17 showed high grade partial thickness articular surface tear anterior supraspinatus, partial thickness tear right infraspinatus musculotendinous junction, mild AC joint degeneration. Treatment Goals Patient/Caregiver Goals Decrease pain to enable reach overhead, behind back, out to side without severe pain. Able to manage seatbelt without severe pain. Prior Functional Status Baseline Function- ADL's Independent Baseline Function- Mobility Independent Current Functional Impairments (Reported) Functional Limitations- ADL's Unable to reach overhead, out to side, behind her back without an increase in pain which is limiting her normal functional activities and tolerance and decreasing her quality of life. PT-OP-C Subjective Start: 07/09/17 09:03 Freq: Status: Active Protocol: Document 11/15/17 14:31 CLB (Rec: 11/15/17 14:33 CLB [id number]) OP-PT Subjective Patient Comments Patient Comments Pt continues to c/o L knee pain with deep water cycling PT-OP-E Functional Tests Start: 07/09/17 17:07 Freq: Status: Active Protocol: Document 07/09/17 09:03 [facility] (Rec: 07/09/17 17:39 [facility] [id number]) Functional Tests Apley's Scratch Test Action 1: The subject is instructed to touch the opposite shoulder with his/her hand. This motion checks Glenohumeral adduction, internal rotation , horizontal adduction and scapular protraction Action 2: The subject is instructed to place his/her arm overhead and reach behind the neck to touch his/her upper back. This motion checks Glenohumeral abduction, external rotation and scapular upward rotation and elevation. Action 3: The subject puts his/her hand on the lower back and reaches upward as far as possible. This motion checks glenohumeral adduction, internal rotation and scapular retraction with downward rotation Action 1- Left front of shoulder Action 1- Right front of chest Action 2- Left C3 Action 2- Right ear Action 3- Left T10 Action 3- Right lateral hip PT-OP-J Posture/Palpation/Skin Start: 07/09/17 17:07 Freq: Status: Active Protocol: Document 07/09/17 09:03 [facility] (Rec: 07/09/17 17:39 [facility] [id number]) Posture Evaluation Position Sitting Head/C-Spine Posture Forward Head T-Spine Posture Increased Kyphosis PT-OP-K Range of Motion Start: 07/09/17 17:07 Freq: Status: Active Protocol: Document 07/09/17 09:03 [facility] (Rec: 07/09/17 17:39 [facility] [id number]) Cervical Spine Range of Motion Cervical Spine Active ROM Limitations Soft Tissue Tightness Bony Restriction Shoulder Goniometric Range of Motion Shoulder Measured in Degrees Right Shoulder ROM WFL No Testing Position Sitting Flexion 85 Extension 37 Abduction 75 Horizontal Abduction 60 External Rotation at 45 degrees 20 Abduction Internal Rotation 20 Left Shoulder ROM WFL No Testing Position Sitting Flexion 150 Extension 50 Abduction 125 Horizontal Abduction 85 External Rotation at 45 degrees 45 Abduction Internal Rotation 55 Shoulder ROM Limitations Shoulder ROM Limitations Pain PT-OP-L Special Tests Start: 07/09/17 17:07 Freq: Status: Active Protocol: Document 07/09/17 09:03 [facility] (Rec: 07/09/17 17:39 [facility] [id number]) Special Tests Shoulder Special Tests Elevation Impingement Test Results positive bilaterally Drop Arm Rotator Cuff Test Results positive right PT-OP-M Strength Start: 07/09/17 17:07 Freq: Status: Active Protocol: Document 07/09/17 09:03 SAK (Rec: 07/09/17 17:39 SAK [id number]) Shoulder Strength Shoulder Manual Muscle Testing Right Reason Not Measured Pain Left Flexion 4- Good- Extension 4 Good Abduction (C5) 4- Good- External Rotation 3+ Fair+ Internal Rotation 4 Good PT-OP-Q Treatments Start: 07/09/17 17:07 Freq: Status: Active Protocol: Document 07/09/17 09:03 SAK (Rec: 07/09/17 17:39 SAK [id number]) Manual Therapy Treatment Soft Tissue Mobilization 1 Body Location right upper traps, GH joint region Mobilization Type Strumming Intensity/Depth Moderate Body Position Supine Taping 1 Body Location right shoulder Treatment Focus support and pain management Type of Tape Kinesio Tape Self-Care/Home Management Treatment Education Patient Education Pain Management PT-OP-R Modalities Start: 07/09/17 17:07 Freq: Status: Active Protocol: Document 07/09/17 09:03 SAK (Rec: 07/09/17 17:39 [facility] [id number]) Hot Pack/Cold Pack Treatment Hot Pack Location right shoulder Patient Position Hooklying Patient Tolerance Good PT-OP-S Aquatic Treatment Start: 07/09/17 17:07 Freq: Status: Active Protocol: Document 11/15/17 14:18 CLB (Rec: 11/15/17 14:31 CLB [email or web address]) Aquatics Treatment Pool Entry/Exit Pool Entry/Exit Method Stairs Assistance Independent Lower Extremity Stretches 2 Details DKTC, SKTC Body Position Standing Water Level [place] Equipment wall Reps/Duration 2x 1 Details HS, hip add, IT band Body Position Standing Water Level Chest Level Equipment Small Noodle Reps/Duration 2x Comments 11/15 added quad stretch Upper Extremity Exercises 4 Details serratus punches with hands on pool wall Reps/Duration 10 3 Details standing gentle humeral rotation (pull posterior shoulder crease to armpit Reps/Duration 10 Comments manual cues 1 Details shoulder hor ab/ad, flex/ext, circles, shld ER/IR, scapular ction Body Position Standing Water Level Neck Level Reps/Duration 15x each Spinal Exercises 1 Details standing UT stretch with deep breathing Reps/Duration 2 [place] Activities [place] Activities Bicycle [place] Hip Abduction/Adduction Equipment flotation belt Duration 10 minutes Comments gentle UE breastroke, reverse breastroke, UE's during all activities Swim Strokes Crawl Equipment Mask/Snorkel Laps/Duration 6 min Comments gentle crawl in pain-free ROM Manual Techniques Bad Ragaz supine Bad Ragaz for thoracic, scapulothoracic and GH mobility Aquatic Joint Mobilizations Gentle thoracic PA's for increasing thoracic mobility Inferior glide R GH joint Aquatic Massage supine aquatic massage to upper traps, rhomboids, PT-OP-T Assessment and Plan Start: 07/09/17 17:07 Freq: Status: Active Protocol: Document 11/15/17 14:18 CLB (Rec: 11/15/17 14:31 CLB [id number]) Physical Therapy Assessment Goals Four Impairment Activity tolerance Short Term Goal (STG) Patient to tolerate 45 aquatic exercise session without an increase in pain (goal progress) STG Duration 6 wks Burial Needs Salesperson Goal (LTG) Patient to be safe and independent with aquatic exercise program for alf 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 Three Impairment strength Short Term Goal (STG) Improve right UE strength by 1 /2 grade (goal progress) STG Duration 6 wks Burial Needs Salesperson Goal (LTG) Improve right UE strength to at least 4+/5 all motions to improve her ability to perform usual activities LTG Duration 12 wks Two Impairment Functional activities Short Term Goal (STG) Improve Quickdash UE score to 30 (goal progress) STG Duration 6 wks Burial Needs Salesperson Goal (LTG) Improve Quickdash UE score to 20 LTG Duration 12 wks One Impairment functional activites Short Term Goal (STG) Patient to report 50% improvement in ability to reach overhead and behind her back for purposes of ADL's and usual activities (goal progress) STG Duration 6 wks Retirement Goal (LTG) Patient able to resume all usual activities using right UE without an increase in pain including reaching overhead, behind her back, drive, do computer work LTG Duration 12 wks Assessment Summary Assessment Pt continues to have increased right shoulder ROM with therese techniques. Physical Therapy Plan Frequency and Duration Frequency of Treatment 2x/Week Duration of Treatment 12 wks Plan of Care Start Date 09/01/17 Plan of Care End Date 12/02/17 Next Visit Focus/Plan Next Note Type Treatment Note Next Visit Plan Continue aquatic PT with emphasis on manual techniques for GH and scapulothoracic mobility; patient doing prone swim after PT.
--- NOTE | 2017-11-22 14:33 | PT.OTN ---
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 Wasn't able to attend aquatic PT due to waiting list as well as going on vacation and had other medical issues which prevented her from coming back. Pain increases with reaching overhead, behind her back, and doing usual ADL's and activities including driving, managing her seatbelt, and computer work. Has not had kinesiotape to right shoulder Prior Treatments and Tests MRI 01/13/17 showed high grade partial thickness articular surface tear anterior supraspinatus, partial thickness tear right infraspinatus musculotendinous junction, mild AC joint degeneration. Treatment Goals Patient/Caregiver Goals Decrease pain to enable reach overhead, behind back, out to side without severe pain. Able to manage seatbelt without severe pain. Prior Functional Status Baseline Function- ADL's Independent Baseline Function- Mobility Independent Current Functional Impairments (Reported) Functional Limitations- ADL's Unable to reach overhead, out to side, behind her back without an increase in pain which is limiting her normal functional activities and tolerance and decreasing her quality of life. PT-OP-C Subjective Start: 07/09/17 09:03 Freq: Status: Active Protocol: Document 11/22/17 11:45 CLB (Rec: 11/22/17 14:33 CLB [id number]) OP-PT Subjective Patient Comments Patient Comments Pt feeling discouraged with progress. PT-OP-E Functional Tests Start: 07/09/17 17:07 Freq: Status: Active Protocol: Document 07/09/17 09:03 [facility] (Rec: 07/09/17 17:39 [facility] [id number]) Functional Tests Apley's Scratch Test Action 1: The subject is instructed to touch the opposite shoulder with his/her hand. This motion checks Glenohumeral adduction, internal rotation , horizontal adduction and scapular protraction Action 2: The subject is instructed to place his/her arm overhead and reach behind the neck to touch his/her upper back. This motion checks Glenohumeral abduction, external rotation and scapular upward rotation and elevation. Action 3: The subject puts his/her hand on the lower back and reaches upward as far as possible. This motion checks glenohumeral adduction, internal rotation and scapular retraction with downward rotation Action 1- Left front of shoulder Action 1- Right front of chest Action 2- Left C3 Action 2- Right ear Action 3- Left T10 Action 3- Right lateral hip PT-OP-J Posture/Palpation/Skin Start: 07/09/17 17:07 Freq: Status: Active Protocol: Document 07/09/17 09:03 [facility] (Rec: 07/09/17 17:39 [facility] [id number]) Posture Evaluation Position Sitting Head/C-Spine Posture Forward Head T-Spine Posture Increased Kyphosis PT-OP-K Range of Motion Start: 07/09/17 17:07 Freq: Status: Active Protocol: Document 07/09/17 09:03 [facility] (Rec: 07/09/17 17:39 [facility] [id number]) Cervical Spine Range of Motion Cervical Spine Active ROM Limitations Soft Tissue Tightness Bony Restriction Shoulder Goniometric Range of Motion Shoulder Measured in Degrees Right Shoulder ROM WFL No Testing Position Sitting Flexion 85 Extension 37 Abduction 75 Horizontal Abduction 60 External Rotation at 45 degrees 20 Abduction Internal Rotation 20 Left Shoulder ROM WFL No Testing Position Sitting Flexion 150 Extension 50 Abduction 125 Horizontal Abduction 85 External Rotation at 45 degrees 45 Abduction Internal Rotation 55 Shoulder ROM Limitations Shoulder ROM Limitations Pain PT-OP-L Special Tests Start: 07/09/17 17:07 Freq: Status: Active Protocol: Document 07/09/17 09:03 [facility] (Rec: 07/09/17 17:39 [facility] [id number]) Special Tests Shoulder Special Tests Elevation Impingement Test Results positive bilaterally Drop Arm Rotator Cuff Test Results positive right PT-OP-M Strength Start: 07/09/17 17:07 Freq: Status: Active Protocol: Document 07/09/17 09:03 SAK (Rec: 07/09/17 17:39 SAK [id number]) Shoulder Strength Shoulder Manual Muscle Testing Right Reason Not Measured Pain Left Flexion 4- Good- Extension 4 Good Abduction (C5) 4- Good- External Rotation 3+ Fair+ Internal Rotation 4 Good PT-OP-Q Treatments Start: 07/09/17 17:07 Freq: Status: Active Protocol: Document 07/09/17 09:03 SAK (Rec: 07/09/17 17:39 SAK [id number]) Manual Therapy Treatment Soft Tissue Mobilization 1 Body Location right upper traps, GH joint region Mobilization Type Strumming Intensity/Depth Moderate Body Position Supine Taping 1 Body Location right shoulder Treatment Focus support and pain management Type of Tape Kinesio Tape Self-Care/Home Management Treatment Education Patient Education Pain Management PT-OP-R Modalities Start: 07/09/17 17:07 Freq: Status: Active Protocol: Document 07/09/17 09:03 SAK (Rec: 07/09/17 17:39 [facility] [id number]) Hot Pack/Cold Pack Treatment Hot Pack Location right shoulder Patient Position Hooklying Patient Tolerance Good PT-OP-S Aquatic Treatment Start: 07/09/17 17:07 Freq: Status: Active Protocol: Document 11/22/17 14:18 CLB (Rec: 11/22/17 14:33 CLB [id number]) Aquatics Treatment Lower Extremity Stretches 2 Details DKTC, SKTC Body Position Standing Water Level [place] Equipment wall Reps/Duration 2x 1 Details HS, hip add, IT band Body Position Standing Water Level Chest Level Equipment Small Noodle Reps/Duration 2x Comments 11/15 added quad stretch Upper Extremity Exercises 4 Details serratus punches with hands on pool wall Reps/Duration 10 3 Details standing gentle humeral rotation (pull posterior shoulder crease to armpit Reps/Duration 10 Comments manual cues 1 Details shoulder hor ab/ad, flex/ext, circles, shld ER/IR, scapular ction Body Position Standing Water Level Neck Level Reps/Duration 15x each Manual Techniques Aquatic Massage supine aquatic massage to upper traps, rhomboids, PT-OP-T Assessment and Plan Start: 07/09/17 17:07 Freq: Status: Active Protocol: Document 11/22/17 14:18 CLB (Rec: 11/22/17 14:33 CLB [id number]) Physical Therapy Assessment Goals Four Impairment Activity tolerance Short Term Goal (STG) Patient to tolerate 45 aquatic exercise session without an increase in pain (goal progress) STG Duration 6 wks Baseball Glove Stuffer Goal (LTG) Patient to be safe and independent with aquatic exercise program for half-way 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 Three Impairment strength Short Term Goal (STG) Improve right UE strength by 1 /2 grade (goal progress) STG Duration 6 wks Penitentiary Goal (LTG) Improve right UE strength to at least 4+/5 all motions to improve her ability to perform usual activities LTG Duration 12 wks Two Impairment Functional activities Short Term Goal (STG) Improve Quickdash UE score to 30 (goal progress) STG Duration 6 wks Baseball Glove Stuffer Goal (LTG) Improve Quickdash UE score to 20 LTG Duration 12 wks One Impairment functional activites Short Term Goal (STG) Patient to report 50% improvement in ability to reach overhead and behind her back for purposes of ADL's and usual activities (goal progress) STG Duration 6 wks Penitentiary Goal (LTG) Patient able to resume all usual activities using right UE without an increase in pain including reaching overhead, behind her back, drive, do computer work LTG Duration 12 wks Assessment Summary Assessment Pt had difficulty in deep water activities due to increase pain in shoulders and L knee due to driving trip she just took. Physical Therapy Plan Frequency and Duration Frequency of Treatment 2x/Week Duration of Treatment 12 wks Plan of Care Start Date 09/01/17 Plan of Care End Date 12/02/17 Next Visit Focus/Plan Next Note Type Treatment Note Next Visit Plan Continue aquatic PT with emphasis on manual techniques for GH and scapulothoracic mobility.
--- NOTE | 2017-12-15 17:07 | PT.OPPOC ---
Current Diagnoses Unspecified rotator cuff tear or rupture of left shoulder, not specified as traumatic (12/13/17) Impingement syndrome of right shoulder (12/13/17) Provider Visit Care Team Role Provider Type Johnathon Rojas MD Family Provider Physician Primary Care Provider Specialty: Internal Medicine Address: [address] [place] [address], [id number] Email: Mario Blair MD Attending Provider Physician Specialty: Orthopedic Surgery Address: [address] [place] [address], [id number] Email: [email or web address] Plan Of Care PT-OP-T Assessment and Plan Start: 07/09/17 17:07 Freq: Status: Active Protocol: Document 12/13/17 12:30 SAK (Rec: 12/15/17 17:07 SAK [id number]) Physical Therapy Assessment Goals Four Impairment Activity tolerance Jail Goal (LTG) Patient to be safe and independent with aquatic exercise program for alf 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 LTG Duration 1 month Three Impairment strength Jail Goal (LTG) Improve right UE strength to at least 4+/5 all motions to improve her ability to perform usual activities (goal progress) LTG Duration 1 month Two Impairment Functional activities Jail Goal (LTG) Improve Quickdash UE score to 20 (goal progress) LTG Duration 1 month One Impairment functional activites Sanitation Worker Cleaning Equipment Goal (LTG) Patient able to resume all usual activities using right UE without an increase in pain including reaching overhead, behind her back, drive, do computer work (goal progress) LTG Duration 1 month Assessment Summary Assessment Patient has made some progress though has potential for more with compliance to HEP and aquatic exercise program; compliance so far has been poor with patient verbalizing she's not sure why she can't get herself to be compliant with caring for her physical health. Agrees she needs to start coming to pool independently. Physical Therapy Plan Frequency and Duration Frequency of Treatment 2x/Week Duration of Treatment 1 month Plan of Care Start Date 12/13/17 Plan of Care End Date 01/13/18 Therapeutic Interventions Therapeutic Interventions Aquatic Therapy Manual Therapy Self-Care/Home Management Taping Next Visit Focus/Plan Next Note Type Treatment Note Next Visit Plan Continue aquatic PT with emphasis on transition toward independent HEP and aquatic exercise program for alf fitness and pain management. Plan of Care Dates Plan of Care Start Date 12/13/17 Plan of Care End Date 01/13/18 Please Sign and Return: I have reviewed this Plan of Care and certify that the skilled therapy services above are required to meet the patient?s needs. Physician Signature Date Printed Name and Credentials Clinical Instructor Signature Printed Name and Credentials
--- NOTE | 2017-12-15 17:08 | PT.OTRE ---
Current Diagnoses Unspecified rotator cuff tear or rupture of left shoulder, not specified as traumatic (12/13/17) Impingement syndrome of right shoulder (12/13/17) Provider Visit Care Team Role Provider Type Johnathon Rojas MD Family Provider Physician Primary Care Provider Specialty: Internal Medicine Address: [address] [place] [address], [id number] Email: Mario Blair MD Attending Provider Physician Specialty: Orthopedic Surgery Address: [address] [place] [address], [id number] Email: [email or web address] Physical Therapy Re-Evaluation PT-OP-A Visit Information Start: 07/09/17 17:07 Freq: Status: Active Protocol: Document 12/13/17 12:30 [facility] (Rec: 12/15/17 17:07 [facility] [id number]) Out-Patient Physical Therapy Visit Information Visit Information Visit Type Re-Evaluation Visit Start Time 12:30 Visit Stop Time 13:15 Total Visit Minutes 45 Visit Number 22 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 Wasn't able to attend aquatic PT due to waiting list as well as going on vacation and had other medical issues which prevented her from coming back. Pain increases with reaching overhead, behind her back, and doing usual ADL's and activities including driving, managing her seatbelt, and computer work. Has not had kinesiotape to right shoulder Prior Treatments and Tests MRI 01/13/17 showed high grade partial thickness articular surface tear anterior supraspinatus, partial thickness tear right infraspinatus musculotendinous junction, mild AC joint degeneration. Treatment Goals Patient/Caregiver Goals Decrease pain to enable reach overhead, behind back, out to side without severe pain. Able to manage seatbelt without severe pain. Prior Functional Status Baseline Function- ADL's Independent Baseline Function- Mobility Independent Current Functional Impairments (Reported) Functional Limitations- ADL's Unable to reach overhead, out to side, behind her back without an increase in pain which is limiting her normal functional activities and tolerance and decreasing her quality of life. PT-OP-C Subjective Start: 07/09/17 09:03 Freq: Status: Active Protocol: Document 12/13/17 12:30 [facility] (Rec: 12/15/17 17:07 [facility] [id number]) OP-PT Subjective Patient Comments Patient Comments Patient reports she has been gone for a couple weeks. Has not yet gotten to the pool on her own yet. PT-OP-E Functional Tests Start: 07/09/17 17:07 Freq: Status: Active Protocol: Document 07/09/17 09:03 [facility] (Rec: 07/09/17 17:39 [facility] [id number]) Functional Tests Apley's Scratch Test Action 1: The subject is instructed to touch the opposite shoulder with his/her hand. This motion checks Glenohumeral adduction, internal rotation , horizontal adduction and scapular protraction Action 2: The subject is instructed to place his/her arm overhead and reach behind the neck to touch his/her upper back. This motion checks Glenohumeral abduction, external rotation and scapular upward rotation and elevation. Action 3: The subject puts his/her hand on the lower back and reaches upward as far as possible. This motion checks glenohumeral adduction, internal rotation and scapular retraction with downward rotation Action 1- Left front of shoulder Action 1- Right front of chest Action 2- Left C3 Action 2- Right ear Action 3- Left T10 Action 3- Right lateral hip PT-OP-J Posture/Palpation/Skin Start: 07/09/17 17:07 Freq: Status: Active Protocol: Document 07/09/17 09:03 [facility] (Rec: 07/09/17 17:39 [facility] [id number]) Posture Evaluation Position Sitting Head/C-Spine Posture Forward Head T-Spine Posture Increased Kyphosis PT-OP-K Range of Motion Start: 07/09/17 17:07 Freq: Status: Active Protocol: Document 07/09/17 09:03 [facility] (Rec: 07/09/17 17:39 [facility] [id number]) Cervical Spine Range of Motion Cervical Spine Active ROM Limitations Soft Tissue Tightness Bony Restriction Shoulder Goniometric Range of Motion Shoulder Measured in Degrees Right Shoulder ROM WFL No Testing Position Sitting Flexion 85 Extension 37 Abduction 75 Horizontal Abduction 60 External Rotation at 45 degrees 20 Abduction Internal Rotation 20 Left Shoulder ROM WFL No Testing Position Sitting Flexion 150 Extension 50 Abduction 125 Horizontal Abduction 85 External Rotation at 45 degrees 45 Abduction Internal Rotation 55 Shoulder ROM Limitations Shoulder ROM Limitations Pain PT-OP-L Special Tests Start: 07/09/17 17:07 Freq: Status: Active Protocol: Document 07/09/17 09:03 [facility] (Rec: 07/09/17 17:39 [facility] [id number]) Special Tests Shoulder Special Tests Elevation Impingement Test Results positive bilaterally Drop Arm Rotator Cuff Test Results positive right PT-OP-M Strength Start: 07/09/17 17:07 Freq: Status: Active Protocol: Document 07/09/17 09:03 [facility] (Rec: 07/09/17 17:39 [facility] [id number]) Shoulder Strength Shoulder Manual Muscle Testing Right Reason Not Measured Pain Left Flexion 4- Good- Extension 4 Good Abduction (C5) 4- Good- External Rotation 3+ Fair+ Internal Rotation 4 Good PT-OP-Q Treatments Start: 07/09/17 17:07 Freq: Status: Active Protocol: Document 07/09/17 09:03 [facility] (Rec: 07/09/17 17:39 [facility] [id number]) Manual Therapy Treatment Soft Tissue Mobilization 1 Body Location right upper traps, GH joint region Mobilization Type Strumming Intensity/Depth Moderate Body Position Supine Taping 1 Body Location right shoulder Treatment Focus support and pain management Type of Tape Kinesio Tape Self-Care/Home Management Treatment Education Patient Education Pain Management PT-OP-R Modalities Start: 07/09/17 17:07 Freq: Status: Active Protocol: Document 07/09/17 09:03 [facility] (Rec: 07/09/17 17:39 [facility] [id number]) Hot Pack/Cold Pack Treatment Hot Pack Location right shoulder Patient Position Hooklying Patient Tolerance Good PT-OP-T Assessment and Plan Start: 07/09/17 17:07 Freq: Status: Active Protocol: Document 12/13/17 12:30 [facility] (Rec: 12/15/17 17:07 [facility] [id number]) Physical Therapy Assessment Goals Four Impairment Activity tolerance Skilled Nursing Goal (LTG) Patient to be safe and independent with aquatic exercise program for ferry terminal agent 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 LTG Duration 1 month Three Impairment strength Line Technician Goal (LTG) Improve right UE strength to at least 4+/5 all motions to improve her ability to perform usual activities (goal progress) LTG Duration 1 month Two Impairment Functional activities Line Technician Goal (LTG) Improve Quickdash UE score to 20 (goal progress) LTG Duration 1 month One Impairment functional activites Skilled Nursing Goal (LTG) Patient able to resume all usual activities using right UE without an increase in pain including reaching overhead, behind her back, drive, do computer work (goal progress) LTG Duration 1 month Assessment Summary Assessment Patient has made some progress though has potential for more with compliance to HEP and aquatic exercise program; compliance so far has been poor with patient verbalizing she's not sure why she can't get herself to be compliant with caring for her physical health. Agrees she needs to start coming to pool independently. Physical Therapy Plan Frequency and Duration Frequency of Treatment 2x/Week Duration of Treatment 1 month Plan of Care Start Date 12/13/17 Plan of Care End Date 01/13/18 Therapeutic Interventions Therapeutic Interventions Aquatic Therapy Manual Therapy Self-Care/Home Management Taping Next Visit Focus/Plan Next Note Type Treatment Note Next Visit Plan Continue aquatic PT with emphasis on transition toward independent HEP and aquatic exercise program for snf fitness and pain management.
--- NOTE | 2017-12-24 13:17 | PT.OTN ---
Current Diagnoses Unspecified rotator cuff tear or rupture of left shoulder, not specified as traumatic (12/22/17) Impingement syndrome of right shoulder (12/22/17) Physical Therapy Treatment Note PT-OP-A Visit Information Start: 07/09/17 17:07 Freq: Status: Active Protocol: Document 12/22/17 13:11 [facility] (Rec: 12/24/17 13:17 [facility] [id number]) Out-Patient Physical Therapy Visit Information Visit Information Visit Type Treatment Note Visit Start Time 12:30 Visit Stop Time 13:15 Total Visit Minutes 45 Visit Number 23 Number of EXHIBITS MANAGER Visits 0 Evaluation Information Evaluation Date 07/09/17 PT-OP-B Current Condition Start: 07/09/17 09:03 Freq: Status: Active Protocol: Document 07/09/17 09:03 [facility] (Rec: 07/09/17 09:17 [facility] [id number]) Current Condition History of Current Condition History of Current Condition Patient evaluated in March for right shoulder pain; had done land-based PT with poor tolerance. Wasn't able to attend aquatic PT due to waiting list as well as going on vacation and had other medical issues which prevented her from coming back. Pain increases with reaching overhead, behind her back, and doing usual ADL's and activities including driving, managing her seatbelt, and computer work. Has not had kinesiotape to right shoulder Prior Treatments and Tests MRI 01/13/17 showed high grade partial thickness articular surface tear anterior supraspinatus, partial thickness tear right infraspinatus musculotendinous junction, mild AC joint degeneration. Treatment Goals Patient/Caregiver Goals Decrease pain to enable reach overhead, behind back, out to side without severe pain. Able to manage seatbelt without severe pain. Prior Functional Status Baseline Function- ADL's Independent Baseline Function- Mobility Independent Current Functional Impairments (Reported) Functional Limitations- ADL's Unable to reach overhead, out to side, behind her back without an increase in pain which is limiting her normal functional activities and tolerance and decreasing her quality of life. PT-OP-C Subjective Start: 07/09/17 09:03 Freq: Status: Active Protocol: Document 12/22/17 13:11 [facility] (Rec: 12/24/17 13:17 [facility] [id number]) OP-PT Subjective Patient Comments Patient Comments No new c/o, came to pool on own 1x. Seeking further medical work-up regarding persistent knee pain. Trying to work on postural alignment as instructed but difficult. Agreeable to 1 further PT treatment after today then discharge to independent aquatic exercise program. PT-OP-E Functional Tests Start: 07/09/17 17:07 Freq: Status: Active Protocol: Document 07/09/17 09:03 [facility] (Rec: 07/09/17 17:39 [facility] [id number]) Functional Tests Apley's Scratch Test Action 1: The subject is instructed to touch the opposite shoulder with his/her hand. This motion checks Glenohumeral adduction, internal rotation , horizontal adduction and scapular protraction Action 2: The subject is instructed to place his/her arm overhead and reach behind the neck to touch his/her upper back. This motion checks Glenohumeral abduction, external rotation and scapular upward rotation and elevation. Action 3: The subject puts his/her hand on the lower back and reaches upward as far as possible. This motion checks glenohumeral adduction, internal rotation and scapular retraction with downward rotation Action 1- Left front of shoulder Action 1- Right front of chest Action 2- Left C3 Action 2- Right ear Action 3- Left T10 Action 3- Right lateral hip PT-OP-J Posture/Palpation/Skin Start: 07/09/17 17:07 Freq: Status: Active Protocol: Document 07/09/17 09:03 [facility] (Rec: 07/09/17 17:39 [facility] [id number]) Posture Evaluation Position Sitting Head/C-Spine Posture Forward Head T-Spine Posture Increased Kyphosis PT-OP-K Range of Motion Start: 07/09/17 17:07 Freq: Status: Active Protocol: Document 07/09/17 09:03 [facility] (Rec: 07/09/17 17:39 [facility] [id number]) Cervical Spine Range of Motion Cervical Spine Active ROM Limitations Soft Tissue Tightness Bony Restriction Shoulder Goniometric Range of Motion Shoulder Measured in Degrees Right Shoulder ROM WFL No Testing Position Sitting Flexion 85 Extension 37 Abduction 75 Horizontal Abduction 60 External Rotation at 45 degrees 20 Abduction Internal Rotation 20 Left Shoulder ROM WFL No Testing Position Sitting Flexion 150 Extension 50 Abduction 125 Horizontal Abduction 85 External Rotation at 45 degrees 45 Abduction Internal Rotation 55 Shoulder ROM Limitations Shoulder ROM Limitations Pain PT-OP-L Special Tests Start: 07/09/17 17:07 Freq: Status: Active Protocol: Document 07/09/17 09:03 [facility] (Rec: 07/09/17 17:39 [facility] [id number]) Special Tests Shoulder Special Tests Elevation Impingement Test Results positive bilaterally Drop Arm Rotator Cuff Test Results positive right PT-OP-M Strength Start: 07/09/17 17:07 Freq: Status: Active Protocol: Document 07/09/17 09:03 [facility] (Rec: 07/09/17 17:39 [facility] [id number]) Shoulder Strength Shoulder Manual Muscle Testing Right Reason Not Measured Pain Left Flexion 4- Good- Extension 4 Good Abduction (C5) 4- Good- External Rotation 3+ Fair+ Internal Rotation 4 Good PT-OP-Q Treatments Start: 07/09/17 17:07 Freq: Status: Active Protocol: Document 07/09/17 09:03 [facility] (Rec: 07/09/17 17:39 [facility] [id number]) Manual Therapy Treatment Soft Tissue Mobilization 1 Body Location right upper traps, GH joint region Mobilization Type Strumming Intensity/Depth Moderate Body Position Supine Taping 1 Body Location right shoulder Treatment Focus support and pain management Type of Tape Kinesio Tape Self-Care/Home Management Treatment Education Patient Education Pain Management PT-OP-R Modalities Start: 07/09/17 17:07 Freq: Status: Active Protocol: Document 07/09/17 09:03 [facility] (Rec: 07/09/17 17:39 [facility] [id number]) Hot Pack/Cold Pack Treatment Hot Pack Location right shoulder Patient Position Hooklying Patient Tolerance Good PT-OP-S Aquatic Treatment Start: 07/09/17 17:07 Freq: Status: Active Protocol: Document 12/22/17 13:11 [facility] (Rec: 12/24/17 13:17 [facility] [id number]) Aquatics Treatment Pool Entry/Exit Pool Entry/Exit Method Stairs Assistance Independent Water Walking walking with scapular stab; UE's at sides Comments all directions Other- 1 Water Level Chest Level Comments With U.E. gentle breast stroke motion Lower Extremity Stretches 2 Details DKTC, SKTC Body Position Standing Water Level [place] Equipment wall Reps/Duration 2x 1 Details HS, hip add, IT band Body Position Standing Water Level Chest Level Equipment Small Noodle Reps/Duration 2x Comments 11/15 added quad stretch Upper Extremity Exercises 4 Details serratus punches with hands on pool wall Reps/Duration 10 3 Details standing gentle humeral rotation (pull posterior shoulder crease to armpit Reps/Duration 10 Comments manual cues 2 Details scapular clock with manual facilitation Body Position Standing Water Level Chest Level Reps/Duration 10 1 Details shoulder hor ab/ad, flex/ext, circles, shld ER/IR, scapular ction Body Position Standing Water Level Neck Level Reps/Duration 15x each Spinal Exercises 1 Details standing UT stretch with deep breathing Reps/Duration 2 [place] Activities [place] Activities Bicycle Cross Country Hip Abduction/Adduction Other Activities bicycle with shoulder depression holding small noodle behind back Equipment flotation belt Duration 10 minutes Comments gentle UE breastroke, reverse breastroke, UE's during all activities Manual Techniques Bad Ragaz supine Bad Ragaz for thoracic, scapulothoracic and GH mobility Aquatic Massage supine aquatic massage to upper traps, rhomboids, PT-OP-T Assessment and Plan Start: 07/09/17 17:07 Freq: Status: Active Protocol: Document 12/22/17 13:11 [facility] (Rec: 12/24/17 13:17 [facility] [id number]) Physical Therapy Assessment Goals Four Impairment Activity tolerance Public Safety Dispatcher Goal (LTG) Patient to be safe and independent with aquatic exercise program for long term care pharmacist 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 LTG Duration 1 month Three Impairment strength Public Safety Dispatcher Goal (LTG) Improve right UE strength to at least 4+/5 all motions to improve her ability to perform usual activities (goal progress) LTG Duration 1 month Two Impairment Functional activities Public Safety Dispatcher Goal (LTG) Improve Quickdash UE score to 20 (goal progress) LTG Duration 1 month One Impairment functional activites Care Home Goal (LTG) Patient able to resume all usual activities using right UE without an increase in pain including reaching overhead, behind her back, drive, do computer work (goal progress) LTG Duration 1 month Assessment Summary Assessment Improving postural awareness, decreased cues for aquatic exercises. Physical Therapy Plan Next Visit Focus/Plan Next Note Type Treatment Note Next Visit Plan discharge after next treatment ; assure safety and independence with aquatic exercise program.
--- NOTE | 2018-01-09 10:55 | PT.OTN ---
Current Diagnoses Unspecified rotator cuff tear or rupture of left shoulder, not specified as traumatic (12/29/17) Impingement syndrome of right shoulder (12/29/17) Physical Therapy Treatment Note PT-OP-A Visit Information Start: 07/09/17 17:07 Freq: Status: Active Protocol: Document 12/29/17 12:30 [facility] (Rec: 01/04/18 08:12 [facility] [id number]) Out-Patient Physical Therapy Visit Information Visit Information Visit Type Discharge Summary Visit Start Time 12:30 Visit Stop Time 13:15 Total Visit Minutes 45 Visit Number 24 Number of [employer]ONE SOFTWARE DEVELOPMENT ENGINEER Visits 0 Evaluation Information Evaluation Date 07/09/17 PT-OP-B Current Condition Start: 07/09/17 09:03 Freq: Status: Active Protocol: Document 07/09/17 09:03 SAK (Rec: 07/09/17 09:17 [facility] [id number]) Current Condition History of Current Condition History of Current Condition Patient evaluated in March for right shoulder pain; had done land-based PT with poor tolerance. Wasn't able to attend aquatic PT due to waiting list as well as going on vacation and had other medical issues which prevented her from coming back. Pain increases with reaching overhead, behind her back, and doing usual ADL's and activities including driving, managing her seatbelt, and computer work. Has not had kinesiotape to right shoulder Prior Treatments and Tests MRI 01/13/17 showed high grade partial thickness articular surface tear anterior supraspinatus, partial thickness tear right infraspinatus musculotendinous junction, mild AC joint degeneration. Treatment Goals Patient/Caregiver Goals Decrease pain to enable reach overhead, behind back, out to side without severe pain. Able to manage seatbelt without severe pain. Prior Functional Status Baseline Function- ADL's Independent Baseline Function- Mobility Independent Current Functional Impairments (Reported) Functional Limitations- ADL's Unable to reach overhead, out to side, behind her back without an increase in pain which is limiting her normal functional activities and tolerance and decreasing her quality of life. PT-OP-C Subjective Start: 07/09/17 09:03 Freq: Status: Active Protocol: Document 12/29/17 12:30 SAK (Rec: 01/04/18 08:12 [facility] [id number]) OP-PT Subjective Patient Comments Patient Comments Patient reports continued difficulty getting herself to come to pool on her own to do aquatic exercises. Feels she understands program but just needs to do on her own. PT-OP-E Functional Tests Start: 07/09/17 17:07 Freq: Status: Active Protocol: Document 07/09/17 09:03 [facility] (Rec: 07/09/17 17:39 [facility] [id number]) Functional Tests Apley's Scratch Test Action 1: The subject is instructed to touch the opposite shoulder with his/her hand. This motion checks Glenohumeral adduction, internal rotation , horizontal adduction and scapular protraction Action 2: The subject is instructed to place his/her arm overhead and reach behind the neck to touch his/her upper back. This motion checks Glenohumeral abduction, external rotation and scapular upward rotation and elevation. Action 3: The subject puts his/her hand on the lower back and reaches upward as far as possible. This motion checks glenohumeral adduction, internal rotation and scapular retraction with downward rotation Action 1- Left front of shoulder Action 1- Right front of chest Action 2- Left C3 Action 2- Right ear Action 3- Left T10 Action 3- Right lateral hip PT-OP-J Posture/Palpation/Skin Start: 07/09/17 17:07 Freq: Status: Active Protocol: Document 07/09/17 09:03 [facility] (Rec: 07/09/17 17:39 [facility] [id number]) Posture Evaluation Position Sitting Head/C-Spine Posture Forward Head T-Spine Posture Increased Kyphosis PT-OP-K Range of Motion Start: 07/09/17 17:07 Freq: Status: Active Protocol: Document 07/09/17 09:03 [facility] (Rec: 07/09/17 17:39 [facility] [id number]) Cervical Spine Range of Motion Cervical Spine Active ROM Limitations Soft Tissue Tightness Bony Restriction Shoulder Goniometric Range of Motion Shoulder Measured in Degrees Right Shoulder ROM WFL No Testing Position Sitting Flexion 85 Extension 37 Abduction 75 Horizontal Abduction 60 External Rotation at 45 degrees 20 Abduction Internal Rotation 20 Left Shoulder ROM WFL No Testing Position Sitting Flexion 150 Extension 50 Abduction 125 Horizontal Abduction 85 External Rotation at 45 degrees 45 Abduction Internal Rotation 55 Shoulder ROM Limitations Shoulder ROM Limitations Pain PT-OP-L Special Tests Start: 07/09/17 17:07 Freq: Status: Active Protocol: Document 07/09/17 09:03 [facility] (Rec: 07/09/17 17:39 [facility] [id number]) Special Tests Shoulder Special Tests Elevation Impingement Test Results positive bilaterally Drop Arm Rotator Cuff Test Results positive right PT-OP-M Strength Start: 07/09/17 17:07 Freq: Status: Active Protocol: Document 07/09/17 09:03 [facility]AK (Rec: 07/09/17 17:39 [facility] [id number]) Shoulder Strength Shoulder Manual Muscle Testing Right Reason Not Measured Pain Left Flexion 4- Good- Extension 4 Good Abduction (C5) 4- Good- External Rotation 3+ Fair+ Internal Rotation 4 Good PT-OP-Q Treatments Start: 07/09/17 17:07 Freq: Status: Active Protocol: Document 07/09/17 09:03 [facility] (Rec: 07/09/17 17:39 [facility] [id number]) Manual Therapy Treatment Soft Tissue Mobilization 1 Body Location right upper traps, GH joint region Mobilization Type Strumming Intensity/Depth Moderate Body Position Supine Taping 1 Body Location right shoulder Treatment Focus support and pain management Type of Tape Kinesio Tape Self-Care/Home Management Treatment Education Patient Education Pain Management PT-OP-R Modalities Start: 07/09/17 17:07 Freq: Status: Active Protocol: Document 07/09/17 09:03 [facility] (Rec: 07/09/17 17:39 [facility] [id number]) Hot Pack/Cold Pack Treatment Hot Pack Location right shoulder Patient Position Hooklying Patient Tolerance Good PT-OP-S Aquatic Treatment Start: 07/09/17 17:07 Freq: Status: Active Protocol: Document 12/29/17 12:30 [facility] (Rec: 01/04/18 08:12 [facility] [id number]) Aquatics Treatment Pool Entry/Exit Assistance Independent Water Walking walking with scapular stab; UE's at sides Comments all directions Other- 1 Water Level Chest Level Comments With U.E. gentle breast stroke motion Upper Extremity Exercises 4 Details serratus punches with hands on pool wall Reps/Duration 10 3 Details standing gentle humeral rotation (pull posterior shoulder crease to armpit Reps/Duration 10 Comments manual cues 2 Details scapular clock with manual facilitation Body Position Standing Water Level Chest Level Reps/Duration 10 1 Details shoulder hor ab/ad, flex/ext, circles, shld ER/IR, scapular ction Body Position Standing Water Level Neck Level Reps/Duration 15x each Spinal Exercises 1 Details standing UT stretch with deep breathing Reps/Duration 2 [place] Activities [place] Activities Bicycle [place] Hip Abduction/Adduction Other Activities bicycle with shoulder depression holding small noodle behind back Equipment flotation belt Duration 5 minutes Comments gentle UE breastroke, reverse breastroke, UE's during all activities Swim Strokes Backstroke Laps/Duration 2 min Crawl Equipment Mask/Snorkel Laps/Duration 6 min Comments gentle crawl in pain-free ROM Manual Techniques Bad Ragaz supine Bad Ragaz for thoracic, scapulothoracic and GH mobility Aquatic Massage supine aquatic massage to upper traps, rhomboids, PT-OP-T Assessment and Plan Start: 07/09/17 17:07 Freq: Status: Active Protocol: Document 12/29/17 12:30 [facility] (Rec: 01/04/18 08:12 [facility] [id number]) Physical Therapy Assessment Goals Four Impairment Activity tolerance Mcfp Goal (LTG) Patient to be safe and independent with aquatic exercise program for long-term 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 LTG Duration 1 month Three Impairment strength Mcfp Goal (LTG) Improve right UE strength to at least 4+/5 all motions to improve her ability to perform usual activities (goal progress) LTG Duration 1 month Two Impairment Functional activities Mcfp Goal (LTG) Improve Quickdash UE score to 20 (goal progress) LTG Duration 1 month One Impairment functional activites Mcfp Goal (LTG) Patient able to resume all usual activities using right UE without an increase in pain including reaching overhead, behind her back, drive, do computer work (goal progress) LTG Duration 1 month Assessment Summary Assessment Patient ready for discharge from aquatic PT; plateau in progress, patient independent with aquatic exercise program. May benefit form further PT in the future. Physical Therapy Plan Discharge Physical Therapy Discharge Reasons Plateau in Progress
== END 2018-03-29 13:12 ==
LOC: PHYS 12:30
PROVIDERS: Family Provider Internal Medicine; PCP Internal Medicine; Visit Provider Orthopaedic Surgery
DX: M75.41 Impingement syndrome of right shoulder (principal); M75.102 Unspecified rotator cuff tear or rupture of left shoulder, not specified as traumatic
CPT/HCPCS: 97010; 97113; 97140; 97162

== ENCOUNTER → 2018-09-02 15:21 | Outpatient (CLI) | payer MEDICARE, OTHER, SELFPAY ==
--- NOTE | 2018-09-02 15:27 | DI.RAD.S_ITS ---
PROCEDURE: XR KNEE LT 3V INDICATIONS: PAIN IN LEFT KNEE TECHNIQUE: 3 views of the knee were acquired. COMPARISON: [facility], , KNEE 3V RIGHT, 06/18/2014, 14:03. FINDINGS: Bones: Status post left total knee arthroplasty. Normal alignment of hardware. No evidence for hardware complication. No fractures or dislocations. No suspicious bony lesions. Soft tissues: No substantial joint effusion. No suspicious soft tissue calcifications. IMPRESSION: Status post left total knee arthroplasty without evidence for hardware complication. No acute osseous abnormalities. Dictated by: Avtar Oreilly M.D. on 09/02/2018 at 17:40 Approved by: Avtar Oreilly M.D. on 09/02/2018 at 17:41
== END ==
PROVIDERS: PCP Internal Medicine; Visit Provider Physician Assistant
DX: M25.562 Pain in left knee (principal); Z96.652 Presence of left artificial knee joint
CPT/HCPCS: 73562

== ENCOUNTER → 2018-12-01 18:54 | Outpatient (ROUT) | payer MEDICARE, OTHER, SELFPAY ==
[2018-12-01 19:19] LABS: Add Manual Diff / Slide Review NO; Basophils Absolute Auto 100 /uL (0-100); Basophils Percent Auto 0.6 % (0-2); Eosinophils Absolute Auto 200 /uL (0-450); Eosinophils Percent Auto 1.7 % (2-4); Hematocrit 38.9 % (36-46); Lymphocytes Absolute Auto 2600 /uL (1100-4500); Mean Corpuscular HGB Conc 33.3 % (30-36); Mean Corpuscular Hemoglobin 29.6 PG (26-34); Mean Corpuscular Volume 88.9 fL (80-100); Monocytes Absolute Auto 900 /uL (0-900); Monocytes Percent Auto 9.7 % (3-14); Neutrophils Absolute Auto 5400 /uL (1500-7000); Platelet Count 221 X10^3/uL (150-400); Red Blood Cell Count 4.38 X10^6/uL (4.0-5.2); Red Cell Distribution Width 14.6 % (11.6-14.8); White Blood Cell Count 9.1 X10^3/uL (4.5-11.0)
[2018-12-01 19:30] LABS: Alanine Aminotransferase 16 IU/L (9-52); Albumin 4.4 g/dL (3.5-5.0); Albumin Globulin Ratio 1.4 (1.0-2.8); Alkaline Phosphatase 81 U/L (38-126); Aspartate Aminotransferase 26 IU/L (14-36); Bilirubin Total 0.5 mg/dL (0.2-1.3); Blood Urea Nitrogen 29 mg/dL (7-17); Calcium 9.6 mg/dL (8.4-10.2); Carbon Dioxide 26 mmol/L (22-32); Chloride 103 mmol/L (98-107); Estimated Glomerular Filt Rate 53.5 mL/min (>60); Globulin 3.2 g/dL (1.7-4.1); Glucose 118 mg/dL (80-110); HEMOLYSIS < 15 (0-50); Potassium 4.5 mmol/L (3.4-5.1); Sodium 139 mmol/L (137-145); Total Protein 7.6 g/dL (6.3-8.2)
== END ==
PROVIDERS: PCP Internal Medicine; Visit Provider Physician Assistant
DX: Z01.818 Encounter for other preprocedural examination (principal); I10 Essential (primary) hypertension
CPT/HCPCS: 80053; 85025

== ENCOUNTER → 2020-03-12 14:58 | Outpatient (ROUT) | payer MEDICARE, OTHER, SELFPAY ==
[2020-03-12 15:15] LABS: Add Manual Diff / Slide Review NO; Basophils Absolute Auto 0 /uL (0-100); Basophils Percent Auto 0.5 % (0-2); Eosinophils Absolute Auto 200 /uL (0-450); Eosinophils Percent Auto 2.7 % (2-4); Hematocrit 36.2 % (36-46); Lymphocytes Absolute Auto 1900 /uL (1100-4500); Mean Corpuscular Hemoglobin 28.2 PG (26-34); Mean Corpuscular Volume 85.5 fL (80-100); Monocytes Absolute Auto 700 /uL (0-900); Monocytes Percent Auto 9.7 % (3-14); Neutrophils Absolute Auto 4300 /uL (1500-7000); Neutrophils Percent Auto 60.1 % (50-75); Platelet Count 194 X10^3/uL (150-400); Red Blood Cell Count 4.24 X10^6/uL (4.0-5.2); Red Cell Distribution Width 14.1 % (11.6-14.8); White Blood Cell Count 7.1 X10^3/uL (4.5-11.0)
[2020-03-12 15:29] LABS: HEMOLYSIS < 15 (0-50); Iron 29 ug/dL (37-170)
[2020-03-12 15:33] LABS: Alanine Aminotransferase 14 IU/L (<35); Albumin Globulin Ratio 1.4 (1.0-2.8); Alkaline Phosphatase 77 U/L (38-126); Aspartate Aminotransferase 20 IU/L (14-36); BUN Creatinine Ratio 29.1 (6-22); Bilirubin Total 0.1 mg/dL (0.2-1.3); Blood Urea Nitrogen 25 mg/dL (7-17); Calcium 9.3 mg/dL (8.4-10.2); Carbon Dioxide 26 mmol/L (22-32); Chloride 106 mmol/L (98-107); Cholesterol 158 mg/dL (140-199); Estimated Glomerular Filt Rate > 60.0 mL/min (>60); Globulin 2.9 g/dL (1.7-4.1); Glucose 122 mg/dL (80-110); HDL Cholesterol 44 mg/dL (40-60); HEMOLYSIS < 15 (0-50); LDL Cholesterol Calculated 79 mg/dL (<100); Potassium 4.6 mmol/L (3.4-5.1); Sodium 138 mmol/L (137-145); Total Protein 6.9 g/dL (6.3-8.2); Triglycerides 173 mg/dL (35-150)
[2020-03-12 15:34] LABS: C-Reactive Protein Quant < 0.5 mg/dL (<1.0)
[2020-03-12 15:36] LABS: Erythrocyte Sedimentation Rate 30 MM/HR (0-20)
[2020-03-12 15:39] LABS: Percent Iron Saturation 7 % (15-50); Total Iron Binding Capacity 400 ug/dL (265-497); Transferrin 297 mg/dL (206-381)
[2020-03-12 16:01] LABS: TSH w/ Reflex to FT4 2.07 uIU/mL (0.47-4.68)
[2020-03-12 16:05] LABS: Ferritin 11 ng/mL (11-264)
[2020-03-12 16:19] LABS: Vitamin B12 781 pg/mL (239-931)
[2020-03-14 14:36] LABS: Albumin 3.6 g/dL (2.9-4.4); Alpha-1-Globulin 0.2 g/dL (0.0-0.4); Alpha-2-Globulin 0.9 g/dL (0.4-1.0); Globulin Total 3.2 g/dL (2.2-3.9); Protein, Total 6.8 g/dL (6.0-8.5)
== END ==
PROVIDERS: PCP Internal Medicine; Visit Provider Physician Assistant
DX: I10 Essential (primary) hypertension (principal); K21.9 Gastro-esophageal reflux disease without esophagitis; F32.9 Major depressive disorder, single episode, unspecified; E78.5 Hyperlipidemia, unspecified; D64.9 Anemia, unspecified; G62.9 Polyneuropathy, unspecified; E61.1 Iron deficiency; G25.81 Restless legs syndrome
CPT/HCPCS: 80053; 80061; 82607; 82728; 83540; 83550; 84155; 84165; 84443; 85025; 85651; 86140

== ENCOUNTER → 2020-03-25 17:21 | Outpatient (CLI) | payer MEDICARE, OTHER, SELFPAY ==
--- NOTE | 2020-03-25 | DI.MG.S_ITS ---
BILATERAL DIGITAL SCREENING MAMMOGRAM 3D/2D WITH CAD: 03/25/2020 CLINICAL: Routine screening. Comparison is made to exams dated: 03/15/2017 mammogram, 07/26/2015 mammogram, and 03/23/2013 mammogram - [facility]. The tissue of both breasts is heterogeneously dense. This may lower the sensitivity of mammography. Current study was also evaluated with a Computer Aided Detection (CAD) system. No significant masses, calcifications, or other findings are seen in either breast. There has been no significant interval change. IMPRESSION: NEGATIVE There is no mammographic evidence of malignancy. A 1 year screening mammogram is recommended. This exam was interpreted at Station ID: [id number]. NOTE: For mammograms, a report in lay terms will be sent to the patient. Approximately 15% of breast malignancies will not be visualized mammographically. In the management of a palpable breast mass, a negative mammogram must not discourage biopsy of a clinically suspicious lesion. Electronically Signed By: Brandin north/jasiel:03/26/2020 09:16:13 letter sent: Normal Exam ACR BI-RADS Category 1: Negative [id number]
== END ==
PROVIDERS: PCP Physician Assistant; Referring Provider Physician Assistant; Visit Provider Physician Assistant
DX: Z12.31 Encounter for screening mammogram for malignant neoplasm of breast (principal)
CPT/HCPCS: 77063; 77067

== ENCOUNTER → 2020-04-03 12:30 | Oncology outpatient (ONC) | payer MEDICARE, OTHER, SELFPAY ==
[2020-03-19 10:36] VITALS: BP 143/65; PULSE 73; RESP 16; TEMP 36.5; O2SAT 94
[2020-03-19] MEDS: IRON SUCROSE 200 MG in SODIUM CHLORIDE 0.9% 100 ML 220 ML IV (10:38)
[2020-03-21 14:35] VITALS: BP 157/71; PULSE 67; RESP 18; TEMP 37; O2SAT 99
--- NOTE | 2020-03-21 14:38 | PC.NURSE ---
HYPERTENSION Pt's BP was 157/71 today in the clinic. She saw her PCP this morning and they discussed adjusting her BP medication due to the hypertension. Will continue to monitor.
[2020-03-21] MEDS: IRON SUCROSE 200 MG in SODIUM CHLORIDE 0.9% 100 ML 220 ML IV (14:43)
[2020-03-26 14:23] VITALS: BP 134/70; PULSE 90; RESP 18; TEMP 36.7; O2SAT 99
[2020-03-26] MEDS: IRON SUCROSE 200 MG in SODIUM CHLORIDE 0.9% 100 ML 220 ML IV (14:34)
[2020-03-28] MEDS: IRON SUCROSE 200 MG in SODIUM CHLORIDE 0.9% 100 ML 220 ML IV (13:06)
[2020-04-03] MEDS: IRON SUCROSE 200 MG in SODIUM CHLORIDE 0.9% 100 ML 220 ML IV (12:58)
== END ==
PROVIDERS: PCP Physician Assistant; Referring Provider Physician Assistant; Visit Provider Physician Assistant
DX: D50.9 Iron deficiency anemia, unspecified (principal)
CPT/HCPCS: 96365; J1756

== ENCOUNTER → 2020-04-19 11:58 | Outpatient (CLI) | payer MEDICARE, OTHER, SELFPAY ==
[2020-04-19 12:41] LABS: Add Manual Diff / Slide Review NO; Basophils Absolute Auto 0 /uL (0-100); Basophils Percent Auto 0.7 % (0-2); Eosinophils Absolute Auto 200 /uL (0-450); Eosinophils Percent Auto 3.1 % (2-4); Hematocrit 37.3 % (36-46); Hemoglobin 12.5 g/dL (12.0-16.0); Lymphocytes Absolute Auto 1900 /uL (1100-4500); Lymphocytes Percent Auto 33.7 % (25-40); Mean Corpuscular HGB Conc 33.4 % (30-36); Mean Corpuscular Hemoglobin 29.4 PG (26-34); Mean Corpuscular Volume 87.9 fL (80-100); Monocytes Absolute Auto 500 /uL (0-900); Monocytes Percent Auto 9.2 % (3-14); Neutrophils Absolute Auto 3000 /uL (1500-7000); Neutrophils Percent Auto 53.3 % (50-75); Platelet Count 145 X10^3/uL (150-400); Red Blood Cell Count 4.25 X10^6/uL (4.0-5.2); Red Cell Distribution Width 16.6 % (11.6-14.8); White Blood Cell Count 5.7 X10^3/uL (4.5-11.0)
[2020-04-19 12:50] LABS: HEMOLYSIS < 15 (0-50); Iron 121 ug/dL (37-170)
[2020-04-19 12:54] LABS: BUN Creatinine Ratio 21.6 (6-22); Blood Urea Nitrogen 19 mg/dL (7-17); Calcium 9.2 mg/dL (8.4-10.2); Carbon Dioxide 27 mmol/L (22-32); Chloride 103 mmol/L (98-107); Estimated Glomerular Filt Rate > 60.0 mL/min (>60); Glucose 139 mg/dL (80-110); HEMOLYSIS < 15 (0-50); Potassium 4.3 mmol/L (3.4-5.1); Sodium 137 mmol/L (137-145)
[2020-04-19 13:00] LABS: Percent Iron Saturation 44 % (15-50); Total Iron Binding Capacity 277 ug/dL (265-497); Transferrin 193 mg/dL (206-381)
[2020-04-19 14:13] LABS: Ferritin 261 ng/mL (11-264)
== END ==
PROVIDERS: PCP Physician Assistant; Referring Provider Physician Assistant; Visit Provider Physician Assistant
DX: E61.1 Iron deficiency (principal); D64.9 Anemia, unspecified
CPT/HCPCS: 36415; 80048; 82728; 83540; 83550; 85025

== ENCOUNTER → 2020-09-28 11:02 | Outpatient (CLI) | payer MEDICARE, OTHER, SELFPAY ==
[2020-09-28 12:43] LABS: COVID19 -Nasal RAPID Negative (Negative)
== END ==
PROVIDERS: PCP Physician Assistant; Referring Provider Physician Assistant; Visit Provider Physician Assistant
DX: Z20.822 Contact with and (suspected) exposure to COVID-19 (principal)
CPT/HCPCS: 87635; C9803

== ENCOUNTER 2021-05-31 11:57 | Emergency (ER) | payer MEDICARE, OTHER, SELFPAY ==
[2021-05-31] VITALS (12 sets, daily range): BP systolic 145–193; BP diastolic 65–82; PULSE 68–81; RESP 14–16; TEMP 36.3; O2SAT 95–99; BMI 29.1
[2021-05-31] MEDS: ONDANSETRON 4 MG/2 ML INJ IV (12:32)
[2021-05-31 12:34] LABS: Add Manual Diff / Slide Review NO; Basophils Absolute Auto 0 /uL (0-100); Basophils Percent Auto 0.5 % (0-2); Eosinophils Absolute Auto 100 /uL (0-450); Eosinophils Percent Auto 0.8 % (2-4); Hematocrit 39.3 % (36-46); Hemoglobin 13.6 g/dL (12.0-16.0); Lymphocytes Absolute Auto 1600 /uL (1100-4500); Lymphocytes Percent Auto 20.5 % (25-40); Mean Corpuscular HGB Conc 34.5 % (30-36); Mean Corpuscular Hemoglobin 31.9 PG (26-34); Mean Corpuscular Volume 92.4 fL (80-100); Monocytes Absolute Auto 400 /uL (0-900); Monocytes Percent Auto 5.9 % (3-14); Neutrophils Absolute Auto 5500 /uL (1500-7000); Neutrophils Percent Auto 72.3 % (50-75); Platelet Count 178 X10^3/uL (150-400); Red Blood Cell Count 4.25 X10^6/uL (4.0-5.2); Red Cell Distribution Width 13.1 % (11.6-14.8); White Blood Cell Count 7.6 X10^3/uL (4.5-11.0)
--- NOTE | 2021-05-31 12:44 | DI.CT.S_ITS ---
PROCEDURE: CT ABDOMEN PELVIS W CON INDICATIONS: Right hip pain, right upper quadrant abdominal pain TECHNIQUE: After the administration of oral and IV contrast, axial sections were acquired from the lung bases to the pubic symphysis. Coronal and sagittal reformats were performed. For radiation dose reduction, the following was used: automated exposure control, adjustment of mA and/or kV according to patient size. COMPARISON: [facility], CHEST 2 VIEW, 10/05/2016, 16:12. [facility], ABDOMEN 2 VIEW, 11/16/2014, 17:04. [facility], NM, NM BONE 3 PHASE, 07/07/2017, 10:31. [facility], , XR HIP W PEL IF DONE RT 2V, 12/21/2017, 14:52. FINDINGS: Image quality: Excellent. Lung bases: Unremarkable. A small hiatal hernia is incidentally noted. No right breast is seen. Heart: No significant findings. ABDOMEN: Liver: Unremarkable. Gallbladder: Unremarkable. No significant inflammatory change can be seen involving the gallbladder. No gallbladder wall thickening is seen. Biliary ducts: Unremarkable. Pancreas: Unremarkable. Spleen: Unremarkable. Incidental note is made of an accessory splenule along the inferior aspect of the primary spleen. Adrenal Glands: Unremarkable. Kidneys and Ureters: Unremarkable. Stomach and Bowel: Stomach, small bowel loops, and colon are unremarkable. A focal density is seen within the cecum, which may be related to a biopsy clip. No appendix is seen, either normal or abnormal. Peritoneum: No abnormal intraperitoneal fluid. No free air. Ventral Wall: No hernia. Abdominal Nodes: No retroperitoneal or mesenteric adenopathy by size criteria. Vessels: Aorta and inferior vena cava are normal in size. PELVIS: Pelvic Organs: The uterus appears normal for age. No adnexal masses are seen. Bladder: Unremarkable. Pelvic Nodes: No enlarged lymph nodes. Miscellaneous: No inguinal hernias are seen. Bones: In this patient with this given history, scrutiny is given to the right hip. No focal abnormality of the right hip or the right pelvis can be seen. There is a remote L3 fracture, 30% loss of height centrally. Focal L4-L5 degenerative change is seen. Mild levoconvex scoliotic curvature is noted. IMPRESSION: Normal gallbladder by CT. If it would be helpful for clinical management decision making in this patient with this given history, please consider a dedicated right upper quadrant ultrasound for further evaluation. No significant abnormality of the right hip can be seen. Incidental note is made of: Hiatal hernia Remote L3 fracture Focal L4-L5 degenerative change Levoconvex scoliotic curvature Dictated by: Korey Donnelly M.D. on 05/31/2021 at 12:44 Approved by: Korey Donnelly M.D. on 05/31/2021 at 12:49
[2021-05-31 12:50] LABS: Alanine Aminotransferase 21 IU/L (<35); Albumin 4.4 g/dL (3.5-5.0); Albumin Globulin Ratio 1.3 (1.0-2.8); Alkaline Phosphatase 69 U/L (38-126); Aspartate Aminotransferase 27 IU/L (14-36); BUN Creatinine Ratio 23.9 (6-22); Bilirubin Total 0.5 mg/dL (0.2-1.3); Blood Urea Nitrogen 21 mg/dL (7-17); Calcium 9.3 mg/dL (8.4-10.2); Carbon Dioxide 22 mmol/L (22-32); Chloride 109 mmol/L (98-107); Estimated Glomerular Filt Rate > 60.0 mL/min (>60); Globulin 3.5 g/dL (1.7-4.1); Glucose 125 mg/dL (80-110); HEMOLYSIS < 15 (0-50); Lipase 92 U/L (23-300); Potassium 4.2 mmol/L (3.4-5.1); Sodium 141 mmol/L (137-145); Total Protein 7.9 g/dL (6.3-8.2)
--- NOTE | 2021-05-31 12:50 | ED_ITS ---
HPI - Nausea/Vomiting/Diarrhea <Vaibhav Edwards PA-C - Last Filed: 05/31/21 20:14> General Chief complaint: Nausea/Vomiting/Diarrhea Stated complaint: pain on rt abdomen, butt/hip, cant walk, stand Time Seen by Provider: 05/31/21 12:20 Source: patient and family Mode of arrival: Family Vehicle History of Present Illness HPI Narrative: * Patient is an 80-year-old female presenting to the emergency department today for evaluation right-sided abdominal pain and right hip pain. Patient explains that yesterday she was walking in her yard when she began to experience sudden and severe right hip pain. She explains she has experienced associated nausea and vomiting since that time and she explains that she has had difficulty ambulating on the right lower extremity. Of note, patient states that she started using a new vacuum on Wednesday that she believes was may be a little too heavy for her and she explains this may have been the cause of her discomfort. She denies fever, chills, chest pain, cough, shortne ss of breath, diarrhea, constipation, dysuria, hematuria, or any other concerning symptoms. Patient denies a history of osteopenia or osteoporosis, she states she is not a smoker, and denies any surgical history of appendectomy or cholecystectomy. No further concerns were voiced at this time. Related Data Home Medications Medication Instructions Recorded Confirmed B.ANI/L.ACI/L.SAKSHI/L.PLAN/L.KANA 1 cap PO QDAY #0 12/14/11 11/10/17 (Probiotic Formula Capsule) Bioflavonoid/Ca/Hesperidin/R 1 tab PO QDAY #0 12/14/11 11/10/17 (#THEO C) CALCIUM CITRATE (CITRACAL ) 200 mg PO BIDCC #0 12/14/11 11/10/17 CHOLECALCIFEROL (VITAMIN D3) 400 iu PO QDAY #0 12/14/11 11/10/17 Glucosamine Sulfate (#GLUCOSAMINE) 500 mg PO QDAY #0 12/14/11 11/10/17 Pyridoxine (#VITAMIN B6) 10 mg PO QDAY #0 12/14/11 11/10/17 Zinc, Chelated (#ZINC) 10 mg PO QDAY #0 12/14/11 11/10/17 omeprazole magnesium 20 mg 20 mg PO QDAY #0 12/14/11 11/10/17 tablet,delayed release (Prilosec OTC) Previous Rx's Medication Instructions Recorded amitriptyline 10 mg tablet 10 mg PO HS #180 tab 02/04/16 nefazodone 50 mg tablet 75 mg PO HS #45 tab 02/04/16 citalopram 20 mg tablet (Celexa) 20 mg PO QDAY #90 tab 03/16/17 baclofen 10 mg tablet 10 mg PO BID #20 tab 05/31/21 ondansetron 4 mg disintegrating 4 mg PO Q6H PRN #20 tab 05/31/21 tablet oxycodone 5 mg tablet 5 mg PO BID PRN #15 tab 05/31/21 omeprazole 40 mg capsule,delayed 40 mg PO DAILY #5 cap 06/02/21 release prednisone 5 mg tablet 5 mg PO DAILY #5 tab 06/02/21 Allergies Allergy/AdvReac Type Severity Reaction Status Date / Time codeine AdvReac Mild N/V Verified 03/28/20 13:10 epinephrine AdvReac Mild N/V Verified 03/28/20 13:10 Review of Systems <Vaibhav Edwards PA-C - Last Filed: 05/31/21 20:14> Constitutional Constitutional: Denies chills, Denies fatigue, Denies fever(s), Denies frequent falls, Denies lethargy and Denies weakness Eyes Eyes: Denies loss of vision ENT Ears, Nose, Mouth, and Throat: Denies dizziness and Denies neck pain Cardiovascular Cardiovascular: Denies chest pain, Denies irregular heart rhythm, Denies lightheadedness, Denies palpitations, Denies dyspnea, Denies dyspnea on exertion and Denies orthopnea Respiratory Respiratory: Denies cough, Denies dyspnea, Denies dyspnea on exertion and Denies wheezing Gastrointestinal Gastrointestinal: Reports abdominal pain, Denies change in bowel habits, Denies diarrhea, Reports nausea and Reports vomiting Genitourinary Genitourinary: Denies hematuria, Denies flank pain, Denies urinary incontinence and Denies urinary urgency Musculoskeletal Musculoskeletal: Denies back pain, Reports arthralgias (Right hip), Denies muscle weakness, Denies neck pain, Denies numbness and Denies tingling Integumentary/Breasts Skin/Breast: Denies pruritus, Denies erythema, Denies rash and Denies wounds Neurologic Neurologic: Denies behavioral changes, Denies confusion, Denies dizziness, Denies frequent falls, Denies loss of vision, Denies numbness, Denies tingling and Denies weakness Psychiatric Psychiatric: Denies behavioral changes and Denies confusion Endocrine Endocrine: Denies fatigue and Denies palpitations Allergic/Immunologic Allergic/Immunologic: Denies wheezing Patient History <Vaibhav Edwards PA-C - Last Filed: 05/31/21 20:14> Social History Smoking Status: Never smoker Smoking Status: Unknown if ever smoked alcohol intake frequency: 0-2 drinks per day Substance Use Type: does not use Exam <Vaibhav Edwards PA-C - Last Filed: 05/31/21 20:14> Narrative Exam Narrative: GENERAL: 80 year old patient appears stated age. Well-developed patient, in no acute distress. Patient in wheelchair in examination room. HEAD: Atraumatic. Normocephalic. EYES: Pupils equal round and reactive. Extraocular motions intact. No scleral icterus. No injection or drainage. ENT: Nose without bleeding, purulent drainage. Throat without erythema, tonsillar hypertrophy or exudate. Airway patent. NECK: Trachea midline. Non tender CARDIOVASCULAR: Regular rate and rhythm without murmurs, gallops, or rubs. RESPIRATORY: Clear to auscultation. Breath sounds equal bilaterally. No wheezes, rales, or rhonchi. GASTROINTESTINAL: Abdomen soft, nondistended. Tenderness to palpation appreciated the right upper and right lower quadrants of the abdomen. No masses appreciated. No significant overlying erythema or ecchymosis appreciated. EXTREMITIES: No edema. Mild tenderness to palpation appreciated generally about the right hip and right side of the sacrum. Right hip is not in internal or external rotation at rest. Right lower extremity does not appear significantly shortened compared to the left lower extremity. No significant tenderness to palpation over the IT band. Good sensation to light touch appreciated throughout the bilateral lower extremities. Gross motor function intact throughout the bilateral lower extremities. Significant discomfort when taking a step forward with right lower extremity. Patient able to stand with mild difficulty. BACK: Nontender without deformity or crepitance. No flank tenderness. NEURO: AOx3. SKIN: No rash or erythema of visible areas Initial Vital Signs Initial Vital Signs: Vital Signs Blood Pressure 193/82 H 04/09/22 12:12 <Tereza Warren DO - Last Filed: 06/04/21 07:30> Initial Vital Signs Initial Vital Signs: Vital Signs Blood Pressure 193/82 H 05/31/21 12:12 Course <Vaibhav Edwards PA-C - Last Filed: 05/31/21 20:14> Course Course Narrative: CBC, CMP, lipase, urine dip, CT of the abdomen pelvis with IV contrast obtained. IV Zofran and 4 mg of morphine administered. Patient explains that her pain has significantly improved following administration of morphine. Orders Ordered: Discontinued Medications Morphine Sulfate (Morphine 4 Mg/Ml Inj) 4 mg IV NOW ONE Stop: 05/31/21 12:46 Last Admin: 05/31/21 13:18 Dose: 4 mg Documented by: CHERI Ondansetron HCl (Ondansetron 4 Mg/2 Ml Inj) 4 mg IV NOW ONE Stop: 05/31/21 12:25 Last Admin: 05/31/21 12:32 Dose: 4 mg Documented by: DAPHNE Vital Signs Vital signs: Vital Signs - 8 hr 05/31/21 12:13 05/31/21 12:20 05/31/21 12:21 Temperature 97.4 F L Pulse Rate 80 77 80 Pulse Rate [Right Dorsalis Pedis] Respiratory Rate 14 Blood Pressure 172/77 H 193/82 H Pulse Oximetry 98 95 99 05/31/21 12:30 05/31/21 12:39 05/31/21 13:18 Temperature Pulse Rate 75 81 Pulse Rate [Right Dorsalis Pedis] 80 Respiratory Rate 16 Blood Pressure 162/70 H Pulse Oximetry 96 99 05/31/21 13:19 05/31/21 13:30 05/31/21 14:00 Temperature Pulse Rate 79 74 68 Pulse Rate [Right Dorsalis Pedis] Respiratory Rate Blood Pressure 178/78 H 145/65 H 161/71 H Pulse Oximetry 97 97 95 05/31/21 14:30 05/31/21 14:31 Temperature Pulse Rate 72 74 Pulse Rate [Right Dorsalis Pedis] Respiratory Rate Blood Pressure 149/72 H Pulse Oximetry 96 96 <Tereza Warren DO - Last Filed: 06/04/21 07:30> Orders Ordered: Discontinued Medications Morphine Sulfate (Morphine 4 Mg/Ml Inj) 4 mg IV NOW ONE Stop: 05/31/21 12:46 Last Admin: 05/31/21 13:18 Dose: 4 mg Documented by: CHERI Ondansetron HCl (Ondansetron 4 Mg/2 Ml Inj) 4 mg IV NOW ONE Stop: 05/31/21 12:25 Last Admin: 05/31/21 12:32 Dose: 4 mg Documented by: DAPHNE Vital Signs Vital signs: Vital Signs - 8 hr 05/31/21 12:13 05/31/21 12:20 05/31/21 12:21 Temperature 97.4 F L Pulse Rate 80 77 80 Pulse Rate [Right Dorsalis Pedis] Respiratory Rate 14 Blood Pressure 172/77 H 193/82 H Pulse Oximetry 98 95 99 05/31/21 12:30 05/31/21 12:39 05/31/21 13:18 Temperature Pulse Rate 75 81 Pulse Rate [Right Dorsalis Pedis] 80 Respiratory Rate 16 Blood Pressure 162/70 H Pulse Oximetry 96 99 05/31/21 13:19 05/31/21 13:30 05/31/21 14:00 Temperature Pulse Rate 79 74 68 Pulse Rate [Right Dorsalis Pedis] Respiratory Rate Blood Pressure 178/78 H 145/65 H 161/71 H Pulse Oximetry 97 97 95 05/31/21 14:30 05/31/21 14:31 Temperature Pulse Rate 72 74 Pulse Rate [Right Dorsalis Pedis] Respiratory Rate Blood Pressure 149/72 H Pulse Oximetry 96 96 MDM - Nausea/Vomiting/Diarrhea <Vaibhav Edwards PA-C - Last Filed: 05/31/21 20:14> Lab Data Result diagrams: 05/31/21 12:20 05/31/21 12:20 Labs: Lab Results 05/31/21 05/31/21 05/31/21 Range/Units 12:20 12:20 13:50 WBC 7.6 (4.5-11.0) X10^3/uL RBC 4.25 (4.0-5.2) X10^6/uL Hgb 13.6 (12.0-16.0) g/dL Hct 39.3 (36-46) % MCV 92.4 (80-100) fL MCH 31.9 (26-34) PG MCHC 34.5 (30-36) % RDW 13.1 (11.6-14.8) % Plt Count 178 (150-400) X10^3/uL Neut % (Auto) 72.3 (50-75) % Lymph % (Auto) 20.5 L (25-40) % [place] % (Auto) 5.9 (3-14) % Eos % (Auto) 0.8 L (2-4) % Baso % (Auto) 0.5 (0-2) % Neut # (Auto) 5500 (4700-9260) /uL Lymph # (Auto) 1600 (5875-2026) /uL [place] # (Auto) 400 (0-900) /uL Eos # (Auto) 100 (0-450) /uL Baso # (Auto) 0 (0-100) /uL Sodium 141 (137-145) mmol/L Potassium 4.2 (3.4-5.1) mmol/L Chloride 109 H (98-107) mmol/L Carbon Dioxide 22 (22-32) mmol/L BUN 21 H (7-17) mg/dL Creatinine 0.88 (0.52-1.04) mg/dL Estimated GFR > 60.0 (>60) mL/min BUN/Creatinine Ratio 23.9 H (6-22) Glucose 125 H (80-110) mg/dL Calcium 9.3 (8.4-10.2) mg/dL Total Bilirubin 0.5 (0.2-1.3) mg/dL AST 27 (14-36) IU/L ALT 21 (<35) IU/L Alkaline Phosphatase 69 (38-126) U/L Total Protein 7.9 (6.3-8.2) g/dL Albumin 4.4 (3.5-5.0) g/dL Globulin 3.5 (1.7-4.1) g/dL Albumin/Globulin Ratio 1.3 (1.0-2.8) Lipase 92 (23-300) U/L Urine Color Yellow Urine Appearance Clear Urine pH 5.0 (4.5-8.0) Ur Specific [place] <=1.005 (1.000-1.035) Urine Protein Negative (Negative) Urine Glucose (UA) Negative (Negative) g/dL Urine Ketones Negative (NEGATIVE) Urine Occult Blood Negative (Negative) Urine Nitrate Negative (Negative) Urine Bilirubin Negative (NEGATIVE) Urine Urobilinogen 0.2 (0.2) E.U./dL Ur Leukocyte Esterase Negative (NEGATIVE) Urine RBC 0-1/hpf (0-5/HPF) Urine WBC 0-1/hpf (0-5/HPF) Ur Squamous Epith Cells 1-5 /hpf (0-5/HPF) Urine Bacteria Few (2-10) H (None) Ur Culture Indicated? Cult not indicated Imaging Data CT scan - abdomen/pelvis: Radiologist's Impression: PROCEDURE:? CT ABDOMEN PELVIS W CON ? INDICATIONS:? Right hip pain, right upper quadrant abdominal pain ? TECHNIQUE:? After the administration of oral and IV contrast, axial sections were acquired from the lung bases to the pubic symphysis.? Coronal and sagittal reformats were performed.? For radiation dose reduction, the following was used:? automated exposure control, adjustment of mA and/or kV according to patient size. ? COMPARISON:? [facility], CR, CHEST 2 VIEW, 10/05/2016, 16:12.? [facility], , ABDOMEN 2 VIEW, 11/16/2014, 17:04.? [facility], NM, NM BONE 3 PHASE, 07/07/2017, 10:31.? [facility], CR, XR HIP W PEL IF DONE RT 2V, 12/21/2017, 14:52. ? FINDINGS:? Image quality:? Excellent.? ? Lung bases:? Unremarkable.? ? A small hiatal hernia is incidentally noted.? No right breast is seen. Heart:? No significant findings. ? ? ABDOMEN: Liver:? Unremarkable.? ? Gallbladder:? Unremarkable.? ? No significant inflammatory change can be seen involving the gallbladder.? No gallbladder wall thickening is seen. Biliary ducts:? Unremarkable.? ? Pancreas:? Unremarkable.? ? Spleen:? Unremarkable.? ? Incidental note is made of an accessory splenule along the inferior aspect of the primary spleen. Adrenal Glands:? Unremarkable.? ? Kidneys and Ureters:? Unremarkable.? ? ? Stomach and Bowel:? Stomach, small bowel loops, and colon are unremarkable.? A focal density is seen within the cecum, which may be related to a biopsy clip. No appendix is seen, either normal or abnormal. Peritoneum:? No abnormal intraperitoneal fluid.? No free air.? ? Ventral Wall: ? No hernia.? Abdominal Nodes:? No retroperitoneal or mesenteric adenopathy by size criteria.? Vessels:? Aorta and inferior vena cava are normal in size.? ? PELVIS: Pelvic Organs: The uterus appears normal for age.? No adnexal masses are seen.? Bladder:? Unremarkable.? ? Pelvic Nodes: No enlarged lymph nodes.? Miscellaneous: No inguinal hernias are seen. ? ? ? Bones:? In this patient with this given history, scrutiny is given to the right hip.? No focal abnormality of the right hip or the right pelvis can be seen. ? There is a remote L3 fracture, 30% loss of height centrally.? Focal L4-L5 degenerative change is seen.? Mild levoconvex scoliotic curvature is noted.? ? ? IMPRESSION:? ? Normal gallbladder by CT. If it would be helpful for clinical management decision making in this patient with this given history, please consider a dedicated right upper quadrant ultrasound for further evaluation. ? No significant abnormality of the right hip can be seen. ? ? ? Incidental note is made of: Hiatal hernia Remote L3 fracture Focal L4-L5 degenerative change Levoconvex scoliotic curvature ? Dictated by: Korey Donnelly M.D. on 05/31/2021 at 12:44 ? ? Approved by: Korey Donnelly M.D. on 05/31/2021 at 12:49 ? MDM Narrative Medical decision making narrative: Differential diagnosis to consider but not limited to fracture versus dislocation versus sprain versus strain versus cholecystitis versus choledocho lithiasis versus acute cholangitis versus diverticulitis versus colitis. I discussed results of lab studies and imaging with patient and informed her that acute abnormality was identified today that would explain her discomfort. I did inform the patient that there was a remote L3 fracture with 30% loss of height centrally, however I could not confirm if this was an acute fracture. I informed the patient that would be setting up a referral for her to follow-up with orthopedics for further evaluation and management. Additionally, discussed planned to have the patient sent home with medications to help alleviate her discomfort. Patient expresses understanding agrees to plan. She states that this time she is comfortable being discharged home is stable for discharge. Strict return precautions were discussed with the patient prior to discharge <Tereza Warren, DO - Last Filed: 06/04/21 07:30> Lab Data Labs: Lab Results 05/31/21 05/31/21 05/31/21 Range/Units 12:20 12:20 13:50 WBC 7.6 (4.5-11.0) X10^3/uL RBC 4.25 (4.0-5.2) X10^6/uL Hgb 13.6 (12.0-16.0) g/dL Hct 39.3 (36-46) % MCV 92.4 (80-100) fL MCH 31.9 (26-34) PG MCHC 34.5 (30-36) % RDW 13.1 (11.6-14.8) % Plt Count 178 (150-400) X10^3/uL Neut % (Auto) 72.3 (50-75) % Lymph % (Auto) 20.5 L (25-40) % [place] % (Auto) 5.9 (3-14) % Eos % (Auto) 0.8 L (2-4) % Baso % (Auto) 0.5 (0-2) % Neut # (Auto) 5500 (3035-1505) /uL Lymph # (Auto) 1600 (6806-0032) /uL [place] # (Auto) 400 (0-900) /uL Eos # (Auto) 100 (0-450) /uL Baso # (Auto) 0 (0-100) /uL Sodium 141 (137-145) mmol/L Potassium 4.2 (3.4-5.1) mmol/L Chloride 109 H (98-107) mmol/L Carbon Dioxide 22 (22-32) mmol/L BUN 21 H (7-17) mg/dL Creatinine 0.88 (0.52-1.04) mg/dL Estimated GFR > 60.0 (>60) mL/min BUN/Creatinine Ratio 23.9 H (6-22) Glucose 125 H (80-110) mg/dL Calcium 9.3 (8.4-10.2) mg/dL Total Bilirubin 0.5 (0.2-1.3) mg/dL AST 27 (14-36) IU/L ALT 21 (<35) IU/L Alkaline Phosphatase 69 (38-126) U/L Total Protein 7.9 (6.3-8.2) g/dL Albumin 4.4 (3.5-5.0) g/dL Globulin 3.5 (1.7-4.1) g/dL Albumin/Globulin Ratio 1.3 (1.0-2.8) Lipase 92 (23-300) U/L Urine Color Yellow Urine Appearance Clear Urine pH 5.0 (4.5-8.0) Ur Specific [place] <=1.005 (1.000-1.035) Urine Protein Negative (Negative) Urine Glucose (UA) Negative (Negative) g/dL Urine Ketones Negative (NEGATIVE) Urine Occult Blood Negative (Negative) Urine Nitrate Negative (Negative) Urine Bilirubin Negative (NEGATIVE) Urine Urobilinogen 0.2 (0.2) E.U./dL Ur Leukocyte Esterase Negative (NEGATIVE) Urine RBC 0-1/hpf (0-5/HPF) Urine WBC 0-1/hpf (0-5/HPF) Ur Squamous Epith Cells 1-5 /hpf (0-5/HPF) Urine Bacteria Few (2-10) H (None) Ur Culture Indicated? Cult not indicated Discharge Plan Departure Patient Disposition: Home Clinical Impression: Acute pain of right hip, Strain of muscle of right hip, Abdominal muscle strain, Abdominal pain, Closed L3 vertebral fracture Instructions: DI for Vomiting -- Adult Activity Restrictions/Additional Instructions: *You have been diagnosed with acute right hip pain, strain of muscle of right hip, abdominal muscle strain, abdominal pain, fracture of L3 vertebra *What to do: *Please continue to take your regular medications as directed. [X] New medication prescriptions sent to your pharmacy: [facility] [place] - Zofran, Baclofen [X] New medication written as a paper prescription - Oxycodone [ ] No new medications given You were evaluated in the emergency department today for right hip and right sided abdominal pain. CT imaging obtained in the emergency department today did not show signs of acute abnormality that would explain your pain. It did show signs of L3 vertebral fracture, however I was unable to determine if this is an acute injury. I set up a referral free to follow-up with orthopedics for further evaluation and management. I have sent prescriptions to her preferred pharmacy to help alleviate her discomfort and nausea. Please follow-up with the primary care provider within the next 2-3 days for further evaluation and management. Do not hesitate to return to the emergency department if you experience fever, worsening pain, or any other concerning symptoms. *Please follow up with your primary care provider in 2-3 days, call for an appointment. Let them know you were seen in the Emergency Department and that we ask that you be seen in follow up. We will electronically transmit a record of today's note if your PCP is in our system *If you do not have a primary care provider please contact the [facility] Resource line at [phone]. They will ask some questions about your medical history and help get you set up with a doctor in the community. *Return to Emergency Department if you should have any new, worsening or concerning symptoms, such as fever greater than 101 F, shaking chills, worsening pain, persistent vomiting or other bothersome symptoms. Prescriptions: New ondansetron 4 mg tablet,disintegrating 4 mg PO Q6H PRN (Reason: nausea and vomiting) Qty: 20 0RF baclofen 10 mg tablet 10 mg PO BID Qty: 20 0RF oxycodone 5 mg tablet 5 mg PO BID PRN (Reason: pain) Qty: 15 0RF No Action omeprazole magnesium [Prilosec OTC] 20 MG tablet,delayed release (DR/EC) 20 mg PO QDAY Qty: 0 0RF Bioflavonoid/Ca/Hesperidin/R (#THEO C) 1 tab PO QDAY Qty: 0 0RF Glucosamine Sulfate (#GLUCOSAMINE) 500 mg PO QDAY Qty: 0 0RF Pyridoxine (#VITAMIN B6) 10 mg PO QDAY Qty: 0 0RF Zinc, Chelated (#ZINC) 10 mg PO QDAY Qty: 0 0RF CALCIUM CITRATE (CITRACAL ) 200 mg PO BIDCC Qty: 0 0RF B.ANI/L.ACI/L.SAKSHI/L.PLAN/L.KANA (Probiotic Formula Capsule) 1 cap PO QDAY Qty: 0 0RF CHOLECALCIFEROL (VITAMIN D3) 400 iu PO QDAY Qty: 0 0RF amitriptyline 10 MG tablet 10 mg PO HS Qty: 180 1RF nefazodone 50 MG tablet 75 mg PO HS Qty: 45 2RF citalopram [Celexa] 20 MG tablet 20 mg PO QDAY Qty: 90 1RF omeprazole 40 mg capsule,delayed release(DR/EC) 40 mg PO DAILY Qty: 5 0RF prednisone 5 mg tablet 5 mg PO DAILY Qty: 5 0RF Referrals: Jesus Quevedo MD [Primary Care Provider] - Jorge Yates MD [Physician] - 5-7 days <Tereza Warren DO - Last Filed: 06/04/21 07:30> Cosign ED Attending Fabiano Attestation: I was immediately available in the department for consultation. Documentation has been reviewed. I agree with assessment and plan.
[2021-05-31] MEDS: MORPHINE 4 MG/ML INJ IV (13:18)
[2021-05-31 14:12] LABS: Appearance Urine UA CLEAR; Bilirubin Urine UA NEGATIVE (NEGATIVE); Color Urine UA YELLOW; Glucose Urine UA NEGATIVE (Negative); Ketones Urine UA NEGATIVE (NEGATIVE); Leukocyte Esterase Urine UA NEGATIVE (NEGATIVE); Nitrite Urine UA NEGATIVE (Negative); Occult Blood Urine UA NEGATIVE (Negative); Protein Urine UA NEGATIVE (Negative); Specific Gravity Urine UA <=1.005 (1.000-1.035); Urobilinogen Urine UA 0.2 E.U./dL (0.2)
[2021-05-31 14:29] LABS: Bacteria Urine Few (2-10); Culture Indicated Urine Cult Not Indicated; RBC Urine 0-1/HPF (0-5/HPF); Squamous Epithelial Cell Urine 1-5 /HPF (0-5/HPF); WBC Urine 0-1/HPF (0-5/HPF)
== END 2021-05-31 14:42 | disposition home or self-care (01) ==
PROVIDERS: Emergency Provider Physician Assistant; PCP Internal Medicine
DX: S76.011A Strain of muscle, fascia and tendon of right hip, initial encounter (principal); S39.011A Strain of muscle, fascia and tendon of abdomen, initial encounter; S32.039A Unspecified fracture of third lumbar vertebra, initial encounter for closed fracture; Z88.5 Allergy status to narcotic agent; X58.XXXA Exposure to other specified factors, initial encounter; Y93.01 Activity, walking, marching and hiking; Y92.096 Garden or yard of other non-institutional residence as the place of occurrence of the external cause
CPT/HCPCS: 36415; 74177; 80053; 81001; 83690; 85025; 96374; 96375; 99284; J2270; J2405; Q9967

== ENCOUNTER 2021-06-02 12:17 | Emergency (ER) | payer MEDICARE, OTHER, SELFPAY ==
[2021-06-02] VITALS (18 sets, daily range): BP systolic 143–172; BP diastolic 65–77; PULSE 70–88; RESP 16–18; TEMP 37.2; O2SAT 94–99; BMI 30.2
--- NOTE | 2021-06-02 13:25 | ED_ITS ---
HPI - Extremity Injury (Lower) <Vaibhav Edwards PA-C - Last Filed: 06/02/21 19:39> General Chief Complaint: Extremity Injury, Lower Stated Complaint: R hip pain Time Seen by Provider: 06/02/21 12:37 Source: patient and EMS Mode of arrival: EMS History of Present Illness HPI Narrative: Patient is an 80-year-old female presenting to the emergency department today via EMS for evaluation of right hip pain. Patient was seen in the emergency department on 05/31/2021 with similar complaints and was sent home with oxycodone and back within after CT of the abdomen pelvis failed to show any acute abnormality. She explains that her pain worsened yesterday, however she states that her daughter had been able to stay over and help take care of her. She explains she does live alone and found that today she was having difficulty getting around and is concerned that she will not be able to take care of herself the way that she needs to due to the pain. She denies any new injuries or recent falls. No fever, chills, chest pain, cough, shortness of breath, nausea, vomiting, diarrhea, constipation, abdominal pain, dysuria, hematuria, numbness and tingling the lower extremities, or any other concerning symptoms r eported. Patient states that her pain worsens with flexion at the waist and when attempting to take a step forward with right lower extremity. No further concerns reports at this time. Related Data Home Medications Medication Instructions Recorded Confirmed B.ANI/L.ACI/L.SAKSHI/L.PLAN/L.KANA 1 cap PO QDAY #0 12/14/11 11/10/17 (Probiotic Formula Capsule) Bioflavonoid/Ca/Hesperidin/R 1 tab PO QDAY #0 12/14/11 11/10/17 (#THEO C) CALCIUM CITRATE (CITRACAL ) 200 mg PO BIDCC #0 12/14/11 11/10/17 CHOLECALCIFEROL (VITAMIN D3) 400 iu PO QDAY #0 12/14/11 11/10/17 Glucosamine Sulfate (#GLUCOSAMINE) 500 mg PO QDAY #0 12/14/11 11/10/17 Pyridoxine (#VITAMIN B6) 10 mg PO QDAY #0 12/14/11 11/10/17 Zinc, Chelated (#ZINC) 10 mg PO QDAY #0 12/14/11 11/10/17 omeprazole magnesium 20 mg 20 mg PO QDAY #0 12/14/11 11/10/17 tablet,delayed release (Prilosec OTC) Previous Rx's Medication Instructions Recorded amitriptyline 10 mg tablet 10 mg PO HS #180 tab 02/04/16 nefazodone 50 mg tablet 75 mg PO HS #45 tab 02/04/16 citalopram 20 mg tablet (Celexa) 20 mg PO QDAY #90 tab 03/16/17 baclofen 10 mg tablet 10 mg PO BID #20 tab 05/31/21 ondansetron 4 mg disintegrating 4 mg PO Q6H PRN #20 tab 05/31/21 tablet oxycodone 5 mg tablet 5 mg PO BID PRN #15 tab 05/31/21 omeprazole 40 mg capsule,delayed 40 mg PO DAILY #5 cap 06/02/21 release prednisone 5 mg tablet 5 mg PO DAILY #5 tab 06/02/21 Allergies Allergy/AdvReac Type Severity Reaction Status Date / Time codeine AdvReac Mild N/V Verified 03/28/20 13:10 epinephrine AdvReac Mild N/V Verified 03/28/20 13:10 Review of Systems <Vaibhav Edwards PA-C - Last Filed: 06/02/21 19:39> Constitutional Constitutional: Denies chills, Denies fatigue, Denies fever(s), Denies frequent falls, Denies lethargy and Denies weakness Eyes Eyes: Denies loss of vision ENT Ears, Nose, Mouth, and Throat: Denies dizziness and Denies neck pain Cardiovascular Cardiovascular: Denies chest pain, Denies irregular heart rhythm, Denies lightheadedness, Denies palpitations, Denies dyspnea, Denies dyspnea on exertion and Denies orthopnea Respiratory Respiratory: Denies cough, Denies dyspnea, Denies dyspnea on exertion and Denies wheezing Gastrointestinal Gastrointestinal: Denies abdominal pain, Denies change in bowel habits, Denies diarrhea, Denies nausea and Denies vomiting Genitourinary Genitourinary: Denies hematuria, Denies flank pain, Denies urinary incontinence and Denies urinary urgency Musculoskeletal Musculoskeletal: Denies back pain, Reports arthralgias (Right hip), Denies muscle weakness, Denies neck pain, Denies numbness and Denies tingling Integumentary/Breasts Skin/Breast: Denies pruritus, Denies erythema, Denies rash and Denies wounds Neurologic Neurologic: Denies behavioral changes, Denies confusion, Denies dizziness, Denies frequent falls, Denies loss of vision, Denies numbness, Denies tingling and Denies weakness Psychiatric Psychiatric: Denies behavioral changes and Denies confusion Endocrine Endocrine: Denies fatigue and Denies palpitations Allergic/Immunologic Allergic/Immunologic: Denies wheezing Patient History <Vaibhav Edwards PA-C - Last Filed: 06/02/21 19:39> Social History Smoking Status: Never smoker Smoking Status: Never smoker alcohol intake frequency: 0-2 drinks per day Substance Use Type: does not use Exam <Vaibhav Edwards PA-C - Last Filed: 06/02/21 19:39> Narrative Exam Narrative: GENERAL: 80 year old patient appears stated age. Well-developed patient, in no acute distress. HEAD: Atraumatic. Normocephalic. EYES: Pupils equal round and reactive. Extraocular motions intact. No scleral icterus. No injection or drainage. ENT: Nose without bleeding, purulent drainage. Throat without erythema, tonsillar hypertrophy or exudate. Airway patent. NECK: Trachea midline. Non tender CARDIOVASCULAR: Regular rate and rhythm without murmurs, gallops, or rubs. RESPIRATORY: Clear to auscultation. Breath sounds equal bilaterally. No wheezes, rales, or rhonchi. GASTROINTESTINAL: Abdomen soft, non-tender, nondistended. EXTREMITIES: No edema or joint tenderness. No significant tenderness to palpation appreciated throughout the right hip. Right hip is not held in external or internal rotation at rest. Good sensation light touch appreciated throughout the bilateral lower extremities. Gross motor function intact throughout the bilateral lower extremities. No significant overlying erythema or ecchymosis appreciated. BACK: Nontender without deformity or crepitance. No flank tenderness. NEURO: AOx3. SKIN: No rash or erythema of visible areas Initial Vital Signs Initial Vital Signs: Vital Signs Temperature 98.9 F 06/02/21 12:26 Pulse Rate 88 06/02/21 12:26 Respiratory Rate 16 06/02/21 12:26 Blood Pressure 170/77 H 06/02/21 12:26 Pulse Oximetry 97 06/02/21 12:26 Course <Vaibhav Edwards PA-C - Last Filed: 06/02/21 19:39> Course Course Narrative: Social work consult obtained. Right hip with pelvic x-ray obtained. 4 mg of morphine and 4 mg of Zofran administered. Orders Ordered: Discontinued Medications Morphine Sulfate (Morphine 4 Mg/Ml Inj) 4 mg IV NOW ONE Stop: 06/02/21 13:59 Last Admin: 06/02/21 14:16 Dose: 4 mg Documented by: INÉSYLOR Ondansetron HCl (Ondansetron 4 Mg/2 Ml Inj) 4 mg IV NOW ONE Stop: 06/02/21 13:59 Last Admin: 06/02/21 14:16 Dose: 4 mg Documented by: ARNIEOR Vital Signs Vital signs: Vital Signs - 8 hr 06/02/21 12:26 06/02/21 13:11 06/02/21 13:17 Temperature 98.9 F Pulse Rate 88 73 81 Respiratory Rate 16 Blood Pressure 170/77 H Pulse Oximetry 97 97 97 06/02/21 13:25 06/02/21 13:26 06/02/21 14:00 Temperature Pulse Rate 72 Respiratory Rate Blood Pressure 143/65 H 143/65 H Pulse Oximetry 98 06/02/21 14:30 06/02/21 15:00 06/02/21 15:30 Temperature Pulse Rate 72 70 75 Respiratory Rate Blood Pressure Pulse Oximetry 94 98 99 06/02/21 16:04 06/02/21 16:05 06/02/21 16:30 Temperature Pulse Rate 76 75 74 Respiratory Rate 18 Blood Pressure 172/72 H Pulse Oximetry 97 97 96 06/02/21 17:00 06/02/21 17:30 06/02/21 18:00 Temperature Pulse Rate 80 75 73 Respiratory Rate 18 18 Blood Pressure Pulse Oximetry 96 94 95 06/02/21 18:30 06/02/21 18:39 06/02/21 18:41 Temperature Pulse Rate 70 78 Respiratory Rate Blood Pressure 165/70 H 165/70 H Pulse Oximetry 95 96 MDM - Extremity Injury (Lower) <Vaibhav Edwards PA-C - Last Filed: 06/02/21 19:39> Imaging Data Extremity x-ray #1: Radiologist's Impression: PROCEDURE:? XR HIP W PEL IF DONE RT 2V ? INDICATIONS:? Right hip pain, difficulty ambulating ? TECHNIQUE:? AP pelvis with lateral view(s) of the right hip(s).? ? COMPARISON:? [facility], CR, XR HIP W PEL IF DONE RT 2V, 12/21/2017, 14:52. ? FINDINGS:? ? Bones:? No acute fracture or dislocation.? There is mild to moderate bilateral hip joint space narrowing.? No suspicious bony lesions.? There is likely mild subchondral cystic change at the superior lateral right acetabulum. ? Soft tissues:? The visualized bowel gas pattern is normal.? No suspicious soft tissue calcifications.? ? ? IMPRESSION:? Mild to moderate bilateral hip osteoarthritis. ? Dictated by: Jayleen Adams M.D. on 06/02/2021 at 13:57 ? ? Approved by: Jayleen Adams M.D. on 06/02/2021 at 13:57 MDM Narrative Medical decision making narrative: Differential diagnosis to consider but not limited to fracture versus dislocation versus sprain versus strain. Patient had consult with her primary care provider while here in the emergency department and it was determined that she would feel comfortable being discharged with prednisone and about result prescriptions to go along with ibuprofen and the current baclofen prescription that she has in her possession. Patient states that she would like to be discharged home at this time. Patient is stable for discharge. Strict return precautions were discussed with the patient prior to discharge. Discharge Plan Departure Patient Disposition: Home Clinical Impression: Acute pain of right hip Instructions: DI for Hip Pain Activity Restrictions/Additional Instructions: *You have been diagnosed with right hip pain *What to do: *Please continue to take your regular medications as directed. [X] New medication prescriptions sent to your pharmacy: Liam Bhatti -omeprazole, prednisone [ ] New medication written as a paper prescription [ ] No new medications given You were evaluated in the emergency department today for right hip pain. Following discussion with her primary care provider it was determined that we will be sending you home with prescriptions for prednisone and omeprazole to go along with treatment with baclofen (prescribed during your last visit) and [id number] ibuprofen. The prescriptions for prednisone and omeprazole have been sent to your preferred pharmacy. I recommend following up with the primary care provider within the next 2-3 days for further evaluation and ma nagement. Do not hesitate to return to the emergency department if you experience worsening pain, loss of sensation in lower extremities, or any other concerning symptoms. *Please follow up with your primary care provider in 2-3 days, call for an appointment. Let them know you were seen in the Emergency Department and that we ask that you be seen in follow up. We will electronically transmit a record of today's note if your PCP is in our system *If you do not have a primary care provider please contact the [facility] Resource line at [phone]. They will ask some questions about your medical history and help get you set up with a doctor in the community. *Return to Emergency Department if you should have any new, worsening or concerning symptoms, such as fever greater than 101 F, shaking chills, worsening pain, persistent vomiting or other bothersome symptoms. Prescriptions: New omeprazole 40 mg capsule,delayed release(DR/EC) 40 mg PO DAILY Qty: 5 0RF prednisone 5 mg tablet 5 mg PO DAILY Qty: 5 0RF No Action omeprazole magnesium [Prilosec OTC] 20 MG tablet,delayed release (DR/EC) 20 mg PO QDAY Qty: 0 0RF Bioflavonoid/Ca/Hesperidin/R (#THEO C) 1 tab PO QDAY Qty: 0 0RF Glucosamine Sulfate (#GLUCOSAMINE) 500 mg PO QDAY Qty: 0 0RF Pyridoxine (#VITAMIN B6) 10 mg PO QDAY Qty: 0 0RF Zinc, Chelated (#ZINC) 10 mg PO QDAY Qty: 0 0RF CALCIUM CITRATE (CITRACAL ) 200 mg PO BIDCC Qty: 0 0RF B.ANI/L.ACI/L.SAKSHI/L.PLAN/L.KANA (Probiotic Formula Capsule) 1 cap PO QDAY Qty: 0 0RF CHOLECALCIFEROL (VITAMIN D3) 400 iu PO QDAY Qty: 0 0RF amitriptyline 10 MG tablet 10 mg PO HS Qty: 180 1RF nefazodone 50 MG tablet 75 mg PO HS Qty: 45 2RF citalopram [Celexa] 20 MG tablet 20 mg PO QDAY Qty: 90 1RF ondansetron 4 mg tablet,disintegrating 4 mg PO Q6H PRN (Reason: nausea and vomiting) Qty: 20 0RF baclofen 10 mg tablet 10 mg PO BID Qty: 20 0RF oxycodone 5 mg tablet 5 mg PO BID PRN (Reason: pain) Qty: 15 0RF Referrals: Jesus Quevedo MD [Primary Care Provider] -
--- NOTE | 2021-06-02 13:31 | DI.RAD.S_ITS ---
PROCEDURE: XR HIP W PEL IF DONE RT 2V INDICATIONS: Right hip pain, difficulty ambulating TECHNIQUE: AP pelvis with lateral view(s) of the right hip(s). COMPARISON: [facility], , XR HIP W PEL IF DONE RT 2V, 12/21/2017, 14:52. FINDINGS: Bones: No acute fracture or dislocation. There is mild to moderate bilateral hip joint space narrowing. No suspicious bony lesions. There is likely mild subchondral cystic change at the superior lateral right acetabulum. Soft tissues: The visualized bowel gas pattern is normal. No suspicious soft tissue calcifications. IMPRESSION: Mild to moderate bilateral hip osteoarthritis. Dictated by: Jayleen Adams M.D. on 06/02/2021 at 13:57 Approved by: Jayleen Adams M.D. on 06/02/2021 at 13:57
--- NOTE | 2021-06-02 13:42 | PC.NURSE ---
Pt assisted to bedside commode, pt stood and pivoted independently, upon standing pt yelled twice and reported right hip spasm. Pt provided minimal assist to pivot back to bed, and assist to lift right hip on to bed. Pt states her bed at home is higher than the stretcher here. Pt also states she is subjectively dehydrated and has only drank sips of water with pills, asked pt why she has not been drinking and pt states she doesn't have a reason except that movement to get to her bathroom is too painful so she doesn't want to pee. Educated pt on importance of hydration.
[2021-06-02] MEDS: ONDANSETRON 4 MG/2 ML INJ IV (14:16)
[2021-06-02] MEDS: MORPHINE 4 MG/ML INJ IV (14:16)
--- NOTE | 2021-06-02 16:20 | PC.NURSE ---
Pt has TeleMed call scheduled 1630, assisted pt to prop phone up for anticipated Zoom. Daughter returned and states she has been setting up the home for discharge. Further enforced education on for home health visits and potential for improving her pain.
--- NOTE | 2021-06-02 18:26 | CM.SWNOTE ---
FIELD MECHANICAL METER TESTER/DCP Assessment Note FIELD MECHANICAL METER TESTER receives consult and enters room to meet with patient. Patient is 80 y/o female who presents to the ED via EMS due to nausea and right hip pain/muscle spasms. Patient presented to ED on 05/31/21 with similar concerns. Patient endorses concern to ambulate and transfer from bed to commode independently. Patient endorses she is able to do so with her cane and with assistance from daughter. Patient's PCP is Dr. Quevedo and patient has telehealth appt at 1630 today, patient conducts appt via zoom in ED room. Per RN, appt went well and patient to start new medication regimen to address muscle pain. Patient endorses she resides at home alone in [place], patient's daughter resides in [place]. Patient endorses she cannot use walker in home due to her narrow hallways, patient states she uses cane. Patient states she is seeking a bedside commode. FIELD MECHANICAL METER TESTER provides patient with list of DME resources and senior resource guide. Patient states she is interested in caregiver and FIELD MECHANICAL METER TESTER informs patient that a caregiver is a private pay expense. FIELD MECHANICAL METER TESTER discusses HH and patient declines interest in service and more interest in addressing muscle spasms. Per RN, patient feels comfortable d/c to home with PCP f/u and new Rx. Plan: patient to d/c to home via POV with daughter.
== END 2021-06-02 18:55 | disposition home or self-care (01) ==
PROVIDERS: Emergency Provider Physician Assistant; PCP Internal Medicine
DX: M25.551 Pain in right hip (principal); Z88.5 Allergy status to narcotic agent
CPT/HCPCS: 36415; 73502; 96374; 96375; 99284; J2270; J2405

== ENCOUNTER → 2021-07-25 08:58 | Outpatient (CLI) | payer MEDICARE, OTHER, SELFPAY ==
--- NOTE | 2021-07-25 | DI.MRI.S_ITS ---
PROCEDURE: MR LUMBAR SPINE WO CON INDICATIONS: Low back pain, unspecified TECHNIQUE: Noncontrast sagittal T1 spin echo and T2 fast echo, sagittal STIR, and T2 fast spin echo through the lumbar spine. In cases with scoliosis, additional coronal T2 fast spin echo may be performed. COMPARISON: None. FINDINGS: Image quality: Excellent. Alignment and Curvature: There is normal bony alignment. Bone Marrow: Modic type 2 reactive endplate changes noted adjacent to the L4-L5 disc. Benign, intraosseous hemangioma noted in the L1 vertebral body. Mild loss of anterior T1 height noted in the L3 vertebral body compatible with chronic compression fracture. L3 compression fracture results in approximately 25% loss of normal vertebral body height. No acute vertebral body compression fractures. Spinal Cord: Conus medullaris terminates at the L1 level. Visualized cord demonstrates normal signal and size. Paraspinous Soft Tissues: No paravertebral masses. T12-L1: Loss of disc signal. Mild, diffuse disc bulge. Small central disc protrusion. No central stenosis. No neural foraminal narrowing. No neural compression. Fissure noted in the posterior annulus. L1-L2: Normal appearance. L2-L3: Loss of disc signal. Mild to moderate diffuse disc bulge. Mild bilateral facet hypertrophy. Mild ligamentum flavum hypertrophy. Moderate narrowing of the central canal. Moderate bilateral neural foraminal narrowing. No neural compression. L3-L4: Loss of disc signal. Moderate, diffuse disc bulge. Right foraminal disc protrusion. Mild bilateral facet hypertrophy. Moderate ligamentum flavum hypertrophy. Severe narrowing of the central canal with mild compression of the nerve roots of the cauda equina. Severe right and moderate left neural foraminal narrowing with compression of the exiting right L3 nerve root L4-L5: Loss of disc signal and height. Moderate, diffuse disc bulge. Mild bilateral facet hypertrophy. Mild bilateral ligamentum flavum hypertrophy. Severe narrowing of the central canal with mild compression of the nerve roots of the cauda equina. Severe bilateral neural foraminal narrowing with compression of the exiting L4 nerve roots. L5-S1: Loss of disc signal. Mild, diffuse disc bulge. Mild bilateral facet hypertrophy. Mild narrowing of the central canal. No neural foraminal narrowing. No neural compression. IMPRESSION: 1. Multilevel degenerative disc disease. 2. Multilevel facet arthropathy. 3. Severe L3-L4 and L4-L5 central canal narrowing with mild compression of the traversing nerve roots of the cauda equina. 4. Severe right L3-L4 neural foraminal narrowing with compression of the exiting right L3 nerve root. Severe bilateral L4-L5 neural foraminal narrowing with compression of the exiting bilateral L4 nerve roots. Dictated by: April Og MD, PhD on 07/25/2021 at 11:35 Approved by: April Og MD, PhD on 07/25/2021 at 11:40
== END ==
PROVIDERS: PCP Internal Medicine; Referring Provider Orthopaedic Surgery; Visit Provider Orthopaedic Surgery
DX: M51.36 Other intervertebral disc degeneration, lumbar region (principal); M51.37 Other intervertebral disc degeneration, lumbosacral region; M47.816 Spondylosis without myelopathy or radiculopathy, lumbar region; M47.817 Spondylosis without myelopathy or radiculopathy, lumbosacral region; M48.061 Spinal stenosis, lumbar region without neurogenic claudication; M48.07 Spinal stenosis, lumbosacral region
CPT/HCPCS: 72148

== ENCOUNTER 2021-08-16 10:17 | Emergency (ER) | payer MEDICARE, OTHER, SELFPAY ==
[2021-08-16] VITALS (10 sets, daily range): BP systolic 124–176; BP diastolic 61–83; PULSE 71–92; RESP 16–19; O2SAT 97–99; BMI 29.8
[2021-08-16 10:42] LABS: Add Manual Diff / Slide Review NO; Basophils Absolute Auto 0 /uL (0-100); Basophils Percent Auto 0.5 % (0-2); Eosinophils Absolute Auto 200 /uL (0-450); Eosinophils Percent Auto 2.8 % (2-4); Hematocrit 37.8 % (36-46); Hemoglobin 13.1 g/dL (12.0-16.0); Lymphocytes Absolute Auto 1500 /uL (1100-4500); Lymphocytes Percent Auto 21.8 % (25-40); Mean Corpuscular HGB Conc 34.7 % (30-36); Mean Corpuscular Hemoglobin 31.9 PG (26-34); Mean Corpuscular Volume 91.8 fL (80-100); Monocytes Absolute Auto 600 /uL (0-900); Neutrophils Absolute Auto 4400 /uL (1500-7000); Neutrophils Percent Auto 65.9 % (50-75); Platelet Count 238 X10^3/uL (150-400); Red Blood Cell Count 4.12 X10^6/uL (4.0-5.2); Red Cell Distribution Width 13.2 % (11.6-14.8); White Blood Cell Count 6.7 X10^3/uL (4.5-11.0)
--- NOTE | 2021-08-16 10:44 | ED_ITS ---
HPI - Recheck/Abnormal Lab/Rx General Chief Complaint: Recheck/Abnormal Lab/Rx Stated Complaint: Abnormal labs Time Seen by Provider: 08/16/21 10:34 Source: patient Mode of arrival: Ambulatory Limitations: no limitations History of Present Illness HPI narrative: Patient is an 80-year-old female who comes emergency department today under request by her primary doctor for having abnormal lab test. She was seen by her primary doctor earlier this week. Had basic labs drawn. This was done in outside facility. She was contacted by her primary doctor and told her that her sodium was 125 and that she needed to come to the emergency department. She also stated that they recently started a new blood pressure medicine. She has been on a ARB for many years and they added amlodipine. She states that she has had some nausea with this. No vomiting. She is having some weakness in her extremities but this is not new for her. She does have spinal stenosis and has quite a bit of pain with this. She denies chest pain. No shortness of breath. No abdominal pain. No change in bowel habits. No urinary symptoms. Related Data Home Medications Medication Instructions Recorded Confirmed B.ANI/L.ACI/L.SAKSHI/L.PLAN/L.KANA 1 cap PO QDAY ##0 12/14/11 11/10/17 (Probiotic Formula Capsule) Bioflavonoid/Ca/Hesperidin/R 1 tab PO QDAY ##0 12/14/11 11/10/17 (#THEO C) CALCIUM CITRATE (CITRACAL ) 200 mg PO BIDCC ##0 12/14/11 11/10/17 CHOLECALCIFEROL (VITAMIN D3) 400 iu PO QDAY ##0 12/14/11 11/10/17 Glucosamine Sulfate (#GLUCOSAMINE) 500 mg PO QDAY ##0 12/14/11 11/10/17 Pyridoxine (#VITAMIN B6) 10 mg PO QDAY ##0 12/14/11 11/10/17 Zinc, Chelated (#ZINC) 10 mg PO QDAY ##0 12/14/11 11/10/17 omeprazole magnesium 20 mg 20 mg PO QDAY ##0 12/14/11 11/10/17 tablet,delayed release (Prilosec OTC) Previous Rx's Medication Instructions Recorded amitriptyline 10 mg tablet 10 mg PO HS #180 tabs 02/04/16 nefazodone 50 mg tablet 75 mg PO HS #45 tabs 02/04/16 citalopram 20 mg tablet (Celexa) 20 mg PO QDAY #90 tabs 03/16/17 baclofen 10 mg tablet 10 mg PO BID #20 tabs 05/31/21 ondansetron 4 mg disintegrating 4 mg PO Q6H PRN nausea and 05/31/21 tablet vomiting #20 tabs oxycodone 5 mg tablet 5 mg PO BID PRN pain #15 tabs 05/31/21 omeprazole 40 mg capsule,delayed 40 mg PO DAILY #5 caps 06/02/21 release prednisone 5 mg tablet 5 mg PO DAILY #5 tabs 06/02/21 Allergies Allergy/AdvReac Type Severity Reaction Status Date / Time codeine AdvReac Mild N/V Verified 03/28/20 13:10 epinephrine AdvReac Mild N/V Verified 03/28/20 13:10 Review of Systems Review of Systems ROS Unobtainable: All systems reviewed & are unremarkable except as noted in HPI and below Patient History Medical History Hypertension Social History Smoking Status: Never smoker Smoking Status: Never smoker alcohol intake frequency: 0-2 drinks per day Substance Use Type: does not use Exam Initial Vital Signs Initial Vital Signs: Vital Signs Pulse Rate 86 08/16/21 10:25 Respiratory Rate 18 08/16/21 10:25 Blood Pressure 152/70 H 08/16/21 10:25 Pulse Oximetry 99 08/16/21 10:25 Oxygen Delivery Method 08/16/21 10:25 Const General: cooperative and comfortable HENMT Head: normal to inspection and normocephalic Resp Effort & Inspection: normal respiratory effort Auscultation: clear to auscultation bilaterally Cardio Rate: regular rate Rhythm: regular rhythm GI Inspection: normal to inspection Palpation: soft, No guarding and No tender Skin General: no rashes or lesions noted Neuro General: patient alert, patient awake, patient oriented x3 and moves all extremities Extrem General: normal to inspection and capillary refill normal Psych Appearance: grossly normal and well kempt Course Orders Ordered: ED Orders 08/16/21 10:34 Complete Blood Count AUTO DIFF Stat Comprehensive Metabolic Panel Stat Lipase Stat Magnesium Stat Troponin & CK Cardiac Panel Stat 08/16/21 10:35 EKG-12 Lead Stat Discontinued Medications Sodium Chloride (Normal Saline 0.9%) 1,000 mls @ 500 mls/hr IV BOLUS ONE Stop: 08/16/21 12:41 Last Admin: 08/16/21 11:22 Dose: 500 mls/hr Documented By: MARGARITA Vital Signs Vital signs: Vital Signs - 8 hr 08/16/21 10:25 08/16/21 10:27 08/16/21 10:30 Pulse Rate 86 87 Respiratory Rate 18 Blood Pressure 152/70 H 124/61 Pulse Oximetry 99 99 Oxygen Delivery Method Room Air 08/16/21 10:30 08/16/21 11:00 08/16/21 11:00 Pulse Rate 92 H 77 Respiratory Rate 19 Blood Pressure 134/67 Pulse Oximetry 99 Oxygen Delivery Method 08/16/21 11:30 08/16/21 11:30 08/16/21 12:50 Pulse Rate 72 72 Respiratory Rate 19 18 Blood Pressure 148/65 H 163/74 H Pulse Oximetry 97 98 Oxygen Delivery Method Room Air 08/16/21 11:55 08/16/21 11:55 08/16/21 12:00 Pulse Rate 74 71 Respiratory Rate 17 16 Blood Pressure 176/83 H Pulse Oximetry 98 98 Oxygen Delivery Method 08/16/21 12:01 08/16/21 12:01 08/16/21 12:30 Pulse Rate 71 72 Respiratory Rate 16 19 Blood Pressure 163/74 H Pulse Oximetry 98 98 Oxygen Delivery Method MDM - Recheck/Abnormal Lab/Rx Lab Data Attestation: I reviewed the patient's lab results. Result diagrams: 08/16/21 10:34 08/16/21 10:34 Labs: Lab Results 08/16/21 08/16/21 08/16/21 Range/Units 10:34 10:34 10:34 WBC 6.7 (4.5-11.0) X10^3/uL RBC 4.12 (4.0-5.2) X10^6/uL Hgb 13.1 (12.0-16.0) g/dL Hct 37.8 (36-46) % MCV 91.8 (80-100) fL MCH 31.9 (26-34) PG MCHC 34.7 (30-36) % RDW 13.2 (11.6-14.8) % Plt Count 238 (150-400) X10^3/uL Neut % (Auto) 65.9 (50-75) % Lymph % (Auto) 21.8 L (25-40) % [place] % (Auto) 9.0 (3-14) % Eos % (Auto) 2.8 (2-4) % Baso % (Auto) 0.5 (0-2) % Neut # (Auto) 4400 (3910-3387) /uL Lymph # (Auto) 1500 (3296-5524) /uL [place] # (Auto) 600 (0-900) /uL Eos # (Auto) 200 (0-450) /uL Baso # (Auto) 0 (0-100) /uL Sodium 133 L (137-145) mmol/L Potassium 4.4 (3.4-5.1) mmol/L Chloride 99 (98-107) mmol/L Carbon Dioxide 25 (22-32) mmol/L BUN 14 (7-17) mg/dL Creatinine 0.84 (0.52-1.04) mg/dL Estimated GFR > 60 (>60) mL/min BUN/Creatinine Ratio 16.7 (6-22) Glucose 140 H (80-110) mg/dL Calcium 9.2 (8.4-10.2) mg/dL Magnesium 2.1 (1.6-2.3) mg/dL Total Bilirubin 0.5 (0.2-1.3) mg/dL AST 23 (14-36) IU/L ALT 16 (<35) IU/L Alkaline Phosphatase 55 (38-126) U/L Total Creatine Kinase 36 (30-135) U/L CK-MB (CK-2) TNP CK-MB (CK-2) Rel Index TNP Troponin I < 0.012 (0.01-0.034) ng/mL Total Protein 7.6 (6.3-8.2) g/dL Albumin 4.4 (3.5-5.0) g/dL Globulin 3.2 (1.7-4.1) g/dL Albumin/Globulin Ratio 1.4 (1.0-2.8) Lipase 90 (23-300) U/L Urine Dip Bedside Urine Glucose Negative Bedside Urine Bilirubin - Negative Bedside Urine Ketone - Negative Urine Specific [place] 1.015 Bedside Urine Occult Blood - Negative Bedside Urine pH 6 Bedside Urine Protein - Negative Bedside Urine Urobilinogen - Negative ECG Data Attestation: I personally reviewed and interpreted this ECG as follows: Interpretation: Sinus rhythm Ventricular rate is 76 Normal axis Normal QRS Normal QTC No ST T wave changes MDM Narrative Medical decision making narrative: Patient's sodium today was unremarkable. It seems of improved from earlier this week. Patient denies chest pain or shortness of breath nor any other symptoms except for the nausea. She has nausea medication at home. Will have her follow-up with her primary doctor next week. She was given return precautions. She expressed understanding and agreement. Discharge Plan Departure Patient Disposition: Home Clinical Impression: Nausea Instructions: DI for Nausea -- Adult Activity Restrictions/Additional Instructions: I do recommend that you stop taking the blood pressure medicine as it very well could be causing you to become very nauseous. On Wednesday contact your primary doctor for a follow-up. Return to the emergency department for any new or worsening symptoms. You should be taking 20 mg of omeprazole a day. Prescriptions: No Action omeprazole magnesium [Prilosec OTC] 20 MG tablet,delayed release (DR/EC) 20 mg PO QDAY Qty: 0 Bioflavonoid/Ca/Hesperidin/R (#THEO C) 1 tab PO QDAY Qty: 0 Glucosamine Sulfate (#GLUCOSAMINE) 500 mg PO QDAY Qty: 0 Pyridoxine (#VITAMIN B6) 10 mg PO QDAY Qty: 0 Zinc, Chelated (#ZINC) 10 mg PO QDAY Qty: 0 CALCIUM CITRATE (CITRACAL ) 200 mg PO BIDCC Qty: 0 B.ANI/L.ACI/L.SAKSHI/L.PLAN/L.KANA (Probiotic Formula Capsule) 1 cap PO QDAY Qty: 0 CHOLECALCIFEROL (VITAMIN D3) 400 iu PO QDAY Qty: 0 amitriptyline 10 MG tablet 10 mg PO HS Qty: 180 1RF nefazodone 50 MG tablet 75 mg PO HS Qty: 45 2RF citalopram [Celexa] 20 MG tablet 20 mg PO QDAY Qty: 90 1RF ondansetron 4 mg tablet,disintegrating 4 mg PO Q6H PRN (Reason: nausea and vomiting) Qty: 20 0RF baclofen 10 mg tablet 10 mg PO BID Qty: 20 0RF oxycodone 5 mg tablet 5 mg PO BID PRN (Reason: pain) Qty: 15 0RF omeprazole 40 mg capsule,delayed release(DR/EC) 40 mg PO DAILY Qty: 5 0RF prednisone 5 mg tablet 5 mg PO DAILY Qty: 5 0RF Referrals: Jesus Quevedo MD [Primary Care Provider] - Visit Report Forms: Patient Portal/API
[2021-08-16 11:01] LABS: Magnesium 2.1 mg/dL (1.6-2.3)
[2021-08-16 11:02] LABS: Alanine Aminotransferase 16 IU/L (<35); Albumin 4.4 g/dL (3.5-5.0); Albumin Globulin Ratio 1.4 (1.0-2.8); Alkaline Phosphatase 55 U/L (38-126); Aspartate Aminotransferase 23 IU/L (14-36); BUN Creatinine Ratio 16.7 (6-22); Bilirubin Total 0.5 mg/dL (0.2-1.3); Blood Urea Nitrogen 14 mg/dL (7-17); Calcium 9.2 mg/dL (8.4-10.2); Carbon Dioxide 25 mmol/L (22-32); Chloride 99 mmol/L (98-107); Creatine Kinase 36 U/L (30-135); Estimated Glomerular Filt Rate > 60 mL/min (>60); Globulin 3.2 g/dL (1.7-4.1); Glucose 140 mg/dL (80-110); HEMOLYSIS < 15 (0-50); Lipase 90 U/L (23-300); Potassium 4.4 mmol/L (3.4-5.1); Sodium 133 mmol/L (137-145); Total Protein 7.6 g/dL (6.3-8.2)
[2021-08-16 11:13] LABS: Troponin I < 0.012 ng/mL (0.01-0.034)
[2021-08-16] MEDS: SODIUM CHLORIDE 0.9% 1,000 ML 500 ML IV (11:22)
== END 2021-08-16 12:53 | disposition home or self-care (01) ==
PROVIDERS: Emergency Provider Emergency Medicine; PCP Internal Medicine
DX: R11.0 Nausea (principal); R07.9 Chest pain, unspecified
CPT/HCPCS: 36415; 80053; 81003; 82550; 83690; 83735; 84484; 85025; 93005; 99284

== ENCOUNTER 2021-11-01 13:39 | Emergency (ER) | payer MEDICARE, OTHER, SELFPAY ==
[2021-11-01] VITALS (11 sets, daily range): BP systolic 181–213; BP diastolic 80–127; PULSE 60–68; RESP 14–18; TEMP 36.3; O2SAT 92–99
--- NOTE | 2021-11-01 15:40 | DI.CT.S_ITS ---
PROCEDURE: CT LUMBAR SPINE WO CON INDICATIONS: acute on chronic back pain TECHNIQUE: Noncontrast 3 mm thick sections acquired from the T12 level to the sacrum. Sagittal and coronal reformats were constructed. For radiation dose reduction, the following was used: automated exposure control. COMPARISON: [facility], MR, MR LUMBAR SPINE WO CON, 07/25/2021, 9:27. [facility] [place], CR, XR LUMBAR SPINE WITH OBLIQUES PLUS FLEXION EXTENSION, 09/30/2021, 16:55. FINDINGS: Image quality: Excellent. Bones: There is normal bony alignment. Mild superior endplate compression fracture at 3 appears unchanged when compared to the prior MRI from 07/25/2021. No acute vertebral body compression fractures. No suspicious lytic or blastic bony lesions. No pars defects. T12-L1: No significant spinal canal stenosis or neural foraminal narrowing. L1-L2: No significant spinal canal stenosis or neural foraminal narrowing. L2-L3: Mild circumferential disc bulging and mild bilateral facet hypertrophy. Findings result in moderate narrowing of the spinal canal and moderate bilateral neural foraminal narrowing. L3-L4: There is circumferential disc bulging as well as facet hypertrophy and buckling of the ligamentum flavum that results in severe narrowing of the spinal canal as well as severe right and moderate left neural foraminal narrowing. L4-L5: There is loss of disc space height and circumferential disc bulging/disc osteophyte complex as well as bilateral facet hypertrophy and buckling of the ligamentum flavum that result in severe narrowing of the spinal canal as well as severe bilateral neural foraminal narrowing. L5-S1: Mild circumferential disc bulging and mild bilateral facet hypertrophy which does not result in significant spinal canal stenosis or neural foraminal narrowing. Soft tissues: No retroperitoneal masses or hematomas. Visualized aorta is normal in caliber. IMPRESSION: 1. Mild chronic compression deformity of L3. No acute vertebral body compression fracture. 2. Multilevel degenerative changes including severe narrowing of the spinal canal at the L3-4 and L4-5 levels, not significantly changed when compared to the MRI from 07/25/2021. Multilevel neural foraminal narrowing also does not appear significantly changed. Dictated by: Nahum Campbell M.D. on 11/01/2021 at 15:09 Approved by: Nahum Campbell M.D. on 11/01/2021 at 15:14
--- NOTE | 2021-11-01 18:50 | ED.BACK ---
HPI - Back Pain/Injury General Chief Complaint: Back Pain/Injury Stated Complaint: cant walk and pain is terrible Time Seen by Provider: 11/01/21 15:40 Source: patient Mode of arrival: Ambulatory Limitations: no limitations History of Present Illness HPI Narrative: 80-year-old female with history of degenerative disc disease. Has had low back pain with right-sided radiculopathy for the past 6 months. She has had MRIs and other evaluation. She is also had steroid injections. She is under the care of orthopedic surgery. She states that earlier this week she woke up with extreme pain in her right buttock and down her right leg and into her right knee. No fevers. There was no specific incident that caused the discomfort. No urinary issues. She does have muscle relaxers and pain medication and nonsteroidal anti-inflammatories at home which she took which she states only minimally improves her symptoms. She is having to use a cane to help with ambulation. Related Data Home Medications Medication Instructions Recorded Confirmed B.ANI/L.ACI/L.SAKSHI/L.PLAN/L.KANA 1 cap PO QDAY ##0 12/14/11 11/10/17 (Probiotic Formula Capsule) Bioflavonoid/Ca/Hesperidin/R 1 tab PO QDAY ##0 12/14/11 11/10/17 (#THEO C) CALCIUM CITRATE (CITRACAL ) 200 mg PO BIDCC ##0 12/14/11 11/10/17 CHOLECALCIFEROL (VITAMIN D3) 400 iu PO QDAY ##0 12/14/11 11/10/17 Glucosamine Sulfate (#GLUCOSAMINE) 500 mg PO QDAY ##0 12/14/11 11/10/17 Pyridoxine (#VITAMIN B6) 10 mg PO QDAY ##0 12/14/11 11/10/17 Zinc, Chelated (#ZINC) 10 mg PO QDAY ##0 12/14/11 11/10/17 omeprazole magnesium 20 mg 20 mg PO QDAY ##0 12/14/11 11/10/17 tablet,delayed release (Prilosec OTC) Previous Rx's Medication Instructions Recorded amitriptyline 10 mg tablet 10 mg PO HS #180 tabs 02/04/16 nefazodone 50 mg tablet 75 mg PO HS #45 tabs 02/04/16 citalopram 20 mg tablet (Celexa) 20 mg PO QDAY #90 tabs 03/16/17 baclofen 10 mg tablet 10 mg PO BID #20 tabs 05/31/21 ondansetron 4 mg disintegrating 4 mg PO Q6H PRN nausea and 05/31/21 tablet vomiting #20 tabs omeprazole 40 mg capsule,delayed 40 mg PO DAILY #5 caps 06/02/21 release Allergies Allergy/AdvReac Type Severity Reaction Status Date / Time codeine AdvReac Mild N/V Verified 11/01/21 14:18 epinephrine AdvReac Mild N/V Verified 11/01/21 14:18 Review of Systems Constitutional Constitutional: Denies fever(s) Cardiovascular Cardiovascular: Denies chest pain and Denies dyspnea Respiratory Respiratory: Denies dyspnea Gastrointestinal Gastrointestinal: Reports system reviewed and no additional complaints, except as documented Genitourinary Genitourinary: Denies dysuria Musculoskeletal Musculoskeletal: Reports system reviewed and no additional complaints, except as documented and Reports as per HPI Integumentary/Breasts Skin/Breast: Reports system reviewed and no additional complaints, except as documented Neurologic Neurologic: Reports system reviewed and no additional complaints, except as documented and Reports as per HPI Hematologic/Lymphatic On Anticoagulants: No Patient History Medical History Hypertension Social History Smoking Status: Never smoker Smoking Status: Never smoker alcohol intake frequency: 0-2 drinks per day Substance Use Type: does not use Exam Initial Vital Signs Initial Vital Signs: Vital Signs Temperature 97.4 F L 11/01/21 14:14 Pulse Rate 63 11/01/21 14:14 Respiratory Rate 14 11/01/21 14:14 Blood Pressure 189/92 H 11/01/21 14:14 Pulse Oximetry 99 11/01/21 14:14 Oxygen Delivery Method 11/01/21 14:14 Resp Effort & Inspection: normal respiratory effort Cardio Rate: regular rate GI Inspection: normal to inspection Back/Spine/Pelvis Other: No tenderness to palpation lower back Skin General: no rashes or lesions noted Neuro Sensory Exam: no sensory deficits noted Course Orders Ordered: Discontinued Medications Acetaminophen (Acetaminophen 325 Mg Tablet) 975 mg PO NOW ONE Stop: 11/01/21 15:21 Last Admin: 11/01/21 17:19 Dose: Not Given Documented By: NR Baclofen (Baclofen 10 Mg Tablet) 10 mg PO NOW ONE Stop: 11/01/21 15:21 Last Admin: 11/01/21 17:19 Dose: Not Given Documented By: NR Ibuprofen (Ibuprofen 400 Mg Tablet) 400 mg PO NOW ONE Stop: 11/01/21 15:21 Last Admin: 11/01/21 17:20 Dose: Not Given Documented By: NR Morphine Sulfate (Morphine 4 Mg/Ml Inj) 4 mg IM NOW ONE Stop: 11/01/21 18:51 Last Admin: 11/01/21 19:01 Dose: 4 mg Documented By: BOAZ Vital Signs Vital signs: Vital Signs - 8 hr 11/01/21 18:30 11/01/21 18:30 11/01/21 19:00 Pulse Rate 63 Blood Pressure 197/127 H 213/86 H Pulse Oximetry 96 11/01/21 19:00 11/01/21 19:41 11/01/21 19:43 Pulse Rate 63 60 Blood Pressure 181/80 H Pulse Oximetry 92 97 11/01/21 19:43 Pulse Rate 68 Blood Pressure Pulse Oximetry 96 MDM - Back Pain/Injury Imaging Data Lumbar spine CT: Radiologist's Impression: [address] [address] [address] Scan Report Signed Patient: Jessica Gomez MR#: [id number] : 1940 Acct:[id number] Age/Sex: 80 / F Date of Service: 11/01/21 Loc: ED Accession Number: [id number] ?? Procedure: CT lumbar spine wo con Ordering Provider: Verónica Hutton D.O. PROCEDURE:? CT LUMBAR SPINE WO CON ? INDICATIONS:? acute on chronic back pain ? TECHNIQUE:? Noncontrast 3 mm thick sections acquired from the T12 level to the sacrum.? Sagittal and coronal reformats were constructed.? For radiation dose reduction, the following was used:? automated exposure control.? ? COMPARISON:? [facility], MR, MR LUMBAR SPINE WO CON, 07/25/2021, 9:27.? [facility] [place], CR, XR LUMBAR SPINE WITH OBLIQUES PLUS FLEXION EXTENSION, 09/30/2021, 16:55. ? FINDINGS:? Image quality:? Excellent.? ? Bones:? There is normal bony alignment.? Mild superior endplate compression fracture at 3 appears unchanged when compared to the prior MRI from 07/25/2021.? No acute vertebral body compression fractures.? No suspicious lytic or blastic bony lesions.? No pars defects.? ? T12-L1:? No significant spinal canal stenosis or neural foraminal narrowing. ? L1-L2:? No significant spinal canal stenosis or neural foraminal narrowing. ? L2-L3:? Mild circumferential disc bulging and mild bilateral facet hypertrophy.? Findings result in moderate narrowing of the spinal canal and moderate bilateral neural foraminal narrowing. ? L3-L4:? There is circumferential disc bulging as well as facet hypertrophy and buckling of the ligamentum flavum that results in severe narrowing of the spinal canal as well as severe right and moderate left neural foraminal narrowing. ? L4-L5:? There is loss of disc space height and circumferential disc bulging/disc osteophyte complex as well as bilateral facet hypertrophy and buckling of the ligamentum flavum that result in severe narrowing of the spinal canal as well as severe bilateral neural foraminal narrowing. ? L5-S1:? Mild circumferential disc bulging and mild bilateral facet hypertrophy which does not result in significant spinal canal stenosis or neural foraminal narrowing. ? Soft tissues:? No retroperitoneal masses or hematomas.? Visualized aorta is normal in caliber.? ? ? IMPRESSION:? 1. Mild chronic compression deformity of L3.? No acute vertebral body compression fracture. 2. Multilevel degenerative changes including severe narrowing of the spinal canal at the L3-4 and L4-5 levels, not significantly changed when compared to the MRI from 07/25/2021.? Multilevel neural foraminal narrowing also does not appear significantly changed.? ? ? Dictated by: Nahum Campbell M.D. on 11/01/2021 at 15:09 ? ? Approved by: Nahum Campbell M.D. on 11/01/2021 at 15:14?? [facility] Narrative Medical decision making narrative: Lumbar spine CT is unchanged from prior comparisons. Low concern for cauda equina. No fevers. She has medications at home to include pain medication and anti-inflammatories and also muscle relaxers. Will have her contact her primary doctor and also her orthopedic doctor for follow-up. She was given return precautions. She expressed understanding and agreement. Discharge Plan Departure Patient Disposition: Home Clinical Impression: Lumbar back pain with radiculopathy affecting right lower extremity Instructions: DI for Back Pain With Sciatica Activity Restrictions/Additional Instructions: I do recommend that you continue to take all of your medications as directed. Also contact your primary doctor and also your orthopedic doctor for follow-up. Return to the emergency department for any new symptoms. Prescriptions: No Action omeprazole magnesium [Prilosec OTC] 20 MG tablet,delayed release (DR/EC) 20 mg PO QDAY Qty: 0 Bioflavonoid/Ca/Hesperidin/R (#THEO C) 1 tab PO QDAY Qty: 0 Glucosamine Sulfate (#GLUCOSAMINE) 500 mg PO QDAY Qty: 0 Pyridoxine (#VITAMIN B6) 10 mg PO QDAY Qty: 0 Zinc, Chelated (#ZINC) 10 mg PO QDAY Qty: 0 CALCIUM CITRATE (CITRACAL ) 200 mg PO BIDCC Qty: 0 B.ANI/L.ACI/L.SAKSHI/L.PLAN/L.KANA (Probiotic Formula Capsule) 1 cap PO QDAY Qty: 0 CHOLECALCIFEROL (VITAMIN D3) 400 iu PO QDAY Qty: 0 amitriptyline 10 MG tablet 10 mg PO HS Qty: 180 1RF nefazodone 50 MG tablet 75 mg PO HS Qty: 45 2RF citalopram [Celexa] 20 MG tablet 20 mg PO QDAY Qty: 90 1RF ondansetron 4 mg tablet,disintegrating 4 mg PO Q6H PRN (Reason: nausea and vomiting) Qty: 20 0RF baclofen 10 mg tablet 10 mg PO BID Qty: 20 0RF omeprazole 40 mg capsule,delayed release(DR/EC) 40 mg PO DAILY Qty: 5 0RF Referrals: Jesus Quevedo MD [Primary Care Provider] - Visit Report Forms: Patient Portal/API
[2021-11-01] MEDS: MORPHINE 4 MG/ML INJ IM (19:01)
== END 2021-11-01 19:51 | disposition home or self-care (01) ==
PROVIDERS: Emergency Provider Emergency Medicine; PCP Internal Medicine
DX: M54.16 Radiculopathy, lumbar region (principal); M54.50 Low back pain, unspecified
CPT/HCPCS: 72131; 96372; 99283; J2270

== ENCOUNTER 2021-11-11 13:00 | Emergency (ER) | payer MEDICARE, OTHER, SELFPAY ==
[2021-11-11] VITALS (14 sets, daily range): BP systolic 145–185; BP diastolic 68–97; PULSE 64–92; TEMP 37.5; O2SAT 92–97; BMI 29.7
--- NOTE | 2021-11-11 13:17 | PC.NURSE ---
pt states she thought her caregiver was standing by her piano this morning at 0300. she states she has done this before when she took oxycodone and she did just start taking it again since her last spinal injection.
--- NOTE | 2021-11-11 13:21 | DI.CT.S_ITS ---
PROCEDURE: CT ABDOMEN PELVIS W CON INDICATIONS: constipation versus bowel obstruction TECHNIQUE: After the administration of intravenous contrast, axial sections acquired from the lung bases to the pubic symphysis. Coronal and sagittal reformats were performed. For radiation dose reduction, the following was used: automated exposure control, adjustment of mA and/or kV according to patient size. COMPARISON: None. FINDINGS: Image quality: Excellent. Lung bases: Unremarkable. Heart: No significant findings. ABDOMEN: Liver: No mass Gallbladder: Normal. Biliary ducts: Nondilated. Pancreas: Atrophic. Cystic pancreatic mass measuring 2.1 centimeters in the distal pancreatic body (series 2, image 26). Spleen: Normal size and appearance. Adrenal Glands: No adrenal gland nodule or mass. Kidneys and Ureters: Somewhat atrophic kidneys. No hydronephrosis or urinary tract calculus. Stomach and Bowel: Moderate pancolonic distribution of stool. No acute enteric abnormality. Peritoneum: No abnormal intraperitoneal fluid. No free air. Ventral Wall: No hernias. Abdominal Nodes: No retroperitoneal or mesenteric adenopathy by size criteria. Vessels: Aorta and inferior vena cava are normal in size. PELVIS: Pelvic Organs: Unremarkable. Bladder: Unremarkable. Pelvic Nodes: No enlarged lymph nodes. Miscellaneous: No hernias are seen. Bones: Unremarkable. IMPRESSION: Moderate volume of stool throughout the colon consistent with fecal retention. Cystic pancreatic mass measuring 2.1 centimeters. Pancreatic protocol MRI recommended for further evaluation. Dictated by: Mihai Espino M.D. on 11/11/2021 at 14:48 Approved by: Mihai Espino M.D. on 11/11/2021 at 14:51
[2021-11-11] MEDS: LACTATED RINGERS 1,000 ML 1000 ML IV (13:51)
[2021-11-11] MEDS: KETOROLAC 30 MG/ML VIAL 15 MG IV (13:51)
[2021-11-11 14:13] LABS: Add Manual Diff / Slide Review NO; Basophils Absolute Auto 0 /uL (0-100); Basophils Percent Auto 0.4 % (0-2); Eosinophils Absolute Auto 200 /uL (0-450); Hematocrit 35.7 % (36-46); Hemoglobin 12.6 g/dL (12.0-16.0); Lymphocytes Absolute Auto 2400 /uL (1100-4500); Lymphocytes Percent Auto 36.5 % (25-40); Mean Corpuscular HGB Conc 35.3 % (30-36); Mean Corpuscular Hemoglobin 33.1 PG (26-34); Mean Corpuscular Volume 93.8 fL (80-100); Monocytes Absolute Auto 700 /uL (0-900); Monocytes Percent Auto 10.5 % (3-14); Neutrophils Absolute Auto 3300 /uL (1500-7000); Neutrophils Percent Auto 49.6 % (50-75); Platelet Count 179 X10^3/uL (150-400); Red Cell Distribution Width 12.4 % (11.6-14.8); White Blood Cell Count 6.7 X10^3/uL (4.5-11.0)
[2021-11-11 14:18] LABS: Alanine Aminotransferase 14 IU/L (<35); Albumin 4.2 g/dL (3.5-5.0); Albumin Globulin Ratio 1.3 (1.0-2.8); Alkaline Phosphatase 50 U/L (38-126); Aspartate Aminotransferase 24 IU/L (14-36); Bilirubin Total 0.4 mg/dL (0.2-1.3); Blood Urea Nitrogen 31 mg/dL (7-17); Carbon Dioxide 25 mmol/L (22-32); Chloride 102 mmol/L (98-107); Creatine Kinase 37 U/L (30-135); Estimated Glomerular Filt Rate 43 mL/min (>60); Globulin 3.3 g/dL (1.7-4.1); Glucose 114 mg/dL (80-110); HEMOLYSIS < 15 (0-50); Magnesium 2.3 mg/dL (1.6-2.3); Potassium 4.7 mmol/L (3.4-5.1); Sodium 137 mmol/L (137-145); Total Protein 7.5 g/dL (6.3-8.2)
[2021-11-11 14:28] LABS: Troponin I < 0.012 ng/mL (0.01-0.034)
[2021-11-11 14:34] LABS: Procalcitonin 0.05 ng/mL (<0.5)
--- NOTE | 2021-11-11 14:38 | ED_ITS ---
HPI - Sepsis <CUCO Parra - Last Filed: 11/11/21 18:34> General Chief Complaint: Altered Mental Status Mode of arrival: EMS Source: patient Limitations: physical limitation Evaluation Sepsis Screen: No Definite Risk Sepsis Infection Criteria Present: None Narrative: This is an 80-year-old female with history of spinal stenosis and recent oxycodone use which caused constipation who presents to the emergency department today with altered mental status, patient states that she has not been sleeping well, she has transverse lower abdominal pain, states she is been very constipated, denies any dysuria, urinary frequency or urgency. States that she has been hospitalized 3 times for bowel obstruction and she has given herself an enema, rectal suppositories, been taking MiraLax and this has helped her have a bowel movement finally today but she states it was quite impacted. She has a borderline fever of 99.5 when she arrived in the emergency department by EMS. Patient has a CT of her lumbar spine from 11/01/2021 showing mild chronic compression deformity of L3 without acute compression fracture, multilevel degenerative changes including severe narrowing of the spinal canal at L3-4 and L4-5 levels, no significant change from MRI on 07/25/2021. Patient states that she takes omeprazole daily, amitriptyline for bowel issues and states that she takes zinc each day which can lead to constipation. She states her bowel m ovement today required disimpaction at home Review of Systems <CUCO Parra - Last Filed: 11/11/21 18:34> Review of Systems Narrative: Review of systems is negative for acute abnormalities unless otherwise noted in HPI Patient History <CUCO Parra - Last Filed: 11/11/21 18:34> Medical History Hypertension Social History Smoking Status: Never smoker Smoking Status: Never smoker alcohol intake frequency: holidays/special occasions only Substance Use Type: does not use Exam <CUCO Parra - Last Filed: 11/11/21 18:34> Narrative Exam Narrative: Reviewed vitals signs and nursing notes. General: cooperative, comfortable, in no acute distress, well groomed, talkative, A&O x3 HEENT: symmetrical facial expressions, moist mucous membranes Cardiovascular: regular rate and rhythm, no peripheral edema, warm extremities Respiratory: normal effort, able to speak in complete sentences, without wheezing, stridor, or abnormal breath sounds. No retractions or tachypnea. GI: abdomen soft,tender to palpation across transverse lower abdomen, nondistended, without masses, rebound tenderness or exquisite tenderness with exam. MSK: moves all extremities, neurovascularly intact, no weakness, normal tone Skin: brisk capillary refill, without pallor or erythema Neuro: normal speech and cognition, A&O x3, ambulatory, clear speech Psych: mental status is grossly normal, congruent mood, normal affect, pleasant and cooperative Initial Vital Signs Initial Vital Signs: Vital Signs Pulse Rate 79 11/11/21 13:05 Blood Pressure 155/73 H 11/11/21 13:05 Pulse Oximetry 95 11/11/21 13:05 <Tereza Warren DO - Last Filed: 11/13/21 05:08> Initial Vital Signs Initial Vital Signs: Vital Signs Pulse Rate 79 11/11/21 13:05 Blood Pressure 155/73 H 11/11/21 13:05 Pulse Oximetry 95 11/11/21 13:05 Course <NETTIE ParraP - Last Filed: 11/11/21 18:34> Orders Ordered: Discontinued Medications Bisacodyl (Bisacodyl 10 Mg Supp) 10 mg WA NOW ONE Stop: 11/11/21 16:30 Last Admin: 11/11/21 16:57 Dose: 10 mg Documented By: NR Hydromorphone HCl (Hydromorphone 0.5 Mg Inj) 0.5 mg IV NOW ONE Stop: 11/11/21 15:06 Last Admin: 11/11/21 15:41 Dose: 0.5 mg Documented By: NR Lactated Ringer's (Lactated Ringers) 1,000 mls @ 1,000 mls/hr IV BOLUS ONE Stop: 11/11/21 14:20 Last Infusion: 11/11/21 15:13 Dose: 1,000 mls/hr Documented By: Admin: 11/11/21 13:51 Dose: 1,000 mls/hr Documented By: NR Ketorolac Tromethamine (Ketorolac 30 Mg/Ml Vial) 15 mg IV NOW ONE Stop: 11/11/21 13:22 Last Admin: 11/11/21 13:51 Dose: 15 mg Documented By: NR Vital Signs Vital signs: Vital Signs - 8 hr 11/11/21 13:10 11/11/21 13:05 11/11/21 13:05 Temperature 99.5 F Pulse Rate 79 Blood Pressure 155/73 H Pulse Oximetry 95 11/11/21 13:30 11/11/21 13:30 11/11/21 14:00 Temperature Pulse Rate 71 Blood Pressure 154/74 H 149/69 H Pulse Oximetry 94 11/11/21 14:00 11/11/21 14:30 11/11/21 14:31 Temperature Pulse Rate 67 69 69 Blood Pressure Pulse Oximetry 94 97 97 11/11/21 14:31 11/11/21 14:53 11/11/21 14:53 Temperature Pulse Rate 74 Blood Pressure 157/97 H 173/76 H Pulse Oximetry 96 11/11/21 15:00 11/11/21 15:00 11/11/21 15:30 Temperature Pulse Rate 71 Blood Pressure 159/73 H 149/68 H Pulse Oximetry 96 11/11/21 15:30 11/11/21 16:01 11/11/21 16:03 Temperature Pulse Rate 64 69 Blood Pressure 185/78 H Pulse Oximetry 96 94 11/11/21 16:03 11/11/21 16:30 11/11/21 17:42 Temperature Pulse Rate 70 70 78 Blood Pressure Pulse Oximetry 96 94 95 11/11/21 17:48 11/11/21 17:48 Temperature Pulse Rate 92 H Blood Pressure 145/76 H Pulse Oximetry 92 <Tereza Warren, DO - Last Filed: 11/13/21 05:08> Orders Ordered: Discontinued Medications Bisacodyl (Bisacodyl 10 Mg Supp) 10 mg WA NOW ONE Stop: 11/11/21 16:30 Last Admin: 11/11/21 16:57 Dose: 10 mg Documented By: NR Hydromorphone HCl (Hydromorphone 0.5 Mg Inj) 0.5 mg IV NOW ONE Stop: 11/11/21 15:06 Last Admin: 11/11/21 15:41 Dose: 0.5 mg Documented By: NR Lactated Ringer's (Lactated Ringers) 1,000 mls @ 1,000 mls/hr IV BOLUS ONE Stop: 11/11/21 14:20 Last Infusion: 11/11/21 15:13 Dose: 1,000 mls/hr Documented By: Admin: 11/11/21 13:51 Dose: 1,000 mls/hr Documented By: NR Ketorolac Tromethamine (Ketorolac 30 Mg/Ml Vial) 15 mg IV NOW ONE Stop: 11/11/21 13:22 Last Admin: 11/11/21 13:51 Dose: 15 mg Documented By: NR Vital Signs Vital signs: Vital Signs - 8 hr 11/11/21 13:10 11/11/21 13:05 11/11/21 13:05 Temperature 99.5 F Pulse Rate 79 Blood Pressure 155/73 H Pulse Oximetry 95 11/11/21 13:30 11/11/21 13:30 11/11/21 14:00 Temperature Pulse Rate 71 Blood Pressure 154/74 H 149/69 H Pulse Oximetry 94 11/11/21 14:00 11/11/21 14:30 11/11/21 14:31 Temperature Pulse Rate 67 69 69 Blood Pressure Pulse Oximetry 94 97 97 11/11/21 14:31 11/11/21 14:53 11/11/21 14:53 Temperature Pulse Rate 74 Blood Pressure 157/97 H 173/76 H Pulse Oximetry 96 11/11/21 15:00 11/11/21 15:00 11/11/21 15:30 Temperature Pulse Rate 71 Blood Pressure 159/73 H 149/68 H Pulse Oximetry 96 11/11/21 15:30 11/11/21 16:01 11/11/21 16:03 Temperature Pulse Rate 64 69 Blood Pressure 185/78 H Pulse Oximetry 96 94 11/11/21 16:03 11/11/21 16:30 11/11/21 17:42 Temperature Pulse Rate 70 70 78 Blood Pressure Pulse Oximetry 96 94 95 11/11/21 17:48 11/11/21 17:48 Temperature Pulse Rate 92 H Blood Pressure 145/76 H Pulse Oximetry 92 Sepsis Guideline Criteria <CUCO Parra - Last Filed: 11/11/21 18:34> Level 1 - Infection Sepsis Infection Criteria Present: None Treatment Initiated Antibiotics:: IV antimicrobials will be initiated as soon as possible after recognition of sepsis state and within one hour for both sepsis and septic shock. MDM - Sepsis <Francie Polanco [facility] - Last Filed: 11/11/21 18:34> Lab Data Result diagrams: 11/11/21 13:42 11/11/21 13:42 Labs: Lab Results 11/11/21 11/11/21 11/11/21 Range/Units 13:42 13:42 13:42 WBC 6.7 (4.5-11.0) X10^3/uL RBC 3.80 L (4.0-5.2) X10^6/uL Hgb 12.6 (12.0-16.0) g/dL Hct 35.7 L (36-46) % MCV 93.8 (80-100) fL MCH 33.1 (26-34) PG MCHC 35.3 (30-36) % RDW 12.4 (11.6-14.8) % Plt Count 179 (150-400) X10^3/uL Neut % (Auto) 49.6 L (50-75) % Lymph % (Auto) 36.5 (25-40) % [place] % (Auto) 10.5 (3-14) % Eos % (Auto) 3.0 (2-4) % Baso % (Auto) 0.4 (0-2) % Neut # (Auto) 3300 (0462-7647) /uL Lymph # (Auto) 2400 (4195-1030) /uL [place] # (Auto) 700 (0-900) /uL Eos # (Auto) 200 (0-450) /uL Baso # (Auto) 0 (0-100) /uL Sodium 137 (137-145) mmol/L Potassium 4.7 (3.4-5.1) mmol/L Chloride 102 (98-107) mmol/L Carbon Dioxide 25 (22-32) mmol/L BUN 31 H (7-17) mg/dL Creatinine 1.24 H (0.52-1.04) mg/dL Estimated GFR 43 L (>60) mL/min BUN/Creatinine Ratio 25.0 H (6-22) Glucose 114 H (80-110) mg/dL Lactate 1.0 (0.7-2.1) mmol/L Calcium 9.0 (8.4-10.2) mg/dL Magnesium (1.6-2.3) mg/dL Total Bilirubin 0.4 (0.2-1.3) mg/dL AST 24 (14-36) IU/L ALT 14 (<35) IU/L Alkaline Phosphatase 50 (38-126) U/L Total Creatine Kinase 37 (30-135) U/L CK-MB (CK-2) TNP CK-MB (CK-2) Rel Index TNP Troponin I < 0.012 (0.01-0.034) ng/mL Total Protein 7.5 (6.3-8.2) g/dL Albumin 4.2 (3.5-5.0) g/dL Globulin 3.3 (1.7-4.1) g/dL Albumin/Globulin Ratio 1.3 (1.0-2.8) Procalcitonin (<0.5) ng/mL Urine Color Urine Appearance Urine pH (4.5-8.0) Ur Specific [place] (1.000-1.035) Urine Protein (Negative) Urine Glucose (UA) (Negative) g/dL Urine Ketones (NEGATIVE) Urine Occult Blood (Negative) Urine Nitrate (Negative) Urine Bilirubin (NEGATIVE) Urine Urobilinogen (0.2) E.U./dL Ur Leukocyte Esterase (NEGATIVE) Urine RBC (0-5/HPF) Urine WBC (0-5/HPF) Ur Squamous Epith Cells (0-5/HPF) Urine Bacteria (None) Ur Culture Indicated? 11/11/21 11/11/21 11/11/21 Range/Units 13:42 13:42 16:39 WBC (4.5-11.0) X10^3/uL RBC (4.0-5.2) X10^6/uL Hgb (12.0-16.0) g/dL Hct (36-46) % MCV (80-100) fL MCH (26-34) PG MCHC (30-36) % RDW (11.6-14.8) % Plt Count (150-400) X10^3/uL Neut % (Auto) (50-75) % Lymph % (Auto) (25-40) % [place] % (Auto) (3-14) % Eos % (Auto) (2-4) % Baso % (Auto) (0-2) % Neut # (Auto) (0167-0836) /uL Lymph # (Auto) (9812-8962) /uL [place] # (Auto) (0-900) /uL Eos # (Auto) (0-450) /uL Baso # (Auto) (0-100) /uL Sodium (137-145) mmol/L Potassium (3.4-5.1) mmol/L Chloride (98-107) mmol/L Carbon Dioxide (22-32) mmol/L BUN (7-17) mg/dL Creatinine (0.52-1.04) mg/dL Estimated GFR (>60) mL/min BUN/Creatinine Ratio (6-22) Glucose (80-110) mg/dL Lactate (0.7-2.1) mmol/L Calcium (8.4-10.2) mg/dL Magnesium 2.3 (1.6-2.3) mg/dL Total Bilirubin (0.2-1.3) mg/dL AST (14-36) IU/L ALT (<35) IU/L Alkaline Phosphatase (38-126) U/L Total Creatine Kinase (30-135) U/L CK-MB (CK-2) CK-MB (CK-2) Rel Index Troponin I (0.01-0.034) ng/mL Total Protein (6.3-8.2) g/dL Albumin (3.5-5.0) g/dL Globulin (1.7-4.1) g/dL Albumin/Globulin Ratio (1.0-2.8) Procalcitonin 0.05 (<0.5) ng/mL Urine Color Yellow Urine Appearance Clear Urine pH 5.0 (4.5-8.0) Ur Specific [place] <=1.005 (1.000-1.035) Urine Protein Negative (Negative) Urine Glucose (UA) Negative (Negative) g/dL Urine Ketones Negative (NEGATIVE) Urine Occult Blood Negative (Negative) Urine Nitrate Negative (Negative) Urine Bilirubin Negative (NEGATIVE) Urine Urobilinogen 0.2 (0.2) E.U./dL Ur Leukocyte Esterase Negative (NEGATIVE) Urine RBC 0-1/hpf (0-5/HPF) Urine WBC 0-1/hpf (0-5/HPF) Ur Squamous Epith Cells 5-10 /hpf H (0-5/HPF) Urine Bacteria Occasional (0-1) (None) Ur Culture Indicated? Cult not indicated Urine Dip Bedside Urine Glucose Negative Bedside Urine Bilirubin - Negative Bedside Urine Ketone - Negative Urine Specific [place] 1.010 Bedside Urine Occult Blood - Negative Bedside Urine pH 5.5 Bedside Urine Protein - Negative Bedside Urine Urobilinogen - Negative Bedside Urine Nitrite - Negative Bedside Urine Leukocytes - Negative Esterase Imaging Data CT scan - abdomen/pelvis: Radiologist's Impression: PROCEDURE:? CT ABDOMEN PELVIS W CON ? INDICATIONS:? constipation versus bowel obstruction ? TECHNIQUE:? After the administration of intravenous contrast, axial sections acquired from the lung bases to the pubic symphysis.? Coronal and sagittal reformats were performed.? For radiation dose reduction, the following was used:? automated exposure control, adjustment of mA and/or kV according to patient size.? ? COMPARISON:? None. ? FINDINGS:? Image quality:? Excellent.? ? Lung bases:? Unremarkable. Heart:? No significant findings. ? ABDOMEN: Liver:? No mass Gallbladder:? Normal. Biliary ducts:? Nondilated. Pancreas:? Atrophic.? Cystic pancreatic mass measuring 2.1 centimeters in the distal pancreatic body (series 2, image 26). Spleen:? Normal size and appearance. Adrenal Glands:? No adrenal gland nodule or mass. Kidneys and Ureters:? Somewhat atrophic kidneys.? No hydronephrosis or urinary tract calculus. ? Stomach and Bowel:? Moderate pancolonic distribution of stool.? No acute enteric abnormality. Peritoneum:? No abnormal intraperitoneal fluid.? No free air.? ? Ventral Wall: ? No hernias.? Abdominal Nodes:? No retroperitoneal or mesenteric adenopathy by size criteria.? Vessels:? Aorta and inferior vena cava are normal in size.? ? PELVIS: Pelvic Organs:? Unremarkable.? ? Bladder:? Unremarkable.? ? Pelvic Nodes: No enlarged lymph nodes.? Miscellaneous: No hernias are seen. ? ? ? Bones:? Unremarkable.? IMPRESSION: ? ? Moderate volume of stool throughout the colon consistent with fecal retention. ? Cystic pancreatic mass measuring 2.1 centimeters.? Pancreatic protocol MRI recommended for further evaluation. ? ? Dictated by: Mihai Espino M.D. on 11/11/2021 at 14:48 ? ? Approved by: Mihai Espino M.D. on 11/11/2021 at 14:51 ? ECG Data Interpretation: EKG independently reviewed by myself at 1415 reveals normal sinus rhythm at 68 bpm with regular axis and intervals. No STEMI, ST segment changes, arrhythmia, or acute ischemic changes. MDM Narrative Medical decision making narrative: This is an 80-year-old female who presents to the emergency department complaining of worsening pain in her bones and came in by ambulance with concern for altered mental status. Patient complained of abdominal pain and constipation. CT of her abdomen shows a moderate volume of stool throughout the colon consistent with fecal retention without obstruction, a cystic pancreatic mass measuring 2.1 cm was found as well. Per EMS report patient has been taking oxycodone for her pain which led to constipation and altered mental status. A UA was ordered and it took approximately 2 hours for patient to produce a urine sample after she accidentally missed and voided on the floor, ordered a straight cath urine and patient requested to try to void again, UA was pending for a long period of time. Patient has requested pain medication multiple times, she was given Toradol which she states helped a little bit and then was given hydromorphone which she states helped a lot. Her creatinine increased today to 1.24 from prior of 0.84 on 08/16/2021. No significant electrolyte abnormalities, GFR is 43 which is reduced. Presume that she has been dehydrated. She was given lactated Ringer's x1 L. Patient states that she felt much better after this, she is given a bisacodyl suppository for slow transit constipation. She states that she had been drinking very much and now feels like she is hydrated. No significant findings on her lab work, there is no leukocytosis, no anemia, no troponin elevation or elevation in her liver enzymes. UA shows squamous epithelial cells with bacteria and this is likely contaminant. CT shows moderate volume of stool throughout the colon consistent with fecal retention and a cystic pancreatic mass measuring 2.1 cm. Patient states that the oxycodone made her constipated and she has been using MiraLax, suppositories, and she does impacted herself this morning with success. She was given a suppository in the emergency department and IV fluid, encouraged her to stay hydrated with clear liquids and to return to the emergency department if she has worsening of her symptoms, avoid opiate medications, and to continue with her bowel regimen. She was given bisacodyl suppositories and magnesium citrate to use in addition to other medications as needed for constipation. Patient was given strict return precautions, her Hemoccult was negative. Patient is appropriate and amenable to discharge home. Vital signs are stable on repeat examination is unremarkable. Patient has been informed of results. Patient has been given strict return to ER precautions for any new or worsening symptoms. Patient understands to follow up closely with outpatient providers as instructed. Patient understands plan and agrees to discharge home. All questions and concerns answered at this time. <Tereza Warren, DO - Last Filed: 11/13/21 05:08> Lab Data Labs: Lab Results 11/11/21 11/11/21 11/11/21 Range/Units 13:42 13:42 13:42 WBC 6.7 (4.5-11.0) X10^3/uL RBC 3.80 L (4.0-5.2) X10^6/uL Hgb 12.6 (12.0-16.0) g/dL Hct 35.7 L (36-46) % MCV 93.8 (80-100) fL MCH 33.1 (26-34) PG MCHC 35.3 (30-36) % RDW 12.4 (11.6-14.8) % Plt Count 179 (150-400) X10^3/uL Neut % (Auto) 49.6 L (50-75) % Lymph % (Auto) 36.5 (25-40) % [place] % (Auto) 10.5 (3-14) % Eos % (Auto) 3.0 (2-4) % Baso % (Auto) 0.4 (0-2) % Neut # (Auto) 3300 (1363-9935) /uL Lymph # (Auto) 2400 (7850-2193) /uL [place] # (Auto) 700 (0-900) /uL Eos # (Auto) 200 (0-450) /uL Baso # (Auto) 0 (0-100) /uL Sodium 137 (137-145) mmol/L Potassium 4.7 (3.4-5.1) mmol/L Chloride 102 (98-107) mmol/L Carbon Dioxide 25 (22-32) mmol/L BUN 31 H (7-17) mg/dL Creatinine 1.24 H (0.52-1.04) mg/dL Estimated GFR 43 L (>60) mL/min BUN/Creatinine Ratio 25.0 H (6-22) Glucose 114 H (80-110) mg/dL Lactate 1.0 (0.7-2.1) mmol/L Calcium 9.0 (8.4-10.2) mg/dL Magnesium (1.6-2.3) mg/dL Total Bilirubin 0.4 (0.2-1.3) mg/dL AST 24 (14-36) IU/L ALT 14 (<35) IU/L Alkaline Phosphatase 50 (38-126) U/L Total Creatine Kinase 37 (30-135) U/L CK-MB (CK-2) TNP CK-MB (CK-2) Rel Index TNP Troponin I < 0.012 (0.01-0.034) ng/mL Total Protein 7.5 (6.3-8.2) g/dL Albumin 4.2 (3.5-5.0) g/dL Globulin 3.3 (1.7-4.1) g/dL Albumin/Globulin Ratio 1.3 (1.0-2.8) Procalcitonin (<0.5) ng/mL Urine Color Urine Appearance Urine pH (4.5-8.0) Ur Specific [place] (1.000-1.035) Urine Protein (Negative) Urine Glucose (UA) (Negative) g/dL Urine Ketones (NEGATIVE) Urine Occult Blood (Negative) Urine Nitrate (Negative) Urine Bilirubin (NEGATIVE) Urine Urobilinogen (0.2) E.U./dL Ur Leukocyte Esterase (NEGATIVE) Urine RBC (0-5/HPF) Urine WBC (0-5/HPF) Ur Squamous Epith Cells (0-5/HPF) Urine Bacteria (None) Ur Culture Indicated? 11/11/21 11/11/21 11/11/21 Range/Units 13:42 13:42 16:39 WBC (4.5-11.0) X10^3/uL RBC (4.0-5.2) X10^6/uL Hgb (12.0-16.0) g/dL Hct (36-46) % MCV (80-100) fL MCH (26-34) PG MCHC (30-36) % RDW (11.6-14.8) % Plt Count (150-400) X10^3/uL Neut % (Auto) (50-75) % Lymph % (Auto) (25-40) % [place] % (Auto) (3-14) % Eos % (Auto) (2-4) % Baso % (Auto) (0-2) % Neut # (Auto) (9359-1599) /uL Lymph # (Auto) (8725-0935) /uL [place] # (Auto) (0-900) /uL Eos # (Auto) (0-450) /uL Baso # (Auto) (0-100) /uL Sodium (137-145) mmol/L Potassium (3.4-5.1) mmol/L Chloride (98-107) mmol/L Carbon Dioxide (22-32) mmol/L BUN (7-17) mg/dL Creatinine (0.52-1.04) mg/dL Estimated GFR (>60) mL/min BUN/Creatinine Ratio (6-22) Glucose (80-110) mg/dL Lactate (0.7-2.1) mmol/L Calcium (8.4-10.2) mg/dL Magnesium 2.3 (1.6-2.3) mg/dL Total Bilirubin (0.2-1.3) mg/dL AST (14-36) IU/L ALT (<35) IU/L Alkaline Phosphatase (38-126) U/L Total Creatine Kinase (30-135) U/L CK-MB (CK-2) CK-MB (CK-2) Rel Index Troponin I (0.01-0.034) ng/mL Total Protein (6.3-8.2) g/dL Albumin (3.5-5.0) g/dL Globulin (1.7-4.1) g/dL Albumin/Globulin Ratio (1.0-2.8) Procalcitonin 0.05 (<0.5) ng/mL Urine Color Yellow Urine Appearance Clear Urine pH 5.0 (4.5-8.0) Ur Specific [place] <=1.005 (1.000-1.035) Urine Protein Negative (Negative) Urine Glucose (UA) Negative (Negative) g/dL Urine Ketones Negative (NEGATIVE) Urine Occult Blood Negative (Negative) Urine Nitrate Negative (Negative) Urine Bilirubin Negative (NEGATIVE) Urine Urobilinogen 0.2 (0.2) E.U./dL Ur Leukocyte Esterase Negative (NEGATIVE) Urine RBC 0-1/hpf (0-5/HPF) Urine WBC 0-1/hpf (0-5/HPF) Ur Squamous Epith Cells 5-10 /hpf H (0-5/HPF) Urine Bacteria Occasional (0-1) (None) Ur Culture Indicated? Cult not indicated Urine Dip Bedside Urine Glucose Negative Bedside Urine Bilirubin - Negative Bedside Urine Ketone - Negative Urine Specific [place] 1.010 Bedside Urine Occult Blood - Negative Bedside Urine pH 5.5 Bedside Urine Protein - Negative Bedside Urine Urobilinogen - Negative Bedside Urine Nitrite - Negative Bedside Urine Leukocytes - Negative Esterase ECG Data Interpretation: EKG independently reviewed by myself at 1415 reveals normal sinus rhythm at 68 bpm with regular axis and intervals. No STEMI, ST segment changes, arrhythmia, or acute ischemic changes. [place]: Sinus rhythm rate 68 WA interval 184 QRS 66 QTC 418 Q-wave noted in lead 3 similar to previous EKG in July of 2022 Discharge Plan Departure Patient Disposition: Home Clinical Impression: Constipation Qualifiers: Constipation type: slow transit constipation Qualified Code(s): K59.01 - Slow transit constipation Instructions: DI for Constipation Activity Restrictions/Additional Instructions: *You have been diagnosed with constipation without bowel obstruction. Please use Tylenol 650 mg every 6 hours as needed for pain, you may take ibuprofen 600 mg every 6 hours as well if you take it with food and water. This should help prevent worsening constipation. Please use the bisacodyl suppositories and magnesium citrate as needed for worsening constipation. Please use MiraLax morning and night as you have been as this is the best preventative for your constipation. Please stay hydrated, drink plenty of clear fluids, return to the emergency department for any worsening of your symptoms. I have sent some stool softener medications to your pharmacy at [facility], your urine does not appear to be infected however if there is anything that grows out from it we will call you in an antibiotic to your prescriptions. *What to do: *Please continue to take your regular medications as directed. [x ] New medication prescriptions sent to your pharmacy: [ [facility]] [ ] New medication written as a paper prescription [ ] No new medications given *Please follow up with your primary care provider in 2-3 days, call for an appointment. Let them know you were seen in the Emergency Department and that we asked that you be seen for follow-up. We will electronically transmit a record of today's note if your PCP is in our system *If you do not have a primary care provider please contact [phone] to establish care with one of the [facility] primary care providers. *Return to Emergency Department if you should have any new, worsening, or concerning symptoms, such as [fever greater than 101F, chills, worsening pain, persistent vomiting or other bothersome symptoms]. Prescriptions: New bisacodyl [Dulcolax (bisacodyl)] 10 mg suppository 10 mg WA DAILY PRN (Reason: constipation) Qty: 12 0RF magnesium citrate Solution 150 ml PO DAILY PRN (Reason: constipation) Qty: 296 0RF No Action omeprazole magnesium [Prilosec OTC] 20 MG tablet,delayed release (DR/EC) 20 mg PO QDAY Qty: 0 Bioflavonoid/Ca/Hesperidin/R (#THEO C) 1 tab PO QDAY Qty: 0 Glucosamine Sulfate (#GLUCOSAMINE) 500 mg PO QDAY Qty: 0 Pyridoxine (#VITAMIN B6) 10 mg PO QDAY Qty: 0 Zinc, Chelated (#ZINC) 10 mg PO QDAY Qty: 0 CALCIUM CITRATE (CITRACAL ) 200 mg PO BIDCC Qty: 0 B.ANI/L.ACI/L.SAKSHI/L.PLAN/L.KANA (Probiotic Formula Capsule) 1 cap PO QDAY Qty: 0 CHOLECALCIFEROL (VITAMIN D3) 400 iu PO QDAY Qty: 0 amitriptyline 10 MG tablet 10 mg PO HS Qty: 180 1RF nefazodone 50 MG tablet 75 mg PO HS Qty: 45 2RF citalopram [Celexa] 20 MG tablet 20 mg PO QDAY Qty: 90 1RF ondansetron 4 mg tablet,disintegrating 4 mg PO Q6H PRN (Reason: nausea and vomiting) Qty: 20 0RF baclofen 10 mg tablet 10 mg PO BID Qty: 20 0RF omeprazole 40 mg capsule,delayed release(DR/EC) 40 mg PO DAILY Qty: 5 0RF Referrals: Jesus Quevedo MD [Primary Care Provider] - Visit Report Forms: Patient Portal/API <Tereza Warren DO - Last Filed: 11/13/21 05:08> Cosign ED Attending Cosignature Attestation: I was immediately available in the department for consultation. Documentation has been reviewed. I agree with assessment and plan.
[2021-11-11] MEDS: HYDROMORPHONE 0.5 MG INJ IV (15:41)
[2021-11-11] MEDS: BISACODYL 10 MG SUPP PR (16:57)
--- NOTE | 2021-11-11 16:57 | PC.NURSE ---
pt agreed to have suppository. pt is wanting cure for her pain, states our pain medications are not helping. Pt states the last two months things were better than they are now. pt was only taking tylenol and ibuprofen then for pain, pt states the oxycodone does not help but makes her feel worse. pt states the pain she is currently in is no different or worse than when she is at home. pt wants cure but does not want surgery for this problem. pt educations given on proper emergency room use.
[2021-11-11 17:19] LABS: Appearance Urine UA CLEAR; Bilirubin Urine UA NEGATIVE (NEGATIVE); Color Urine UA YELLOW; Glucose Urine UA NEGATIVE (Negative); Ketones Urine UA NEGATIVE (NEGATIVE); Leukocyte Esterase Urine UA NEGATIVE (NEGATIVE); Nitrite Urine UA NEGATIVE (Negative); Occult Blood Urine UA NEGATIVE (Negative); Protein Urine UA NEGATIVE (Negative); Specific Gravity Urine UA <=1.005 (1.000-1.035); Urobilinogen Urine UA 0.2 E.U./dL (0.2)
[2021-11-11 17:45] LABS: Bacteria Urine Occasional (0-1); Culture Indicated Urine Cult Not Indicated; RBC Urine 0-1/HPF (0-5/HPF); Squamous Epithelial Cell Urine 5-10 /HPF (0-5/HPF); WBC Urine 0-1/HPF (0-5/HPF)
== END 2021-11-11 18:05 | disposition home or self-care (01) ==
PROVIDERS: Emergency Medicine; Emergency Provider Nurse Practitioner Critical Care Medicine; PCP Internal Medicine
DX: K29.01 Acute gastritis with bleeding (principal); R07.9 Chest pain, unspecified
CPT/HCPCS: 74177; 80053; 81001; 81003; 82550; 83605; 83735; 84145; 84484; 85025; 93005; 93010; 96361; 96374; 96375; 99284; J1170; J1885

== ENCOUNTER → 2021-11-21 12:11 | Outpatient (CLI) | payer MEDICARE, OTHER, SELFPAY ==
--- NOTE | 2021-11-21 12:13 | DI.MRI.S_ITS ---
PROCEDURE: MR LUMBAR SPINE WO CON INDICATIONS: ABDOMINAL MASS/HERNIATION OF LUMBAR DISC TECHNIQUE: Noncontrast sagittal T1 spin echo and T2 fast echo, sagittal STIR, and T2 fast spin echo through the lumbar spine. In cases with scoliosis, additional coronal T2 fast spin echo may be performed. COMPARISON: [facility], MR, MR LUMBAR SPINE WO CON, 07/25/2021, 9:27. [facility], CR, XR LUMBAR SPINE WITH OBLIQUES PLUS FLEXION EXTENSION, 09/30/2021, 16:55. [facility], CT, CT LUMBAR SPINE WO CON, 11/01/2021, 15:57. FINDINGS: Image quality: Excellent. Alignment and Curvature: Mild levoconvex scoliotic curvature is noted. No focal AP alignment abnormality is seen. Bone Marrow: Marrow is of normal overall signal. No acute vertebral body compression fractures. Chronic L3 compression deformity is seen, without acute features. Scattered foci are seen, which are hyperintense on T1-weighted and T2-weighted imaging, which are most consistent with benign vertebral body hemangiomas. The most prominent of these is seen at the L1 level. Spinal Cord: Conus medullaris terminates at the L1 level. Visualized cord demonstrates normal signal and size. Paraspinous Soft Tissues: No paravertebral masses. T12-L1: The disc height and disc signal are relatively well preserved. Minimal disc bulge is seen. There is a focal annular fissure seen posteriorly. No significant neural foraminal or central canal narrowing can be seen. Stable from the prior study. L1-L2: The disc height and disk signal are well-preserved. Mild generalized disc bulge is seen. Mild facet joint hypertrophy is seen. There is moderate left-sided and no significant right-sided neural foraminal narrowing. No significant central canal narrowing is seen. When comparison is made with the prior images, these findings are similar. L2-L3: The disc height is well-preserved. Loss of disc signal is seen at this level. Moderate generalized disc bulge is seen. Moderate facet joint hypertrophy is seen. Associated hypertrophy of the ligamentum flavum can be seen. Moderate bilateral neural foraminal narrowing is seen. Moderate central canal narrowing is seen. Stable from the prior study. L3-L4: Mild loss of disc height is seen. Loss of disc signal is seen. Moderate disc bulge is seen, which is eccentric to the right. Moderate facet joint hypertrophy is seen. There is moderate to severe right-sided neural foraminal narrowing, with associated compression upon exiting right L3 nerve root. Moderate left-sided neural narrowing is seen. Moderate to severe central canal narrowing is seen. No significant change from the prior. L4-L5: Moderate to severe loss of disc height and disc signal can be seen. Reactive marrow endplate changes are seen, which are hyperintense on T1-weighted and T2-weighted imaging and most consistent with fatty metaplasia (Modic type II changes). At least moderate disc bulge is seen. Moderate facet joint hypertrophy is seen. There is moderate to severe bilateral neural foraminal narrowing seen, right worse than left. There is a degree of compression seen upon the exiting nerve roots. Moderate to severe central canal narrowing is seen. No significant change from the prior. L5-S1: The disc height is well-preserved. Loss of disc signal is seen at this level. Mild generalized disc bulge is seen. Mild facet joint hypertrophy is seen. There is moderate left-sided and no significant right-sided neural foraminal narrowing. Mild to moderate central canal narrowing can be seen. When comparison is made with the prior images, these findings are similar. IMPRESSION: Multiple levels of lumbar spine degenerative change are seen, which are worst at L3-L4 and L4-L5 and are not significantly progressed compared to the recent prior MRI examination. Stable, chronic L3 compression deformity. Dictated by: Korey Donnelyl M.D. on 11/21/2021 at 15:09 Approved by: Korey Donnelly M.D. on 11/21/2021 at 15:14
--- NOTE | 2021-11-21 12:13 | DI.MRI.S_ITS ---
PROCEDURE: MR ABDOMEN WO/W CON INDICATIONS: ABDOMINAL MASS/HERNIATION OF LUMBAR DISC TECHNIQUE: Coronal HASTE, axial 2D FLASH in- and [id number]; axial breath-hold T2 FSE with fat saturation from the hepatic dome to the iliac crests. Oblique coronal thin-slice and radial thick slab HASTE through the biliary system. Dynamic axial VIBE during administration of contrast. Post-contrast coronal VIBE or 2D FLASH with fat saturation from the hepatic dome to the iliac crests. Optional diffusion weighted imaging and ADC may be performed. COMPARISON: [facility], CT, CT ABDOMEN PELVIS W CON, 11/11/2021, 14:40. FINDINGS: Image quality: Adequate. Pancreas and biliary system: Multiple pancreatic cysts are present, largest measuring 1.8 centimeters (coronal T2 haste series 3, image 16) corresponding to the finding on the recent CT of the abdomen and pelvis. No definite suspicious features such as soft tissue nodularity or abnormal enhancement. No dilation of the main pancreatic duct demonstrated. Fatty atrophy of the pancreas is present as seen previously. No biliary ductal dilation. Solid organs: Liver is normal in size and enhancement. Gallbladder is unremarkable. Spleen is normal in size and enhancement. No adrenal nodules. Kidneys are normal in size and enhancement, without hydronephrosis. Nodes and vessels: No retroperitoneal or mesenteric adenopathy by size criteria. Aorta and inferior vena cava are normal in size. Bowel and peritoneum: Unenhanced bowel loops are normal in caliber throughout. No free fluid. Lung bases: No basal pleural effusions. Bones and soft tissues: No ventral hernias. Bone marrow is normal in overall signal. 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 Other cystic neoplasms are not excluded however. No suspicious features such as soft tissue nodularity are identified. Per ACR incidental findings guidelines, imaging follow-up is recommended in 2 years. Dictated by: Nahum Vegas M.D. on 11/21/2021 at 17:34 Approved by: Nahum Vegas M.D. on 11/21/2021 at 17:56
== END ==
PROVIDERS: PCP Internal Medicine; Referring Provider Orthopaedic Surgery Orthopaedic Surgery of the Spine; Visit Provider Orthopaedic Surgery Orthopaedic Surgery of the Spine
DX: M51.16 Intervertebral disc disorders with radiculopathy, lumbar region (principal); K86.2 Cyst of pancreas; M47.26 Other spondylosis with radiculopathy, lumbar region; M47.27 Other spondylosis with radiculopathy, lumbosacral region
CPT/HCPCS: 72148; 74183; A9579

== ENCOUNTER → 2022-03-10 12:41 | Outpatient (CLI) | payer MEDICARE, OTHER, SELFPAY ==
--- NOTE | 2022-03-10 | DI.MRI.S_ITS ---
PROCEDURE: MR ABDOMEN WO/W CON INDICATIONS: Abnormal abdomen CT-Pancreas TECHNIQUE: Coronal HASTE, axial 2D FLASH in- and [id number]; axial breath-hold T2 FSE with fat saturation from the hepatic dome to the iliac crests. Oblique coronal thin-slice and radial thick slab HASTE through the biliary system. Dynamic axial VIBE during administration of contrast. Post-contrast coronal VIBE or 2D FLASH with fat saturation from the hepatic dome to the iliac crests. Optional diffusion weighted imaging and ADC may be performed. COMPARISON: [facility], CT, CT ABDOMEN PELVIS W CON, 11/11/2021, 14:40. [facility], MR, MR ABDOMEN WO/W CON, 11/21/2021, 12:50. FINDINGS: Image quality: Good Lower chest: No basal effusions. Lungs are not well evaluated. Small hiatal hernia Solid organs: Liver is unremarkable. Gallbladder is under distended. No biliary ductal dilation. No pathologic dilation of the pancreatic duct. Numerous small pancreatic cystic lesions again seen, distribution and size are grossly similar to prior. The largest lesion in the body measures 1.8 x 1.4 centimeters, similar to prior. (3/). No splenomegaly. No adrenal nodules. No hydronephrosis. There are renal cysts. Pancreatic parenchymal atrophy is also present. Vessels and lymph nodes: No abdominal aortic aneurysm. No pathologic adenopathy by size criteria. Bowel and peritoneum: No pathologic ascites. No bowel obstruction. Small hiatal hernia. Body wall: Unremarkable Bones: No suspicious osseous lesions. No acute changes from prior. IMPRESSION: Grossly stable numerous pancreatic cystic lesions, the largest measuring up to 1.8 centimeters in the body as before. Fatty atrophy of the pancreas. Please consider continued follow-up imaging in 1-2 years with pancreas MRI, versus GI consultation or no further follow-up depending on age and other comorbidities, in discussion with the patient. Dictated by: Abner Rojo M.D. on 03/10/2022 at 14:29 Approved by: Abner Rojo M.D. on 03/10/2022 at 14:36
== END ==
PROVIDERS: PCP Physician Assistant; Referring Provider Physician Assistant; Visit Provider Physician Assistant
DX: R93.5 Abnormal findings on diagnostic imaging of other abdominal regions, including retroperitoneum (principal); K86.2 Cyst of pancreas; N28.1 Cyst of kidney, acquired
CPT/HCPCS: 74183

== ENCOUNTER → 2022-04-28 09:50 | Outpatient (CLI) | payer MEDICARE, OTHER, SELFPAY ==
--- NOTE | 2022-04-28 | DI.RAD.S_ITS ---
PROCEDURE: XR CHEST 2V INDICATIONS: acute cough TECHNIQUE: 2 views of the chest were acquired. COMPARISON: [facility], , CHEST 2 VIEW, 10/05/2016, 16:12. FINDINGS: Surgical changes and devices: Total right shoulder arthroplasty Lungs and pleura: Lungs are clear. No pleural effusions or pneumothorax. Mediastinum: Mediastinal contours are normal. Heart size is normal. Bones and chest wall: No suspicious bony abnormalities. Soft tissues appear unremarkable. IMPRESSION: No evidence acute pulmonary process. Dictated by: Clinton Mercer M.D. on 04/28/2022 at 11:57 Approved by: Clinton Mercer M.D. on 04/28/2022 at 11:59
== END ==
PROVIDERS: PCP Physician Assistant; Referring Provider Student in an Organized Health Care Education/Training Program; Visit Provider Student in an Organized Health Care Education/Training Program
DX: R05.1 Acute cough (principal)
CPT/HCPCS: 71046

== ENCOUNTER → 2022-11-26 13:50 | Outpatient (CLI) | payer MEDICARE, OTHER, SELFPAY ==
--- NOTE | 2022-11-26 | DI.RAD.S_ITS ---
PROCEDURE: XR WRIST LT MIN 3V INDICATIONS: left wrist pain TECHNIQUE: 3 views of the wrist were acquired. COMPARISON: None. FINDINGS: Bones: No fractures or dislocations. No suspicious bony lesions. Scaphoid view: Not requested. Soft tissues: No suspicious soft tissue calcifications. IMPRESSION: No acute abnormality. No significant degenerative change. Dictated by: Bright Watts M.D. on 11/26/2022 at 16:08 Approved by: Bright Watts M.D. on 11/26/2022 at 16:08
== END ==
PROVIDERS: Family Provider Physician Assistant; PCP Physician Assistant; Referring Provider Physician Assistant; Visit Provider Physician Assistant
DX: M25.532 Pain in left wrist (principal)
CPT/HCPCS: 73110

== ENCOUNTER 2023-02-17 16:00 | Outpatient (RCR) | payer MEDICARE, OTHER, SELFPAY ==
--- NOTE | 2022-09-01 17:15 | PT.OPPOC ---
Physical, Occupational & Speech Therapy At [facility] Current Diagnoses Benign paroxysmal vertigo, unspecified ear (09/01/22) Sensorineural hearing loss, bilateral (09/01/22) Unsteadiness on feet (09/01/22) Other abnormalities of gait and mobility (09/01/22) Visit Care Team Role Provider Type Briseyda Russell PA-C Attending Provider Advanced Certified Master Safe Technician Family Provider Primary Care Provider Referring Provider Specialty: Medical Address: [address] [place] [address], [id number] Email: Plan Of Care PT-OP-T Assessment and Plan Start: 09/01/22 17:32 Freq: Status: Active Protocol: Document 09/01/22 16:30 DCW (Rec: 09/02/22 11:56 DCW [id number]) Physical Therapy Assessment Rehab Potential Rehabilitation Potential Fair Evaluation Complexity Number of Personal Factors/Comorbidities 1-2 Number of Body Systems Impaired 1-2 Clinical Presentation at Evaluation Unstable Goals Two Impairment Pt scores as a falls risk, per Best (36/56) Short Term Goal (STG) Pt to increase Best score by at least 10 points to 46/56 in order to demonstrate decreased falls risk. STG Duration 11/02/22 One Impairment Pt does not have an approrpiate home exercise program Short Term Goal (STG) Pt to be independent and compliant with an appropriate HEP STG Duration 10/02/22 Assessment Summary Assessment Pt presenting today with no further complaints of the vertigo which she was referred here for, but continuing complaints of poor balance and a severe fear of falling, which limits her participation of everything I want to do. Best score of 36/56 indicates an increased risk of falling. Much of today's session was spent discussing with patient that balance can be improved with PT, and discussing different techniques to challenge her balance to help with stabilizations. Pt additional big complaint is that she is unable to get herself up off the ground, which adds to her fear of falling, because she would not be able to recover without help. Pt should benefit from skilled therapy focusing on balance and stability training , floor transfers, mobility, and decreasing fear of falling . Will also address vestibular testing if pt's vertigo returns. Physical Therapy Plan Frequency and Duration Frequency of Treatment 2x/Week Plan of Care Start Date 09/01/22 Plan of Care End Date 11/02/22 Therapeutic Interventions Therapeutic Interventions Balance Training,Canalithic Repositioning,Gait Training, Home Exercise Program,Manual Therapy,Neuromuscular Re- education,Patient/Caregiver Education,Self-Care/Home Management,Soft Tissue Mobilization,Therapeutic Activities,Therapeutic Exercises Next Visit Focus/Plan Next Note Type Treatment Note Next Visit Plan Balance training, vestibular testing if indicated Plan of Care Dates Plan of Care Start Date 09/01/22 Plan of Care End Date 11/02/22 Electronically Signed by: Sandor Kothari, PT 09/02/22 4028 If you are in agreement with this Plan of Care, please return a signed and dated copy. I have reviewed this Plan of Care and certify that the skilled therapy services above are required to meet the patient?s needs. Physician Signature Date Printed Name and Credentials Clinical Instructor Signature Printed Name and Credentials
--- NOTE | 2022-09-01 17:15 | PT.OIE ---
Current Diagnoses Benign paroxysmal vertigo, unspecified ear (09/01/22) Sensorineural hearing loss, bilateral (09/01/22) Unsteadiness on feet (09/01/22) Other abnormalities of gait and mobility (09/01/22) Past Medical History (Last Reviewed 11/11/21 @ 15:17 by Francie Polanco PASTE MIXER) Hypertension Visit Care Team Role Provider Type Briseyda Russell PA-C Attending Provider Advanced Delivery Recruiter Family Provider Primary Care Provider Referring Provider Specialty: Medical Address: [address] [place] [address], [id number] Email: Physical Therapy Initial Evaluation PT-OP-A Visit Information Start: 09/01/22 17:32 Freq: Status: Active Protocol: Document 09/01/22 16:30 DCW (Rec: 09/01/22 17:49 DCW [id number]) Out-Patient Physical Therapy Visit Information Visit Information Visit Type Initial Evaluation Visit Start Time 16:30 Visit Stop Time 17:15 Total Visit Minutes 45 Visit Number 1 Number of LOCKSTITCH COAT JOINER Visits 0 Evaluation Information Evaluation Date 09/01/22 PT-OP-B Current Condition Start: 09/01/22 17:32 Freq: Status: Active Protocol: Document 09/01/22 16:30 DCW (Rec: 09/01/22 17:49 DCW [id number]) Current Condition History of Current Condition Onset Date Multi-month history Current Complaints Poor balance, occasional episodes of vertigo, fear of falling History of Current Condition Pt is an 81 year old female referred to skilled therapy due to recent episodes of position-dependent positional vertigo. Pt reports it began in March when she was on vacation in [place], but only happened once, and at the time was told she was probably dehydrated. Recurred again in June, happened off and on for a few weeks where she would have brief episodes of dizziness when changing positions or getting up from bed. She admits she hasn't really had any continuing episodes since the beginning of July, so I don't really know if I even need to be here . Does, however, admit that she is petrified of falling, and really feels like she has been struggling with her general balance. Uses a walking stick for community ambulation, but otherwise typically does not use an assistive device. Has had bilateral TKAs, a R reverse TSA, and a lumbar microdiscectomy, and has undergone PT after all of these surgeries, however feels like her balance has never really been addressed. PT-OP-C Subjective Start: 09/01/22 17:32 Freq: Status: Active Protocol: Document 09/01/22 16:30 DCW (Rec: 09/01/22 17:49 DCW [id number]) OP-PT Subjective Patient Comments Patient Comments Balance is creating fear of everything I want to do. Patient Questionnaires Dizziness Handicap Inventory DHI Score 26% DHI Functional Impairment 20 to 39% Impaired (Score 20- 39) OP-PT Pain Assessment Pain Assessment Grid Paper Pain Assessment Grid Completed Yes: See scan PT-OP-D Balance Start: 09/01/22 17:32 Freq: Status: Active Protocol: Document 09/01/22 16:30 DCW (Rec: 09/01/22 17:49 DCW [id number]) Balance Tests Best Balance Test Best Balance Test Score 36/56 Best Impairment Rating 20 to 39% Impaired (Score 34- 44) Best Balance Assessment Evaluation Sitting to Standing Ability Independent w/Hands Unsupported Stance Safely- 2 minutes Sitting Unsupported, Feet on Floor Safely- 2 minutes Standing to Sitting Ability Independent, Uncontrolled Transfer Ability Safely, Hand Use Unsupported Stance- Eyes Closed Supervision, 10 seconds Unsupported Stance- Eyes Open Supervision to maintain Reaching Forward Standing Safely, 5 inches Pick- Up Object From Floor Supervision Look Behind Shoulder - Standing Supervision w/Turning Turning 360 Degrees Turns Bilateral, < 4 secs Unsupported Stance, Alternating Feet on 2 Steps w/Minimum Assist Stair Unsupported Tandem Stance Small Step- 30 seconds Unilateral Leg Stance Lifts Leg/Unable to Hold Total Score Best Total Score (out of 56 points) 36 Best Impairment Rating 20 to 39% Impaired (Score 34- 44) PT-OP-T Assessment and Plan Start: 09/01/22 17:32 Freq: Status: Active Protocol: Document 09/01/22 16:30 DCW (Rec: 09/02/22 11:56 DCW [id number]) Physical Therapy Assessment Rehab Potential Rehabilitation Potential Fair Evaluation Complexity Number of Personal Factors/Comorbidities 1-2 Number of Body Systems Impaired 1-2 Clinical Presentation at Evaluation Unstable Goals Two Impairment Pt scores as a falls risk, per Best (36/56) Short Term Goal (STG) Pt to increase Best score by at least 10 points to 46/56 in order to demonstrate decreased falls risk. STG Duration 11/02/22 One Impairment Pt does not have an approrpiate home exercise program Short Term Goal (STG) Pt to be independent and compliant with an appropriate HEP STG Duration 10/02/22 Assessment Summary Assessment Pt presenting today with no further complaints of the vertigo which she was referred here for, but continuing complaints of poor balance and a severe fear of falling, which limits her participation of everything I want to do. Best score of 36/56 indicates an increased risk of falling. Much of today's session was spent discussing with patient that balance can be improved with PT, and discussing different techniques to challenge her balance to help with stabilizations. Pt additional big complaint is that she is unable to get herself up off the ground, which adds to her fear of falling, because she would not be able to recover without help. Pt should benefit from skilled therapy focusing on balance and stability training , floor transfers, mobility, and decreasing fear of falling . Will also address vestibular testing if pt's vertigo returns. Physical Therapy Plan Frequency and Duration Frequency of Treatment 2x/Week Plan of Care Start Date 09/01/22 Plan of Care End Date 11/02/22 Therapeutic Interventions Therapeutic Interventions Balance Training,Canalithic Repositioning,Gait Training, Home Exercise Program,Manual Therapy,Neuromuscular Re- education,Patient/Caregiver Education,Self-Care/Home Management,Soft Tissue Mobilization,Therapeutic Activities,Therapeutic Exercises Next Visit Focus/Plan Next Note Type Treatment Note Next Visit Plan Balance training, vestibular testing if indicated
--- NOTE | 2022-09-09 17:20 | PT.OTN ---
Current Diagnoses Benign paroxysmal vertigo, unspecified ear (09/09/22) Sensorineural hearing loss, bilateral (09/09/22) Unsteadiness on feet (09/09/22) Other abnormalities of gait and mobility (09/09/22) Physical Therapy Treatment Note PT-OP-A Visit Information Start: 09/01/22 17:32 Freq: Status: Active Protocol: Document 09/09/22 16:30 DCW (Rec: 09/09/22 17:19 DCW [id number]) Out-Patient Physical Therapy Visit Information Visit Information Visit Type Treatment Note Visit Start Time 16:30 Visit Stop Time 17:15 Total Visit Minutes 45 Visit Number 2 Number of SOCIAL RESEARCH ASSISTANT Visits 0 Evaluation Information Evaluation Date 09/01/22 PT-OP-B Current Condition Start: 09/01/22 17:32 Freq: Status: Active Protocol: Document 09/01/22 16:30 DCW (Rec: 09/01/22 17:49 DCW [id number]) Current Condition History of Current Condition Onset Date Multi-month history Current Complaints Poor balance, occasional episodes of vertigo, fear of falling History of Current Condition Pt is an 81 year old female referred to skilled therapy due to recent episodes of position-dependent positional vertigo. Pt reports it began in March when she was on vacation in [place], but only happened once, and at the time was told she was probably dehydrated. Recurred again in June, happened off and on for a few weeks where she would have brief episodes of dizziness when changing positions or getting up from bed. She admits she hasn't really had any continuing episodes since the beginning of July, so I don't really know if I even need to be here . Does, however, admit that she is petrified of falling, and really feels like she has been struggling with her general balance. Uses a walking stick for community ambulation, but otherwise typically does not use an assistive device. Has had bilateral TKAs, a R reverse TSA, and a lumbar microdiscectomy, and has undergone PT after all of these surgeries, however feels like her balance has never really been addressed. PT-OP-C Subjective Start: 09/01/22 17:32 Freq: Status: Active Protocol: Document 09/09/22 16:30 DCW (Rec: 09/09/22 17:20 DCW [id number]) OP-PT Subjective Patient Comments Patient Comments Pt feeling pretty good today . PT-OP-D Balance Start: 09/01/22 17:32 Freq: Status: Active Protocol: Document 09/01/22 16:30 DCW (Rec: 09/01/22 17:49 DCW [id number]) Balance Tests Best Balance Test Best Balance Test Score 36/56 Best Impairment Rating 20 to 39% Impaired (Score 34- 44) Best Balance Assessment Evaluation Sitting to Standing Ability Independent w/Hands Unsupported Stance Safely- 2 minutes Sitting Unsupported, Feet on Floor Safely- 2 minutes Standing to Sitting Ability Independent, Uncontrolled Transfer Ability Safely, Hand Use Unsupported Stance- Eyes Closed Supervision, 10 seconds Unsupported Stance- Eyes Open Supervision to maintain Reaching Forward Standing Safely, 5 inches Pick- Up Object From Floor Supervision Look Behind Shoulder - Standing Supervision w/Turning Turning 360 Degrees Turns Bilateral, < 4 secs Unsupported Stance, Alternating Feet on 2 Steps w/Minimum Assist Stair Unsupported Tandem Stance Small Step- 30 seconds Unilateral Leg Stance Lifts Leg/Unable to Hold Total Score Best Total Score (out of 56 points) 36 Best Impairment Rating 20 to 39% Impaired (Score 34- 44) PT-OP-E Functional Tests Start: 09/01/22 17:32 Freq: Status: Active Protocol: Document 09/09/22 16:30 DCW (Rec: 09/09/22 17:19 NVW [id number]) Functional Tests 6 Minute Walk Test Distance 1138' Device Used none Comments 3.16 ft/sec Dynamic Gait Index (DGI) Score 20/24 DGI Impairment Rating 1 to <20% Impaired (Score 20- 23) PT-OP-Q Treatments Start: 09/01/22 17:32 Freq: Status: Active Protocol: Document 09/09/22 16:30 DCW (Rec: 09/09/22 17:19 DCW [id number]) Neuro Re-Education Treatment Balance Activities Tilt Board Details DF/PF Stepping Stones Details Foam stepping stones Foam Stance Details Foam Stance Surface Blue Foam Tandem Details Tandem Stance, Tandem Ambulation PT-OP-T Assessment and Plan Start: 09/01/22 17:32 Freq: Status: Active Protocol: Document 09/09/22 16:30 DCW (Rec: 09/09/22 17:19 DCW [id number]) Physical Therapy Assessment Goals Two Impairment Pt scores as a falls risk, per Best (36/56) Short Term Goal (STG) Pt to increase Best score by at least 10 points to 46/56 in order to demonstrate decreased falls risk. STG Duration 11/02/22 One Impairment Pt does not have an approrpiate home exercise program Short Term Goal (STG) Pt to be independent and compliant with an appropriate HEP STG Duration 10/02/22 Assessment Summary Assessment Further testing done today shows pt doing fairly well, with the exception of previously performed Best Balance Scale. Scored 20/24 on DGI, and ambulated 1138' during 6MWT, both scores indicating minimal falls risk. Will continue to focus on static balance, compliant surfaces, and some general LE strengthening. Pt showed that tandem stand was a good balance challenge, recommended pt add to HEP, discussed how to do safely, either at counter-top or inside doorway. Physical Therapy Plan Frequency and Duration Frequency of Treatment 2x/Week Plan of Care Start Date 09/01/22 Plan of Care End Date 11/02/22 Therapeutic Interventions Therapeutic Interventions Balance Training,Canalithic Repositioning,Gait Training, Home Exercise Program,Manual Therapy,Neuromuscular Re- education,Patient/Caregiver Education,Self-Care/Home Management,Soft Tissue Mobilization,Therapeutic Activities,Therapeutic Exercises Next Visit Focus/Plan Next Note Type Treatment Note Next Visit Plan Balance training, vestibular testing if indicated
--- NOTE | 2022-09-11 14:16 | PT.OTN ---
Current Diagnoses Benign paroxysmal vertigo, unspecified ear (09/11/22) Sensorineural hearing loss, bilateral (09/11/22) Unsteadiness on feet (09/11/22) Other abnormalities of gait and mobility (09/11/22) Physical Therapy Treatment Note PT-OP-A Visit Information Start: 09/01/22 17:32 Freq: Status: Active Protocol: Document 09/11/22 13:30 DCW (Rec: 09/11/22 14:15 DCW [id number]) Out-Patient Physical Therapy Visit Information Visit Information Visit Type Treatment Note Visit Start Time 13:30 Visit Stop Time 14:15 Total Visit Minutes 45 Visit Number 3 Number of PROCUREMENT ASSISTANT Visits 0 Evaluation Information Evaluation Date 09/01/22 PT-OP-B Current Condition Start: 09/01/22 17:32 Freq: Status: Active Protocol: Document 09/01/22 16:30 DCW (Rec: 09/01/22 17:49 DCW [id number]) Current Condition History of Current Condition Onset Date Multi-month history Current Complaints Poor balance, occasional episodes of vertigo, fear of falling History of Current Condition Pt is an 81 year old female referred to skilled therapy due to recent episodes of position-dependent positional vertigo. Pt reports it began in March when she was on vacation in [place], but only happened once, and at the time was told she was probably dehydrated. Recurred again in June, happened off and on for a few weeks where she would have brief episodes of dizziness when changing positions or getting up from bed. She admits she hasn't really had any continuing episodes since the beginning of July, so I don't really know if I even need to be here . Does, however, admit that she is petrified of falling, and really feels like she has been struggling with her general balance. Uses a walking stick for community ambulation, but otherwise typically does not use an assistive device. Has had bilateral TKAs, a R reverse TSA, and a lumbar microdiscectomy, and has undergone PT after all of these surgeries, however feels like her balance has never really been addressed. PT-OP-C Subjective Start: 09/01/22 17:32 Freq: Status: Active Protocol: Document 09/11/22 13:30 DCW (Rec: 09/11/22 14:16 DCW [id number]) OP-PT Subjective Patient Comments Patient Comments Pt reports she was a little tired following her last visit , but nothing too bad. PT-OP-D Balance Start: 09/01/22 17:32 Freq: Status: Active Protocol: Document 09/01/22 16:30 DCW (Rec: 09/01/22 17:49 DCW [id number]) Balance Tests Best Balance Test Best Balance Test Score 36/56 Best Impairment Rating 20 to 39% Impaired (Score 34- 44) Best Balance Assessment Evaluation Sitting to Standing Ability Independent w/Hands Unsupported Stance Safely- 2 minutes Sitting Unsupported, Feet on Floor Safely- 2 minutes Standing to Sitting Ability Independent, Uncontrolled Transfer Ability Safely, Hand Use Unsupported Stance- Eyes Closed Supervision, 10 seconds Unsupported Stance- Eyes Open Supervision to maintain Reaching Forward Standing Safely, 5 inches Pick- Up Object From Floor Supervision Look Behind Shoulder - Standing Supervision w/Turning Turning 360 Degrees Turns Bilateral, < 4 secs Unsupported Stance, Alternating Feet on 2 Steps w/Minimum Assist Stair Unsupported Tandem Stance Small Step- 30 seconds Unilateral Leg Stance Lifts Leg/Unable to Hold Total Score Best Total Score (out of 56 points) 36 Best Impairment Rating 20 to 39% Impaired (Score 34- 44) PT-OP-E Functional Tests Start: 09/01/22 17:32 Freq: Status: Active Protocol: Document 09/09/22 16:30 DCW (Rec: 09/09/22 17:19 DCW [id number]) Functional Tests 6 Minute Walk Test Distance 1138' Device Used none Comments 3.16 ft/sec Dynamic Gait Index (DGI) Score 20/24 DGI Impairment Rating 1 to <20% Impaired (Score 20- 23) PT-OP-Q Treatments Start: 09/01/22 17:32 Freq: Status: Active Protocol: Document 09/11/22 13:30 DCW (Rec: 09/11/22 14:15 DCW [id number]) Gym Equipment Shuttle Balance Red Details WBOS, Staggered Therapeutic Exercises Standing Exercises Pallof press Standing Exercise Name Pallof press Side bilateral Resistance Blue T-band Other Exercises Resisted Ambulation Other Exercise Name Resisted Side-stepping Resistance Green loop Neuro Re-Education Treatment Balance Activities Retro Amb Details Retro Ambulation Stepping Stones Details Foam stepping stones/Hurdles Foam Stance Details SLS Surface Blue Foam Tandem Details Tandem Stance, Tandem Ambulation PT-OP-T Assessment and Plan Start: 09/01/22 17:32 Freq: Status: Active Protocol: Document 09/11/22 13:30 DCW (Rec: 09/11/22 14:15 DCW [id number]) Physical Therapy Assessment Goals Two Impairment Pt scores as a falls risk, per Best (36/56) Short Term Goal (STG) Pt to increase Best score by at least 10 points to 46/56 in order to demonstrate decreased falls risk. STG Duration 11/02/22 One Impairment Pt does not have an approrpiate home exercise program Short Term Goal (STG) Pt to be independent and compliant with an appropriate HEP STG Duration 10/02/22 Assessment Summary Assessment Fatigued pretty quickly with full session focused mostly on challenging balance, required multiple rest breaks. Struggled greatly with foam/ hurdles Physical Therapy Plan Frequency and Duration Frequency of Treatment 2x/Week Plan of Care Start Date 09/01/22 Plan of Care End Date 11/02/22 Therapeutic Interventions Therapeutic Interventions Balance Training,Canalithic Repositioning,Gait Training, Home Exercise Program,Manual Therapy,Neuromuscular Re- education,Patient/Caregiver Education,Self-Care/Home Management,Soft Tissue Mobilization,Therapeutic Activities,Therapeutic Exercises Next Visit Focus/Plan Next Note Type Treatment Note Next Visit Plan Balance training, vestibular testing if indicated
--- NOTE | 2022-09-15 13:32 | PT.OTN ---
Current Diagnoses Benign paroxysmal vertigo, unspecified ear (09/15/22) Sensorineural hearing loss, bilateral (09/15/22) Unsteadiness on feet (09/15/22) Other abnormalities of gait and mobility (09/15/22) Physical Therapy Treatment Note PT-OP-A Visit Information Start: 09/01/22 17:32 Freq: Status: Active Protocol: Document 09/15/22 12:50 DCW (Rec: 09/15/22 13:32 DCW [id number]) Out-Patient Physical Therapy Visit Information Visit Information Visit Type Treatment Note Visit Start Time 12:50 Visit Stop Time 13:30 Total Visit Minutes 40 Visit Number 4 Number of FACILITIES DIRECTOR Visits 0 Evaluation Information Evaluation Date 09/01/22 PT-OP-B Current Condition Start: 09/01/22 17:32 Freq: Status: Active Protocol: Document 09/01/22 16:30 DCW (Rec: 09/01/22 17:49 DCW [id number]) Current Condition History of Current Condition Onset Date Multi-month history Current Complaints Poor balance, occasional episodes of vertigo, fear of falling History of Current Condition Pt is an 81 year old female referred to skilled therapy due to recent episodes of position-dependent positional vertigo. Pt reports it began in March when she was on vacation in [place], but only happened once, and at the time was told she was probably dehydrated. Recurred again in June, happened off and on for a few weeks where she would have brief episodes of dizziness when changing positions or getting up from bed. She admits she hasn't really had any continuing episodes since the beginning of July, so I don't really know if I even need to be here . Does, however, admit that she is petrified of falling, and really feels like she has been struggling with her general balance. Uses a walking stick for community ambulation, but otherwise typically does not use an assistive device. Has had bilateral TKAs, a R reverse TSA, and a lumbar microdiscectomy, and has undergone PT after all of these surgeries, however feels like her balance has never really been addressed. PT-OP-C Subjective Start: 09/01/22 17:32 Freq: Status: Active Protocol: Document 09/15/22 12:50 DCW (Rec: 09/15/22 13:32 DCW [id number]) OP-PT Subjective Patient Comments Patient Comments You about murdered me last visit. I was pretty sore the rest of the day. PT-OP-D Balance Start: 09/01/22 17:32 Freq: Status: Active Protocol: Document 09/01/22 16:30 DCW (Rec: 09/01/22 17:49 DCW [id number]) Balance Tests Best Balance Test Best Balance Test Score 36/56 Best Impairment Rating 20 to 39% Impaired (Score 34- 44) Best Balance Assessment Evaluation Sitting to Standing Ability Independent w/Hands Unsupported Stance Safely- 2 minutes Sitting Unsupported, Feet on Floor Safely- 2 minutes Standing to Sitting Ability Independent, Uncontrolled Transfer Ability Safely, Hand Use Unsupported Stance- Eyes Closed Supervision, 10 seconds Unsupported Stance- Eyes Open Supervision to maintain Reaching Forward Standing Safely, 5 inches Pick- Up Object From Floor Supervision Look Behind Shoulder - Standing Supervision w/Turning Turning 360 Degrees Turns Bilateral, < 4 secs Unsupported Stance, Alternating Feet on 2 Steps w/Minimum Assist Stair Unsupported Tandem Stance Small Step- 30 seconds Unilateral Leg Stance Lifts Leg/Unable to Hold Total Score Best Total Score (out of 56 points) 36 Best Impairment Rating 20 to 39% Impaired (Score 34- 44) PT-OP-E Functional Tests Start: 09/01/22 17:32 Freq: Status: Active Protocol: Document 09/09/22 16:30 DCW (Rec: 09/09/22 17:19 DCW [id number]) Functional Tests 6 Minute Walk Test Distance 1138' Device Used none Comments 3.16 ft/sec Dynamic Gait Index (DGI) Score 20/24 DGI Impairment Rating 1 to <20% Impaired (Score 20- 23) PT-OP-Q Treatments Start: 09/01/22 17:32 Freq: Status: Active Protocol: Document 09/15/22 12:50 DCW (Rec: 09/15/22 13:32 DCW [id number]) Gym Equipment Shuttle Balance Red Details WBOS, Staggered Therapeutic Exercises Standing Exercises Hip Extension Standing Exercise Name Hip Extension Side bilateral Resistance Green loop Other Exercises Resisted Ambulation Other Exercise Name Resisted Side-stepping Resistance Green loop Neuro Re-Education Treatment Balance Activities Stepping Stones Details Foam stepping stones/Hurdles Tandem Details Tandem Stance, Tandem Ambulation PT-OP-T Assessment and Plan Start: 09/01/22 17:32 Freq: Status: Active Protocol: Document 09/15/22 12:50 DCW (Rec: 09/15/22 13:32 DCW [id number]) Physical Therapy Assessment Goals Two Impairment Pt scores as a falls risk, per Best (36/56) Short Term Goal (STG) Pt to increase Best score by at least 10 points to 46/56 in order to demonstrate decreased falls risk. STG Duration 11/02/22 One Impairment Pt does not have an approrpiate home exercise program Short Term Goal (STG) Pt to be independent and compliant with an appropriate HEP STG Duration 10/02/22 Assessment Summary Assessment Pt able to perform more repetitions today with fewer rest breaks today, added tandem stance and resisted side-stepping to HEP at home. Physical Therapy Plan Frequency and Duration Frequency of Treatment 2x/Week Plan of Care Start Date 09/01/22 Plan of Care End Date 11/02/22 Therapeutic Interventions Therapeutic Interventions Balance Training,Canalithic Repositioning,Gait Training, Home Exercise Program,Manual Therapy,Neuromuscular Re- education,Patient/Caregiver Education,Self-Care/Home Management,Soft Tissue Mobilization,Therapeutic Activities,Therapeutic Exercises Next Visit Focus/Plan Next Note Type Treatment Note Next Visit Plan Balance training, vestibular testing if indicated
--- NOTE | 2022-09-18 12:58 | PT.OTN ---
Current Diagnoses Benign paroxysmal vertigo, unspecified ear (09/18/22) Sensorineural hearing loss, bilateral (09/18/22) Unsteadiness on feet (09/18/22) Other abnormalities of gait and mobility (09/18/22) Physical Therapy Treatment Note PT-OP-A Visit Information Start: 09/01/22 17:32 Freq: Status: Active Protocol: Document 09/18/22 12:15 DCW (Rec: 09/18/22 12:58 DCW [id number]) Out-Patient Physical Therapy Visit Information Visit Information Visit Type Treatment Note Visit Start Time 12:15 Visit Stop Time 13:00 Total Visit Minutes 45 Visit Number 5 Number of RN ANTE PARTUM Visits 0 Evaluation Information Evaluation Date 09/01/22 PT-OP-B Current Condition Start: 09/01/22 17:32 Freq: Status: Active Protocol: Document 09/01/22 16:30 DCW (Rec: 09/01/22 17:49 DCW [id number]) Current Condition History of Current Condition Onset Date Multi-month history Current Complaints Poor balance, occasional episodes of vertigo, fear of falling History of Current Condition Pt is an 81 year old female referred to skilled therapy due to recent episodes of position-dependent positional vertigo. Pt reports it began in March when she was on vacation in [place], but only happened once, and at the time was told she was probably dehydrated. Recurred again in June, happened off and on for a few weeks where she would have brief episodes of dizziness when changing positions or getting up from bed. She admits she hasn't really had any continuing episodes since the beginning of July, so I don't really know if I even need to be here . Does, however, admit that she is petrified of falling, and really feels like she has been struggling with her general balance. Uses a walking stick for community ambulation, but otherwise typically does not use an assistive device. Has had bilateral TKAs, a R reverse TSA, and a lumbar microdiscectomy, and has undergone PT after all of these surgeries, however feels like her balance has never really been addressed. PT-OP-C Subjective Start: 09/01/22 17:32 Freq: Status: Active Protocol: Document 09/18/22 12:15 DCW (Rec: 09/18/22 12:58 DCW [id number]) OP-PT Subjective Patient Comments Patient Comments Part of my leg is numb. It just kind of comes and goes every now and then, it has since my surgery last year. PT-OP-D Balance Start: 09/01/22 17:32 Freq: Status: Active Protocol: Document 09/01/22 16:30 DCW (Rec: 09/01/22 17:49 DCW [id number]) Balance Tests Best Balance Test Best Balance Test Score 36/56 Bset Impairment Rating 20 to 39% Impaired (Score 34- 44) Best Balance Assessment Evaluation Sitting to Standing Ability Independent w/Hands Unsupported Stance Safely- 2 minutes Sitting Unsupported, Feet on Floor Safely- 2 minutes Standing to Sitting Ability Independent, Uncontrolled Transfer Ability Safely, Hand Use Unsupported Stance- Eyes Closed Supervision, 10 seconds Unsupported Stance- Eyes Open Supervision to maintain Reaching Forward Standing Safely, 5 inches Pick- Up Object From Floor Supervision Look Behind Shoulder - Standing Supervision w/Turning Turning 360 Degrees Turns Bilateral, < 4 secs Unsupported Stance, Alternating Feet on 2 Steps w/Minimum Assist Stair Unsupported Tandem Stance Small Step- 30 seconds Unilateral Leg Stance Lifts Leg/Unable to Hold Total Score Best Total Score (out of 56 points) 36 Best Impairment Rating 20 to 39% Impaired (Score 34- 44) PT-OP-E Functional Tests Start: 09/01/22 17:32 Freq: Status: Active Protocol: Document 09/09/22 16:30 DCW (Rec: 09/09/22 17:19 DCW [id number]) Functional Tests 6 Minute Walk Test Distance 1138' Device Used none Comments 3.16 ft/sec Dynamic Gait Index (DGI) Score 20/24 DGI Impairment Rating 1 to <20% Impaired (Score 20- 23) PT-OP-Q Treatments Start: 09/01/22 17:32 Freq: Status: Active Protocol: Document 09/18/22 12:15 DCW (Rec: 09/18/22 12:58 DCW [id number]) Gym Equipment Shuttle Balance Red Details WBOS, Staggered Therapeutic Exercises Standing Exercises Hip Extension Standing Exercise Name Hip Extension Side bilateral Resistance Green loop Other Exercises Resisted Ambulation Other Exercise Name Resisted Side-stepping Resistance Green loop Neuro Re-Education Treatment Balance Activities BOSU Stance Surface Blue BOSU Retro Amb Details Retro Ambulation Foam Stance Details EO/EC Surface Blue Foam Tandem Details Tandem Stance, Tandem Ambulation PT-OP-T Assessment and Plan Start: 09/01/22 17:32 Freq: Status: Active Protocol: Document 09/18/22 12:15 DCW (Rec: 09/18/22 12:58 DCW [id number]) Physical Therapy Assessment Goals Two Impairment Pt scores as a falls risk, per Best (36/56) Short Term Goal (STG) Pt to increase Best score by at least 10 points to 46/56 in order to demonstrate decreased falls risk. STG Duration 11/02/22 One Impairment Pt does not have an approrpiate home exercise program Short Term Goal (STG) Pt to be independent and compliant with an appropriate HEP STG Duration 10/02/22 Assessment Summary Assessment Pt again happy with balance challenges, although freely admits that she has had poor compliance with HEP. Has been much better with activity tolerance this week. Physical Therapy Plan Frequency and Duration Frequency of Treatment 2x/Week Plan of Care Start Date 09/01/22 Plan of Care End Date 11/02/22 Therapeutic Interventions Therapeutic Interventions Balance Training,Canalithic Repositioning,Gait Training, Home Exercise Program,Manual Therapy,Neuromuscular Re- education,Patient/Caregiver Education,Self-Care/Home Management,Soft Tissue Mobilization,Therapeutic Activities,Therapeutic Exercises Next Visit Focus/Plan Next Note Type Treatment Note Next Visit Plan Balance training, vestibular testing if indicated
--- NOTE | 2022-09-22 14:15 | PT.OTN ---
Current Diagnoses Benign paroxysmal vertigo, unspecified ear (09/22/22) Sensorineural hearing loss, bilateral (09/22/22) Unsteadiness on feet (09/22/22) Other abnormalities of gait and mobility (09/22/22) Physical Therapy Treatment Note PT-OP-A Visit Information Start: 09/01/22 17:32 Freq: Status: Active Protocol: Document 09/22/22 13:33 DCW (Rec: 09/22/22 14:15 DCW [id number]) Out-Patient Physical Therapy Visit Information Visit Information Visit Type Treatment Note Visit Start Time 13:33 Visit Stop Time 14:15 Total Visit Minutes 42 Visit Number 6 Number of POWER REACTOR SUPERVISOR Visits 0 Evaluation Information Evaluation Date 09/01/22 PT-OP-B Current Condition Start: 09/01/22 17:32 Freq: Status: Active Protocol: Document 09/01/22 16:30 DCW (Rec: 09/01/22 17:49 DCW [id number]) Current Condition History of Current Condition Onset Date Multi-month history Current Complaints Poor balance, occasional episodes of vertigo, fear of falling History of Current Condition Pt is an 81 year old female referred to skilled therapy due to recent episodes of position-dependent positional vertigo. Pt reports it began in March when she was on vacation in [place], but only happened once, and at the time was told she was probably dehydrated. Recurred again in June, happened off and on for a few weeks where she would have brief episodes of dizziness when changing positions or getting up from bed. She admits she hasn't really had any continuing episodes since the beginning of July, so I don't really know if I even need to be here . Does, however, admit that she is petrified of falling, and really feels like she has been struggling with her general balance. Uses a walking stick for community ambulation, but otherwise typically does not use an assistive device. Has had bilateral TKAs, a R reverse TSA, and a lumbar microdiscectomy, and has undergone PT after all of these surgeries, however feels like her balance has never really been addressed. PT-OP-C Subjective Start: 09/01/22 17:32 Freq: Status: Active Protocol: Document 09/22/22 13:33 DCW (Rec: 09/22/22 14:15 DCW [id number]) OP-PT Subjective Patient Comments Patient Comments I know the older you get the harder it is to stay in shape, but I've just got to get better. PT-OP-D Balance Start: 09/01/22 17:32 Freq: Status: Active Protocol: Document 09/01/22 16:30 DCW (Rec: 09/01/22 17:49 DCW [id number]) Balance Tests Best Balance Test Best Balance Test Score 36/56 Best Impairment Rating 20 to 39% Impaired (Score 34- 44) Bset Balance Assessment Evaluation Sitting to Standing Ability Independent w/Hands Unsupported Stance Safely- 2 minutes Sitting Unsupported, Feet on Floor Safely- 2 minutes Standing to Sitting Ability Independent, Uncontrolled Transfer Ability Safely, Hand Use Unsupported Stance- Eyes Closed Supervision, 10 seconds Unsupported Stance- Eyes Open Supervision to maintain Reaching Forward Standing Safely, 5 inches Pick- Up Object From Floor Supervision Look Behind Shoulder - Standing Supervision w/Turning Turning 360 Degrees Turns Bilateral, < 4 secs Unsupported Stance, Alternating Feet on 2 Steps w/Minimum Assist Stair Unsupported Tandem Stance Small Step- 30 seconds Unilateral Leg Stance Lifts Leg/Unable to Hold Total Score Best Total Score (out of 56 points) 36 Best Impairment Rating 20 to 39% Impaired (Score 34- 44) PT-OP-E Functional Tests Start: 09/01/22 17:32 Freq: Status: Active Protocol: Document 09/09/22 16:30 DCW (Rec: 09/09/22 17:19 DCW [id number]) Functional Tests 6 Minute Walk Test Distance 1138' Device Used none Comments 3.16 ft/sec Dynamic Gait Index (DGI) Score 20/24 DGI Impairment Rating 1 to <20% Impaired (Score 20- 23) PT-OP-Q Treatments Start: 09/01/22 17:32 Freq: Status: Active Protocol: Document 09/22/22 13:33 DCW (Rec: 09/22/22 14:15 DCW [id number]) Gym Equipment Shuttle Balance Red Details WBOS, Staggered Therapeutic Exercises Standing Exercises Hip Extension Standing Exercise Name Hip Extension Side bilateral Resistance Green loop Other Exercises Resisted Ambulation Other Exercise Name Resisted Side-stepping Resistance Green loop Neuro Re-Education Treatment Balance Activities BOSU Stance Surface Blue BOSU Stepping Stones Details Foam stepping stones on large blue pad Foam Stance Details EO/EC Surface Blue Foam Tandem Details Tandem Stance, Tandem Ambulation PT-OP-T Assessment and Plan Start: 09/01/22 17:32 Freq: Status: Active Protocol: Document 09/22/22 13:33 DCW (Rec: 09/22/22 14:15 DCW [id number]) Physical Therapy Assessment Goals Two Impairment Pt scores as a falls risk, per Best (36/56) Short Term Goal (STG) Pt to increase Best score by at least 10 points to 46/56 in order to demonstrate decreased falls risk. STG Duration 11/02/22 One Impairment Pt does not have an approrpiate home exercise program Short Term Goal (STG) Pt to be independent and compliant with an appropriate HEP STG Duration 10/02/22 Assessment Summary Assessment Pt showing some good progress with balance challenges during her sessions. Work toward implementing more challenge with HEP and additional strengthening exercises to assist with improving stability. Physical Therapy Plan Frequency and Duration Frequency of Treatment 2x/Week Plan of Care Start Date 09/01/22 Plan of Care End Date 11/02/22 Therapeutic Interventions Therapeutic Interventions Balance Training,Canalithic Repositioning,Gait Training, Home Exercise Program,Manual Therapy,Neuromuscular Re- education,Patient/Caregiver Education,Self-Care/Home Management,Soft Tissue Mobilization,Therapeutic Activities,Therapeutic Exercises Next Visit Focus/Plan Next Note Type Treatment Note Next Visit Plan Balance training, vestibular testing if indicated
--- NOTE | 2022-09-25 14:14 | PT.OTN ---
Current Diagnoses Benign paroxysmal vertigo, unspecified ear (09/25/22) Sensorineural hearing loss, bilateral (09/25/22) Unsteadiness on feet (09/25/22) Other abnormalities of gait and mobility (09/25/22) Physical Therapy Treatment Note PT-OP-A Visit Information Start: 09/01/22 17:32 Freq: Status: Active Protocol: Document 09/25/22 13:32 DCW (Rec: 09/25/22 14:14 DCW [id number]) Out-Patient Physical Therapy Visit Information Visit Information Visit Type Treatment Note Visit Start Time 13:32 Visit Stop Time 14:15 Total Visit Minutes 43 Visit Number 7 Number of AGRICULTURAL EXTENSION EDUCATOR Visits 0 Evaluation Information Evaluation Date 09/01/22 PT-OP-B Current Condition Start: 09/01/22 17:32 Freq: Status: Active Protocol: Document 09/01/22 16:30 DCW (Rec: 09/01/22 17:49 DCW [id number]) Current Condition History of Current Condition Onset Date Multi-month history Current Complaints Poor balance, occasional episodes of vertigo, fear of falling History of Current Condition Pt is an 81 year old female referred to skilled therapy due to recent episodes of position-dependent positional vertigo. Pt reports it began in March when she was on vacation in [place], but only happened once, and at the time was told she was probably dehydrated. Recurred again in June, happened off and on for a few weeks where she would have brief episodes of dizziness when changing positions or getting up from bed. She admits she hasn't really had any continuing episodes since the beginning of July, so I don't really know if I even need to be here . Does, however, admit that she is petrified of falling, and really feels like she has been struggling with her general balance. Uses a walking stick for community ambulation, but otherwise typically does not use an assistive device. Has had bilateral TKAs, a R reverse TSA, and a lumbar microdiscectomy, and has undergone PT after all of these surgeries, however feels like her balance has never really been addressed. PT-OP-C Subjective Start: 09/01/22 17:32 Freq: Status: Active Protocol: Document 09/25/22 13:32 DCW (Rec: 09/25/22 14:14 DCW [id number]) OP-PT Subjective Patient Comments Patient Comments I've been crazy busy, but that's no excuse for not walking. PT-OP-D Balance Start: 09/01/22 17:32 Freq: Status: Active Protocol: Document 09/01/22 16:30 DCW (Rec: 09/01/22 17:49 DCW [id number]) Balance Tests Best Balance Test Best Balance Test Score 36/56 Best Impairment Rating 20 to 39% Impaired (Score 34- 44) Best Balance Assessment Evaluation Sitting to Standing Ability Independent w/Hands Unsupported Stance Safely- 2 minutes Sitting Unsupported, Feet on Floor Safely- 2 minutes Standing to Sitting Ability Independent, Uncontrolled Transfer Ability Safely, Hand Use Unsupported Stance- Eyes Closed Supervision, 10 seconds Unsupported Stance- Eyes Open Supervision to maintain Reaching Forward Standing Safely, 5 inches Pick- Up Object From Floor Supervision Look Behind Shoulder - Standing Supervision w/Turning Turning 360 Degrees Turns Bilateral, < 4 secs Unsupported Stance, Alternating Feet on 2 Steps w/Minimum Assist Stair Unsupported Tandem Stance Small Step- 30 seconds Unilateral Leg Stance Lifts Leg/Unable to Hold Total Score Ebst Total Score (out of 56 points) 36 Best Impairment Rating 20 to 39% Impaired (Score 34- 44) PT-OP-E Functional Tests Start: 09/01/22 17:32 Freq: Status: Active Protocol: Document 09/09/22 16:30 DCW (Rec: 09/09/22 17:19 DCW [id number]) Functional Tests 6 Minute Walk Test Distance 1138' Device Used none Comments 3.16 ft/sec Dynamic Gait Index (DGI) Score 20/24 DGI Impairment Rating 1 to <20% Impaired (Score 20- 23) PT-OP-Q Treatments Start: 09/01/22 17:32 Freq: Status: Active Protocol: Document 09/25/22 13:32 DCW (Rec: 09/25/22 14:14 DCW [id number]) Gym Equipment Shuttle Balance Red Details WBOS (EO/EC), Staggered Neuro Re-Education Treatment Balance Activities Dynamic gait Details Head turns in hallway Comments Horizontal/Vertical Metronome 90 bpm Hurdles Details Hurdles Comments Fwd, Side-stepping Retro Amb Details Retro Ambulation Foam Stance Details EO/EC Surface Blue Foam Tandem Details Tandem Ambulation PT-OP-T Assessment and Plan Start: 09/01/22 17:32 Freq: Status: Active Protocol: Document 09/25/22 13:32 DCW (Rec: 09/25/22 14:14 DCW [id number]) Physical Therapy Assessment Assessment Summary Assessment Pt had significant difficulty today with just stepping over hurdles, displayed increased anxiety/fear of falling, but after practicing was much more comfortable with the motion. Physical Therapy Plan Frequency and Duration Frequency of Treatment 2x/Week Plan of Care Start Date 09/01/22 Plan of Care End Date 11/02/22 Therapeutic Interventions Therapeutic Interventions Balance Training,Canalithic Repositioning,Gait Training, Home Exercise Program,Manual Therapy,Neuromuscular Re- education,Patient/Caregiver Education,Self-Care/Home Management,Soft Tissue Mobilization,Therapeutic Activities,Therapeutic Exercises Next Visit Focus/Plan Next Note Type Treatment Note Next Visit Plan Balance training, vestibular testing if indicated
--- NOTE | 2022-10-01 10:16 | PT.OTN ---
Current Diagnoses Benign paroxysmal vertigo, unspecified ear (10/01/22) Sensorineural hearing loss, bilateral (10/01/22) Unsteadiness on feet (10/01/22) Other abnormalities of gait and mobility (10/01/22) Physical Therapy Treatment Note PT-OP-A Visit Information Start: 09/01/22 17:32 Freq: Status: Active Protocol: Document 10/01/22 09:40 DCW (Rec: 10/01/22 10:16 DCW [id number]) Out-Patient Physical Therapy Visit Information Visit Information Visit Type Treatment Note Visit Start Time 09:40 Visit Stop Time 10:15 Total Visit Minutes 35 Visit Number 8 Number of INTENSIVE CARE UNIT REGISTERED NURSE Visits 0 Evaluation Information Evaluation Date 09/01/22 PT-OP-B Current Condition Start: 09/01/22 17:32 Freq: Status: Active Protocol: Document 09/01/22 16:30 DCW (Rec: 09/01/22 17:49 DCW [id number]) Current Condition History of Current Condition Onset Date Multi-month history Current Complaints Poor balance, occasional episodes of vertigo, fear of falling History of Current Condition Pt is an 81 year old female referred to skilled therapy due to recent episodes of position-dependent positional vertigo. Pt reports it began in March when she was on vacation in [place], but only happened once, and at the time was told she was probably dehydrated. Recurred again in June, happened off and on for a few weeks where she would have brief episodes of dizziness when changing positions or getting up from bed. She admits she hasn't really had any continuing episodes since the beginning of July, so I don't really know if I even need to be here . Does, however, admit that she is petrified of falling, and really feels like she has been struggling with her general balance. Uses a walking stick for community ambulation, but otherwise typically does not use an assistive device. Has had bilateral TKAs, a R reverse TSA, and a lumbar microdiscectomy, and has undergone PT after all of these surgeries, however feels like her balance has never really been addressed. PT-OP-C Subjective Start: 09/01/22 17:32 Freq: Status: Active Protocol: Document 10/01/22 09:40 DCW (Rec: 10/01/22 10:16 DCW [id number]) OP-PT Subjective Patient Comments Patient Comments My mid-back pain just never seems to want to go away. PT-OP-D Balance Start: 09/01/22 17:32 Freq: Status: Active Protocol: Document 09/01/22 16:30 DCW (Rec: 09/01/22 17:49 DCW [id number]) Balance Tests Best Balance Test Best Balance Test Score 36/56 Best Impairment Rating 20 to 39% Impaired (Score 34- 44) Best Balance Assessment Evaluation Sitting to Standing Ability Independent w/Hands Unsupported Stance Safely- 2 minutes Sitting Unsupported, Feet on Floor Safely- 2 minutes Standing to Sitting Ability Independent, Uncontrolled Transfer Ability Safely, Hand Use Unsupported Stance- Eyes Closed Supervision, 10 seconds Unsupported Stance- Eyes Open Supervision to maintain Reaching Forward Standing Safely, 5 inches Pick- Up Object From Floor Supervision Look Behind Shoulder - Standing Supervision w/Turning Turning 360 Degrees Turns Bilateral, < 4 secs Unsupported Stance, Alternating Feet on 2 Steps w/Minimum Assist Stair Unsupported Tandem Stance Small Step- 30 seconds Unilateral Leg Stance Lifts Leg/Unable to Hold Total Score Best Total Score (out of 56 points) 36 Best Impairment Rating 20 to 39% Impaired (Score 34- 44) PT-OP-E Functional Tests Start: 09/01/22 17:32 Freq: Status: Active Protocol: Document 09/09/22 16:30 DCW (Rec: 09/09/22 17:19 DCW [id number]) Functional Tests 6 Minute Walk Test Distance 1138' Device Used none Comments 3.16 ft/sec Dynamic Gait Index (DGI) Score 20/24 DGI Impairment Rating 1 to <20% Impaired (Score 20- 23) PT-OP-Q Treatments Start: 09/01/22 17:32 Freq: Status: Active Protocol: Document 10/01/22 09:40 DCW (Rec: 10/01/22 10:16 DCW [id number]) Gym Equipment Shuttle Balance Red Details WBOS (EO/EC), Staggered, Lateral weight shift Neuro Re-Education Treatment Balance Activities Dynamic gait Details Head turns in hallway Comments Horizontal/Vertical Metronome 110->100 bpm Hurdles Details Hurdles Comments Fwd, Side-stepping No railing Retro Amb Details Retro Ambulation Tandem Details Tandem Ambulation PT-OP-T Assessment and Plan Start: 09/01/22 17:32 Freq: Status: Active Protocol: Document 10/01/22 09:40 DCW (Rec: 10/01/22 10:16 DCW [id number]) Physical Therapy Assessment Goals Two Impairment Pt scores as a falls risk, per Best (36/56) Short Term Goal (STG) Pt to increase Best score by at least 10 points to 46/56 in order to demonstrate decreased falls risk. STG Duration 11/02/22 One Impairment Pt does not have an appropriate home exercise program Short Term Goal (STG) Pt to be independent and compliant with an appropriate HEP STG Duration 10/02/22 Assessment Summary Assessment Pt showing good progress with stepping over hurdles and tandem ambulation, difficulty with head turns while ambulating. Continue to focus on increased balance challenges. Physical Therapy Plan Frequency and Duration Frequency of Treatment 2x/Week Plan of Care Start Date 09/01/22 Plan of Care End Date 11/02/22 Therapeutic Interventions Therapeutic Interventions Balance Training,Canalithic Repositioning,Gait Training, Home Exercise Program,Manual Therapy,Neuromuscular Re- education,Patient/Caregiver Education,Self-Care/Home Management,Soft Tissue Mobilization,Therapeutic Activities,Therapeutic Exercises Next Visit Focus/Plan Next Note Type Treatment Note Next Visit Plan Balance training, vestibular testing if indicated
--- NOTE | 2022-10-08 13:28 | PT.OTN ---
Current Diagnoses Benign paroxysmal vertigo, unspecified ear (10/08/22) Sensorineural hearing loss, bilateral (10/08/22) Unsteadiness on feet (10/08/22) Other abnormalities of gait and mobility (10/08/22) Physical Therapy Treatment Note PT-OP-A Visit Information Start: 09/01/22 17:32 Freq: Status: Active Protocol: Document 10/08/22 12:50 DCW (Rec: 10/08/22 13:28 DCW [id number]) Out-Patient Physical Therapy Visit Information Visit Information Visit Type Treatment Note Visit Start Time 12:50 Visit Stop Time 13:30 Total Visit Minutes 40 Visit Number 9 Number of 3RD MATE Visits 0 Evaluation Information Evaluation Date 09/01/22 PT-OP-B Current Condition Start: 09/01/22 17:32 Freq: Status: Active Protocol: Document 09/01/22 16:30 DCW (Rec: 09/01/22 17:49 DCW [id number]) Current Condition History of Current Condition Onset Date Multi-month history Current Complaints Poor balance, occasional episodes of vertigo, fear of falling History of Current Condition Pt is an 81 year old female referred to skilled therapy due to recent episodes of position-dependent positional vertigo. Pt reports it began in March when she was on vacation in [place], but only happened once, and at the time was told she was probably dehydrated. Recurred again in June, happened off and on for a few weeks where she would have brief episodes of dizziness when changing positions or getting up from bed. She admits she hasn't really had any continuing episodes since the beginning of July, so I don't really know if I even need to be here . Does, however, admit that she is petrified of falling, and really feels like she has been struggling with her general balance. Uses a walking stick for community ambulation, but otherwise typically does not use an assistive device. Has had bilateral TKAs, a R reverse TSA, and a lumbar microdiscectomy, and has undergone PT after all of these surgeries, however feels like her balance has never really been addressed. PT-OP-C Subjective Start: 09/01/22 17:32 Freq: Status: Active Protocol: Document 10/08/22 12:50 DCW (Rec: 10/08/22 13:28 DCW [id number]) OP-PT Subjective Patient Comments Patient Comments I've been away, so just been having too much driving, but otherwise I'm alright. PT-OP-D Balance Start: 09/01/22 17:32 Freq: Status: Active Protocol: Document 09/01/22 16:30 DCW (Rec: 09/01/22 17:49 DCW [id number]) Balance Tests Best Balance Test Best Balance Test Score 36/56 Best Impairment Rating 20 to 39% Impaired (Score 34- 44) Best Balance Assessment Evaluation Sitting to Standing Ability Independent w/Hands Unsupported Stance Safely- 2 minutes Sitting Unsupported, Feet on Floor Safely- 2 minutes Standing to Sitting Ability Independent, Uncontrolled Transfer Ability Safely, Hand Use Unsupported Stance- Eyes Closed Supervision, 10 seconds Unsupported Stance- Eyes Open Supervision to maintain Reaching Forward Standing Safely, 5 inches Pick- Up Object From Floor Supervision Look Behind Shoulder - Standing Supervision w/Turning Turning 360 Degrees Turns Bilateral, < 4 secs Unsupported Stance, Alternating Feet on 2 Steps w/Minimum Assist Stair Unsupported Tandem Stance Small Step- 30 seconds Unilateral Leg Stance Lifts Leg/Unable to Hold Total Score Best Total Score (out of 56 points) 36 Best Impairment Rating 20 to 39% Impaired (Score 34- 44) PT-OP-E Functional Tests Start: 09/01/22 17:32 Freq: Status: Active Protocol: Document 09/09/22 16:30 DCW (Rec: 09/09/22 17:19 DCW [id number]) Functional Tests 6 Minute Walk Test Distance 1138' Device Used none Comments 3.16 ft/sec Dynamic Gait Index (DGI) Score 20/24 DGI Impairment Rating 1 to <20% Impaired (Score 20- 23) PT-OP-Q Treatments Start: 09/01/22 17:32 Freq: Status: Active Protocol: Document 10/08/22 12:50 DCW (Rec: 10/08/22 13:28 DCW [id number]) Gym Equipment Shuttle Balance Red Details WBOS (EO/EC), Staggered Neuro Re-Education Treatment Balance Activities Dynamic gait Details Head turns in hallway Comments Horizontal/Vertical Metronome 100 bpm Hurdles Details Hurdles Comments Fwd, Side-stepping No railing Retro Amb Details Retro Ambulation Foam Stance Details EO/EC Surface Blue Foam Tandem Details Tandem Ambulation PT-OP-T Assessment and Plan Start: 09/01/22 17:32 Freq: Status: Active Protocol: Document 10/08/22 12:50 DCW (Rec: 10/08/22 13:28 DCW [id number]) Physical Therapy Assessment Goals Two Impairment Pt scores as a falls risk, per Best (36/56) Short Term Goal (STG) Pt to increase Best score by at least 10 points to 46/56 in order to demonstrate decreased falls risk. STG Duration 11/02/22 One Impairment Pt does not have an appropriate home exercise program Short Term Goal (STG) Pt to be independent and compliant with an appropriate HEP STG Duration 10/02/22 Assessment Summary Assessment Pt doing much better with shana clearance and tandem ambulation, able to clear hurdles both forward and side- stepping SBA without UE assistance. Continue to focus on balance and gait challenges . Physical Therapy Plan Frequency and Duration Frequency of Treatment 2x/Week Plan of Care Start Date 09/01/22 Plan of Care End Date 11/02/22 Therapeutic Interventions Therapeutic Interventions Balance Training,Canalithic Repositioning,Gait Training, Home Exercise Program,Manual Therapy,Neuromuscular Re- education,Patient/Caregiver Education,Self-Care/Home Management,Soft Tissue Mobilization,Therapeutic Activities,Therapeutic Exercises Next Visit Focus/Plan Next Note Type Treatment Note Next Visit Plan Balance training, vestibular testing if indicated
--- NOTE | 2022-10-12 10:15 | PT.OTN ---
Current Diagnoses Benign paroxysmal vertigo, unspecified ear (10/12/22) Sensorineural hearing loss, bilateral (10/12/22) Unsteadiness on feet (10/12/22) Other abnormalities of gait and mobility (10/12/22) Physical Therapy Treatment Note PT-OP-A Visit Information Start: 09/01/22 17:32 Freq: Status: Active Protocol: Document 10/12/22 09:33 DCW (Rec: 10/12/22 10:15 DCW [id number]) Out-Patient Physical Therapy Visit Information Visit Information Visit Type Treatment Note Visit Start Time 09:33 Visit Stop Time 10:15 Total Visit Minutes 42 Visit Number 10 Number of BEAUTY THERAPIST Visits 0 Evaluation Information Evaluation Date 09/01/22 PT-OP-B Current Condition Start: 09/01/22 17:32 Freq: Status: Active Protocol: Document 09/01/22 16:30 DCW (Rec: 09/01/22 17:49 DCW [id number]) Current Condition History of Current Condition Onset Date Multi-month history Current Complaints Poor balance, occasional episodes of vertigo, fear of falling History of Current Condition Pt is an 81 year old female referred to skilled therapy due to recent episodes of position-dependent positional vertigo. Pt reports it began in March when she was on vacation in [place], but only happened once, and at the time was told she was probably dehydrated. Recurred again in June, happened off and on for a few weeks where she would have brief episodes of dizziness when changing positions or getting up from bed. She admits she hasn't really had any continuing episodes since the beginning of July, so I don't really know if I even need to be here . Does, however, admit that she is petrified of falling, and really feels like she has been struggling with her general balance. Uses a walking stick for community ambulation, but otherwise typically does not use an assistive device. Has had bilateral TKAs, a R reverse TSA, and a lumbar microdiscectomy, and has undergone PT after all of these surgeries, however feels like her balance has never really been addressed. PT-OP-C Subjective Start: 09/01/22 17:32 Freq: Status: Active Protocol: Document 10/12/22 09:33 DCW (Rec: 10/12/22 10:15 DCW [id number]) OP-PT Subjective Patient Comments Patient Comments Pt has a follow-up with her surgeon at [facility] tomorrow to discuss her recent right leg numbness. PT-OP-D Balance Start: 09/01/22 17:32 Freq: Status: Active Protocol: Document 09/01/22 16:30 DCW (Rec: 09/01/22 17:49 DCW [id number]) Balance Tests Best Balance Test Best Balance Test Score 36/56 Best Impairment Rating 20 to 39% Impaired (Score 34- 44) Best Balance Assessment Evaluation Sitting to Standing Ability Independent w/Hands Unsupported Stance Safely- 2 minutes Sitting Unsupported, Feet on Floor Safely- 2 minutes Standing to Sitting Ability Independent, Uncontrolled Transfer Ability Safely, Hand Use Unsupported Stance- Eyes Closed Supervision, 10 seconds Unsupported Stance- Eyes Open Supervision to maintain Reaching Forward Standing Safely, 5 inches Pick- Up Object From Floor Supervision Look Behind Shoulder - Standing Supervision w/Turning Turning 360 Degrees Turns Bilateral, < 4 secs Unsupported Stance, Alternating Feet on 2 Steps w/Minimum Assist Stair Unsupported Tandem Stance Small Step- 30 seconds Unilateral Leg Stance Lifts Leg/Unable to Hold Total Score Best Total Score (out of 56 points) 36 Best Impairment Rating 20 to 39% Impaired (Score 34- 44) PT-OP-E Functional Tests Start: 09/01/22 17:32 Freq: Status: Active Protocol: Document 09/09/22 16:30 DCW (Rec: 09/09/22 17:19 DCW [id number]) Functional Tests 6 Minute Walk Test Distance 1138' Device Used none Comments 3.16 ft/sec Dynamic Gait Index (DGI) Score 20/24 DGI Impairment Rating 1 to <20% Impaired (Score 20- 23) PT-OP-Q Treatments Start: 09/01/22 17:32 Freq: Status: Active Protocol: Document 10/12/22 09:33 DCW (Rec: 10/12/22 10:15 DCW [id number]) Gym Equipment Shuttle Recovery Unilateral Squats Resistance 50# (Two new) Shuttle Recovery Platform Stable Bilateral Squats Resistance 87# (Three New) Shuttle Recovery Platform Stable Shuttle Balance Red Details WBOS (EO/EC), Staggered Therapeutic Exercises Sitting Exercises Piriformis Sitting Exercise Name Seated figure-4 Side bilateral Other Exercises Toe-Taps Other Exercise Name Toe-taps Side bilateral Resistance 5# Equipment Used 6 step Neuro Re-Education Treatment Balance Activities SLS Details SLS Dynamic gait Details Head turns in hallway Comments Horizontal/Vertical Metronome 100 bpm Hurdles Details Hurdles Comments Fwd, Side-stepping No railing Tandem Details Tandem Stance PT-OP-T Assessment and Plan Start: 09/01/22 17:32 Freq: Status: Active Protocol: Document 10/12/22 09:33 DCW (Rec: 10/12/22 10:15 DCW [id number]) Physical Therapy Assessment Goals Two Impairment Pt scores as a falls risk, per Best (36/56) Short Term Goal (STG) Pt to increase Best score by at least 10 points to 46/56 in order to demonstrate decreased falls risk. STG Duration 11/02/22 - improving One Impairment Pt does not have an approrpiate home exercise program Short Term Goal (STG) Pt to be independent and compliant with an appropriate HEP STG Duration 10/02/22 Assessment Summary Assessment Pt demonstrated ability to increase score of Best by performing various parts of the full test. Would have score 4/4 on both alternating feet on stair and tandem stance, both of which scored 1 /4 previously. Showing good overall improvement with confidence, able to perform hurdles without increased anxiety. Continue to focus on balance and LE mobility in order to decrease falls risk and fear of falling. Physical Therapy Plan Frequency and Duration Frequency of Treatment 2x/Week Plan of Care Start Date 09/01/22 Plan of Care End Date 11/02/22 Therapeutic Interventions Therapeutic Interventions Balance Training,Canalithic Repositioning,Gait Training, Home Exercise Program,Manual Therapy,Neuromuscular Re- education,Patient/Caregiver Education,Self-Care/Home Management,Soft Tissue Mobilization,Therapeutic Activities,Therapeutic Exercises Next Visit Focus/Plan Next Note Type Treatment Note Next Visit Plan Balance training, vestibular testing if indicated
--- NOTE | 2022-10-16 14:16 | PT.OTN ---
Current Diagnoses Benign paroxysmal vertigo, unspecified ear (10/16/22) Sensorineural hearing loss, bilateral (10/16/22) Unsteadiness on feet (10/16/22) Other abnormalities of gait and mobility (10/16/22) Physical Therapy Treatment Note PT-OP-A Visit Information Start: 09/01/22 17:32 Freq: Status: Active Protocol: Document 10/16/22 13:30 DCW (Rec: 10/16/22 14:16 DCW [id number]) Out-Patient Physical Therapy Visit Information Visit Information Visit Type Treatment Note Visit Start Time 13:30 Visit Stop Time 14:15 Total Visit Minutes 45 Visit Number 11 Number of INCIDENT MANAGER Visits 0 Evaluation Information Evaluation Date 09/01/22 PT-OP-B Current Condition Start: 09/01/22 17:32 Freq: Status: Active Protocol: Document 09/01/22 16:30 DCW (Rec: 09/01/22 17:49 DCW [id number]) Current Condition History of Current Condition Onset Date Multi-month history Current Complaints Poor balance, occasional episodes of vertigo, fear of falling History of Current Condition Pt is an 81 year old female referred to skilled therapy due to recent episodes of position-dependent positional vertigo. Pt reports it began in March when she was on vacation in [place], but only happened once, and at the time was told she was probably dehydrated. Recurred again in June, happened off and on for a few weeks where she would have brief episodes of dizziness when changing positions or getting up from bed. She admits she hasn't really had any continuing episodes since the beginning of July, so I don't really know if I even need to be here . Does, however, admit that she is petrified of falling, and really feels like she has been struggling with her general balance. Uses a walking stick for community ambulation, but otherwise typically does not use an assistive device. Has had bilateral TKAs, a R reverse TSA, and a lumbar microdiscectomy, and has undergone PT after all of these surgeries, however feels like her balance has never really been addressed. PT-OP-C Subjective Start: 09/01/22 17:32 Freq: Status: Active Protocol: Document 10/16/22 13:30 DCW (Rec: 10/16/22 14:16 DCW [id number]) OP-PT Subjective Patient Comments Patient Comments Pt reports she had her appointment with her prior surgeon this week, reports nothing going on in my leg is apparently from the surgery. Also complains that her legs were too sore following last visit, after attempting leg press, would prefer lowered resistance today. PT-OP-D Balance Start: 09/01/22 17:32 Freq: Status: Active Protocol: Document 09/01/22 16:30 DCW (Rec: 09/01/22 17:49 DCW [id number]) Balance Tests Best Balance Test Best Balance Test Score 36/56 Best Impairment Rating 20 to 39% Impaired (Score 34- 44) Best Balance Assessment Evaluation Sitting to Standing Ability Independent w/Hands Unsupported Stance Safely- 2 minutes Sitting Unsupported, Feet on Floor Safely- 2 minutes Standing to Sitting Ability Independent, Uncontrolled Transfer Ability Safely, Hand Use Unsupported Stance- Eyes Closed Supervision, 10 seconds Unsupported Stance- Eyes Open Supervision to maintain Reaching Forward Standing Safely, 5 inches Pick- Up Object From Floor Supervision Look Behind Shoulder - Standing Supervision w/Turning Turning 360 Degrees Turns Bilateral, < 4 secs Unsupported Stance, Alternating Feet on 2 Steps w/Minimum Assist Stair Unsupported Tandem Stance Small Step- 30 seconds Unilateral Leg Stance Lifts Leg/Unable to Hold Total Score Best Total Score (out of 56 points) 36 Best Impairment Rating 20 to 39% Impaired (Score 34- 44) PT-OP-E Functional Tests Start: 09/01/22 17:32 Freq: Status: Active Protocol: Document 09/09/22 16:30 DCW (Rec: 09/09/22 17:19 DCW [id number]) Functional Tests 6 Minute Walk Test Distance 1138' Device Used none Comments 3.16 ft/sec Dynamic Gait Index (DGI) Score 20/24 DGI Impairment Rating 1 to <20% Impaired (Score 20- 23) PT-OP-Q Treatments Start: 09/01/22 17:32 Freq: Status: Active Protocol: Document 10/16/22 13:30 DCW (Rec: 10/16/22 14:16 DCW [id number]) Gym Equipment Shuttle Recovery Unilateral Squats Resistance 37# (One new) Bilateral Squats Resistance 75# (Two new) Shuttle Balance Red Details WBOS (EO/EC), Staggered Neuro Re-Education Treatment Balance Activities Dynamic gait Details Head turns in hallway Comments Horizontal/Vertical Metronome 100 bpm Hurdles Details Hurdles/Foam Comments Fwd, Tandem /s railing Retro Amb Details Retro Ambulation Tandem Details Tandem Ambulation PT-OP-T Assessment and Plan Start: 09/01/22 17:32 Freq: Status: Active Protocol: Document 10/16/22 13:30 DCW (Rec: 10/16/22 14:16 DCW [id number]) Physical Therapy Assessment Goals Two Impairment Pt scores as a falls risk, per Best (36/56) Short Term Goal (STG) Pt to increase Best score by at least 10 points to 46/56 in order to demonstrate decreased falls risk. STG Duration 11/02/22 - improving One Impairment Pt does not have an approrpiate home exercise program Short Term Goal (STG) Pt to be independent and compliant with an appropriate HEP STG Duration 10/02/22 Assessment Summary Assessment Pt continues to show good overall improvement, responding well to increased balance challenge with addition of foam between hurdles. Did decrease resistance on leg press today due to complaints of muscle soreness following last visit. Physical Therapy Plan Frequency and Duration Frequency of Treatment 2x/Week Plan of Care Start Date 09/01/22 Plan of Care End Date 11/02/22 Therapeutic Interventions Therapeutic Interventions Balance Training,Canalithic Repositioning,Gait Training, Home Exercise Program,Manual Therapy,Neuromuscular Re- education,Patient/Caregiver Education,Self-Care/Home Management,Soft Tissue Mobilization,Therapeutic Activities,Therapeutic Exercises Next Visit Focus/Plan Next Note Type Treatment Note Next Visit Plan Balance training, vestibular testing if indicated
--- NOTE | 2022-10-20 13:32 | PT.OTN ---
Current Diagnoses Benign paroxysmal vertigo, unspecified ear (10/20/22) Sensorineural hearing loss, bilateral (10/20/22) Unsteadiness on feet (10/20/22) Other abnormalities of gait and mobility (10/20/22) Physical Therapy Treatment Note PT-OP-A Visit Information Start: 09/01/22 17:32 Freq: Status: Active Protocol: Document 10/20/22 12:45 DCW (Rec: 10/20/22 13:32 DCW [id number]) Out-Patient Physical Therapy Visit Information Visit Information Visit Type Treatment Note Visit Start Time 12:45 Visit Stop Time 13:30 Total Visit Minutes 45 Visit Number 12 Number of WEED INSPECTOR Visits 0 Evaluation Information Evaluation Date 09/01/22 PT-OP-B Current Condition Start: 09/01/22 17:32 Freq: Status: Active Protocol: Document 09/01/22 16:30 DCW (Rec: 09/01/22 17:49 DCW [id number]) Current Condition History of Current Condition Onset Date Multi-month history Current Complaints Poor balance, occasional episodes of vertigo, fear of falling History of Current Condition Pt is an 81 year old female referred to skilled therapy due to recent episodes of position-dependent positional vertigo. Pt reports it began in March when she was on vacation in [place], but only happened once, and at the time was told she was probably dehydrated. Recurred again in June, happened off and on for a few weeks where she would have brief episodes of dizziness when changing positions or getting up from bed. She admits she hasn't really had any continuing episodes since the beginning of July, so I don't really know if I even need to be here . Does, however, admit that she is petrified of falling, and really feels like she has been struggling with her general balance. Uses a walking stick for community ambulation, but otherwise typically does not use an assistive device. Has had bilateral TKAs, a R reverse TSA, and a lumbar microdiscectomy, and has undergone PT after all of these surgeries, however feels like her balance has never really been addressed. PT-OP-C Subjective Start: 09/01/22 17:32 Freq: Status: Active Protocol: Document 10/20/22 12:45 DCW (Rec: 10/20/22 13:32 DCW [id number]) OP-PT Subjective Patient Comments Patient Comments I just hurt all over and I don't know why. PT-OP-D Balance Start: 09/01/22 17:32 Freq: Status: Active Protocol: Document 09/01/22 16:30 DCW (Rec: 09/01/22 17:49 DCW [id number]) Balance Tests Best Balance Test Best Balance Test Score 36/56 Best Impairment Rating 20 to 39% Impaired (Score 34- 44) Best Balance Assessment Evaluation Sitting to Standing Ability Independent w/Hands Unsupported Stance Safely- 2 minutes Sitting Unsupported, Feet on Floor Safely- 2 minutes Standing to Sitting Ability Independent, Uncontrolled Transfer Ability Safely, Hand Use Unsupported Stance- Eyes Closed Supervision, 10 seconds Unsupported Stance- Eyes Open Supervision to maintain Reaching Forward Standing Safely, 5 inches Pick- Up Object From Floor Supervision Look Behind Shoulder - Standing Supervision w/Turning Turning 360 Degrees Turns Bilateral, < 4 secs Unsupported Stance, Alternating Feet on 2 Steps w/Minimum Assist Stair Unsupported Tandem Stance Small Step- 30 seconds Unilateral Leg Stance Lifts Leg/Unable to Hold Total Score Best Total Score (out of 56 points) 36 Best Impairment Rating 20 to 39% Impaired (Score 34- 44) PT-OP-E Functional Tests Start: 09/01/22 17:32 Freq: Status: Active Protocol: Document 09/09/22 16:30 DCW (Rec: 09/09/22 17:19 DCW [id number]) Functional Tests 6 Minute Walk Test Distance 1138' Device Used none Comments 3.16 ft/sec Dynamic Gait Index (DGI) Score 20/24 DGI Impairment Rating 1 to <20% Impaired (Score 20- 23) PT-OP-Q Treatments Start: 09/01/22 17:32 Freq: Status: Active Protocol: Document 10/20/22 12:45 DCW (Rec: 10/20/22 13:32 DCW [id number]) Gym Equipment Shuttle Recovery Unilateral Squats Resistance 37# (One new) Bilateral Squats Resistance 75# (Two new) Shuttle Balance Red Details WBOS (EO/EC), Staggered, Lateral weight shift Neuro Re-Education Treatment Balance Activities SLS Details SLS Dynamic gait Details Head turns in hallway Comments Horizontal/Vertical Metronome 100 bpm Hurdles Details Hurdles/Foam Comments Fwd, Tandem /s railing BOSU Stance Surface Blue BOSU Retro Amb Details Retro Ambulation Foam Stance Details EO/EC Surface Blue Foam Tandem Details Tandem Ambulation PT-OP-T Assessment and Plan Start: 09/01/22 17:32 Freq: Status: Active Protocol: Document 10/20/22 12:45 DCW (Rec: 10/20/22 13:32 DCW [id number]) Physical Therapy Assessment Goals Two Impairment Pt scores as a falls risk, per Best (36/56) Short Term Goal (STG) Pt to increase Best score by at least 10 points to 46/56 in order to demonstrate decreased falls risk. STG Duration 11/02/22 - improving One Impairment Pt does not have an appropriate home exercise program Short Term Goal (STG) Pt to be independent and compliant with an appropriate HEP STG Duration 10/02/22 Assessment Summary Assessment Pt showing significantly more confidence with overall balance, does note she would like to continue with LE strengthening, as she feels it is helping quite a bit with balance. Physical Therapy Plan Frequency and Duration Frequency of Treatment 2x/Week Plan of Care Start Date 09/01/22 Plan of Care End Date 11/02/22 Therapeutic Interventions Therapeutic Interventions Balance Training,Canalithic Repositioning,Gait Training, Home Exercise Program,Manual Therapy,Neuromuscular Re- education,Patient/Caregiver Education,Self-Care/Home Management,Soft Tissue Mobilization,Therapeutic Activities,Therapeutic Exercises Next Visit Focus/Plan Next Note Type Treatment Note Next Visit Plan Balance training, vestibular testing if indicated
--- NOTE | 2022-10-22 13:32 | PT.OTN ---
Current Diagnoses Benign paroxysmal vertigo, unspecified ear (10/22/22) Sensorineural hearing loss, bilateral (10/22/22) Unsteadiness on feet (10/22/22) Other abnormalities of gait and mobility (10/22/22) Physical Therapy Treatment Note PT-OP-A Visit Information Start: 09/01/22 17:32 Freq: Status: Active Protocol: Document 10/22/22 12:45 DCW (Rec: 10/22/22 13:32 DCW [id number]) Out-Patient Physical Therapy Visit Information Visit Information Visit Type Treatment Note Visit Start Time 12:45 Visit Stop Time 13:30 Total Visit Minutes 45 Visit Number 13 Number of INTERVENTIONAL NURSE Visits 0 Evaluation Information Evaluation Date 09/01/22 PT-OP-B Current Condition Start: 09/01/22 17:32 Freq: Status: Active Protocol: Document 09/01/22 16:30 DCW (Rec: 09/01/22 17:49 DCW [id number]) Current Condition History of Current Condition Onset Date Multi-month history Current Complaints Poor balance, occasional episodes of vertigo, fear of falling History of Current Condition Pt is an 81 year old female referred to skilled therapy due to recent episodes of position-dependent positional vertigo. Pt reports it began in March when she was on vacation in [place], but only happened once, and at the time was told she was probably dehydrated. Recurred again in June, happened off and on for a few weeks where she would have brief episodes of dizziness when changing positions or getting up from bed. She admits she hasn't really had any continuing episodes since the beginning of July, so I don't really know if I even need to be here . Does, however, admit that she is petrified of falling, and really feels like she has been struggling with her general balance. Uses a walking stick for community ambulation, but otherwise typically does not use an assistive device. Has had bilateral TKAs, a R reverse TSA, and a lumbar microdiscectomy, and has undergone PT after all of these surgeries, however feels like her balance has never really been addressed. PT-OP-C Subjective Start: 09/01/22 17:32 Freq: Status: Active Protocol: Document 10/22/22 12:45 DCW (Rec: 10/22/22 13:32 DCW [id number]) OP-PT Subjective Patient Comments Patient Comments I'm doing better than I was last time. PT-OP-D Balance Start: 09/01/22 17:32 Freq: Status: Active Protocol: Document 09/01/22 16:30 DCW (Rec: 09/01/22 17:49 DCW [id number]) Balance Tests Best Balance Test Best Balance Test Score 36/56 Best Impairment Rating 20 to 39% Impaired (Score 34- 44) Best Balance Assessment Evaluation Sitting to Standing Ability Independent w/Hands Unsupported Stance Safely- 2 minutes Sitting Unsupported, Feet on Floor Safely- 2 minutes Standing to Sitting Ability Independent, Uncontrolled Transfer Ability Safely, Hand Use Unsupported Stance- Eyes Closed Supervision, 10 seconds Unsupported Stance- Eyes Open Supervision to maintain Reaching Forward Standing Safely, 5 inches Pick- Up Object From Floor Supervision Look Behind Shoulder - Standing Supervision w/Turning Turning 360 Degrees Turns Bilateral, < 4 secs Unsupported Stance, Alternating Feet on 2 Steps w/Minimum Assist Stair Unsupported Tandem Stance Small Step- 30 seconds Unilateral Leg Stance Lifts Leg/Unable to Hold Total Score Best Total Score (out of 56 points) 36 Best Impairment Rating 20 to 39% Impaired (Score 34- 44) PT-OP-E Functional Tests Start: 09/01/22 17:32 Freq: Status: Active Protocol: Document 09/09/22 16:30 DCW (Rec: 09/09/22 17:19 DCW [id number]) Functional Tests 6 Minute Walk Test Distance 1138' Device Used none Comments 3.16 ft/sec Dynamic Gait Index (DGI) Score 20/24 DGI Impairment Rating 1 to <20% Impaired (Score 20- 23) PT-OP-Q Treatments Start: 09/01/22 17:32 Freq: Status: Active Protocol: Document 10/22/22 12:45 DCW (Rec: 10/22/22 13:32 DCW [id number]) Gym Equipment Shuttle Recovery Unilateral Squats Resistance 37# (One new) Shuttle Recovery Platform Stable Bilateral Squats Resistance 75# (Two new) Shuttle Recovery Platform Unstable Shuttle Balance Red Details WBOS (EO/EC), Staggered, Lateral weight shift Neuro Re-Education Treatment Balance Activities Dynamic gait Details Head turns in hallway Comments Horizontal/Vertical Metronome 100 bpm Hurdles Details Hurdles/Foam Comments over uneven blue pad Tandem Details Tandem Ambulation PT-OP-T Assessment and Plan Start: 09/01/22 17:32 Freq: Status: Active Protocol: Document 10/22/22 12:45 DCW (Rec: 10/22/22 13:32 DCW [id number]) Physical Therapy Assessment Goals Two Impairment Pt scores as a falls risk, per Best (36/56) Short Term Goal (STG) Pt to increase Best score by at least 10 points to 46/56 in order to demonstrate decreased falls risk. STG Duration 11/02/22 - improving One Impairment Pt does not have an approrpiate home exercise program Short Term Goal (STG) Pt to be independent and compliant with an appropriate HEP STG Duration 10/02/22 Assessment Summary Assessment Pt struggled with additional complication of uneven pad under foam stepping stones, but did improve as she got used to it. Physical Therapy Plan Frequency and Duration Frequency of Treatment 2x/Week Plan of Care Start Date 09/01/22 Plan of Care End Date 11/02/22 Therapeutic Interventions Therapeutic Interventions Balance Training,Canalithic Repositioning,Gait Training, Home Exercise Program,Manual Therapy,Neuromuscular Re- education,Patient/Caregiver Education,Self-Care/Home Management,Soft Tissue Mobilization,Therapeutic Activities,Therapeutic Exercises Next Visit Focus/Plan Next Note Type Treatment Note Next Visit Plan Balance training, vestibular testing if indicated
--- NOTE | 2022-10-27 17:17 | PT.OTN ---
Current Diagnoses Benign paroxysmal vertigo, unspecified ear (10/27/22) Sensorineural hearing loss, bilateral (10/27/22) Unsteadiness on feet (10/27/22) Other abnormalities of gait and mobility (10/27/22) Physical Therapy Treatment Note PT-OP-A Visit Information Start: 09/01/22 17:32 Freq: Status: Active Protocol: Document 10/27/22 16:30 DCW (Rec: 10/27/22 17:17 DCW [id number]) Out-Patient Physical Therapy Visit Information Visit Information Visit Type Progress Note Visit Start Time 16:30 Visit Stop Time 17:15 Total Visit Minutes 45 Visit Number 14 Number of WELL CONTROL INSTRUCTOR Visits 0 Evaluation Information Evaluation Date 09/01/22 PT-OP-B Current Condition Start: 09/01/22 17:32 Freq: Status: Active Protocol: Document 09/01/22 16:30 DCW (Rec: 09/01/22 17:49 DCW [id number]) Current Condition History of Current Condition Onset Date Multi-month history Current Complaints Poor balance, occasional episodes of vertigo, fear of falling History of Current Condition Pt is an 81 year old female referred to skilled therapy due to recent episodes of position-dependent positional vertigo. Pt reports it began in March when she was on vacation in [place], but only happened once, and at the time was told she was probably dehydrated. Recurred again in June, happened off and on for a few weeks where she would have brief episodes of dizziness when changing positions or getting up from bed. She admits she hasn't really had any continuing episodes since the beginning of July, so I don't really know if I even need to be here . Does, however, admit that she is petrified of falling, and really feels like she has been struggling with her general balance. Uses a walking stick for community ambulation, but otherwise typically does not use an assistive device. Has had bilateral TKAs, a R reverse TSA, and a lumbar microdiscectomy, and has undergone PT after all of these surgeries, however feels like her balance has never really been addressed. PT-OP-C Subjective Start: 09/01/22 17:32 Freq: Status: Active Protocol: Document 10/27/22 16:30 DCW (Rec: 10/27/22 17:17 DCW [id number]) OP-PT Subjective Patient Comments Patient Comments I can see a difference. PT-OP-D Balance Start: 09/01/22 17:32 Freq: Status: Active Protocol: Document 10/27/22 16:30 DCW (Rec: 10/27/22 16:51 DCW [id number]) Balance Tests Best Balance Test Best Balance Test Score 45/56 Best Impairment Rating 1 to 19% Impaired (Score 45-55 ) Best Balance Assessment Evaluation Sitting to Standing Ability Independent w/out Hands Unsupported Stance Safely- 2 minutes Sitting Unsupported, Feet on Floor Safely- 2 minutes Standing to Sitting Ability Safely, Minimal Hand Use Transfer Ability Safely, Minimal Hand Use Unsupported Stance- Eyes Closed Safely, 10 seconds Unsupported Stance- Eyes Open Independent, 1 minute Reaching Forward Standing Safely, 5 inches Pick- Up Object From Floor Requires Supervision Look Behind Shoulder - Standing Turns Sideways Only Turning 360 Degrees Turns Bilateral, < 4 secs Unsupported Stance, Alternating Feet on (I)- 8 Steps in 20 secs Stair Unsupported Tandem Stance Small Step- 30 seconds Unilateral Leg Stance Lifts Leg/Unable to Hold Total Score Best Total Score (out of 56 points) 45 Best Impairment Rating 1 to 19% Impaired (Score 45-55 ) PT-OP-E Functional Tests Start: 09/01/22 17:32 Freq: Status: Active Protocol: Document 09/09/22 16:30 DCW (Rec: 09/09/22 17:19 [facility] [id number]) Functional Tests 6 Minute Walk Test Distance 1138' Device Used none Comments 3.16 ft/sec Dynamic Gait Index (DGI) Score 20/24 DGI Impairment Rating 1 to <20% Impaired (Score 20- 23) PT-OP-Q Treatments Start: 09/01/22 17:32 Freq: Status: Active Protocol: Document 10/27/22 16:30 DCW (Rec: 10/27/22 17:17 DCW [id number]) Gym Equipment Shuttle Recovery Unilateral Squats Resistance 37# (One new) Shuttle Recovery Platform Stable Bilateral Squats Resistance 75# (Three new) Shuttle Recovery Platform Unstable Neuro Re-Education Treatment Balance Activities Hurdles Details Hurdles/Foam Comments over uneven blue pad Other Activities Best Details Best (45/56) PT-OP-T Assessment and Plan Start: 09/01/22 17:32 Freq: Status: Active Protocol: Document 10/27/22 16:30 DCW (Rec: 10/27/22 17:17 DCW [id number]) Physical Therapy Assessment Impairments Impairments Activity Tolerance,Balance, Coordination,Strength Goals Two Impairment Pt scores as a falls risk, per Best (36/56) Short Term Goal (STG) Pt to increase Best score by at least 10 points to 46/56 in order to demonstrate decreased falls risk. STG Duration 12/27/22 - Improved (45/56) One Impairment Pt does not have an appropriate home exercise program Short Term Goal (STG) Pt to be independent and compliant with an appropriate HEP STG Duration Met Assessment Summary Assessment Pt showing great overall progress, has increased Best score from 36/56 to 45/56, nearly reaching goal of 46/56. Pt demonstrates increased confidence in balance and gait , as well as a decreased fear of falling. Pt should benefit from continued skilled therapy focusing on balance challenges and LE strengthening. Physical Therapy Plan Frequency and Duration Frequency of Treatment 2x/Week Plan of Care Start Date 10/27/22 Plan of Care End Date 12/27/22 Therapeutic Interventions Therapeutic Interventions Balance Training,Canalithic Repositioning,Gait Training, Home Exercise Program,Manual Therapy,Neuromuscular Re- education,Patient/Caregiver Education,Self-Care/Home Management,Soft Tissue Mobilization,Therapeutic Activities,Therapeutic Exercises Next Visit Focus/Plan Next Note Type Treatment Note Next Visit Plan Balance training, vestibular testing if indicated
--- NOTE | 2022-10-27 17:18 | PT.OPPOC ---
Physical, Occupational & Speech Therapy At [facility] Current Diagnoses Benign paroxysmal vertigo, unspecified ear (10/27/22) Sensorineural hearing loss, bilateral (10/27/22) Unsteadiness on feet (10/27/22) Other abnormalities of gait and mobility (10/27/22) Visit Care Team Role Provider Type Briseyda Russell PA-C Attending Provider Advanced Extrusion Supervisor Family Provider Primary Care Provider Referring Provider Specialty: Medical Address: [address] [place] [address], [id number] Email: Plan Of Care PT-OP-T Assessment and Plan Start: 09/01/22 17:32 Freq: Status: Active Protocol: Document 10/27/22 16:30 DCW (Rec: 10/27/22 17:17 DCW [id number]) Physical Therapy Assessment Impairments Impairments Activity Tolerance,Balance, Coordination,Strength Goals Two Impairment Pt scores as a falls risk, per Best (36/56) Short Term Goal (STG) Pt to increase Best score by at least 10 points to 46/56 in order to demonstrate decreased falls risk. STG Duration 12/27/22 - Improved (45/56) One Impairment Pt does not have an appropriate home exercise program Short Term Goal (STG) Pt to be independent and compliant with an appropriate HEP STG Duration Met Assessment Summary Assessment Pt showing great overall progress, has increased Best score from 36/56 to 45/56, nearly reaching goal of 46/56. Pt demonstrates increased confidence in balance and gait , as well as a decreased fear of falling. Pt should benefit from continued skilled therapy focusing on balance challenges and LE strengthening. Physical Therapy Plan Frequency and Duration Frequency of Treatment 2x/Week Plan of Care Start Date 10/27/22 Plan of Care End Date 12/27/22 Therapeutic Interventions Therapeutic Interventions Balance Training,Canalithic Repositioning,Gait Training, Home Exercise Program,Manual Therapy,Neuromuscular Re- education,Patient/Caregiver Education,Self-Care/Home Management,Soft Tissue Mobilization,Therapeutic Activities,Therapeutic Exercises Next Visit Focus/Plan Next Note Type Treatment Note Next Visit Plan Balance training, vestibular testing if indicated Plan of Care Dates Plan of Care Start Date 10/27/22 Plan of Care End Date 12/27/22 Electronically Signed by: Sandor Kothari, PT 10/27/22 1158 If you are in agreement with this Plan of Care, please return a signed and dated copy. I have reviewed this Plan of Care and certify that the skilled therapy services above are required to meet the patient?s needs. Physician Signature Date Printed Name and Credentials Clinical Instructor Signature Printed Name and Credentials
--- NOTE | 2022-11-03 17:17 | PT.OTN ---
Current Diagnoses Benign paroxysmal vertigo, unspecified ear (11/03/22) Sensorineural hearing loss, bilateral (11/03/22) Unsteadiness on feet (11/03/22) Other abnormalities of gait and mobility (11/03/22) Physical Therapy Treatment Note PT-OP-A Visit Information Start: 09/01/22 17:32 Freq: Status: Active Protocol: Document 11/03/22 16:32 DCW (Rec: 11/03/22 17:17 DCW [id number]) Out-Patient Physical Therapy Visit Information Visit Information Visit Type Treatment Note Visit Start Time 16:32 Visit Stop Time 17:15 Total Visit Minutes 43 Visit Number 15 Number of FREEZER WORKER Visits 0 Evaluation Information Evaluation Date 09/01/22 PT-OP-B Current Condition Start: 09/01/22 17:32 Freq: Status: Active Protocol: Document 09/01/22 16:30 DCW (Rec: 09/01/22 17:49 DCW [id number]) Current Condition History of Current Condition Onset Date Multi-month history Current Complaints Poor balance, occasional episodes of vertigo, fear of falling History of Current Condition Pt is an 81 year old female referred to skilled therapy due to recent episodes of position-dependent positional vertigo. Pt reports it began in March when she was on vacation in [place], but only happened once, and at the time was told she was probably dehydrated. Recurred again in June, happened off and on for a few weeks where she would have brief episodes of dizziness when changing positions or getting up from bed. She admits she hasn't really had any continuing episodes since the beginning of July, so I don't really know if I even need to be here . Does, however, admit that she is petrified of falling, and really feels like she has been struggling with her general balance. Uses a walking stick for community ambulation, but otherwise typically does not use an assistive device. Has had bilateral TKAs, a R reverse TSA, and a lumbar microdiscectomy, and has undergone PT after all of these surgeries, however feels like her balance has never really been addressed. PT-OP-C Subjective Start: 09/01/22 17:32 Freq: Status: Active Protocol: Document 11/03/22 16:32 DCW (Rec: 11/03/22 17:17 DCW [id number]) OP-PT Subjective Patient Comments Patient Comments This right leg is driving me nuts today, after it had been feeling pretty good the past two or three days. PT-OP-D Balance Start: 09/01/22 17:32 Freq: Status: Active Protocol: Document 10/27/22 16:30 DCW (Rec: 10/27/22 16:51 DCW [id number]) Balance Tests Best Balance Test Best Balance Test Score 45/56 Best Impairment Rating 1 to 19% Impaired (Score 45-55 ) Best Balance Assessment Evaluation Sitting to Standing Ability Independent w/out Hands Unsupported Stance Safely- 2 minutes Sitting Unsupported, Feet on Floor Safely- 2 minutes Standing to Sitting Ability Safely, Minimal Hand Use Transfer Ability Safely, Minimal Hand Use Unsupported Stance- Eyes Closed Safely, 10 seconds Unsupported Stance- Eyes Open Independent, 1 minute Reaching Forward Standing Safely, 5 inches Pick- Up Object From Floor Requires Supervision Look Behind Shoulder - Standing Turns Sideways Only Turning 360 Degrees Turns Bilateral, < 4 secs Unsupported Stance, Alternating Feet on (I)- 8 Steps in 20 secs Stair Unsupported Tandem Stance Small Step- 30 seconds Unilateral Leg Stance Lifts Leg/Unable to Hold Total Score Best Total Score (out of 56 points) 45 Best Impairment Rating 1 to 19% Impaired (Score 45-55 ) PT-OP-E Functional Tests Start: 09/01/22 17:32 Freq: Status: Active Protocol: Document 09/09/22 16:30 DCW (Rec: 09/09/22 17:19 DCW [id number]) Functional Tests 6 Minute Walk Test Distance 1138' Device Used none Comments 3.16 ft/sec Dynamic Gait Index (DGI) Score 20/24 DGI Impairment Rating 1 to <20% Impaired (Score 20- 23) PT-OP-Q Treatments Start: 09/01/22 17:32 Freq: Status: Active Protocol: Document 11/03/22 16:32 DCW (Rec: 11/03/22 17:17 DCW [id number]) Gym Equipment Shuttle Recovery Unilateral Squats Resistance 37# (One new) Shuttle Recovery Platform Stable Bilateral Squats Resistance 75# (Three new) Shuttle Recovery Platform Stable Shuttle Balance Red Details WBOS (EO/EC), Staggered Neuro Re-Education Treatment Balance Activities Dynamic gait Details Head turns in hallway Comments Horizontal/Vertical Metronome 100 bpm Hurdles Details Hurdles Stepping Stones Details over uneven blue pad Tandem Details Tandem Ambulation PT-OP-T Assessment and Plan Start: 09/01/22 17:32 Freq: Status: Active Protocol: Document 11/03/22 16:32 DCW (Rec: 11/03/22 17:17 DCW [id number]) Physical Therapy Assessment Impairments Impairments Activity Tolerance,Balance, Coordination,Strength Goals Two Impairment Pt scores as a falls risk, per Best (36/56) Short Term Goal (STG) Pt to increase Best score by at least 10 points to 46/56 in order to demonstrate decreased falls risk. STG Duration 12/27/22 - Improved (45/56) One Impairment Pt does not have an appropriate home exercise program Short Term Goal (STG) Pt to be independent and compliant with an appropriate HEP STG Duration Met Assessment Summary Assessment Pt still struggles more with uneven surfaces, appears to at least partially be due to fear, tends to freeze mid stance and gets concerned that she won't be able to get her foot positioned. Doing better with balance board and hurdles . Physical Therapy Plan Frequency and Duration Frequency of Treatment 2x/Week Plan of Care Start Date 10/27/22 Plan of Care End Date 12/27/22 Therapeutic Interventions Therapeutic Interventions Balance Training,Canalithic Repositioning,Gait Training, Home Exercise Program,Manual Therapy,Neuromuscular Re- education,Patient/Caregiver Education,Self-Care/Home Management,Soft Tissue Mobilization,Therapeutic Activities,Therapeutic Exercises Next Visit Focus/Plan Next Note Type Treatment Note Next Visit Plan Balance training, vestibular testing if indicated
--- NOTE | 2022-11-05 17:19 | PT.OTN ---
Current Diagnoses Benign paroxysmal vertigo, unspecified ear (11/05/22) Sensorineural hearing loss, bilateral (11/05/22) Unsteadiness on feet (11/05/22) Other abnormalities of gait and mobility (11/05/22) Physical Therapy Treatment Note PT-OP-A Visit Information Start: 09/01/22 17:32 Freq: Status: Active Protocol: Document 11/05/22 16:30 DCW (Rec: 11/05/22 17:18 DCW [id number]) Out-Patient Physical Therapy Visit Information Visit Information Visit Type Treatment Note Visit Start Time 16:30 Visit Stop Time 17:15 Total Visit Minutes 45 Visit Number 16 Number of AIR INTERCEPT CONTROLLER SUPERVISOR Visits 0 Evaluation Information Evaluation Date 09/01/22 PT-OP-B Current Condition Start: 09/01/22 17:32 Freq: Status: Active Protocol: Document 09/01/22 16:30 DCW (Rec: 09/01/22 17:49 DCW [id number]) Current Condition History of Current Condition Onset Date Multi-month history Current Complaints Poor balance, occasional episodes of vertigo, fear of falling History of Current Condition Pt is an 81 year old female referred to skilled therapy due to recent episodes of position-dependent positional vertigo. Pt reports it began in March when she was on vacation in [place], but only happened once, and at the time was told she was probably dehydrated. Recurred again in June, happened off and on for a few weeks where she would have brief episodes of dizziness when changing positions or getting up from bed. She admits she hasn't really had any continuing episodes since the beginning of July, so I don't really know if I even need to be here . Does, however, admit that she is petrified of falling, and really feels like she has been struggling with her general balance. Uses a walking stick for community ambulation, but otherwise typically does not use an assistive device. Has had bilateral TKAs, a R reverse TSA, and a lumbar microdiscectomy, and has undergone PT after all of these surgeries, however feels like her balance has never really been addressed. PT-OP-C Subjective Start: 09/01/22 17:32 Freq: Status: Active Protocol: Document 11/05/22 16:30 DCW (Rec: 11/05/22 17:18 DCW [id number]) OP-PT Subjective Patient Comments Patient Comments Pt reports her knees were sore after last time, but a good sore. I could tell that they've gotten weak over time. Patient Reported Progress Improving PT-OP-D Balance Start: 09/01/22 17:32 Freq: Status: Active Protocol: Document 10/27/22 16:30 DCW (Rec: 10/27/22 16:51 DCW [id number]) Balance Tests Best Balance Test Best Balance Test Score 45/56 Best Impairment Rating 1 to 19% Impaired (Score 45-55 ) Best Balance Assessment Evaluation Sitting to Standing Ability Independent w/out Hands Unsupported Stance Safely- 2 minutes Sitting Unsupported, Feet on Floor Safely- 2 minutes Standing to Sitting Ability Safely, Minimal Hand Use Transfer Ability Safely, Minimal Hand Use Unsupported Stance- Eyes Closed Safely, 10 seconds Unsupported Stance- Eyes Open Independent, 1 minute Reaching Forward Standing Safely, 5 inches Pick- Up Object From Floor Requires Supervision Look Behind Shoulder - Standing Turns Sideways Only Turning 360 Degrees Turns Bilateral, < 4 secs Unsupported Stance, Alternating Feet on (I)- 8 Steps in 20 secs Stair Unsupported Tandem Stance Small Step- 30 seconds Unilateral Leg Stance Lifts Leg/Unable to Hold Total Score Best Total Score (out of 56 points) 45 Best Impairment Rating 1 to 19% Impaired (Score 45-55 ) PT-OP-E Functional Tests Start: 09/01/22 17:32 Freq: Status: Active Protocol: Document 09/09/22 16:30 DCW (Rec: 09/09/22 17:19 DCW [id number]) Functional Tests 6 Minute Walk Test Distance 1138' Device Used none Comments 3.16 ft/sec Dynamic Gait Index (DGI) Score 20/24 DGI Impairment Rating 1 to <20% Impaired (Score 20- 23) PT-OP-Q Treatments Start: 09/01/22 17:32 Freq: Status: Active Protocol: Document 11/05/22 16:30 DCW (Rec: 11/05/22 17:18 DCW [id number]) Gym Equipment Shuttle Recovery Unilateral Squats Resistance 37# (One new) Shuttle Recovery Platform Stable Bilateral Squats Resistance 75# (Three new) Shuttle Recovery Platform Stable Shuttle Balance Red Details WBOS (EO/EC), Staggered Therapeutic Exercises Other Exercises Resisted Ambulation Other Exercise Name Resisted Side-stepping Resistance Green loop Therapeutic Activity Therapeutic Activity StS Name Sit<->Stand Neuro Re-Education Treatment Balance Activities Hurdles Details Hurdles Stepping Stones Details over uneven blue pad Tandem Details Tandem Stance PT-OP-T Assessment and Plan Start: 09/01/22 17:32 Freq: Status: Active Protocol: Document 11/05/22 16:30 DCW (Rec: 11/05/22 17:18 DCW [id number]) Physical Therapy Assessment Impairments Impairments Activity Tolerance,Balance, Coordination,Strength Goals Two Impairment Pt scores as a falls risk, per Best (36/56) Short Term Goal (STG) Pt to increase Best score by at least 10 points to 46/56 in order to demonstrate decreased falls risk. STG Duration 12/27/22 - Improved (45/56) One Impairment Pt does not have an appropriate home exercise program Short Term Goal (STG) Pt to be independent and compliant with an appropriate HEP STG Duration Met Assessment Summary Assessment Good response to SLS and tandem stance today, pt noting improved LE strengthening has improved her stability. Pt improves greatly after performing an activity a few times and getting over any associated fear. Physical Therapy Plan Frequency and Duration Frequency of Treatment 2x/Week Plan of Care Start Date 10/27/22 Plan of Care End Date 12/27/22 Therapeutic Interventions Therapeutic Interventions Balance Training,Canalithic Repositioning,Gait Training, Home Exercise Program,Manual Therapy,Neuromuscular Re- education,Patient/Caregiver Education,Self-Care/Home Management,Soft Tissue Mobilization,Therapeutic Activities,Therapeutic Exercises Next Visit Focus/Plan Next Note Type Treatment Note Next Visit Plan Balance training, vestibular testing if indicated
--- NOTE | 2022-11-10 16:49 | PT.OTN ---
Current Diagnoses Benign paroxysmal vertigo, unspecified ear (11/10/22) Sensorineural hearing loss, bilateral (11/10/22) Unsteadiness on feet (11/10/22) Other abnormalities of gait and mobility (11/10/22) Physical Therapy Treatment Note PT-OP-A Visit Information Start: 09/01/22 17:32 Freq: Status: Active Protocol: Document 11/10/22 15:55 DCW (Rec: 11/10/22 16:49 DCW [id number]) Out-Patient Physical Therapy Visit Information Visit Information Visit Type Treatment Note Visit Start Time 15:55 Visit Stop Time 16:40 Total Visit Minutes 45 Visit Number 17 Number of BOOK SEWER Visits 0 Evaluation Information Evaluation Date 09/01/22 PT-OP-B Current Condition Start: 09/01/22 17:32 Freq: Status: Active Protocol: Document 09/01/22 16:30 DCW (Rec: 09/01/22 17:49 DCW [id number]) Current Condition History of Current Condition Onset Date Multi-month history Current Complaints Poor balance, occasional episodes of vertigo, fear of falling History of Current Condition Pt is an 81 year old female referred to skilled therapy due to recent episodes of position-dependent positional vertigo. Pt reports it began in March when she was on vacation in [place], but only happened once, and at the time was told she was probably dehydrated. Recurred again in June, happened off and on for a few weeks where she would have brief episodes of dizziness when changing positions or getting up from bed. She admits she hasn't really had any continuing episodes since the beginning of July, so I don't really know if I even need to be here . Does, however, admit that she is petrified of falling, and really feels like she has been struggling with her general balance. Uses a walking stick for community ambulation, but otherwise typically does not use an assistive device. Has had bilateral TKAs, a R reverse TSA, and a lumbar microdiscectomy, and has undergone PT after all of these surgeries, however feels like her balance has never really been addressed. PT-OP-C Subjective Start: 09/01/22 17:32 Freq: Status: Active Protocol: Document 11/10/22 15:55 DCW (Rec: 11/10/22 16:49 DCW [id number]) OP-PT Subjective Patient Comments Patient Comments That feeling of my left leg being actually feels better. PT-OP-D Balance Start: 09/01/22 17:32 Freq: Status: Active Protocol: Document 10/27/22 16:30 DCW (Rec: 10/27/22 16:51 DCW [id number]) Balance Tests Best Balance Test Best Balance Test Score 45/56 Best Impairment Rating 1 to 19% Impaired (Score 45-55 ) Best Balance Assessment Evaluation Sitting to Standing Ability Independent w/out Hands Unsupported Stance Safely- 2 minutes Sitting Unsupported, Feet on Floor Safely- 2 minutes Standing to Sitting Ability Safely, Minimal Hand Use Transfer Ability Safely, Minimal Hand Use Unsupported Stance- Eyes Closed Safely, 10 seconds Unsupported Stance- Eyes Open Independent, 1 minute Reaching Forward Standing Safely, 5 inches Pick- Up Object From Floor Requires Supervision Look Behind Shoulder - Standing Turns Sideways Only Turning 360 Degrees Turns Bilateral, < 4 secs Unsupported Stance, Alternating Feet on (I)- 8 Steps in 20 secs Stair Unsupported Tandem Stance Small Step- 30 seconds Unilateral Leg Stance Lifts Leg/Unable to Hold Total Score Best Total Score (out of 56 points) 45 Best Impairment Rating 1 to 19% Impaired (Score 45-55 ) PT-OP-E Functional Tests Start: 09/01/22 17:32 Freq: Status: Active Protocol: Document 09/09/22 16:30 DCW (Rec: 09/09/22 17:19 DCW [id number]) Functional Tests 6 Minute Walk Test Distance 1138' Device Used none Comments 3.16 ft/sec Dynamic Gait Index (DGI) Score 20/24 DGI Impairment Rating 1 to <20% Impaired (Score 20- 23) PT-OP-Q Treatments Start: 09/01/22 17:32 Freq: Status: Active Protocol: Document 11/10/22 15:55 DCW (Rec: 11/10/22 16:49 DCW [id number]) Gym Equipment Shuttle Recovery Unilateral Squats Resistance 37# (One new) Shuttle Recovery Platform Stable Bilateral Squats Resistance 75# (Three new) Shuttle Recovery Platform Stable Shuttle Balance Red Details WBOS (EO/EC), Staggered, Lateral weight shift Therapeutic Ball Hip Flexion Exercise Details Resisted hip/knee flexion Ball Size/Color Red - 55 cm Green T-band Therapeutic Exercises Standing Exercises Marching Standing Exercise Name Standing Marching Side bilateral Resistance Green Neuro Re-Education Treatment Balance Activities Hurdles Details Hurdles over uneven blue pad PT-OP-T Assessment and Plan Start: 09/01/22 17:32 Freq: Status: Active Protocol: Document 11/10/22 15:55 DCW (Rec: 11/10/22 16:49 DCW [id number]) Physical Therapy Assessment Assessment Summary Assessment Continuing to work on improving strength and dynamic stability, adding more exercises to HEP. Pt admits that she needs to be more regular with her home exercises. Physical Therapy Plan Frequency and Duration Frequency of Treatment 2x/Week Plan of Care Start Date 10/27/22 Plan of Care End Date 12/27/22 Therapeutic Interventions Therapeutic Interventions Balance Training,Canalithic Repositioning,Gait Training, Home Exercise Program,Manual Therapy,Neuromuscular Re- education,Patient/Caregiver Education,Self-Care/Home Management,Soft Tissue Mobilization,Therapeutic Activities,Therapeutic Exercises Next Visit Focus/Plan Next Note Type Treatment Note Next Visit Plan Balance training, vestibular testing if indicated
--- NOTE | 2022-11-12 17:23 | PT.OTN ---
Current Diagnoses Benign paroxysmal vertigo, unspecified ear (11/12/22) Sensorineural hearing loss, bilateral (11/12/22) Unsteadiness on feet (11/12/22) Other abnormalities of gait and mobility (11/12/22) Physical Therapy Treatment Note PT-OP-A Visit Information Start: 09/01/22 17:32 Freq: Status: Active Protocol: Document 11/12/22 16:30 DCW (Rec: 11/12/22 17:23 DCW [id number]) Out-Patient Physical Therapy Visit Information Visit Information Visit Type Treatment Note Visit Start Time 16:30 Visit Stop Time 17:15 Total Visit Minutes 45 Visit Number 18 Number of DIETARY ASSISTANT Visits 0 Evaluation Information Evaluation Date 09/01/22 PT-OP-B Current Condition Start: 09/01/22 17:32 Freq: Status: Active Protocol: Document 09/01/22 16:30 DCW (Rec: 09/01/22 17:49 DCW [id number]) Current Condition History of Current Condition Onset Date Multi-month history Current Complaints Poor balance, occasional episodes of vertigo, fear of falling History of Current Condition Pt is an 81 year old female referred to skilled therapy due to recent episodes of position-dependent positional vertigo. Pt reports it began in March when she was on vacation in [place], but only happened once, and at the time was told she was probably dehydrated. Recurred again in June, happened off and on for a few weeks where she would have brief episodes of dizziness when changing positions or getting up from bed. She admits she hasn't really had any continuing episodes since the beginning of July, so I don't really know if I even need to be here . Does, however, admit that she is petrified of falling, and really feels like she has been struggling with her general balance. Uses a walking stick for community ambulation, but otherwise typically does not use an assistive device. Has had bilateral TKAs, a R reverse TSA, and a lumbar microdiscectomy, and has undergone PT after all of these surgeries, however feels like her balance has never really been addressed. PT-OP-C Subjective Start: 09/01/22 17:32 Freq: Status: Active Protocol: Document 11/12/22 16:30 DCW (Rec: 11/12/22 17:23 DCW [id number]) OP-PT Subjective Patient Comments Patient Comments Life is crazy, and I didn't have any ttime to do those exercises I'm supposed to do at home. PT-OP-D Balance Start: 09/01/22 17:32 Freq: Status: Active Protocol: Document 10/27/22 16:30 DCW (Rec: 10/27/22 16:51 DCW [id number]) Balance Tests Best Balance Test Best Balance Test Score 45/56 Best Impairment Rating 1 to 19% Impaired (Score 45-55 ) Best Balance Assessment Evaluation Sitting to Standing Ability Independent w/out Hands Unsupported Stance Safely- 2 minutes Sitting Unsupported, Feet on Floor Safely- 2 minutes Standing to Sitting Ability Safely, Minimal Hand Use Transfer Ability Safely, Minimal Hand Use Unsupported Stance- Eyes Closed Safely, 10 seconds Unsupported Stance- Eyes Open Independent, 1 minute Reaching Forward Standing Safely, 5 inches Pick- Up Object From Floor Requires Supervision Look Behind Shoulder - Standing Turns Sideways Only Turning 360 Degrees Turns Bilateral, < 4 secs Unsupported Stance, Alternating Feet on (I)- 8 Steps in 20 secs Stair Unsupported Tandem Stance Small Step- 30 seconds Unilateral Leg Stance Lifts Leg/Unable to Hold Total Score Best Total Score (out of 56 points) 45 Best Impairment Rating 1 to 19% Impaired (Score 45-55 ) PT-OP-E Functional Tests Start: 09/01/22 17:32 Freq: Status: Active Protocol: Document 09/09/22 16:30 DCW (Rec: 09/09/22 17:19 DCW [id number]) Functional Tests 6 Minute Walk Test Distance 1138' Device Used none Comments 3.16 ft/sec Dynamic Gait Index (DGI) Score 20/24 DGI Impairment Rating 1 to <20% Impaired (Score 20- 23) PT-OP-Q Treatments Start: 09/01/22 17:32 Freq: Status: Active Protocol: Document 11/12/22 16:30 DCW (Rec: 11/12/22 17:23 DCW [id number]) Gym Equipment Shuttle Recovery Unilateral Squats Resistance 37# (One new) Shuttle Recovery Platform Stable Bilateral Squats Resistance 75# (Three new) Shuttle Recovery Platform Stable Shuttle Balance Red Details WBOS (EO/EC), Staggered, Lateral weight shift Therapeutic Exercises Other Exercises Resisted Ambulation Other Exercise Name Resisted Side-stepping Resistance Green loop Therapeutic Activity Therapeutic Activity StS Name Sit<->Stand Neuro Re-Education Treatment Balance Activities Dynamic gait Details Head turns in hallway, Retro ambulation Comments Horizontal/Vertical Metronome 100 bpm Hurdles Details Hurdles/foam over uneven blue pad Foam Stance Details EO/EC Surface Blue Foam Tandem Details Tandem Stance PT-OP-T Assessment and Plan Start: 09/01/22 17:32 Freq: Status: Active Protocol: Document 11/12/22 16:30 DCW (Rec: 11/12/22 17:23 DCW [id number]) Physical Therapy Assessment Impairments Impairments Activity Tolerance,Balance, Coordination,Strength Goals Two Impairment Pt scores as a falls risk, per Best (36/56) Short Term Goal (STG) Pt to increase Best score by at least 10 points to 46/56 in order to demonstrate decreased falls risk. STG Duration 12/27/22 - Improved (45/56) One Impairment Pt does not have an appropriate home exercise program Short Term Goal (STG) Pt to be independent and compliant with an appropriate HEP STG Duration Met Assessment Summary Assessment Pt showing good progress with most activities, although continues to exhibit increased anxiety and fear of falling with new higher-level challenges, and requires multiple repetitions with increased assistance before being willing to perform CGA/ SBA. Physical Therapy Plan Frequency and Duration Frequency of Treatment 2x/Week Plan of Care Start Date 10/27/22 Plan of Care End Date 12/27/22 Therapeutic Interventions Therapeutic Interventions Balance Training,Canalithic Repositioning,Gait Training, Home Exercise Program,Manual Therapy,Neuromuscular Re- education,Patient/Caregiver Education,Self-Care/Home Management,Soft Tissue Mobilization,Therapeutic Activities,Therapeutic Exercises Next Visit Focus/Plan Next Note Type Treatment Note Next Visit Plan Balance training, vestibular testing if indicated
--- NOTE | 2022-11-17 17:22 | PT.OTN ---
Current Diagnoses Benign paroxysmal vertigo, unspecified ear (11/17/22) Sensorineural hearing loss, bilateral (11/17/22) Unsteadiness on feet (11/17/22) Other abnormalities of gait and mobility (11/17/22) Physical Therapy Treatment Note PT-OP-A Visit Information Start: 09/01/22 17:32 Freq: Status: Active Protocol: Document 11/17/22 16:30 DCW (Rec: 11/17/22 17:22 DCW [id number]) Out-Patient Physical Therapy Visit Information Visit Information Visit Type Treatment Note Visit Start Time 16:30 Visit Stop Time 17:15 Total Visit Minutes 45 Visit Number 19 Number of PRODUCTION STATISTICAL CLERK Visits 0 Evaluation Information Evaluation Date 09/01/22 PT-OP-B Current Condition Start: 09/01/22 17:32 Freq: Status: Active Protocol: Document 09/01/22 16:30 DCW (Rec: 09/01/22 17:49 DCW [id number]) Current Condition History of Current Condition Onset Date Multi-month history Current Complaints Poor balance, occasional episodes of vertigo, fear of falling History of Current Condition Pt is an 81 year old female referred to skilled therapy due to recent episodes of position-dependent positional vertigo. Pt reports it began in March when she was on vacation in [place], but only happened once, and at the time was told she was probably dehydrated. Recurred again in June, happened off and on for a few weeks where she would have brief episodes of dizziness when changing positions or getting up from bed. She admits she hasn't really had any continuing episodes since the beginning of July, so I don't really know if I even need to be here . Does, however, admit that she is petrified of falling, and really feels like she has been struggling with her general balance. Uses a walking stick for community ambulation, but otherwise typically does not use an assistive device. Has had bilateral TKAs, a R reverse TSA, and a lumbar microdiscectomy, and has undergone PT after all of these surgeries, however feels like her balance has never really been addressed. PT-OP-C Subjective Start: 09/01/22 17:32 Freq: Status: Active Protocol: Document 11/17/22 16:30 DCW (Rec: 11/17/22 17:22 DCW [id number]) OP-PT Subjective Patient Comments Patient Comments I drove too much over the weekend, and my neck is pretty tight. It's better than it was, though. PT-OP-D Balance Start: 09/01/22 17:32 Freq: Status: Active Protocol: Document 10/27/22 16:30 DCW (Rec: 10/27/22 16:51 DCW [id number]) Balance Tests Best Balance Test Best Balance Test Score 45/56 Best Impairment Rating 1 to 19% Impaired (Score 45-55 ) Best Balance Assessment Evaluation Sitting to Standing Ability Independent w/out Hands Unsupported Stance Safely- 2 minutes Sitting Unsupported, Feet on Floor Safely- 2 minutes Standing to Sitting Ability Safely, Minimal Hand Use Transfer Ability Safely, Minimal Hand Use Unsupported Stance- Eyes Closed Safely, 10 seconds Unsupported Stance- Eyes Open Independent, 1 minute Reaching Forward Standing Safely, 5 inches Pick- Up Object From Floor Requires Supervision Look Behind Shoulder - Standing Turns Sideways Only Turning 360 Degrees Turns Bilateral, < 4 secs Unsupported Stance, Alternating Feet on (I)- 8 Steps in 20 secs Stair Unsupported Tandem Stance Small Step- 30 seconds Unilateral Leg Stance Lifts Leg/Unable to Hold Total Score Best Total Score (out of 56 points) 45 Best Impairment Rating 1 to 19% Impaired (Score 45-55 ) PT-OP-E Functional Tests Start: 09/01/22 17:32 Freq: Status: Active Protocol: Document 09/09/22 16:30 DCW (Rec: 09/09/22 17:19 DCW [id number]) Functional Tests 6 Minute Walk Test Distance 1138' Device Used none Comments 3.16 ft/sec Dynamic Gait Index (DGI) Score 20/24 DGI Impairment Rating 1 to <20% Impaired (Score 20- 23) PT-OP-Q Treatments Start: 09/01/22 17:32 Freq: Status: Active Protocol: Document 11/17/22 16:30 DCW (Rec: 11/17/22 17:22 DCW [id number]) Gym Equipment Shuttle Recovery Unilateral Squats Resistance 37# (One new) Shuttle Recovery Platform Stable Bilateral Squats Resistance 75# (Three new) Shuttle Recovery Platform Stable Shuttle Balance Red Details WBOS (EO/EC), Staggered, Lateral weight shift Therapeutic Ball Bridging Exercise Details Bridging /c feet on ball Ball Size/Color Red - 55 cm Hip Flexion Exercise Details Resisted hip/knee flexion Ball Size/Color Red - 55 cm Green T-band Neuro Re-Education Treatment Balance Activities Dynamic gait Details Head turns in hallway, Retro ambulation Comments Horizontal/Vertical Metronome 100 bpm Hurdles Details Hurdles/foam over uneven blue pad PT-OP-T Assessment and Plan Start: 09/01/22 17:32 Freq: Status: Active Protocol: Document 11/17/22 16:30 DCW (Rec: 11/17/22 17:22 DCW [id number]) Physical Therapy Assessment Impairments Impairments Activity Tolerance,Balance, Coordination,Strength Goals Two Impairment Pt scores as a falls risk, per Best (36/56) Short Term Goal (STG) Pt to increase Best score by at least 10 points to 46/56 in order to demonstrate decreased falls risk. STG Duration 12/27/22 - Improved (45/56) One Impairment Pt does not have an appropriate home exercise program Short Term Goal (STG) Pt to be independent and compliant with an appropriate HEP STG Duration Met Assessment Summary Assessment PPt continues to show improvement with uneven surface ambulation, doing better on walking over a sloped blue pad with both foam and hurdles on it, although still relies fairly heavily on CGA/Min Ax1 from therapist. Physical Therapy Plan Frequency and Duration Frequency of Treatment 2x/Week Plan of Care Start Date 10/27/22 Plan of Care End Date 12/27/22 Therapeutic Interventions Therapeutic Interventions Balance Training,Canalithic Repositioning,Gait Training, Home Exercise Program,Manual Therapy,Neuromuscular Re- education,Patient/Caregiver Education,Self-Care/Home Management,Soft Tissue Mobilization,Therapeutic Activities,Therapeutic Exercises Next Visit Focus/Plan Next Note Type Treatment Note Next Visit Plan Balance training, vestibular testing if indicated
--- NOTE | 2022-11-19 17:23 | PT.OTN ---
Current Diagnoses Benign paroxysmal vertigo, unspecified ear (11/19/22) Sensorineural hearing loss, bilateral (11/19/22) Unsteadiness on feet (11/19/22) Other abnormalities of gait and mobility (11/19/22) Physical Therapy Treatment Note PT-OP-A Visit Information Start: 09/01/22 17:32 Freq: Status: Active Protocol: Document 11/19/22 16:33 DCW (Rec: 11/19/22 17:22 DCW [id number]) Out-Patient Physical Therapy Visit Information Visit Information Visit Type Treatment Note Visit Start Time 16:33 Visit Stop Time 17:15 Total Visit Minutes 42 Visit Number 20 Number of ADULT MINISTRIES DIRECTOR Visits 0 Evaluation Information Evaluation Date 09/01/22 PT-OP-B Current Condition Start: 09/01/22 17:32 Freq: Status: Active Protocol: Document 09/01/22 16:30 DCW (Rec: 09/01/22 17:49 DCW [id number]) Current Condition History of Current Condition Onset Date Multi-month history Current Complaints Poor balance, occasional episodes of vertigo, fear of falling History of Current Condition Pt is an 81 year old female referred to skilled therapy due to recent episodes of position-dependent positional vertigo. Pt reports it began in March when she was on vacation in [place], but only happened once, and at the time was told she was probably dehydrated. Recurred again in June, happened off and on for a few weeks where she would have brief episodes of dizziness when changing positions or getting up from bed. She admits she hasn't really had any continuing episodes since the beginning of July, so I don't really know if I even need to be here . Does, however, admit that she is petrified of falling, and really feels like she has been struggling with her general balance. Uses a walking stick for community ambulation, but otherwise typically does not use an assistive device. Has had bilateral TKAs, a R reverse TSA, and a lumbar microdiscectomy, and has undergone PT after all of these surgeries, however feels like her balance has never really been addressed. PT-OP-C Subjective Start: 09/01/22 17:32 Freq: Status: Active Protocol: Document 11/19/22 16:33 DCW (Rec: 11/19/22 17:22 DCW [id number]) OP-PT Subjective Patient Comments Patient Comments Pt notes she has been having right hip pain after using the leg press. PT-OP-D Balance Start: 09/01/22 17:32 Freq: Status: Active Protocol: Document 10/27/22 16:30 DCW (Rec: 10/27/22 16:51 DCW [id number]) Balance Tests Best Balance Test Best Balance Test Score 45/56 Best Impairment Rating 1 to 19% Impaired (Score 45-55 ) Best Balance Assessment Evaluation Sitting to Standing Ability Independent w/out Hands Unsupported Stance Safely- 2 minutes Sitting Unsupported, Feet on Floor Safely- 2 minutes Standing to Sitting Ability Safely, Minimal Hand Use Transfer Ability Safely, Minimal Hand Use Unsupported Stance- Eyes Closed Safely, 10 seconds Unsupported Stance- Eyes Open Independent, 1 minute Reaching Forward Standing Safely, 5 inches Pick- Up Object From Floor Requires Supervision Look Behind Shoulder - Standing Turns Sideways Only Turning 360 Degrees Turns Bilateral, < 4 secs Unsupported Stance, Alternating Feet on (I)- 8 Steps in 20 secs Stair Unsupported Tandem Stance Small Step- 30 seconds Unilateral Leg Stance Lifts Leg/Unable to Hold Total Score Best Total Score (out of 56 points) 45 Best Impairment Rating 1 to 19% Impaired (Score 45-55 ) PT-OP-E Functional Tests Start: 09/01/22 17:32 Freq: Status: Active Protocol: Document 09/09/22 16:30 DCW (Rec: 09/09/22 17:19 DCW [id number]) Functional Tests 6 Minute Walk Test Distance 1138' Device Used none Comments 3.16 ft/sec Dynamic Gait Index (DGI) Score 20/24 DGI Impairment Rating 1 to <20% Impaired (Score 20- 23) PT-OP-Q Treatments Start: 09/01/22 17:32 Freq: Status: Active Protocol: Document 11/19/22 16:33 DCW (Rec: 11/19/22 17:22 DCW [id number]) Gym Equipment Shuttle Recovery Unilateral Squats Resistance 25# Shuttle Recovery Platform Stable Bilateral Squats Resistance 62#->50# Shuttle Recovery Platform Stable Shuttle Balance Red Details WBOS (EO/EC), Staggered, Lateral weight shift Therapeutic Exercises Sitting Exercises Piriformis Sitting Exercise Name Seated figure-4 Side bilateral Neuro Re-Education Treatment Balance Activities Hurdles Details Hurdles/foam over uneven blue pad Foam Stance Details Marching, X1 Surface Blue Foam PT-OP-T Assessment and Plan Start: 09/01/22 17:32 Freq: Status: Active Protocol: Document 11/19/22 16:33 DCW (Rec: 11/19/22 17:22 DCW [id number]) Physical Therapy Assessment Impairments Impairments Activity Tolerance,Balance, Coordination,Strength Goals Two Impairment Pt scores as a falls risk, per Best (36/56) Short Term Goal (STG) Pt to increase Best score by at least 10 points to 46/56 in order to demonstrate decreased falls risk. STG Duration 12/27/22 - Improved (45/56) One Impairment Pt does not have an appropriate home exercise program Short Term Goal (STG) Pt to be independent and compliant with an appropriate HEP STG Duration Met Assessment Summary Assessment Pt has too in scheduled PT due to scheduling difficulty, currently will not be seen for three weeks. Pt interested in more comprehensive HEP to continue to work on balance at home. Pt also re-shown piriformis stretch to perform at home due to recent complaints of posterior hip pain. Physical Therapy Plan Frequency and Duration Frequency of Treatment 2x/Week Plan of Care Start Date 10/27/22 Plan of Care End Date 12/27/22 Therapeutic Interventions Therapeutic Interventions Balance Training,Canalithic Repositioning,Gait Training, Home Exercise Program,Manual Therapy,Neuromuscular Re- education,Patient/Caregiver Education,Self-Care/Home Management,Soft Tissue Mobilization,Therapeutic Activities,Therapeutic Exercises Next Visit Focus/Plan Next Note Type Treatment Note Next Visit Plan Balance training, vestibular testing if indicated
--- NOTE | 2022-12-15 11:02 | PT.OTN ---
Current Diagnoses Benign paroxysmal vertigo, unspecified ear (12/15/22) Sensorineural hearing loss, bilateral (12/15/22) Unsteadiness on feet (12/15/22) Other abnormalities of gait and mobility (12/15/22) Physical Therapy Treatment Note PT-OP-A Visit Information Start: 09/01/22 17:32 Freq: Status: Active Protocol: Document 12/15/22 10:15 DCW (Rec: 12/15/22 11:02 DCW [id number]) Out-Patient Physical Therapy Visit Information Visit Information Visit Type Treatment Note Visit Start Time 10:15 Visit Stop Time 11:00 Total Visit Minutes 45 Visit Number 21 Number of MAMMAL KEEPER Visits 0 Evaluation Information Evaluation Date 09/01/22 PT-OP-B Current Condition Start: 09/01/22 17:32 Freq: Status: Active Protocol: Document 09/01/22 16:30 DCW (Rec: 09/01/22 17:49 DCW [id number]) Current Condition History of Current Condition Onset Date Multi-month history Current Complaints Poor balance, occasional episodes of vertigo, fear of falling History of Current Condition Pt is an 81 year old female referred to skilled therapy due to recent episodes of position-dependent positional vertigo. Pt reports it began in March when she was on vacation in [place], but only happened once, and at the time was told she was probably dehydrated. Recurred again in June, happened off and on for a few weeks where she would have brief episodes of dizziness when changing positions or getting up from bed. She admits she hasn't really had any continuing episodes since the beginning of July, so I don't really know if I even need to be here . Does, however, admit that she is petrified of falling, and really feels like she has been struggling with her general balance. Uses a walking stick for community ambulation, but otherwise typically does not use an assistive device. Has had bilateral TKAs, a R reverse TSA, and a lumbar microdiscectomy, and has undergone PT after all of these surgeries, however feels like her balance has never really been addressed. PT-OP-C Subjective Start: 09/01/22 17:32 Freq: Status: Active Protocol: Document 12/15/22 10:15 DCW (Rec: 12/15/22 11:02 DCW [id number]) OP-PT Subjective Patient Comments Patient Comments It's been way too long since I've been in, and I haven't been faithful. PT-OP-D Balance Start: 09/01/22 17:32 Freq: Status: Active Protocol: Document 10/27/22 16:30 DCW (Rec: 10/27/22 16:51 DCW [id number]) Balance Tests Best Balance Test Best Balance Test Score 45/56 Ebst Impairment Rating 1 to 19% Impaired (Score 45-55 ) Best Balance Assessment Evaluation Sitting to Standing Ability Independent w/out Hands Unsupported Stance Safely- 2 minutes Sitting Unsupported, Feet on Floor Safely- 2 minutes Standing to Sitting Ability Safely, Minimal Hand Use Transfer Ability Safely, Minimal Hand Use Unsupported Stance- Eyes Closed Safely, 10 seconds Unsupported Stance- Eyes Open Independent, 1 minute Reaching Forward Standing Safely, 5 inches Pick- Up Object From Floor Requires Supervision Look Behind Shoulder - Standing Turns Sideways Only Turning 360 Degrees Turns Bilateral, < 4 secs Unsupported Stance, Alternating Feet on (I)- 8 Steps in 20 secs Stair Unsupported Tandem Stance Small Step- 30 seconds Unilateral Leg Stance Lifts Leg/Unable to Hold Total Score Best Total Score (out of 56 points) 45 Best Impairment Rating 1 to 19% Impaired (Score 45-55 ) PT-OP-E Functional Tests Start: 09/01/22 17:32 Freq: Status: Active Protocol: Document 09/09/22 16:30 DCW (Rec: 09/09/22 17:19 DCW [id number]) Functional Tests 6 Minute Walk Test Distance 1138' Device Used none Comments 3.16 ft/sec Dynamic Gait Index (DGI) Score 20/24 DGI Impairment Rating 1 to <20% Impaired (Score 20- 23) PT-OP-Q Treatments Start: 09/01/22 17:32 Freq: Status: Active Protocol: Document 12/15/22 10:15 DCW (Rec: 12/15/22 11:02 DCW [id number]) Gym Equipment Shuttle Recovery Unilateral Squats Resistance 37# Shuttle Recovery Platform Stable Bilateral Squats Resistance 62# Shuttle Recovery Platform Stable Shuttle Balance Red Details WBOS (EO/EC), Staggered, Lateral weight shift Neuro Re-Education Treatment Balance Activities Dynamic gait Details Head turns in hallway, Retro ambulation, tandem ambulation Comments Horizontal/Vertical Metronome 100 bpm Hurdles Details Hurdles/foam over uneven blue pad PT-OP-T Assessment and Plan Start: 09/01/22 17:32 Freq: Status: Active Protocol: Document 12/15/22 10:15 DCW (Rec: 12/15/22 11:02 DCW [id number]) Physical Therapy Assessment Impairments Impairments Activity Tolerance,Balance, Coordination,Strength Goals Two Impairment Pt scores as a falls risk, per Best (36/56) Short Term Goal (STG) Pt to increase Best score by at least 10 points to 46/56 in order to demonstrate decreased falls risk. STG Duration 12/27/22 - Improved (45/56) One Impairment Pt does not have an appropriate home exercise program Short Term Goal (STG) Pt to be independent and compliant with an appropriate HEP STG Duration Met Assessment Summary Assessment Pt struggled more today after an extended time off from PT due to scheduling difficulties . Admits she has not been very compliant with HEP, but had increased difficulty with hurdles/foam, increased fear of falling with balance challenges today. Physical Therapy Plan Frequency and Duration Frequency of Treatment 2x/Week Plan of Care Start Date 10/27/22 Plan of Care End Date 12/27/22 Therapeutic Interventions Therapeutic Interventions Balance Training,Canalithic Repositioning,Gait Training, Home Exercise Program,Manual Therapy,Neuromuscular Re- education,Patient/Caregiver Education,Self-Care/Home Management,Soft Tissue Mobilization,Therapeutic Activities,Therapeutic Exercises Next Visit Focus/Plan Next Note Type Treatment Note Next Visit Plan Balance training, vestibular testing if indicated
--- NOTE | 2022-12-17 15:30 | PT.OTN ---
Current Diagnoses Benign paroxysmal vertigo, unspecified ear (12/17/22) Sensorineural hearing loss, bilateral (12/17/22) Unsteadiness on feet (12/17/22) Other abnormalities of gait and mobility (12/17/22) Physical Therapy Treatment Note PT-OP-A Visit Information Start: 09/01/22 17:32 Freq: Status: Active Protocol: Document 12/17/22 14:47 DCW (Rec: 12/17/22 15:30 DCW [id number]) Out-Patient Physical Therapy Visit Information Visit Information Visit Type Treatment Note Visit Start Time 14:47 Visit Stop Time 15:30 Total Visit Minutes 43 Visit Number 22 Number of HUMAN RESOURCES BENEFITS ADMINISTRATOR Visits 0 Evaluation Information Evaluation Date 09/01/22 PT-OP-B Current Condition Start: 09/01/22 17:32 Freq: Status: Active Protocol: Document 09/01/22 16:30 DCW (Rec: 09/01/22 17:49 DCW [id number]) Current Condition History of Current Condition Onset Date Multi-month history Current Complaints Poor balance, occasional episodes of vertigo, fear of falling History of Current Condition Pt is an 81 year old female referred to skilled therapy due to recent episodes of position-dependent positional vertigo. Pt reports it began in March when she was on vacation in [place], but only happened once, and at the time was told she was probably dehydrated. Recurred again in June, happened off and on for a few weeks where she would have brief episodes of dizziness when changing positions or getting up from bed. She admits she hasn't really had any continuing episodes since the beginning of July, so I don't really know if I even need to be here . Does, however, admit that she is petrified of falling, and really feels like she has been struggling with her general balance. Uses a walking stick for community ambulation, but otherwise typically does not use an assistive device. Has had bilateral TKAs, a R reverse TSA, and a lumbar microdiscectomy, and has undergone PT after all of these surgeries, however feels like her balance has never really been addressed. PT-OP-C Subjective Start: 09/01/22 17:32 Freq: Status: Active Protocol: Document 12/17/22 14:47 DCW (Rec: 12/17/22 15:30 DCW [id number]) OP-PT Subjective Patient Comments Patient Comments Pt admits she struggled a bit today when practicing her sit< ->stands. PT-OP-D Balance Start: 09/01/22 17:32 Freq: Status: Active Protocol: Document 10/27/22 16:30 DCW (Rec: 10/27/22 16:51 DCW [id number]) Balance Tests Best Balance Test Best Balance Test Score 45/56 Best Impairment Rating 1 to 19% Impaired (Score 45-55 ) Best Balance Assessment Evaluation Sitting to Standing Ability Independent w/out Hands Unsupported Stance Safely- 2 minutes Sitting Unsupported, Feet on Floor Safely- 2 minutes Standing to Sitting Ability Safely, Minimal Hand Use Transfer Ability Safely, Minimal Hand Use Unsupported Stance- Eyes Closed Safely, 10 seconds Unsupported Stance- Eyes Open Independent, 1 minute Reaching Forward Standing Safely, 5 inches Pick- Up Object From Floor Requires Supervision Look Behind Shoulder - Standing Turns Sideways Only Turning 360 Degrees Turns Bilateral, < 4 secs Unsupported Stance, Alternating Feet on (I)- 8 Steps in 20 secs Stair Unsupported Tandem Stance Small Step- 30 seconds Unilateral Leg Stance Lifts Leg/Unable to Hold Total Score Best Total Score (out of 56 points) 45 Best Impairment Rating 1 to 19% Impaired (Score 45-55 ) PT-OP-E Functional Tests Start: 09/01/22 17:32 Freq: Status: Active Protocol: Document 09/09/22 16:30 DCW (Rec: 09/09/22 17:19 DCW [id number]) Functional Tests 6 Minute Walk Test Distance 1138' Device Used none Comments 3.16 ft/sec Dynamic Gait Index (DGI) Score 20/24 DGI Impairment Rating 1 to <20% Impaired (Score 20- 23) PT-OP-Q Treatments Start: 09/01/22 17:32 Freq: Status: Active Protocol: Document 12/17/22 14:47 DCW (Rec: 12/17/22 15:30 DCW [id number]) Gym Equipment Shuttle Recovery Unilateral Squats Resistance 37# Shuttle Recovery Platform Stable Bilateral Squats Resistance 62# Shuttle Recovery Platform Stable Shuttle Balance Red Details WBOS (EO/EC), Staggered, Lateral weight shift Therapeutic Exercises Other Exercises Resisted Ambulation Other Exercise Name Resisted Side-stepping Resistance Blue loop Therapeutic Activity Therapeutic Activity StS Name Sit<->Stand Reps/Minutes x15 Neuro Re-Education Treatment Balance Activities Hurdles Details Hurdles Tandem Details Tandem Stance PT-OP-T Assessment and Plan Start: 09/01/22 17:32 Freq: Status: Active Protocol: Document 12/17/22 14:47 DCW (Rec: 12/17/22 15:30 DCW [id number]) Physical Therapy Assessment Impairments Impairments Activity Tolerance,Balance, Coordination,Strength Goals Two Impairment Pt scores as a falls risk, per Best (36/56) Short Term Goal (STG) Pt to increase Best score by at least 10 points to 46/56 in order to demonstrate decreased falls risk. STG Duration 12/27/22 - Improved (45/56) One Impairment Pt does not have an appropriate home exercise program Short Term Goal (STG) Pt to be independent and compliant with an appropriate HEP STG Duration Met Assessment Summary Assessment Good response to verbal cues with sit<->stands, showed significant improvement in quality with repetition. Physical Therapy Plan Frequency and Duration Frequency of Treatment 2x/Week Plan of Care Start Date 10/27/22 Plan of Care End Date 12/27/22 Therapeutic Interventions Therapeutic Interventions Balance Training,Canalithic Repositioning,Gait Training, Home Exercise Program,Manual Therapy,Neuromuscular Re- education,Patient/Caregiver Education,Self-Care/Home Management,Soft Tissue Mobilization,Therapeutic Activities,Therapeutic Exercises Next Visit Focus/Plan Next Note Type Progress Note Next Visit Plan Balance training, vestibular testing if indicated
--- NOTE | 2022-12-24 17:28 | PT.OTN ---
Current Diagnoses Benign paroxysmal vertigo, unspecified ear (12/24/22) Sensorineural hearing loss, bilateral (12/24/22) Unsteadiness on feet (12/24/22) Other abnormalities of gait and mobility (12/24/22) Physical Therapy Treatment Note PT-OP-A Visit Information Start: 09/01/22 17:32 Freq: Status: Active Protocol: Document 12/24/22 15:45 DCW (Rec: 12/24/22 17:28 DCW [id number]) Out-Patient Physical Therapy Visit Information Visit Information Visit Type Progress Note Visit Start Time 15:45 Visit Stop Time 16:30 Total Visit Minutes 45 Visit Number 23 Number of FARM CONTRACTOR Visits 0 Evaluation Information Evaluation Date 09/01/22 PT-OP-B Current Condition Start: 09/01/22 17:32 Freq: Status: Active Protocol: Document 09/01/22 16:30 DCW (Rec: 09/01/22 17:49 DCW [id number]) Current Condition History of Current Condition Onset Date Multi-month history Current Complaints Poor balance, occasional episodes of vertigo, fear of falling History of Current Condition Pt is an 81 year old female referred to skilled therapy due to recent episodes of position-dependent positional vertigo. Pt reports it began in March when she was on vacation in [place], but only happened once, and at the time was told she was probably dehydrated. Recurred again in June, happened off and on for a few weeks where she would have brief episodes of dizziness when changing positions or getting up from bed. She admits she hasn't really had any continuing episodes since the beginning of July, so I don't really know if I even need to be here . Does, however, admit that she is petrified of falling, and really feels like she has been struggling with her general balance. Uses a walking stick for community ambulation, but otherwise typically does not use an assistive device. Has had bilateral TKAs, a R reverse TSA, and a lumbar microdiscectomy, and has undergone PT after all of these surgeries, however feels like her balance has never really been addressed. PT-OP-C Subjective Start: 09/01/22 17:32 Freq: Status: Active Protocol: Document 12/24/22 15:45 DCW (Rec: 12/24/22 17:28 DCW [id number]) OP-PT Subjective Patient Comments Patient Comments Pt voices concerns regarding ability to get herself up off the floor. PT-OP-D Balance Start: 09/01/22 17:32 Freq: Status: Active Protocol: Document 12/24/22 15:45 DCW (Rec: 12/24/22 16:28 [facility] [id number]) Balance Tests Best Balance Test Best Balance Test Score 51/56 Best Impairment Rating 1 to 19% Impaired (Score 45-55 ) Best Balance Assessment Evaluation Sitting to Standing Ability Independent w/out Hands Unsupported Stance Safely- 2 minutes Sitting Unsupported, Feet on Floor Safely- 2 minutes Standing to Sitting Ability Safely, Minimal Hand Use Transfer Ability Safely, Minimal Hand Use Unsupported Stance- Eyes Closed Safely, 10 seconds Unsupported Stance- Eyes Open Independent, 1 minute Reaching Forward Standing Safely, 5 inches Pick- Up Object From Floor Independent/Safe Look Behind Shoulder - Standing Shifts Weight Well Turning 360 Degrees Turns Bilateral, < 4 secs Unsupported Stance, Alternating Feet on (I)- 8 Steps in 20 secs Stair Unsupported Tandem Stance Holds Tandem- 30 seconds Unilateral Leg Stance Lifts Leg/Unable to Hold Total Score Best Total Score (out of 56 points) 51 Best Impairment Rating 1 to 19% Impaired (Score 45-55 ) PT-OP-E Functional Tests Start: 09/01/22 17:32 Freq: Status: Active Protocol: Document 12/24/22 15:45 DCW (Rec: 12/24/22 16:28 [facility] [id number]) Functional Tests Dynamic Gait Index (DGI) Score 21/24 DGI Impairment Rating 1 to <20% Impaired (Score 20- 23) Functional Gait Assessment Score 21/30 Functional Gait Assessment Impairment 20 to <40% Impaired (Score 19- Rating 24) PT-OP-Q Treatments Start: 09/01/22 17:32 Freq: Status: Active Protocol: Document 12/24/22 15:45 DCW (Rec: 12/24/22 17:28 [facility] [id number]) Neuro Re-Education Treatment Other Activities ZOË Centeno PT-OP-T Assessment and Plan Start: 09/01/22 17:32 Freq: Status: Active Protocol: Document 12/24/22 15:45 DCW (Rec: 12/24/22 17:28 DC [id number]) Physical Therapy Assessment Impairments Impairments Activity Tolerance,Balance, Coordination,Strength Goals Three Impairment Pt unable to perform floor transfer without assistance Email Operations Manager Goal (LTG) Pt to demonstrate ability to get herself up off the floor without assistance from therapist or without using an object to push off of to improve self-confidence and safety in event of a fall. LTG Duration 02/23/23 Two Impairment Pt scores as a falls risk, per Best (36/56) Short Term Goal (STG) Pt to increase Best score by at least 10 points to 46/56 in order to demonstrate decreased falls risk. STG Duration Met One Impairment Pt does not have an appropriate home exercise program Short Term Goal (STG) Pt to be independent and compliant with an appropriate HEP STG Duration Met Assessment Summary Assessment Balance testing showing good improvement overall. Best score improved from 36/56 at initial evaluation to 51/56 today. Pt scores a 21/30 on the FGA, mean score for her age group in healthy adults is 20.8. 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 Should continue to focus on high- level balance challenges as well as addition of floor transfer techniques Physical Therapy Plan Frequency and Duration Frequency of Treatment 2x/Week Plan of Care Start Date 10/27/22 Plan of Care End Date 12/27/22 Therapeutic Interventions Therapeutic Interventions Balance Training,Canalithic Repositioning,Gait Training, Home Exercise Program,Manual Therapy,Neuromuscular Re- education,Patient/Caregiver Education,Self-Care/Home Management,Soft Tissue Mobilization,Therapeutic Activities,Therapeutic Exercises Next Visit Focus/Plan Next Note Type Treatment Note Next Visit Plan Balance training, vestibular testing if indicated, floor transfers
--- NOTE | 2022-12-24 17:28 | PT.OPPOC ---
Physical, Occupational & Speech Therapy At [facility] Current Diagnoses Benign paroxysmal vertigo, unspecified ear (12/24/22) Sensorineural hearing loss, bilateral (12/24/22) Unsteadiness on feet (12/24/22) Other abnormalities of gait and mobility (12/24/22) Visit Care Team Role Provider Type Briseyda Russell PA-C Attending Provider Advanced Bindery Operator Family Provider Primary Care Provider Referring Provider Specialty: Medical Address: [address] [place] [id number] Email: Plan Of Care PT-OP-T Assessment and Plan Start: 09/01/22 17:32 Freq: Status: Active Protocol: Document 12/24/22 15:45 DCW (Rec: 12/24/22 17:28 DCW [id number]) Physical Therapy Assessment Impairments Impairments Activity Tolerance,Balance, Coordination,Strength Goals Three Impairment Pt unable to perform floor transfer without assistance Forging Press Operator Goal (LTG) Pt to demonstrate ability to get herself up off the floor without assistance from therapist or without using an object to push off of to improve self-confidence and safety in event of a fall. LTG Duration 02/23/23 Two Impairment Pt scores as a falls risk, per Best (36/56) Short Term Goal (STG) Pt to increase Best score by at least 10 points to 46/56 in order to demonstrate decreased falls risk. STG Duration Met One Impairment Pt does not have an appropriate home exercise program Short Term Goal (STG) Pt to be independent and compliant with an appropriate HEP STG Duration Met Assessment Summary Assessment Balance testing showing good improvement overall. Best score improved from 36/56 at initial evaluation to 51/56 today. Pt scores a 21/30 on the FGA, mean score for her age group in healthy adults is 20.8. 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 Should continue to focus on high- level balance challenges as well as addition of floor transfer techniques Physical Therapy Plan Frequency and Duration Frequency of Treatment 2x/Week Plan of Care Start Date 10/27/22 Plan of Care End Date 12/27/22 Therapeutic Interventions Therapeutic Interventions Balance Training,Canalithic Repositioning,Gait Training, Home Exercise Program,Manual Therapy,Neuromuscular Re- education,Patient/Caregiver Education,Self-Care/Home Management,Soft Tissue Mobilization,Therapeutic Activities,Therapeutic Exercises Next Visit Focus/Plan Next Note Type Treatment Note Next Visit Plan Balance training, vestibular testing if indicated, floor transfers Plan of Care Dates Plan of Care Start Date 10/27/22 Plan of Care End Date 12/27/22 Electronically Signed by: Sandor Kothari, PT 12/24/22 3312 If you are in agreement with this Plan of Care, please return a signed and dated copy. I have reviewed this Plan of Care and certify that the skilled therapy services above are required to meet the patient?s needs. Physician Signature Date Printed Name and Credentials Clinical Instructor Signature Printed Name and Credentials
--- NOTE | 2022-12-24 17:30 | PT.OPPOC ---
Physical, Occupational & Speech Therapy At [facility] Current Diagnoses Benign paroxysmal vertigo, unspecified ear (01/07/23) Sensorineural hearing loss, bilateral (01/07/23) Unsteadiness on feet (01/07/23) Other abnormalities of gait and mobility (01/07/23) Visit Care Team Role Provider Type Briseyda Russell PA-C Attending Provider Advanced Clay Thrower Family Provider Primary Care Provider Referring Provider Specialty: Medical Address: [address] [place] [address], [id number] Email: Plan Of Care PT-OP-T Assessment and Plan Start: 09/01/22 17:32 Freq: Status: Active Protocol: Document 01/07/23 16:44 DCW (Rec: 12/24/22 17:28 DCW [id number]) Physical Therapy Assessment Impairments Impairments Activity Tolerance,Balance, Coordination,Strength Goals Three Impairment Pt unable to perform floor transfer without assistance Counter Molder Goal (LTG) Pt to demonstrate ability to get herself up off the floor without assistance from therapist or without using an object to push off of to improve self-confidence and safety in event of a fall. LTG Duration 02/23/23 Two Impairment Pt scores as a falls risk, per Best (36/56) Short Term Goal (STG) Pt to increase Best score by at least 10 points to 46/56 in order to demonstrate decreased falls risk. STG Duration Met One Impairment Pt does not have an appropriate home exercise program Short Term Goal (STG) Pt to be independent and compliant with an appropriate HEP STG Duration Met Assessment Summary Assessment Balance testing showing good improvement overall. Best score improved from 36/56 at initial evaluation to 51/56 today. Pt scores a 21/30 on the FGA, mean score for her age group in healthy adults is 20.8. 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 Should continue to focus on high- level balance challenges as well as addition of floor transfer techniques Physical Therapy Plan Frequency and Duration Frequency of Treatment 2x/Week Plan of Care Start Date 10/27/22 Plan of Care End Date 12/27/22 Therapeutic Interventions Therapeutic Interventions Balance Training,Canalithic Repositioning,Gait Training, Home Exercise Program,Manual Therapy,Neuromuscular Re- education,Patient/Caregiver Education,Self-Care/Home Management,Soft Tissue Mobilization,Therapeutic Activities,Therapeutic Exercises Next Visit Focus/Plan Next Note Type Treatment Note Next Visit Plan Balance training, vestibular testing if indicated, floor transfers Plan of Care Dates Plan of Care Start Date 10/27/22 Plan of Care End Date 12/27/22 Electronically Signed by: Sandor Kothari, PT 01/07/23 2458 If you are in agreement with this Plan of Care, please return a signed and dated copy. I have reviewed this Plan of Care and certify that the skilled therapy services above are required to meet the patient?s needs. Physician Signature Date Printed Name and Credentials Clinical Instructor Signature Printed Name and Credentials
--- NOTE | 2022-12-24 17:30 | PT.OTN ---
Current Diagnoses Benign paroxysmal vertigo, unspecified ear (01/07/23) Sensorineural hearing loss, bilateral (01/07/23) Unsteadiness on feet (01/07/23) Other abnormalities of gait and mobility (01/07/23) Physical Therapy Treatment Note PT-OP-A Visit Information Start: 09/01/22 17:32 Freq: Status: Active Protocol: Document 01/07/23 16:44 DCW (Rec: 12/24/22 17:28 DCW [id number]) Out-Patient Physical Therapy Visit Information Visit Information Visit Type Progress Note Visit Start Time 15:45 Visit Stop Time 16:30 Total Visit Minutes 45 Visit Number 23 Number of PROMOTIONS REPRESENTATIVE Visits 0 Evaluation Information Evaluation Date 09/01/22 PT-OP-B Current Condition Start: 09/01/22 17:32 Freq: Status: Active Protocol: Document 09/01/22 16:30 DCW (Rec: 09/01/22 17:49 DCW [id number]) Current Condition History of Current Condition Onset Date Multi-month history Current Complaints Poor balance, occasional episodes of vertigo, fear of falling History of Current Condition Pt is an 81 year old female referred to skilled therapy due to recent episodes of position-dependent positional vertigo. Pt reports it began in March when she was on vacation in [place], but only happened once, and at the time was told she was probably dehydrated. Recurred again in June, happened off and on for a few weeks where she would have brief episodes of dizziness when changing positions or getting up from bed. She admits she hasn't really had any continuing episodes since the beginning of July, so I don't really know if I even need to be here . Does, however, admit that she is petrified of falling, and really feels like she has been struggling with her general balance. Uses a walking stick for community ambulation, but otherwise typically does not use an assistive device. Has had bilateral TKAs, a R reverse TSA, and a lumbar microdiscectomy, and has undergone PT after all of these surgeries, however feels like her balance has never really been addressed. PT-OP-C Subjective Start: 09/01/22 17:32 Freq: Status: Active Protocol: Document 01/07/23 16:44 DCW (Rec: 12/24/22 17:28 DCW [id number]) OP-PT Subjective Patient Comments Patient Comments Pt voices concerns regarding ability to get herself up off the floor. PT-OP-D Balance Start: 09/01/22 17:32 Freq: Status: Active Protocol: Document 01/07/23 16:44 DCW (Rec: 12/24/22 16:28 [facility] [id number]) Balance Tests Best Balance Test Best Balance Test Score 51/56 Best Impairment Rating 1 to 19% Impaired (Score 45-55 ) Best Balance Assessment Evaluation Sitting to Standing Ability Independent w/out Hands Unsupported Stance Safely- 2 minutes Sitting Unsupported, Feet on Floor Safely- 2 minutes Standing to Sitting Ability Safely, Minimal Hand Use Transfer Ability Safely, Minimal Hand Use Unsupported Stance- Eyes Closed Safely, 10 seconds Unsupported Stance- Eyes Open Independent, 1 minute Reaching Forward Standing Safely, 5 inches Pick- Up Object From Floor Independent/Safe Look Behind Shoulder - Standing Shifts Weight Well Turning 360 Degrees Turns Bilateral, < 4 secs Unsupported Stance, Alternating Feet on (I)- 8 Steps in 20 secs Stair Unsupported Tandem Stance Holds Tandem- 30 seconds Unilateral Leg Stance Lifts Leg/Unable to Hold Total Score Best Total Score (out of 56 points) 51 Best Impairment Rating 1 to 19% Impaired (Score 45-55 ) PT-OP-E Functional Tests Start: 09/01/22 17:32 Freq: Status: Active Protocol: Document 01/07/23 16:44 DCW (Rec: 12/24/22 16:28 [facility] [id number]) Functional Tests Dynamic Gait Index (DGI) Score 21/24 DGI Impairment Rating 1 to <20% Impaired (Score 20- 23) Functional Gait Assessment Score 21/30 Functional Gait Assessment Impairment 20 to <40% Impaired (Score 19- Rating 24) PT-OP-Q Treatments Start: 09/01/22 17:32 Freq: Status: Active Protocol: Document 01/07/23 16:44 DCW (Rec: 12/24/22 17:28 [facility] [id number]) Neuro Re-Education Treatment Other Activities ZOË Centeno PT-OP-T Assessment and Plan Start: 09/01/22 17:32 Freq: Status: Active Protocol: Document 01/07/23 16:44 DCW (Rec: 12/24/22 17:28 [facility] [id number]) Physical Therapy Assessment Impairments Impairments Activity Tolerance,Balance, Coordination,Strength Goals Three Impairment Pt unable to perform floor transfer without assistance Attending Urologist Goal (LTG) Pt to demonstrate ability to get herself up off the floor without assistance from therapist or without using an object to push off of to improve self-confidence and safety in event of a fall. LTG Duration 02/23/23 Two Impairment Pt scores as a falls risk, per Best (36/56) Short Term Goal (STG) Pt to increase Best score by at least 10 points to 46/56 in order to demonstrate decreased falls risk. STG Duration Met One Impairment Pt does not have an appropriate home exercise program Short Term Goal (STG) Pt to be independent and compliant with an appropriate HEP STG Duration Met Assessment Summary Assessment Balance testing showing good improvement overall. Best score improved from 36/56 at initial evaluation to 51/56 today. Pt scores a 21/30 on the FGA, mean score for her age group in healthy adults is 20.8. 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 Should continue to focus on high- level balance challenges as well as addition of floor transfer techniques Physical Therapy Plan Frequency and Duration Frequency of Treatment 2x/Week Plan of Care Start Date 10/27/22 Plan of Care End Date 12/27/22 Therapeutic Interventions Therapeutic Interventions Balance Training,Canalithic Repositioning,Gait Training, Home Exercise Program,Manual Therapy,Neuromuscular Re- education,Patient/Caregiver Education,Self-Care/Home Management,Soft Tissue Mobilization,Therapeutic Activities,Therapeutic Exercises Next Visit Focus/Plan Next Note Type Treatment Note Next Visit Plan Balance training, vestibular testing if indicated, floor transfers
--- NOTE | 2023-01-07 16:49 | PT.OTN ---
Current Diagnoses Benign paroxysmal vertigo, unspecified ear (01/07/23) Sensorineural hearing loss, bilateral (01/07/23) Unsteadiness on feet (01/07/23) Other abnormalities of gait and mobility (01/07/23) Physical Therapy Treatment Note PT-OP-A Visit Information Start: 09/01/22 17:32 Freq: Status: Active Protocol: Document 01/07/23 16:05 DCW (Rec: 01/07/23 16:43 DCW [id number]) Out-Patient Physical Therapy Visit Information Visit Information Visit Type Treatment Note Visit Start Time 16:05 Visit Stop Time 16:45 Total Visit Minutes 40 Visit Number 24 Number of CASE BRIEFER Visits 0 Evaluation Information Evaluation Date 09/01/22 PT-OP-B Current Condition Start: 09/01/22 17:32 Freq: Status: Active Protocol: Document 09/01/22 16:30 DCW (Rec: 09/01/22 17:49 DCW [id number]) Current Condition History of Current Condition Onset Date Multi-month history Current Complaints Poor balance, occasional episodes of vertigo, fear of falling History of Current Condition Pt is an 81 year old female referred to skilled therapy due to recent episodes of position-dependent positional vertigo. Pt reports it began in March when she was on vacation in [place], but only happened once, and at the time was told she was probably dehydrated. Recurred again in June, happened off and on for a few weeks where she would have brief episodes of dizziness when changing positions or getting up from bed. She admits she hasn't really had any continuing episodes since the beginning of July, so I don't really know if I even need to be here . Does, however, admit that she is petrified of falling, and really feels like she has been struggling with her general balance. Uses a walking stick for community ambulation, but otherwise typically does not use an assistive device. Has had bilateral TKAs, a R reverse TSA, and a lumbar microdiscectomy, and has undergone PT after all of these surgeries, however feels like her balance has never really been addressed. PT-OP-C Subjective Start: 09/01/22 17:32 Freq: Status: Active Protocol: Document 01/07/23 16:05 DCW (Rec: 01/07/23 16:43 DCW [id number]) OP-PT Subjective Patient Comments Patient Comments Pt feeling good today, a little tired PT-OP-D Balance Start: 09/01/22 17:32 Freq: Status: Active Protocol: Document 12/24/22 15:45 DCW (Rec: 12/24/22 16:28 DC [id number]) Balance Tests Best Balance Test Best Balance Test Score 51/56 Best Impairment Rating 1 to 19% Impaired (Score 45-55 ) Best Balance Assessment Evaluation Sitting to Standing Ability Independent w/out Hands Unsupported Stance Safely- 2 minutes Sitting Unsupported, Feet on Floor Safely- 2 minutes Standing to Sitting Ability Safely, Minimal Hand Use Transfer Ability Safely, Minimal Hand Use Unsupported Stance- Eyes Closed Safely, 10 seconds Unsupported Stance- Eyes Open Independent, 1 minute Reaching Forward Standing Safely, 5 inches Pick- Up Object From Floor Independent/Safe Look Behind Shoulder - Standing Shifts Weight Well Turning 360 Degrees Turns Bilateral, < 4 secs Unsupported Stance, Alternating Feet on (I)- 8 Steps in 20 secs Stair Unsupported Tandem Stance Holds Tandem- 30 seconds Unilateral Leg Stance Lifts Leg/Unable to Hold Total Score Best Total Score (out of 56 points) 51 Best Impairment Rating 1 to 19% Impaired (Score 45-55 ) PT-OP-E Functional Tests Start: 09/01/22 17:32 Freq: Status: Active Protocol: Document 12/24/22 15:45 DCW (Rec: 12/24/22 16:28 DC [id number]) Functional Tests Dynamic Gait Index (DGI) Score 21/24 DGI Impairment Rating 1 to <20% Impaired (Score 20- 23) Functional Gait Assessment Score 21/30 Functional Gait Assessment Impairment 20 to <40% Impaired (Score 19- Rating 24) PT-OP-Q Treatments Start: 09/01/22 17:32 Freq: Status: Active Protocol: Document 01/07/23 16:05 DCW (Rec: 01/07/23 16:43 DCW [id number]) Gym Equipment Shuttle Balance Red Details WBOS (EO/EC), Staggered, Lateral weight shift Therapeutic Activity Therapeutic Activity Floor Transfers Reps/Minutes x3 Comments Chair->SL on Floor pad->Quad-> Long kneeling->Standing StS Name Sit<->Stand Reps/Minutes x15 Neuro Re-Education Treatment Balance Activities Hurdles Details Foam stepping stones over uneven blue foam PT-OP-T Assessment and Plan Start: 09/01/22 17:32 Freq: Status: Active Protocol: Document 01/07/23 16:05 DCW (Rec: 01/07/23 16:43 DCW [id number]) Physical Therapy Assessment Impairments Impairments Activity Tolerance,Balance, Coordination,Strength Goals Three Impairment Pt unable to perform floor transfer without assistance Fci Goal (LTG) Pt to demonstrate ability to get herself up off the floor without assistance from therapist or without using an object to push off of to improve self-confidence and safety in event of a fall. LTG Duration 02/23/23 Two Impairment Pt scores as a falls risk, per Best (36/56) Short Term Goal (STG) Pt to increase Best score by at least 10 points to 46/56 in order to demonstrate decreased falls risk. STG Duration Met One Impairment Pt does not have an appropriate home exercise program Short Term Goal (STG) Pt to be independent and compliant with an appropriate HEP STG Duration Met Assessment Summary Assessment Attempted floor transfers today, did well if provided with chair to push off from or Mod Ax1 from therapist, but currently unable to perform independently without assistance. Continue to work on LE strengthening. Physical Therapy Plan Frequency and Duration Frequency of Treatment 2x/Week Plan of Care Start Date 12/24/22 Plan of Care End Date 02/23/23 Therapeutic Interventions Therapeutic Interventions Balance Training,Canalithic Repositioning,Gait Training, Home Exercise Program,Manual Therapy,Neuromuscular Re- education,Patient/Caregiver Education,Self-Care/Home Management,Soft Tissue Mobilization,Therapeutic Activities,Therapeutic Exercises Next Visit Focus/Plan Next Note Type Treatment Note Next Visit Plan Balance training, vestibular testing if indicated, floor transfers
--- NOTE | 2023-01-13 16:45 | PT.OTN ---
Current Diagnoses Benign paroxysmal vertigo, unspecified ear (01/13/23) Sensorineural hearing loss, bilateral (01/13/23) Unsteadiness on feet (01/13/23) Other abnormalities of gait and mobility (01/13/23) Physical Therapy Treatment Note PT-OP-A Visit Information Start: 09/01/22 17:32 Freq: Status: Active Protocol: Document 01/13/23 16:02 DCW (Rec: 01/13/23 16:45 DCW [id number]) Out-Patient Physical Therapy Visit Information Visit Information Visit Type Treatment Note Visit Start Time 16:02 Visit Stop Time 16:45 Total Visit Minutes 43 Visit Number 25 Number of SENIOR NETWORK ADMINISTRATOR Visits 0 Evaluation Information Evaluation Date 09/01/22 PT-OP-B Current Condition Start: 09/01/22 17:32 Freq: Status: Active Protocol: Document 09/01/22 16:30 DCW (Rec: 09/01/22 17:49 DCW [id number]) Current Condition History of Current Condition Onset Date Multi-month history Current Complaints Poor balance, occasional episodes of vertigo, fear of falling History of Current Condition Pt is an 81 year old female referred to skilled therapy due to recent episodes of position-dependent positional vertigo. Pt reports it began in March when she was on vacation in [place], but only happened once, and at the time was told she was probably dehydrated. Recurred again in June, happened off and on for a few weeks where she would have brief episodes of dizziness when changing positions or getting up from bed. She admits she hasn't really had any continuing episodes since the beginning of July, so I don't really know if I even need to be here . Does, however, admit that she is petrified of falling, and really feels like she has been struggling with her general balance. Uses a walking stick for community ambulation, but otherwise typically does not use an assistive device. Has had bilateral TKAs, a R reverse TSA, and a lumbar microdiscectomy, and has undergone PT after all of these surgeries, however feels like her balance has never really been addressed. PT-OP-C Subjective Start: 09/01/22 17:32 Freq: Status: Active Protocol: Document 01/13/23 16:02 DCW (Rec: 01/13/23 16:45 DCW [id number]) OP-PT Subjective Patient Comments Patient Comments Pt admits she is pretty tired to start with today. PT-OP-D Balance Start: 09/01/22 17:32 Freq: Status: Active Protocol: Document 12/24/22 15:45 DCW (Rec: 12/24/22 16:28 DCW [id number]) Balance Tests Best Balance Test Best Balance Test Score 51/56 Best Impairment Rating 1 to 19% Impaired (Score 45-55 ) Best Balance Assessment Evaluation Sitting to Standing Ability Independent w/out Hands Unsupported Stance Safely- 2 minutes Sitting Unsupported, Feet on Floor Safely- 2 minutes Standing to Sitting Ability Safely, Minimal Hand Use Transfer Ability Safely, Minimal Hand Use Unsupported Stance- Eyes Closed Safely, 10 seconds Unsupported Stance- Eyes Open Independent, 1 minute Reaching Forward Standing Safely, 5 inches Pick- Up Object From Floor Independent/Safe Look Behind Shoulder - Standing Shifts Weight Well Turning 360 Degrees Turns Bilateral, < 4 secs Unsupported Stance, Alternating Feet on (I)- 8 Steps in 20 secs Stair Unsupported Tandem Stance Holds Tandem- 30 seconds Unilateral Leg Stance Lifts Leg/Unable to Hold Total Score Best Total Score (out of 56 points) 51 Best Impairment Rating 1 to 19% Impaired (Score 45-55 ) PT-OP-E Functional Tests Start: 09/01/22 17:32 Freq: Status: Active Protocol: Document 12/24/22 15:45 DCW (Rec: 12/24/22 16:28 DCW [id number]) Functional Tests Dynamic Gait Index (DGI) Score 21/24 DGI Impairment Rating 1 to <20% Impaired (Score 20- 23) Functional Gait Assessment Score 21/30 Functional Gait Assessment Impairment 20 to <40% Impaired (Score 19- Rating 24) PT-OP-Q Treatments Start: 09/01/22 17:32 Freq: Status: Active Protocol: Document 01/13/23 16:02 DCW (Rec: 01/13/23 16:45 DCW [id number]) Gym Equipment Shuttle Recovery Unilateral Squats Resistance 37# (One New) Shuttle Recovery Platform Stable Bilateral Squats Resistance 62# (One New) Shuttle Recovery Platform Stable Shuttle Balance Red Details WBOS (EO/EC), Staggered, Lateral weight shift Therapeutic Activity Therapeutic Activity Floor Transfers Reps/Minutes x2 Comments Chair->SL on Floor pad->Quad-> Long kneeling->Standing Neuro Re-Education Treatment Balance Activities Hurdles Details Hurdles/Foam stepping stones over uneven blue foam PT-OP-T Assessment and Plan Start: 09/01/22 17:32 Freq: Status: Active Protocol: Document 01/13/23 16:02 DCW (Rec: 01/13/23 16:45 DCW [id number]) Physical Therapy Assessment Impairments Impairments Activity Tolerance,Balance, Coordination,Strength Goals Three Impairment Pt unable to perform floor transfer without assistance Usp Goal (LTG) Pt to demonstrate ability to get herself up off the floor without assistance from therapist or without using an object to push off of to improve self-confidence and safety in event of a fall. LTG Duration 02/23/23 Two Impairment Pt scores as a falls risk, per Best (36/56) Short Term Goal (STG) Pt to increase Best score by at least 10 points to 46/56 in order to demonstrate decreased falls risk. STG Duration Met One Impairment Pt does not have an appropriate home exercise program Short Term Goal (STG) Pt to be independent and compliant with an appropriate HEP STG Duration Met Assessment Summary Assessment Once again working on floor transfers, pt continues to have difficulty unless a chair is used for assistance. Physical Therapy Plan Frequency and Duration Frequency of Treatment 2x/Week Plan of Care Start Date 12/24/22 Plan of Care End Date 02/23/23 Therapeutic Interventions Therapeutic Interventions Balance Training,Canalithic Repositioning,Gait Training, Home Exercise Program,Manual Therapy,Neuromuscular Re- education,Patient/Caregiver Education,Self-Care/Home Management,Soft Tissue Mobilization,Therapeutic Activities,Therapeutic Exercises Next Visit Focus/Plan Next Note Type Treatment Note Next Visit Plan Balance training, vestibular testing if indicated, floor transfers
--- NOTE | 2023-01-21 16:44 | PT.OTN ---
Current Diagnoses Benign paroxysmal vertigo, unspecified ear (01/21/23) Sensorineural hearing loss, bilateral (01/21/23) Unsteadiness on feet (01/21/23) Other abnormalities of gait and mobility (01/21/23) Physical Therapy Treatment Note PT-OP-A Visit Information Start: 09/01/22 17:32 Freq: Status: Active Protocol: Document 01/21/23 16:00 DCW (Rec: 01/21/23 16:44 DCW [id number]) Out-Patient Physical Therapy Visit Information Visit Information Visit Type Treatment Note Visit Start Time 16:00 Visit Stop Time 16:45 Total Visit Minutes 45 Visit Number 26 Number of UTILITIES MANAGER Visits 0 Evaluation Information Evaluation Date 09/01/22 PT-OP-B Current Condition Start: 09/01/22 17:32 Freq: Status: Active Protocol: Document 09/01/22 16:30 DCW (Rec: 09/01/22 17:49 DCW [id number]) Current Condition History of Current Condition Onset Date Multi-month history Current Complaints Poor balance, occasional episodes of vertigo, fear of falling History of Current Condition Pt is an 81 year old female referred to skilled therapy due to recent episodes of position-dependent positional vertigo. Pt reports it began in March when she was on vacation in [place], but only happened once, and at the time was told she was probably dehydrated. Recurred again in June, happened off and on for a few weeks where she would have brief episodes of dizziness when changing positions or getting up from bed. She admits she hasn't really had any continuing episodes since the beginning of July, so I don't really know if I even need to be here . Does, however, admit that she is petrified of falling, and really feels like she has been struggling with her general balance. Uses a walking stick for community ambulation, but otherwise typically does not use an assistive device. Has had bilateral TKAs, a R reverse TSA, and a lumbar microdiscectomy, and has undergone PT after all of these surgeries, however feels like her balance has never really been addressed. PT-OP-C Subjective Start: 09/01/22 17:32 Freq: Status: Active Protocol: Document 01/21/23 16:00 DCW (Rec: 01/21/23 16:44 DCW [id number]) OP-PT Subjective Patient Comments Patient Comments Pt feeling pretty good today. PT-OP-D Balance Start: 09/01/22 17:32 Freq: Status: Active Protocol: Document 12/24/22 15:45 DCW (Rec: 12/24/22 16:28 DCW [id number]) Balance Tests Best Balance Test Best Balance Test Score 51/56 Best Impairment Rating 1 to 19% Impaired (Score 45-55 ) Best Balance Assessment Evaluation Sitting to Standing Ability Independent w/out Hands Unsupported Stance Safely- 2 minutes Sitting Unsupported, Feet on Floor Safely- 2 minutes Standing to Sitting Ability Safely, Minimal Hand Use Transfer Ability Safely, Minimal Hand Use Unsupported Stance- Eyes Closed Safely, 10 seconds Unsupported Stance- Eyes Open Independent, 1 minute Reaching Forward Standing Safely, 5 inches Pick- Up Object From Floor Independent/Safe Look Behind Shoulder - Standing Shifts Weight Well Turning 360 Degrees Turns Bilateral, < 4 secs Unsupported Stance, Alternating Feet on (I)- 8 Steps in 20 secs Stair Unsupported Tandem Stance Holds Tandem- 30 seconds Unilateral Leg Stance Lifts Leg/Unable to Hold Total Score Best Total Score (out of 56 points) 51 Best Impairment Rating 1 to 19% Impaired (Score 45-55 ) PT-OP-E Functional Tests Start: 09/01/22 17:32 Freq: Status: Active Protocol: Document 12/24/22 15:45 DCW (Rec: 12/24/22 16:28 DC [id number]) Functional Tests Dynamic Gait Index (DGI) Score 21/24 DGI Impairment Rating 1 to <20% Impaired (Score 20- 23) Functional Gait Assessment Score 21/30 Functional Gait Assessment Impairment 20 to <40% Impaired (Score 19- Rating 24) PT-OP-Q Treatments Start: 09/01/22 17:32 Freq: Status: Active Protocol: Document 01/21/23 16:00 DCW (Rec: 01/21/23 16:44 DCW [id number]) Gym Equipment Shuttle Recovery Unilateral Squats Resistance 37# (One New) Shuttle Recovery Platform Stable Bilateral Squats Resistance 62# (One New) Shuttle Recovery Platform Stable Shuttle Rebound Ball Toss Exercise Details Ball Toss Comments Green 500g ball standing on blue foam Shuttle Balance Red Details WBOS (EO/EC), Staggered, Lateral weight shift Neuro Re-Education Treatment Balance Activities Hurdles Details Hurdles/Foam stepping stones over uneven blue foam PT-OP-T Assessment and Plan Start: 09/01/22 17:32 Freq: Status: Active Protocol: Document 01/21/23 16:00 DCW (Rec: 01/21/23 16:44 DCW [id number]) Physical Therapy Assessment Impairments Impairments Activity Tolerance,Balance, Coordination,Strength Goals Three Impairment Pt unable to perform floor transfer without assistance Alf Goal (LTG) Pt to demonstrate ability to get herself up off the floor without assistance from therapist or without using an object to push off of to improve self-confidence and safety in event of a fall. LTG Duration 02/23/23 Two Impairment Pt scores as a falls risk, per Best (36/56) Short Term Goal (STG) Pt to increase Best score by at least 10 points to 46/56 in order to demonstrate decreased falls risk. STG Duration Met One Impairment Pt does not have an appropriate home exercise program Short Term Goal (STG) Pt to be independent and compliant with an appropriate HEP STG Duration Met Assessment Summary Assessment Attempted side-stepping over hurdles placed on uneven blue pab. Significant difficulty stepping to the left, required multiple VCs for sequencing and reassurance. Physical Therapy Plan Frequency and Duration Frequency of Treatment 2x/Week Plan of Care Start Date 12/24/22 Plan of Care End Date 02/23/23 Therapeutic Interventions Therapeutic Interventions Balance Training,Canalithic Repositioning,Gait Training, Home Exercise Program,Manual Therapy,Neuromuscular Re- education,Patient/Caregiver Education,Self-Care/Home Management,Soft Tissue Mobilization,Therapeutic Activities,Therapeutic Exercises Next Visit Focus/Plan Next Note Type Treatment Note Next Visit Plan Balance training, vestibular testing if indicated, floor transfers
--- NOTE | 2023-01-25 15:57 | PT.OTN ---
Current Diagnoses Benign paroxysmal vertigo, unspecified ear (01/25/23) Sensorineural hearing loss, bilateral (01/25/23) Unsteadiness on feet (01/25/23) Other abnormalities of gait and mobility (01/25/23) Physical Therapy Treatment Note PT-OP-A Visit Information Start: 09/01/22 17:32 Freq: Status: Active Protocol: Document 01/25/23 15:20 DCW (Rec: 01/25/23 15:57 DCW [id number]) Out-Patient Physical Therapy Visit Information Visit Information Visit Type Treatment Note Visit Start Time 15:20 Visit Stop Time 16:00 Total Visit Minutes 40 Visit Number 27 Number of GENERAL LEDGER BOOKKEEPER Visits 0 Evaluation Information Evaluation Date 09/01/22 PT-OP-B Current Condition Start: 09/01/22 17:32 Freq: Status: Active Protocol: Document 09/01/22 16:30 DCW (Rec: 09/01/22 17:49 DCW [id number]) Current Condition History of Current Condition Onset Date Multi-month history Current Complaints Poor balance, occasional episodes of vertigo, fear of falling History of Current Condition Pt is an 81 year old female referred to skilled therapy due to recent episodes of position-dependent positional vertigo. Pt reports it began in March when she was on vacation in [place], but only happened once, and at the time was told she was probably dehydrated. Recurred again in June, happened off and on for a few weeks where she would have brief episodes of dizziness when changing positions or getting up from bed. She admits she hasn't really had any continuing episodes since the beginning of July, so I don't really know if I even need to be here . Does, however, admit that she is petrified of falling, and really feels like she has been struggling with her general balance. Uses a walking stick for community ambulation, but otherwise typically does not use an assistive device. Has had bilateral TKAs, a R reverse TSA, and a lumbar microdiscectomy, and has undergone PT after all of these surgeries, however feels like her balance has never really been addressed. PT-OP-C Subjective Start: 09/01/22 17:32 Freq: Status: Active Protocol: Document 01/25/23 15:20 DCW (Rec: 01/25/23 15:57 DCW [id number]) OP-PT Subjective Patient Comments Patient Comments Pt feeling good today, has a lot to do before leaving for vacation in a few days. PT-OP-D Balance Start: 09/01/22 17:32 Freq: Status: Active Protocol: Document 12/24/22 15:45 DCW (Rec: 12/24/22 16:28 DCW [id number]) Balance Tests Best Balance Test Best Balance Test Score 51/56 Best Impairment Rating 1 to 19% Impaired (Score 45-55 ) Best Balance Assessment Evaluation Sitting to Standing Ability Independent w/out Hands Unsupported Stance Safely- 2 minutes Sitting Unsupported, Feet on Floor Safely- 2 minutes Standing to Sitting Ability Safely, Minimal Hand Use Transfer Ability Safely, Minimal Hand Use Unsupported Stance- Eyes Closed Safely, 10 seconds Unsupported Stance- Eyes Open Independent, 1 minute Reaching Forward Standing Safely, 5 inches Pick- Up Object From Floor Independent/Safe Look Behind Shoulder - Standing Shifts Weight Well Turning 360 Degrees Turns Bilateral, < 4 secs Unsupported Stance, Alternating Feet on (I)- 8 Steps in 20 secs Stair Unsupported Tandem Stance Holds Tandem- 30 seconds Unilateral Leg Stance Lifts Leg/Unable to Hold Total Score Best Total Score (out of 56 points) 51 Best Impairment Rating 1 to 19% Impaired (Score 45-55 ) PT-OP-E Functional Tests Start: 09/01/22 17:32 Freq: Status: Active Protocol: Document 12/24/22 15:45 DCW (Rec: 12/24/22 16:28 DCW [id number]) Functional Tests Dynamic Gait Index (DGI) Score 21/24 DGI Impairment Rating 1 to <20% Impaired (Score 20- 23) Functional Gait Assessment Score 21/30 Functional Gait Assessment Impairment 20 to <40% Impaired (Score 19- Rating 24) PT-OP-Q Treatments Start: 09/01/22 17:32 Freq: Status: Active Protocol: Document 01/25/23 15:20 DCW (Rec: 01/25/23 15:57 DCW [id number]) Gym Equipment Shuttle Recovery Unilateral Squats Resistance 37# (One New) Shuttle Recovery Platform Stable Bilateral Squats Resistance 62# (Two New) Shuttle Recovery Platform Stable Shuttle Rebound Ball Toss Exercise Details Ball Toss Comments Green 500g ball standing on green foam Shuttle Balance Red Details WBOS (EO/EC), Staggered, Lateral weight shift Therapeutic Exercises Other Exercises Step-ups Other Exercise Name Step-ups Side bilateral Equipment Used 6 step Therapeutic Activity Therapeutic Activity Floor Transfers Reps/Minutes x2 Comments Chair->SL on Floor pad->Quad-> Long kneeling @ chair-> Standing PT-OP-T Assessment and Plan Start: 09/01/22 17:32 Freq: Status: Active Protocol: Document 01/25/23 15:20 DCW (Rec: 01/25/23 15:57 DCW [id number]) Physical Therapy Assessment Impairments Impairments Activity Tolerance,Balance, Coordination,Strength Goals Three Impairment Pt unable to perform floor transfer without assistance It Service Technician Goal (LTG) Pt to demonstrate ability to get herself up off the floor without assistance from therapist or without using an object to push off of to improve self-confidence and safety in event of a fall. LTG Duration 02/23/23 Two Impairment Pt scores as a falls risk, per Best (36/56) Short Term Goal (STG) Pt to increase Best score by at least 10 points to 46/56 in order to demonstrate decreased falls risk. STG Duration Met One Impairment Pt does not have an appropriate home exercise program Short Term Goal (STG) Pt to be independent and compliant with an appropriate HEP STG Duration Met Assessment Summary Assessment Continued to attempt independent floor transfers, quad and glute weakness causes pt to get stuck in partial kneel, not yet able to fully get self up off the floor without crawling to chair for support. Physical Therapy Plan Frequency and Duration Frequency of Treatment 2x/Week Plan of Care Start Date 12/24/22 Plan of Care End Date 02/23/23 Therapeutic Interventions Therapeutic Interventions Balance Training,Canalithic Repositioning,Gait Training, Home Exercise Program,Manual Therapy,Neuromuscular Re- education,Patient/Caregiver Education,Self-Care/Home Management,Soft Tissue Mobilization,Therapeutic Activities,Therapeutic Exercises Next Visit Focus/Plan Next Note Type Treatment Note Next Visit Plan Balance training, vestibular testing if indicated, floor transfers
--- NOTE | 2023-02-10 15:17 | PT.OTN ---
Current Diagnoses Benign paroxysmal vertigo, unspecified ear (02/10/23) Sensorineural hearing loss, bilateral (02/10/23) Unsteadiness on feet (02/10/23) Other abnormalities of gait and mobility (02/10/23) Physical Therapy Treatment Note PT-OP-A Visit Information Start: 09/01/22 17:32 Freq: Status: Active Protocol: Document 02/10/23 14:30 DCW (Rec: 02/10/23 15:17 DCW [id number]) Out-Patient Physical Therapy Visit Information Visit Information Visit Type Treatment Note Visit Start Time 14:30 Visit Stop Time 15:15 Total Visit Minutes 45 Visit Number 28 Number of FINISH MIXER Visits 0 Evaluation Information Evaluation Date 09/01/22 PT-OP-B Current Condition Start: 09/01/22 17:32 Freq: Status: Active Protocol: Document 09/01/22 16:30 DCW (Rec: 09/01/22 17:49 DCW [id number]) Current Condition History of Current Condition Onset Date Multi-month history Current Complaints Poor balance, occasional episodes of vertigo, fear of falling History of Current Condition Pt is an 81 year old female referred to skilled therapy due to recent episodes of position-dependent positional vertigo. Pt reports it began in March when she was on vacation in [place], but only happened once, and at the time was told she was probably dehydrated. Recurred again in June, happened off and on for a few weeks where she would have brief episodes of dizziness when changing positions or getting up from bed. She admits she hasn't really had any continuing episodes since the beginning of July, so I don't really know if I even need to be here . Does, however, admit that she is petrified of falling, and really feels like she has been struggling with her general balance. Uses a walking stick for community ambulation, but otherwise typically does not use an assistive device. Has had bilateral TKAs, a R reverse TSA, and a lumbar microdiscectomy, and has undergone PT after all of these surgeries, however feels like her balance has never really been addressed. PT-OP-C Subjective Start: 09/01/22 17:32 Freq: Status: Active Protocol: Document 02/10/23 14:30 DCW (Rec: 02/10/23 15:17 DCW [id number]) OP-PT Subjective Patient Comments Patient Comments Pt returns from her trip to [place]. Reports her balance was okay, I didn't fall, but had trouble getting a chance to do her exercises. PT-OP-D Balance Start: 09/01/22 17:32 Freq: Status: Active Protocol: Document 12/24/22 15:45 DCW (Rec: 12/24/22 16:28 DCW [id number]) Balance Tests Best Balance Test Best Balance Test Score 51/56 Best Impairment Rating 1 to 19% Impaired (Score 45-55 ) Best Balance Assessment Evaluation Sitting to Standing Ability Independent w/out Hands Unsupported Stance Safely- 2 minutes Sitting Unsupported, Feet on Floor Safely- 2 minutes Standing to Sitting Ability Safely, Minimal Hand Use Transfer Ability Safely, Minimal Hand Use Unsupported Stance- Eyes Closed Safely, 10 seconds Unsupported Stance- Eyes Open Independent, 1 minute Reaching Forward Standing Safely, 5 inches Pick- Up Object From Floor Independent/Safe Look Behind Shoulder - Standing Shifts Weight Well Turning 360 Degrees Turns Bilateral, < 4 secs Unsupported Stance, Alternating Feet on (I)- 8 Steps in 20 secs Stair Unsupported Tandem Stance Holds Tandem- 30 seconds Unilateral Leg Stance Lifts Leg/Unable to Hold Total Score Best Total Score (out of 56 points) 51 Best Impairment Rating 1 to 19% Impaired (Score 45-55 ) PT-OP-E Functional Tests Start: 09/01/22 17:32 Freq: Status: Active Protocol: Document 12/24/22 15:45 DCW (Rec: 12/24/22 16:28 DCW [id number]) Functional Tests Dynamic Gait Index (DGI) Score 21/24 DGI Impairment Rating 1 to <20% Impaired (Score 20- 23) Functional Gait Assessment Score 21/30 Functional Gait Assessment Impairment 20 to <40% Impaired (Score 19- Rating 24) PT-OP-Q Treatments Start: 09/01/22 17:32 Freq: Status: Active Protocol: Document 02/10/23 14:30 DCW (Rec: 02/10/23 15:17 DCW [id number]) Gym Equipment Shuttle Recovery Unilateral Squats Resistance 37# (One New) Shuttle Recovery Platform Stable Bilateral Squats Resistance 75# (Two New) Shuttle Recovery Platform Stable Shuttle Rebound Ball Toss Exercise Details Ball Toss Comments Green 500g ball standing on blue foam Shuttle Balance Red Details WBOS (EO/EC), Staggered, Lateral weight shift Neuro Re-Education Treatment Balance Activities Dynamic gait Details Head turns in hallway, Retro ambulation, tandem ambulation Comments Horizontal/Vertical Metronome 100 bpm Hurdles Details Hurdles/Foam stepping stones over uneven blue foam PT-OP-T Assessment and Plan Start: 09/01/22 17:32 Freq: Status: Active Protocol: Document 02/10/23 14:30 DCW (Rec: 02/10/23 15:17 DCW [id number]) Physical Therapy Assessment Impairments Impairments Activity Tolerance,Balance, Coordination,Strength Goals Three Impairment Pt unable to perform floor transfer without assistance Incident Response Specialist Goal (LTG) Pt to demonstrate ability to get herself up off the floor without assistance from therapist or without using an object to push off of to improve self-confidence and safety in event of a fall. LTG Duration 02/23/23 Two Impairment Pt scores as a falls risk, per Best (36/56) Short Term Goal (STG) Pt to increase Best score by at least 10 points to 46/56 in order to demonstrate decreased falls risk. STG Duration Met One Impairment Pt does not have an appropriate home exercise program Short Term Goal (STG) Pt to be independent and compliant with an appropriate HEP STG Duration Met Assessment Summary Assessment Pt doing well after return from vacation, difficulty increased with hurdles and leg press, but pt had good response to increased difficulty, less overall fatigue with activity today. Physical Therapy Plan Frequency and Duration Frequency of Treatment 2x/Week Plan of Care Start Date 12/24/22 Plan of Care End Date 02/23/23 Therapeutic Interventions Therapeutic Interventions Balance Training,Canalithic Repositioning,Gait Training, Home Exercise Program,Manual Therapy,Neuromuscular Re- education,Patient/Caregiver Education,Self-Care/Home Management,Soft Tissue Mobilization,Therapeutic Activities,Therapeutic Exercises Next Visit Focus/Plan Next Note Type Discharge Summary Next Visit Plan Balance training, vestibular testing if indicated, floor transfers
--- NOTE | 2023-02-17 16:45 | PT.OTN ---
Current Diagnoses Benign paroxysmal vertigo, unspecified ear (02/17/23) Sensorineural hearing loss, bilateral (02/17/23) Unsteadiness on feet (02/17/23) Other abnormalities of gait and mobility (02/17/23) Physical Therapy Treatment Note PT-OP-A Visit Information Start: 09/01/22 17:32 Freq: Status: Active Protocol: Document 02/17/23 16:00 DCW (Rec: 02/17/23 16:45 DCW [id number]) Out-Patient Physical Therapy Visit Information Visit Information Visit Type Treatment Note Visit Start Time 16:00 Visit Stop Time 16:45 Total Visit Minutes 45 Visit Number 29 Number of SCRUM COACH Visits 0 Evaluation Information Evaluation Date 09/01/22 PT-OP-B Current Condition Start: 09/01/22 17:32 Freq: Status: Active Protocol: Document 09/01/22 16:30 DCW (Rec: 09/01/22 17:49 DCW [id number]) Current Condition History of Current Condition Onset Date Multi-month history Current Complaints Poor balance, occasional episodes of vertigo, fear of falling History of Current Condition Pt is an 81 year old female referred to skilled therapy due to recent episodes of position-dependent positional vertigo. Pt reports it began in March when she was on vacation in [place], but only happened once, and at the time was told she was probably dehydrated. Recurred again in June, happened off and on for a few weeks where she would have brief episodes of dizziness when changing positions or getting up from bed. She admits she hasn't really had any continuing episodes since the beginning of July, so I don't really know if I even need to be here . Does, however, admit that she is petrified of falling, and really feels like she has been struggling with her general balance. Uses a walking stick for community ambulation, but otherwise typically does not use an assistive device. Has had bilateral TKAs, a R reverse TSA, and a lumbar microdiscectomy, and has undergone PT after all of these surgeries, however feels like her balance has never really been addressed. PT-OP-C Subjective Start: 09/01/22 17:32 Freq: Status: Active Protocol: Document 02/17/23 16:00 DCW (Rec: 02/17/23 16:45 DCW [id number]) OP-PT Subjective Patient Comments Patient Comments Feeling alright today. PT-OP-D Balance Start: 09/01/22 17:32 Freq: Status: Active Protocol: Document 12/24/22 15:45 DCW (Rec: 12/24/22 16:28 DCW [id number]) Balance Tests Best Balance Test Best Balance Test Score 51/56 Best Impairment Rating 1 to 19% Impaired (Score 45-55 ) Best Balance Assessment Evaluation Sitting to Standing Ability Independent w/out Hands Unsupported Stance Safely- 2 minutes Sitting Unsupported, Feet on Floor Safely- 2 minutes Standing to Sitting Ability Safely, Minimal Hand Use Transfer Ability Safely, Minimal Hand Use Unsupported Stance- Eyes Closed Safely, 10 seconds Unsupported Stance- Eyes Open Independent, 1 minute Reaching Forward Standing Safely, 5 inches Pick- Up Object From Floor Independent/Safe Look Behind Shoulder - Standing Shifts Weight Well Turning 360 Degrees Turns Bilateral, < 4 secs Unsupported Stance, Alternating Feet on (I)- 8 Steps in 20 secs Stair Unsupported Tandem Stance Holds Tandem- 30 seconds Unilateral Leg Stance Lifts Leg/Unable to Hold Total Score Best Total Score (out of 56 points) 51 Best Impairment Rating 1 to 19% Impaired (Score 45-55 ) PT-OP-E Functional Tests Start: 09/01/22 17:32 Freq: Status: Active Protocol: Document 12/24/22 15:45 DCW (Rec: 12/24/22 16:28 DC [id number]) Functional Tests Dynamic Gait Index (DGI) Score 21/24 DGI Impairment Rating 1 to <20% Impaired (Score 20- 23) Functional Gait Assessment Score 21/30 Functional Gait Assessment Impairment 20 to <40% Impaired (Score 19- Rating 24) PT-OP-Q Treatments Start: 09/01/22 17:32 Freq: Status: Active Protocol: Document 02/17/23 16:00 DCW (Rec: 02/17/23 16:45 DCW [id number]) Gym Equipment Shuttle Recovery Unilateral Squats Resistance 37# (One New) Shuttle Recovery Platform Stable Bilateral Squats Resistance 75# (Two New) Shuttle Recovery Platform Stable Shuttle Rebound Ball Toss Exercise Details Ball Toss Comments Red 1000g ball standing on blue foam Shuttle Balance Red Details WBOS (EO/EC), Staggered, Lateral weight shift Neuro Re-Education Treatment Balance Activities Dynamic gait Details Head turns in hallway, Retro ambulation, tandem ambulation Comments Horizontal/Vertical head turns Metronome 100 bpm Hurdles Details Hurdles/Foam stepping stones over uneven blue foam PT-OP-T Assessment and Plan Start: 09/01/22 17:32 Freq: Status: Active Protocol: Document 02/17/23 16:00 DCW (Rec: 02/17/23 16:45 DCW [id number]) Physical Therapy Assessment Impairments Impairments Activity Tolerance,Balance, Coordination,Strength Goals Three Impairment Pt unable to perform floor transfer without assistance Senior Care Goal (LTG) Pt to demonstrate ability to get herself up off the floor without assistance from therapist or without using an object to push off of to improve self-confidence and safety in event of a fall. LTG Duration 02/23/23 Two Impairment Pt scores as a falls risk, per Best (36/56) Short Term Goal (STG) Pt to increase Best score by at least 10 points to 46/56 in order to demonstrate decreased falls risk. STG Duration Met One Impairment Pt does not have an appropriate home exercise program Short Term Goal (STG) Pt to be independent and compliant with an appropriate HEP STG Duration Met Assessment Summary Assessment Pt continues to tolerate balance challenges better, fewer instances of LOB, pt exhibiting less fear of falling during challenges. Physical Therapy Plan Frequency and Duration Frequency of Treatment 2x/Week Plan of Care Start Date 12/24/22 Plan of Care End Date 02/23/23 Therapeutic Interventions Therapeutic Interventions Balance Training,Canalithic Repositioning,Gait Training, Home Exercise Program,Manual Therapy,Neuromuscular Re- education,Patient/Caregiver Education,Self-Care/Home Management,Soft Tissue Mobilization,Therapeutic Activities,Therapeutic Exercises Next Visit Focus/Plan Next Note Type Discharge Summary Next Visit Plan Balance training, vestibular testing if indicated, floor transfers
--- NOTE | 2023-03-04 16:44 | PT.OTN ---
Current Diagnoses Benign paroxysmal vertigo, unspecified ear (03/04/23) Sensorineural hearing loss, bilateral (03/04/23) Unsteadiness on feet (03/04/23) Other abnormalities of gait and mobility (03/04/23) Physical Therapy Treatment Note PT-OP-A Visit Information Start: 09/01/22 17:32 Freq: Status: Active Protocol: Document 03/04/23 16:00 DCW (Rec: 03/04/23 16:44 DCW [id number]) Out-Patient Physical Therapy Visit Information Visit Information Visit Type Discharge Summary Visit Start Time 16:00 Visit Stop Time 16:40 Total Visit Minutes 40 Visit Number 30 Number of BOOKMAKER'S CLERK Visits 0 Evaluation Information Evaluation Date 09/01/22 PT-OP-B Current Condition Start: 09/01/22 17:32 Freq: Status: Active Protocol: Document 09/01/22 16:30 DCW (Rec: 09/01/22 17:49 DCW [id number]) Current Condition History of Current Condition Onset Date Multi-month history Current Complaints Poor balance, occasional episodes of vertigo, fear of falling History of Current Condition Pt is an 81 year old female referred to skilled therapy due to recent episodes of position-dependent positional vertigo. Pt reports it began in March when she was on vacation in [place], but only happened once, and at the time was told she was probably dehydrated. Recurred again in June, happened off and on for a few weeks where she would have brief episodes of dizziness when changing positions or getting up from bed. She admits she hasn't really had any continuing episodes since the beginning of July, so I don't really know if I even need to be here . Does, however, admit that she is petrified of falling, and really feels like she has been struggling with her general balance. Uses a walking stick for community ambulation, but otherwise typically does not use an assistive device. Has had bilateral TKAs, a R reverse TSA, and a lumbar microdiscectomy, and has undergone PT after all of these surgeries, however feels like her balance has never really been addressed. PT-OP-C Subjective Start: 09/01/22 17:32 Freq: Status: Active Protocol: Document 03/04/23 16:00 DCW (Rec: 03/04/23 16:44 DCW [id number]) OP-PT Subjective Patient Comments Patient Comments Pt doing well today PT-OP-D Balance Start: 09/01/22 17:32 Freq: Status: Active Protocol: Document 03/04/23 16:00 DCW (Rec: 03/04/23 16:40 [facility] [id number]) Balance Tests Best Balance Test Best Balance Test Score 52/56 Best Impairment Rating 1 to 19% Impaired (Score 45-55 ) Best Balance Assessment Evaluation Sitting to Standing Ability Independent w/out Hands Unsupported Stance Safely- 2 minutes Sitting Unsupported, Feet on Floor Safely- 2 minutes Standing to Sitting Ability Safely, Minimal Hand Use Transfer Ability Safely, Minimal Hand Use Unsupported Stance- Eyes Closed Safely, 10 seconds Unsupported Stance- Eyes Open Independent, 1 minute Reaching Forward Standing Confidently, 10 inches Pick- Up Object From Floor Independent/Safe Look Behind Shoulder - Standing Shifts Weight Well Turning 360 Degrees Turns Bilateral, < 4 secs Unsupported Stance, Alternating Feet on (I)- 8 Steps in 20 secs Stair Unsupported Tandem Stance Holds Tandem- 30 seconds Unilateral Leg Stance Lifts Leg/Unable to Hold Total Score Best Total Score (out of 56 points) 52 Best Impairment Rating 1 to 19% Impaired (Score 45-55 ) PT-OP-E Functional Tests Start: 09/01/22 17:32 Freq: Status: Active Protocol: Document 03/04/23 16:00 DCW (Rec: 03/04/23 16:40 [facility] [id number]) Functional Tests Functional Gait Assessment Score 23/30 Functional Gait Assessment Impairment 20 to <40% Impaired (Score 19- Rating 24) PT-OP-Q Treatments Start: 09/01/22 17:32 Freq: Status: Active Protocol: Document 02/17/23 16:00 DCW (Rec: 02/17/23 16:45 [facility] [id number]) Gym Equipment Shuttle Recovery Unilateral Squats Resistance 37# (One New) Shuttle Recovery Platform Stable Bilateral Squats Resistance 75# (Two New) Shuttle Recovery Platform Stable Shuttle Rebound Ball Toss Exercise Details Ball Toss Comments Red 1000g ball standing on blue foam Shuttle Balance Red Details WBOS (EO/EC), Staggered, Lateral weight shift Neuro Re-Education Treatment Balance Activities Dynamic gait Details Head turns in hallway, Retro ambulation, tandem ambulation Comments Horizontal/Vertical head turns Metronome 100 bpm Hurdles Details Hurdles/Foam stepping stones over uneven blue foam PT-OP-T Assessment and Plan Start: 09/01/22 17:32 Freq: Status: Active Protocol: Document 03/04/23 16:00 DCW (Rec: 03/04/23 16:44 DCW [id number]) Physical Therapy Assessment Impairments Impairments Activity Tolerance,Balance, Coordination,Strength Goals Three Impairment Pt unable to perform floor transfer without assistance Open Developer Operator Goal (LTG) Pt to demonstrate ability to get herself up off the floor without assistance from therapist or without using an object to push off of to improve self-confidence and safety in event of a fall. LTG Duration 02/23/23 Two Impairment Pt scores as a falls risk, per Best (36/56) Short Term Goal (STG) Pt to increase Best score by at least 10 points to 46/56 in order to demonstrate decreased falls risk. STG Duration Met One Impairment Pt does not have an appropriate home exercise program Short Term Goal (STG) Pt to be independent and compliant with an appropriate HEP STG Duration Met Assessment Summary Assessment Pt doing very well overall, no longer presents as a falls risk, per FGA () and Best (52/56) scores. Pt has largely plateaued since last visit, minimal change in scoring. Discussed potential aquatic exercises and recommended to pt to look into new [facility] classes locally. Pt appropriate for discharge at this time, understands she will need a new referral in order to return in the future if needed. Physical Therapy Plan Frequency and Duration Frequency of Treatment 2x/Week Plan of Care Start Date 03/04/23 Plan of Care End Date 03/05/23 Therapeutic Interventions Therapeutic Interventions Balance Training,Canalithic Repositioning,Gait Training, Home Exercise Program,Manual Therapy,Neuromuscular Re- education,Patient/Caregiver Education,Self-Care/Home Management,Soft Tissue Mobilization,Therapeutic Activities,Therapeutic Exercises Discharge Physical Therapy Discharge Reasons Plateau in Progress Next Visit Focus/Plan Next Note Type Discharge Summary
--- NOTE | 2023-03-04 16:45 | PT.OPPOC ---
Physical, Occupational & Speech Therapy At [facility] Current Diagnoses Benign paroxysmal vertigo, unspecified ear (03/04/23) Sensorineural hearing loss, bilateral (03/04/23) Unsteadiness on feet (03/04/23) Other abnormalities of gait and mobility (03/04/23) Visit Care Team Role Provider Type Briseyda Russell PA-C Attending Provider Advanced Crude Oil Treater Family Provider Primary Care Provider Referring Provider Specialty: Medical Address: [address] [place] [address], [id number] Email: Plan Of Care PT-OP-T Assessment and Plan Start: 09/01/22 17:32 Freq: Status: Active Protocol: Document 03/04/23 16:00 DCW (Rec: 03/04/23 16:44 DCW [id number]) Physical Therapy Assessment Impairments Impairments Activity Tolerance,Balance, Coordination,Strength Goals Three Impairment Pt unable to perform floor transfer without assistance Binding Folder Machine Goal (LTG) Pt to demonstrate ability to get herself up off the floor without assistance from therapist or without using an object to push off of to improve self-confidence and safety in event of a fall. LTG Duration 02/23/23 Two Impairment Pt scores as a falls risk, per Best (36/56) Short Term Goal (STG) Pt to increase Best score by at least 10 points to 46/56 in order to demonstrate decreased falls risk. STG Duration Met One Impairment Pt does not have an appropriate home exercise program Short Term Goal (STG) Pt to be independent and compliant with an appropriate HEP STG Duration Met Assessment Summary Assessment Pt doing very well overall, no longer presents as a falls risk, per FGA () and Best (52/56) scores. Pt has largely plateaued since last visit, minimal change in scoring. Discussed potential aquatic exercises and recommended to pt to look into new [place] classes locally. Pt appropriate for discharge at this time, understands she will need a new referral in order to return in the future if needed. Physical Therapy Plan Frequency and Duration Frequency of Treatment 2x/Week Plan of Care Start Date 03/04/23 Plan of Care End Date 03/05/23 Therapeutic Interventions Therapeutic Interventions Balance Training,Canalithic Repositioning,Gait Training, Home Exercise Program,Manual Therapy,Neuromuscular Re- education,Patient/Caregiver Education,Self-Care/Home Management,Soft Tissue Mobilization,Therapeutic Activities,Therapeutic Exercises Discharge Physical Therapy Discharge Reasons Plateau in Progress Next Visit Focus/Plan Next Note Type Discharge Summary Plan of Care Dates Plan of Care Start Date 03/04/23 Plan of Care End Date 03/05/23 Electronically Signed by: Sandor Kothari, PT 03/04/23 1958 If you are in agreement with this Plan of Care, please return a signed and dated copy. I have reviewed this Plan of Care and certify that the skilled therapy services above are required to meet the patient?s needs. Physician Signature Date Printed Name and Credentials Clinical Instructor Signature Printed Name and Credentials
== END 2023-03-08 14:47 | disposition home or self-care (01) ==
LOC: PHYS 16:00
PROVIDERS: Absent Provider Physician Assistant; Family Provider Physician Assistant; PCP Physician Assistant; Referring Provider Physician Assistant; Visit Provider Physician Assistant
DX: H81.10 Benign paroxysmal vertigo, unspecified ear (principal); R26.81 Unsteadiness on feet; R26.89 Other abnormalities of gait and mobility; H90.3 Sensorineural hearing loss, bilateral
CPT/HCPCS: 97110; 97112; 97161; 97530; 97535

== ENCOUNTER → 2023-03-25 09:26 | Outpatient (CLI) | payer MEDICARE, OTHER, SELFPAY ==
[2023-03-25 10:12] LABS: Add Manual Diff / Slide Review NO; Basophils Absolute Auto 0 /uL (0-100); Basophils Percent Auto 0.5 % (0-2); Eosinophils Absolute Auto 200 /uL (0-450); Eosinophils Percent Auto 3.2 % (2-4); Hematocrit 38.1 % (36-46); Hemoglobin 13.1 g/dL (12.0-16.0); Lymphocytes Absolute Auto 2100 /uL (1100-4500); Lymphocytes Percent Auto 29.8 % (25-40); Mean Corpuscular HGB Conc 34.4 % (30-36); Mean Corpuscular Hemoglobin 30.8 PG (26-34); Mean Corpuscular Volume 89.5 fL (80-100); Monocytes Absolute Auto 700 /uL (0-900); Monocytes Percent Auto 10.2 % (3-14); Neutrophils Absolute Auto 3900 /uL (1500-7000); Neutrophils Percent Auto 56.3 % (50-75); Platelet Count 194 X10^3/uL (150-400); Red Blood Cell Count 4.26 X10^6/uL (4.0-5.2); Red Cell Distribution Width 13.2 % (11.6-14.8); White Blood Cell Count 6.9 X10^3/uL (4.5-11.0)
[2023-03-25 10:29] LABS: Alanine Aminotransferase 17 IU/L (<35); Albumin 3.8 g/dL (3.5-5.0); Albumin Globulin Ratio 1.2 (1.0-2.8); Alkaline Phosphatase 61 U/L (38-126); Aspartate Aminotransferase 22 IU/L (14-36); BUN Creatinine Ratio 23.3 (6-22); Bilirubin Total 0.5 mg/dL (0.2-1.3); Blood Urea Nitrogen 24 mg/dL (7-17); Calcium 9.4 mg/dL (8.4-10.2); Carbon Dioxide 26 mmol/L (22-32); Chloride 103 mmol/L (98-107); Cholesterol 198 mg/dL (140-199); Estimated Glomerular Filt Rate 54 mL/min (>60); Globulin 3.1 g/dL (1.7-4.1); Glucose 113 mg/dL (80-110); HDL Cholesterol 40 mg/dL (40-60); HEMOLYSIS < 15 (0-50); Iron 69 ug/dL (37-170); LDL Cholesterol Calculated 131 mg/dL (<100); Potassium 4.7 mmol/L (3.4-5.1); Sodium 138 mmol/L (137-145); Total Protein 6.9 g/dL (6.3-8.2); Triglycerides 133 mg/dL (35-150)
[2023-03-25 10:42] LABS: Percent Iron Saturation 24 % (15-50); Total Iron Binding Capacity 291 ug/dL (265-497); Transferrin 243 mg/dL (206-381)
[2023-03-25 11:04] LABS: Ferritin 41 ng/mL (11-264)
[2023-03-25 11:05] LABS: Thyroid Stimulating Hormone 2.43 uIU/mL (0.47-4.68)
== END ==
PROVIDERS: Family Provider Physician Assistant; PCP Student in an Organized Health Care Education/Training Program; Referring Provider Student in an Organized Health Care Education/Training Program; Visit Provider Student in an Organized Health Care Education/Training Program
DX: E78.5 Hyperlipidemia, unspecified (principal); Z86.2 Personal history of diseases of the blood and blood-forming organs and certain disorders involving the immune mechanism; R53.83 Other fatigue; I10 Essential (primary) hypertension
CPT/HCPCS: 36415; 80053; 80061; 82728; 83540; 83550; 84443; 85025

== ENCOUNTER → 2024-01-01 11:22 | Outpatient (CLI) | payer MEDICARE, OTHER, SELFPAY ==
[2024-01-01 13:13] LABS: Add Manual Diff / Slide Review NO; Basophils Absolute Auto 0 /uL (0-100); Basophils Percent Auto 0.5 % (0-2); Eosinophils Absolute Auto 200 /uL (0-450); Eosinophils Percent Auto 2.6 % (2-4); Hemoglobin 13.9 g/dL (12.0-16.0); Lymphocytes Absolute Auto 1900 /uL (1100-4500); Lymphocytes Percent Auto 29.9 % (25-40); Mean Corpuscular HGB Conc 33.8 % (30-36); Mean Corpuscular Hemoglobin 31.5 PG (26-34); Mean Corpuscular Volume 93.1 fL (80-100); Monocytes Absolute Auto 500 /uL (0-900); Neutrophils Absolute Auto 3700 /uL (1500-7000); Platelet Count 219 X10^3/uL (150-400); White Blood Cell Count 6.2 X10^3/uL (4.5-11.0)
[2024-01-01 13:28] LABS: Hemoglobin A1C% w Est Avg Glu 5.9 % (4.0-6.0)
[2024-01-01 13:41] LABS: HEMOLYSIS < 15 (0-50); Iron 117 ug/dL (37-170)
[2024-01-01 13:43] LABS: Alanine Aminotransferase 17 IU/L (<35); Albumin 4.1 g/dL (3.5-5.0); Albumin Globulin Ratio 1.4 (1.0-2.8); Alkaline Phosphatase 72 U/L (38-126); Aspartate Aminotransferase 24 IU/L (14-36); Bilirubin Total 0.6 mg/dL (0.2-1.3); Blood Urea Nitrogen 21 mg/dL (7-17); Calcium 9.4 mg/dL (8.4-10.2); Carbon Dioxide 29 mmol/L (22-32); Chloride 104 mmol/L (98-107); Estimated Glomerular Filt Rate 55 mL/min (>60); Glucose 112 mg/dL (80-110); HEMOLYSIS < 15 (0-50); Potassium 4.9 mmol/L (3.4-5.1); Sodium 140 mmol/L (137-145); Total Protein 7.1 g/dL (6.3-8.2)
[2024-01-01 13:52] LABS: Percent Iron Saturation 38 % (15-50); Total Iron Binding Capacity 306 ug/dL (265-497); Transferrin 247 mg/dL (206-381)
[2024-01-01 14:19] LABS: Ferritin 43 ng/mL (11-264)
== END ==
PROVIDERS: Family Provider Physician Assistant; PCP Student in an Organized Health Care Education/Training Program; Referring Provider Student in an Organized Health Care Education/Training Program; Visit Provider Student in an Organized Health Care Education/Training Program
DX: R73.03 Prediabetes (principal); R26.89 Other abnormalities of gait and mobility; E66.9 Obesity, unspecified; R42 Dizziness and giddiness; E78.5 Hyperlipidemia, unspecified; E83.52 Hypercalcemia; I10 Essential (primary) hypertension; Z86.2 Personal history of diseases of the blood and blood-forming organs and certain disorders involving the immune mechanism
CPT/HCPCS: 36415; 80053; 82728; 83036; 83540; 83550; 85025

== ENCOUNTER → 2024-03-09 16:49 | Outpatient (CLI) | payer MEDICARE, OTHER, SELFPAY ==
--- NOTE | 2024-03-09 16:51 | DI.MRI.S_ITS ---
PROCEDURE: MR ABDOMEN WO/W CON INDICATIONS: CYST OF PANCREAS TECHNIQUE: Coronal HASTE, axial 2D FLASH in- and [id number]; axial breath-hold T2 FSE with fat saturation from the hepatic dome to the iliac crests. Oblique coronal thin-slice and radial thick slab HASTE through the biliary system. Dynamic axial VIBE during administration of contrast. Post-contrast coronal VIBE or 2D FLASH with fat saturation from the hepatic dome to the iliac crests. Optional diffusion weighted imaging and ADC may be performed. COMPARISON: [facility], MR, MR ABDOMEN WO/W CON, 03/10/2022, 13:20. FINDINGS: Image quality: Diagnostic. Gallbladder: Predominantly decompressed. No wall thickening or visible stone. Biliary ducts: No biliary dilation. Pancreas: Fatty infiltration of much of the pancreas. There are numerous unilocular cysts throughout the pancreatic tail. Largest arises caudally from the body and measures 2.4 x 1.7 cm. There are no new septations or mural nodules. It has no versus indeterminate communication pancreatic duct which appears nondilated. No suspicious enhancement in any cyst, or elsewhere pancreas. No suspicious peripancreatic fluid collection. OTHER: Lung bases: Unremarkable. Liver: No solid mass. Spleen: Size is within normal limits. Adrenal Glands: No adrenal nodules. Kidneys and Ureters: No hydronephrosis. No solid mass. No complex renal cystic lesion which requires follow up. Stomach and Bowel: Stomach and visible bowel loops are within normal limits. Peritoneum: No abnormal intraperitoneal fluid. Abdominal Nodes: No retroperitoneal or mesenteric adenopathy by size criteria. Vessels: Aorta and inferior vena cava are normal in size. Bones: No aggressive osseous abnormality. Degenerative changes. IMPRESSION: Mild enlargement of a pancreatic body cystic lesion which remains simple in its morphology without other suspicious features. Relatively stable size and number other pancreatic cysts. Given interval growth, follow-up in one year. Dictated by: May Stephen M.D. on 03/10/2024 at 9:10 Approved by: May Stephen M.D. on 03/10/2024 at 9:25
== END ==
PROVIDERS: Family Provider Physician Assistant; PCP Student in an Organized Health Care Education/Training Program; Referring Provider Internal Medicine Gastroenterology; Visit Provider Internal Medicine Gastroenterology
DX: K86.2 Cyst of pancreas (principal)
CPT/HCPCS: 74183; A9579

== ENCOUNTER 2024-06-17 22:49 | Observation (INO) | payer MEDICARE, OTHER, SELFPAY ==
[2024-06-17 22:52] VITALS: O2SAT 96
[2024-06-17 22:53] VITALS: BP 206/91; PULSE 93; O2SAT 98
[2024-06-17 23:00] VITALS: BP 191/85; PULSE 89; O2SAT 98
--- NOTE | 2024-06-17 23:00 | DI.CT.S_ITS ---
PROCEDURE: CT HEAD/BRAIN WO CON INDICATIONS: dizzy TECHNIQUE: Noncontrast 4.5 mm thick angled axial sections acquired from the foramen magnum to the vertex, with coronal and sagittal reformats. For radiation dose reduction, the following was used: automated exposure control, adjustment of mA and/or kV according to patient size. COMPARISON: [facility], CR, XR CHEST 1V, 06/17/2024, 23:27. FINDINGS: Image quality: Diagnostic. CSF spaces: Basal cisterns are patent. No extra-axial fluid collections. The ventricles are symmetric in size and shape. Brain: No intracranial bleeds or mass effect. There is cerebral volume loss, with resultant ventricular and sulcal prominence. There are periventricular and deep white matter chronic small vessel ischemic changes. There is intracranial internal carotid artery atherosclerosis. Skull and face: Calvarium and visualized facial bones appear intact, without suspicious lesions. Incidental note is made of hyperostosis frontalis. This is not considered to be pathologic in a woman of this age. Sinuses: Visualized sinuses and mastoids are clear. IMPRESSION: No imaging explanation is found for this patient's presenting symptoms. Note is made of age-appropriate brain parenchymal volume loss and chronic small vessel ischemic changes. Dictated by: Korey Donnelly M.D. on 06/17/2024 at 22:53 Approved by: Korey Donnelly M.D. on 06/17/2024 at 22:54
[2024-06-17 23:02] VITALS: BP 191/85; PULSE 77; RESP 16; TEMP 36.7; O2SAT 97; BMI 29.8
--- NOTE | 2024-06-17 23:02 | DI.RAD.S_ITS ---
PROCEDURE: XR CHEST 1V INDICATIONS: chest pain TECHNIQUE: One view of the chest was acquired. COMPARISON: , CT, CT HEAD/BRAIN WO CON, 06/17/2024, 23:25. , CR, XR CHEST 2V, 04/28/2022, 10:01. FINDINGS: Surgical changes and devices: Right shoulder arthroplasty hardware is seen. Lungs and pleura: An incomplete inspiratory result is noted, causing a crowded appearance to the lung markings. No focal infiltrates are seen. No pneumothorax or significant pleural effusions are seen. Mediastinum: The cardiac contours are within normal limits. The aorta demonstrates calcification and tortuosity. Bones and chest wall: No suspicious bony lesions. Age-appropriate bony degenerative changes are seen. Overlying soft tissues appear unremarkable. IMPRESSION: Low lung volumes, without an acute abnormality seen by plain film. Postoperative and degenerative changes are seen. Dictated by: Korey Donnelly M.D. on 06/17/2024 at 22:55 Approved by: Korey Donnelly M.D. on 06/17/2024 at 22:55
--- NOTE | 2024-06-17 23:02 | EKG_ITS ---
[place] [id number] [place] [id number] Test Date: 2024-06-17 Pat Name: Jessica Gomez Department: [facility] Room: Gender: Female Etl Programmer: : 1940 Requested By: Order Number: [id number] Reading MD: Dontrell Heredia MD Measurements Intervals [place] Rate: 74 P: 43 ME: 162 QRS: 5 QRSD: 68 T: 41 QT: 382 QTc: 424 Interpretive Statements Normal sinus rhythm Cannot rule out Anterior infarct , age undetermined Electronically Signed On 06-18-2024 7:58:53 PDT by Dontrell Heredia MD
[2024-06-17 23:08] LABS: Add Manual Diff / Slide Review NO; Basophils Absolute Auto 100 /uL (0-100); Basophils Percent Auto 0.8 % (0-2); Eosinophils Absolute Auto 200 /uL (0-450); Eosinophils Percent Auto 2.5 % (2-4); Hematocrit 37.7 % (36-46); Hemoglobin 12.9 g/dL (12.0-16.0); Lymphocytes Absolute Auto 2500 /uL (1100-4500); Lymphocytes Percent Auto 40.2 % (25-40); Mean Corpuscular HGB Conc 34.2 % (30-36); Mean Corpuscular Hemoglobin 31.6 PG (26-34); Mean Corpuscular Volume 92.2 fL (80-100); Monocytes Absolute Auto 1000 /uL (0-900); Monocytes Percent Auto 15.5 % (3-14); Neutrophils Absolute Auto 2600 /uL (1500-7000); Platelet Count 180 X10^3/uL (150-400); Red Blood Cell Count 4.09 X10^6/uL (4.0-5.2); Red Cell Distribution Width 13.2 % (11.6-14.8); White Blood Cell Count 6.3 X10^3/uL (4.5-11.0)
[2024-06-17 23:16] LABS: Alanine Aminotransferase 21 IU/L (<35); Albumin 4.3 g/dL (3.5-5.0); Albumin Globulin Ratio 1.3 (1.0-2.8); Alkaline Phosphatase 64 U/L (38-126); Aspartate Aminotransferase 32 IU/L (14-36); BUN Creatinine Ratio 25.4 (6-22); Bilirubin Total 0.5 mg/dL (0.2-1.3); Blood Urea Nitrogen 29 mg/dL (7-17); Carbon Dioxide 23 mmol/L (22-32); Chloride 103 mmol/L (98-107); Creatine Kinase 57 U/L (30-135); Estimated Glomerular Filt Rate 47 mL/min (>60); Globulin 3.3 g/dL (1.7-4.1); Glucose 112 mg/dL (70-99); HEMOLYSIS 29 (0-50); Lipase 44 U/L (23-300); Potassium 4.3 mmol/L (3.4-5.1); Sodium 137 mmol/L (137-145); Total Protein 7.6 g/dL (6.3-8.2)
[2024-06-17 23:28] LABS: Troponin I < 0.012 ng/mL (0.01-0.034)
[2024-06-17 23:37] VITALS: PULSE 82; O2SAT 97
[2024-06-18] VITALS (22 sets, daily range): BP systolic 137–175; BP diastolic 58–87; PULSE 68–91; RESP 16–23; TEMP 36–36.2; O2SAT 94–98; BMI 29.9
--- NOTE | 2024-06-18 | DI.MRI.S_ITS ---
PROCEDURE: MR HEAD/BRAIN WO CON INDICATIONS: vertigo rule out stroke please include brain stem TECHNIQUE: Non-contrast axial T1 spin echo, axial T2 fast spin echo, sagittal and axial FLAIR, coronal T2 fast spin echo, axial gradient echo, axial diffusion and ADC through the brain. COMPARISON: [facility], CT, CT HEAD/BRAIN WO CON, 06/17/2024, 23:25. FINDINGS: Image quality: Excellent. CSF spaces: Ventricles appear symmetric in size and shape. Basal cisterns are patent. No extra-axial fluid collections. Brain: No intracranial bleeds or mass effects. There is cerebral volume loss for age. There are periventricular and deep white matter chronic small vessel ischemic changes including within the brainstem. Diffusion-weighted images show no acute infarct. No chronic ischemic insults. Normal intravascular flow voids are present. Skull and face: Calvarial bone marrow is normal in signal. Bilateral lens replacements. Otherwise, the orbits are unremarkable. Sinuses: Mild diffuse paranasal sinus mucosal thickening. The mastoids are clear. IMPRESSION: No acute or subacute infarct. No acute intracranial abnormalities. Age-related global volume loss and chronic microvascular ischemic changes are present. Dictated by: Oj Hernandes M.D. on 06/18/2024 at 8:59 Approved by: Oj Hernandes M.D. on 06/18/2024 at 9:01
--- NOTE | 2024-06-18 01:05 | ED.FALL ---
HPI - Fall General Chief Complaint: Fall Stated Complaint: dizzy Time Seen by Provider: 06/17/24 23:00 Source: patient and EMS Mode of arrival: EMS History of Present Illness HPI Narrative: 83-year-old female denies history of previous strokes, has had dizziness in the past, this afternoon had dizziness spinning sensation when moving from sitting to standing position. Some nausea without emesis. No chest pain or shortness of breath. No changes in medications. No fevers or chills. No focal numbness to face arm or leg. No focal weakness face arm or leg. Related Data Home Medications Medication Instructions Recorded Confirmed B.ANI/L.ACI/L.SAKSHI/L.PLAN/L.KANA 1 cap PO QDAY ##0 12/14/11 05/04/24 (Probiotic Formula Capsule) Bioflavonoid/Ca/Hesperidin/R 1 tab PO QDAY ##0 12/14/11 05/04/24 (#THEO C) CALCIUM CITRATE (CITRACAL ) 200 mg PO BIDCC ##0 12/14/11 05/04/24 CHOLECALCIFEROL (VITAMIN D3) 400 iu PO QDAY ##0 12/14/11 05/04/24 Zinc, Chelated (#ZINC) 10 mg PO QDAY ##0 12/14/11 05/04/24 Previous Rx's Medication Instructions Recorded magnesium citrate 150 ml PO DAILY PRN constipation 11/11/21 #296 mL metronidazole 0.75 % topical cream 1 applic topical BEDTIME #45 grams 04/13/23 duloxetine 20 mg capsule,delayed 20 mg PO DAILY #90 caps 02/03/24 release budesonide-formoterol HFA 80 2 puff inhalation DAILY #10.2 grams 03/02/24 mcg-4.5 mcg/actuation aerosol inhaler amitriptyline 10 mg tablet 10 mg PO HS #180 tabs 03/20/24 irbesartan 75 mg tablet 75 mg PO DAILY #90 tabs 03/21/24 estradiol 0.01% (0.1 mg/gram) 1 g vaginal DAILY #42.5 grams 03/22/24 vaginal cream amlodipine 2.5 mg tablet 2.5 mg PO DAILY #90 tabs 05/04/24 metoprolol succinate 50 mg 50 mg PO DAILY #90 tabs 05/04/24 tablet,extended release 24 hr omeprazole magnesium 20 mg 20 mg PO QDAY #90 tabs 06/15/24 tablet,delayed release (Prilosec OTC) Allergies Allergy/AdvReac Type Severity Reaction Status Date / Time codeine AdvReac Mild N/V Verified 05/04/24 11:02 epinephrine AdvReac Mild N/V Verified 05/04/24 11:02 Patient History Medical History (Updated 06/18/24 @ 02:08 by Zachary Crenshaw MD) Dry eyes, bilateral Hearing loss Rosacea Actinic keratosis Sleep apnea Vertigo Tinnitus History of urinary incontinence Fecal incontinence Hemorrhoid GERD (gastroesophageal reflux disease) Colon polyps Melendez's esophagus Joint pain in the shoulder/clavicle region (07/11/03) Upper respiratory infection, acute (12/20/03) Spasm of muscle (10/02/03) Other voice and resonance disorders (04/17/02) Menopause (01/05/05) Joint pain, knee (07/11/03) Irritable bowel syndrome (04/17/02) Secondary hypertension, unspecified (01/05/05) Hormone replacement therapy (postmenopausal) (08/18/10) Hemorrhage of lower esophageal segment due to erosive gastroesophageal reflux disease (01/01/03) Depressive disorder, not elsewhere classified (01/01/03) Cough (05/08/05) Cerumen impaction (01/01/03) Central hearing loss (08/18/10) Alopecia, unspecified (08/18/10) Allergic rhinitis, cause unspecified (08/18/10) Acute nasopharyngitis (05/08/05) Postmenopausal atrophic vaginitis Lower urinary tract symptoms (LUTS) History of basal cell cancer History of gastroesophageal reflux (GERD) Hypertension Surgical History (Updated 04/18/23 @ 19:01 by Dian Zapata) Anesthesia History of carpal tunnel surgery (~1999) Cataract extraction status, unspecified eye (08/18/10) History of shoulder replacement (~2018) History of back surgery (~2021) History of knee replacement (~2011) Family History (Updated 04/18/23 @ 19:05 by Dian Zapata) Family/Other FH: CVA (cerebrovascular accident) Hearing impairment Sister Kidney stones Brother Stroke History of heart disease Mother Congestive heart failure Parkinson's disease Father History of heart disease Brother Cystic fibrosis Social History marital status: household members: none Smoking Status: Never smoker alcohol intake: current alcohol intake frequency: holidays/special occasions only Exam Narrative Exam Narrative: GENERAL: Well-developed patient, in mild distress. HEAD: Atraumatic. Normocephalic. EYES: Pupils equal round and reactive. Extraocular motions intact. No scleral icterus. No injection or drainage. ENT: Nose without bleeding, purulent drainage. Throat without erythema, tonsillar hypertrophy or exudate. Airway patent. NECK: Trachea midline. Non tender CARDIOVASCULAR: Regular rate and rhythm without murmurs, gallops, or rubs. RESPIRATORY: Clear to auscultation. Breath sounds equal bilaterally. No wheezes, rales, or rhonchi. GASTROINTESTINAL: Abdomen soft, non-tender, nondistended. EXTREMITIES: No edema or joint tenderness. BACK: Nontender without deformity or crepitance. No flank tenderness. NEURO: AOx3. Clear speech. Cranial nerves normal as tested. Motor 5/5 upper extremities. Motor 5/5 lower extremities. Gait not initially tested due to dizziness/vertigo symptoms with head movements SKIN: No rash or erythema of visible areas Initial Vital Signs Initial Vital Signs: Vital Signs Pulse Oximetry 96 06/17/24 22:52 Course Orders Ordered: ED Orders 06/17/24 22:57 Complete Blood Count AUTO DIFF Stat Comprehensive Metabolic Panel Stat Lipase Stat Troponin & CK Cardiac Panel Stat 06/17/24 23:00 CT head/brain wo con Stat 06/17/24 23:02 XR chest 1V Stat EKG-12 Lead Stat 06/18/24 MR head/brain wo/w con Stat 06/18/24 01:07 CT angio head and neck Stat 06/18/24 01:16 Troponin I Stat 06/18/24 03:33 Consult to Occupational Therapy Evaluate & Treat Consult to Physical Therapy Evaluate & Treat 06/19/24 06:00 Basic Metabolic Panel Routine Complete Blood Count AUTO DIFF DAILY Acetaminophen (Acetaminophen 325 Mg Tablet) 650 mg PO Q6H PRN PRN Reason: Fever/Mild Pain (1-3) Albuterol (Albuterol 2.5 Mg/3 Ml Neb (Adult)) 2.5 mg INH Q4HRWA EVANGELINA Albuterol (Albuterol 2.5 Mg/3 Ml Neb (Adult)) 2.5 mg INH Q2HR PRN PRN Reason: Shortness Of Breath Or Wheezing Amitriptyline HCl (Amitriptyline 10 Mg Tablet) 10 mg PO BEDTIME [facility] Amlodipine Besylate (Amlodipine 5 Mg Tablet) 2.5 mg PO DAILY EVANGELINA Budesonide (Budesonide 0.5 Mg/2 Ml Neb) 0.5 mg INH RTBID EVANGELINA Duloxetine HCl (Duloxetine 20 Mg Capsule) 20 mg PO DAILY [facility] Hydralazine HCl (Hydralazine 20 Mg/Ml Vial) 10 mg IV Q6HR PRN PRN Reason: for SBP > 180 Sodium Chloride (Normal Saline 0.9%) 1,000 mls @ 75 mls/hr IV CONT [facility] Meclizine HCl (Meclizine Hcl 12.5 Mg Tablet) 25 mg PO Q6HR PRN PRN Reason: Vertigo Metoprolol Succinate (Metoprolol Er 50 Mg Tablet) 50 mg PO DAILY [facility] Naloxone HCl (Naloxone 0.4 Mg/Ml Vial) 0.2 mg IV Q2MIN PRN PRN Reason: Opiate Reversal Non-Formulary Medication (Irbesartan) 75 mg PO DAILY [facility] Ondansetron HCl (Ondansetron 4 Mg/2 Ml Inj) 4 mg IV Q8HR PRN PRN Reason: Nausea And Vomiting Discontinued Medications Meclizine HCl (Meclizine Hcl 12.5 Mg Tablet) 50 mg PO NOW ONE Stop: 06/18/24 01:37 Last Admin: 06/18/24 02:02 Dose: 50 mg Documented By: KAREN Vital Signs Vital signs: Vital Signs - 8 hr 06/17/24 22:52 06/17/24 22:53 06/17/24 22:53 Temperature Pulse Rate 93 H Respiratory Rate Blood Pressure 206/91 H Pulse Oximetry 96 98 Oxygen Delivery Method 06/17/24 23:00 06/17/24 23:00 06/17/24 23:02 Temperature 98.0 F Pulse Rate 89 77 Respiratory Rate 16 Blood Pressure 191/85 H 191/85 H Pulse Oximetry 98 97 Oxygen Delivery Method Room Air 06/17/24 23:37 06/18/24 00:00 06/18/24 00:30 Temperature Pulse Rate 82 72 69 Respiratory Rate 19 23 Blood Pressure Pulse Oximetry 97 95 94 Oxygen Delivery Method 06/18/24 00:50 06/18/24 00:50 06/18/24 01:00 Temperature Pulse Rate 77 69 Respiratory Rate 21 18 Blood Pressure 164/74 H Pulse Oximetry 96 96 Oxygen Delivery Method 06/18/24 01:52 06/18/24 01:52 06/18/24 02:00 Temperature Pulse Rate 84 73 Respiratory Rate 21 16 Blood Pressure 171/84 H Pulse Oximetry 95 96 Oxygen Delivery Method 06/18/24 02:00 06/18/24 02:05 06/18/24 02:30 Temperature Pulse Rate Respiratory Rate Blood Pressure 175/87 H 154/70 H 151/70 H Pulse Oximetry Oxygen Delivery Method 06/18/24 02:30 06/18/24 03:07 06/18/24 03:07 Temperature Pulse Rate 68 83 Respiratory Rate 19 23 Blood Pressure 175/79 H Pulse Oximetry 95 94 Oxygen Delivery Method 06/18/24 03:12 06/18/24 03:30 06/18/24 03:30 Temperature Pulse Rate 76 Respiratory Rate 20 21 Blood Pressure 171/71 H Pulse Oximetry 95 Oxygen Delivery Method MDM - Fall Lab Data Attestation: I reviewed the patient's lab results. Lab results narrative: White blood cell count 6300, hemoglobin 12.9, platelets adequate. Glucose 112. BUN 29 with creatinine 1.14. Serum CO2 23. Electrolytes unremarkable. Liver functions unremarkable. Troponin negative. Lipase negative. 06/17/24 22:57 06/17/24 22:57 Labs: Lab Results 06/17/24 06/18/24 Range/Units 22:57 01:16 WBC 6.3 (4.5-11.0) X10^3/uL RBC 4.09 (4.0-5.2) X10^6/uL Hgb 12.9 (12.0-16.0) g/dL Hct 37.7 (36-46) % MCV 92.2 (80-100) fL MCH 31.6 (26-34) PG MCHC 34.2 (30-36) % RDW 13.2 (11.6-14.8) % Plt Count 180 (150-400) X10^3/uL Neut % (Auto) 41.0 L (50-75) % Lymph % (Auto) 40.2 H (25-40) % [place] % (Auto) 15.5 H (3-14) % Eos % (Auto) 2.5 (2-4) % Baso % (Auto) 0.8 (0-2) % Neut # (Auto) 2600 (3075-8496) /uL Lymph # (Auto) 2500 (0249-1507) /uL [place] # (Auto) 1000 H (0-900) /uL Eos # (Auto) 200 (0-450) /uL Baso # (Auto) 100 (0-100) /uL Sodium 137 (137-145) mmol/L Potassium 4.3 (3.4-5.1) mmol/L Chloride 103 (98-107) mmol/L Carbon Dioxide 23 (22-32) mmol/L BUN 29 H (7-17) mg/dL Creatinine 1.14 H (0.52-1.04) mg/dL Estimated GFR 47 L (>60) mL/min BUN/Creatinine Ratio 25.4 H (6-22) Glucose 112 H (70-99) mg/dL Calcium 9.0 (8.4-10.2) mg/dL Total Bilirubin 0.5 (0.2-1.3) mg/dL AST 32 (14-36) IU/L ALT 21 (<35) IU/L Alkaline Phosphatase 64 (38-126) U/L Total Creatine Kinase 57 (30-135) U/L Troponin I < 0.012 < 0.012 (0.01-0.034) ng/mL Total Protein 7.6 (6.3-8.2) g/dL Albumin 4.3 (3.5-5.0) g/dL Globulin 3.3 (1.7-4.1) g/dL Albumin/Globulin Ratio 1.3 (1.0-2.8) Lipase 44 (23-300) U/L Imaging Data Chest x-ray: Radiologist's Impression: [address] [address] XRay Report Signed Patient: Jessica Gomez MR#: [id number] : 1940 Acct:[id number] Age/Sex: 83 / F Date of Service: 06/17/24 Loc: ED Accession Number: [id number] Procedure: XR chest 1V Ordering Provider: Zachary Crenshaw MD PROCEDURE: XR CHEST 1V INDICATIONS: chest pain TECHNIQUE: One view of the chest was acquired. COMPARISON: [facility], CT, CT HEAD/BRAIN WO CON, 06/17/2024, 23:25. [facility], CR, XR CHEST 2V, 04/28/2022, 10:01. FINDINGS: Surgical changes and devices: Right shoulder arthroplasty hardware is seen. Lungs and pleura: An incomplete inspiratory result is noted, causing a crowded appearance to the lung markings. No focal infiltrates are seen. No pneumothorax or significant pleural effusions are seen. Mediastinum: The cardiac contours are within normal limits. The aorta demonstrates calcification and tortuosity. Bones and chest wall: No suspicious bony lesions. Age-appropriate bony degenerative changes are seen. Overlying soft tissues appear unremarkable. IMPRESSION: Low lung volumes, without an acute abnormality seen by plain film. Postoperative and degenerative changes are seen. Dictated by: Korey Donnelly M.D. on 06/17/2024 at 22:55 Approved by: Korey Donnelly M.D. on 06/17/2024 at 22:55 CTA - brain/neck: Radiologist's Impression: Close Head/Neck CTA (Signed) Korey Donnelly - 06/18/24 Chest X-Ray (Signed) Korey Donnelly - 06/17/[address] (Signed) Korey Donnelly - 06/17/24 Launch?[place] [address] CT Scan Report Signed Patient: Jessica Gomez MR#: [id number] : 1940 Acct:[id number] Age/Sex: 83 / F Date of Service: 06/18/24 Loc: ED Accession Number: [id number] Procedure: CT angio head and neck Ordering Provider: Zachary Crenshaw MD PROCEDURE: CT ANGIO HEAD AND NECK INDICATIONS: dizzy TECHNIQUE: After the administration of intravenous contrast, 1 mm thick sections acquired from the aortic arch through the [place]. 3-dimensional qvonhug-elgaclmko-uwzotqahqy (MIP) and/or volume rendering reformats were acquired of the central intracranial vasculature and neck separately. For radiation dose reduction, the following was used: automated exposure control, adjustment of mA and/or kV according to patient size. COMPARISON: None. FINDINGS: Image quality: There is streak artifact seen through the level of the shoulders. BRAIN: CSF spaces: Ventricles are normal in size and shape. Basal cisterns are patent. No extra-axial fluid collections. Brain: No significant abnormality of the brain can be seen. Skull and face: Calvarium and facial bones appear intact, without suspicious lesions. Orbits appear normal. Incidental note is made of hyperostosis frontalis. This is not considered to be pathologic in a woman of this age. Sinuses: Sinuses and mastoids are clear. HEAD CT ANGIOGRAPHY: Anterior circulation: Intracranial internal carotid arteries are normal in size and flow. The flow within the paired anterior cerebral arteries is normal and symmetric. The flow within the middle cerebral arteries is normal and symmetric. The anterior communicating artery is seen. No aneurysms are seen. Posterior circulation: Note is made of bilateral type origins of the posterior cerebral arteries, with an associated diminutive basilar artery. The flow within the posterior cerebral arteries is normal and symmetric. The left V4 segment is within normal limits. The right V4 segment largely terminates in the right posterior inferior cerebellar artery. There is a normal appearing basilar artery. NECK CT ANGIOGRAPHY: Carotid system: The great vessels demonstrate a conventional anatomy as they arise from the aortic arch. Atherosclerotic calcification is noted. The origins of the common carotid arteries appear patent. The common carotid arteries demonstrate normal caliber and courses. The bifurcation regions are both widely patent. The internal carotid arteries demonstrate normal calibers and courses. Posterior circulation: The origins of the vertebral arteries both appear widely patent. The more superior extracranial portions of both vertebral arteries also demonstrate normal courses and calibers. The left vertebral artery is dominant to the right. Soft tissues: Visualized neck soft tissues demonstrate no suspicious abnormalities. Bones: No suspicious bony lesions. Visualized cervical spine appears normally aligned. Moderate cervical spine degenerative change can be seen. There is right shoulder arthroplasty hardware partially seen, with associated streak artifact. IMPRESSION: No significant intracranial arterial abnormality is seen. No significant abnormality is seen within the arteries of the neck. Additional findings: Umtwrx-il-Fgbysp developmental anomalies. Any quantitative measurements of stenosis were performed using NASCET criteria. Dictated by: Korey Donnelly M.D. on 06/18/2024 at 0:55 Approved by: Korey Donnelly M.D. on 06/18/2024 at 0:59 CT scan - head: Radiologist's Impression: Close Head/Neck CTA (Signed) Korey Donnelly - 06/18/24 Chest X-Ray (Signed) Korey Donnelly - 06/17/[address] (Signed) Korey Donnelly - 06/17/24 Launch?Image [address] [address] [address] Scan Report Signed Patient: Jessica Gomez MR#: [id number] : 1940 Acct:[id number] Age/Sex: 83 / F Date of Service: 06/17/24 Loc: ED Accession Number: [id number] Procedure: CT head/brain wo con Ordering Provider: Zachary Crenshaw MD PROCEDURE: CT HEAD/BRAIN WO CON INDICATIONS: dizzy TECHNIQUE: Noncontrast 4.5 mm thick angled axial sections acquired from the foramen magnum to the vertex, with coronal and sagittal reformats. For radiation dose reduction, the following was used: automated exposure control, adjustment of mA and/or kV according to patient size. COMPARISON: [facility], CR, XR CHEST 1V, 06/17/2024, 23:27. FINDINGS: Image quality: Diagnostic. CSF spaces: Basal cisterns are patent. No extra-axial fluid collections. The ventricles are symmetric in size and shape. Brain: No intracranial bleeds or mass effect. There is cerebral volume loss, with resultant ventricular and sulcal prominence. There are periventricular and deep white matter chronic small vessel ischemic changes. There is intracranial internal carotid artery atherosclerosis. Skull and face: Calvarium and visualized facial bones appear intact, without suspicious lesions. Incidental note is made of hyperostosis frontalis. This is not considered to be pathologic in a woman of this age. Sinuses: Visualized sinuses and mastoids are clear. IMPRESSION: No imaging explanation is found for this patient's presenting symptoms. Note is made of age-appropriate brain parenchymal volume loss and chronic small vessel ischemic changes. Dictated by: Korey Donnelly M.D. on 06/17/2024 at 22:53 Approved by: Korey Donnelly M.D. on 06/17/2024 at 22:54 ECG Data Attestation: I personally reviewed and interpreted this ECG as follows: Interpretation: Normal sinus rhythm with rate of 74, no obvious ST segment elevation or depression changes. [place] 162, QRS 68, QTC 424. MDM Narrative Medical decision making narrative: 83-year-old female with dizziness spinning sensation. Nonfocal neuro exam, can move head and neck. EKG and chest x-ray unremarkable. CT head pending, CT angiogram consider if renal function adequate. Labs pending. CT head no acute changes, see radiology report. GFR favorable, CT angiogram head and neck vessels ordered. CT head and neck vessels showed no thrombosis or significant narrowing. See radiology report. Trial of meclizine, 50mg oral dose given. 0315, patient does not feel significantly improved, does not feel like she can go home, does not feel like she can ambulate safely, feels like she is too unsteady due to dizziness. Consider admit, we will contact hospitalist. 0330, case discussed with hospitalist Dr. Vegas who accepts patient for admit Discharge Plan Departure Patient Disposition: Admitted as Observation Clinical Impression: Dizziness Admit Date/Time: 06/18/24 03:34 Admit Provider: Gavino Vegas
--- NOTE | 2024-06-18 01:37 | PC.NURSE ---
Pt to imaging via ED stretcher with pharmaceutical development technician
[2024-06-18 01:45] LABS: Troponin I < 0.012 ng/mL (0.01-0.034)
[2024-06-18] MEDS: MECLIZINE HCL 12.5 MG TABLET 50 MG PO (02:02)
--- NOTE | 2024-06-18 03:09 | PC.NURSE ---
During ambulation trial with sow farm barn technician pt raises her voice stating I can't do this! and continues to refuse to continue to walk. RN to exam room. Pt noted to be standing in middle of exam room with walker, steady on her feet. Pt refusing to walk stating fear of going home and falling again. States dizziness is better since medication administration but states still having fear of falling at home. Pt states I want answers to why my vertigo is worse this time and why my body is changing! Encouraged patient to continue ambulation trial with 1 person standby to confirm ability, which pt was successful and made her way back to ED stretcher.
--- NOTE | 2024-06-18 03:13 | PC.NURSE ---
pt ambulated to commode without assistance. pt walked to hallway and back with no difficulties.
--- NOTE | 2024-06-18 04:46 | PM.HP.1 ---
History of Present Illness History of Present Illness Chief complaint: dizzy Narrative: 83-year-old female with past medical history of depression, hypertension, vertigo, obstructive sleep [id number] bowel syndrome and GERD presents with complaint of vertigo. Per the patient's report, started this afternoon the patient has increasing vertigo when moving from a sitting to a standing position. The patient states that this vertigo is worse than the ones she had before. The patient however denies any vomiting but admits to have some nausea. The patient also denies any fever, chills, headache, chest pain, coughing, dysuria, diarrhea or shortness of breath. The patient denies any focal weakness, slurred speech or facial drooping. In the emergency room, the patient was hemodynamically stable. CT and CTA head and neck shows no acute finding the patient did receive meclizine without much improvement. IV fluids given. The patient has no signs of sepsis or infection. Due to ongoing vertigo and high fall risk ER physician request admission to continue to treat vertigo and obtain brain MRI tomorrow to rule out stroke. Note patient's systolic blood pressure was in the 200s. IV antihypertensive medication given. [facility] Medical History (Updated 06/18/24 @ 02:08 by Zachary Crenshaw MD) Dry eyes, bilateral Hearing loss Rosacea Actinic keratosis Sleep apnea Vertigo Tinnitus History of urinary incontinence Fecal incontinence Hemorrhoid GERD (gastroesophageal reflux disease) Colon polyps Melendez's esophagus Joint pain in the shoulder/clavicle region (07/11/03) Upper respiratory infection, acute (12/20/03) Spasm of muscle (10/02/03) Other voice and resonance disorders (04/17/02) Menopause (01/05/05) Joint pain, knee (07/11/03) Irritable bowel syndrome (04/17/02) Secondary hypertension, unspecified (01/05/05) Hormone replacement therapy (postmenopausal) (08/18/10) Hemorrhage of lower esophageal segment due to erosive gastroesophageal reflux disease (01/01/03) Depressive disorder, not elsewhere classified (01/01/03) Cough (05/08/05) Cerumen impaction (01/01/03) Central hearing loss (08/18/10) Alopecia, unspecified (08/18/10) Allergic rhinitis, cause unspecified (08/18/10) Acute nasopharyngitis (05/08/05) Postmenopausal atrophic vaginitis Lower urinary tract symptoms (LUTS) History of basal cell cancer History of gastroesophageal reflux (GERD) Hypertension Surgical History (Updated 04/18/23 @ 19:01 by Dian Zapata) Anesthesia History of carpal tunnel surgery (~1999) Cataract extraction status, unspecified eye (08/18/10) History of shoulder replacement (~2018) History of back surgery (~2021) History of knee replacement (~2011) Family History (Updated 04/18/23 @ 19:05 by Dian Zapata) Family/Other FH: CVA (cerebrovascular accident) Hearing impairment Sister Kidney stones Brother Stroke History of heart disease Mother Congestive heart failure Parkinson's disease Father History of heart disease Brother Cystic fibrosis Social History marital status: Meds Home Medications and Allergies Home Medications Medication Instructions Recorded Confirmed Type B.ANI/L.ACI/L.SAKSHI/L.PLAN/L.KANA 1 cap PO QDAY ##0 12/14/11 05/04/24 History (Probiotic Formula Capsule) Bioflavonoid/Ca/Hesperidin/R 1 tab PO QDAY ##0 12/14/11 05/04/24 History (#THEO C) CALCIUM CITRATE (CITRACAL ) 200 mg PO BIDCC ##0 12/14/11 05/04/24 History CHOLECALCIFEROL (VITAMIN D3) 400 iu PO QDAY ##0 12/14/11 05/04/24 History Zinc, Chelated (#ZINC) 10 mg PO QDAY ##0 12/14/11 05/04/24 History magnesium citrate 150 ml PO DAILY PRN constipation 11/11/21 05/04/24 Rx #296 mL metronidazole 0.75 % topical cream 1 applic topical BEDTIME #45 grams 04/13/23 05/04/24 Rx duloxetine 20 mg capsule,delayed 20 mg PO DAILY #90 caps 02/03/24 05/04/24 Rx release budesonide-formoterol HFA 80 2 puff inhalation DAILY #10.2 grams 03/02/24 05/04/24 Rx mcg-4.5 mcg/actuation aerosol inhaler amitriptyline 10 mg tablet 10 mg PO HS #180 tabs 03/20/24 05/04/24 Rx irbesartan 75 mg tablet 75 mg PO DAILY #90 tabs 03/21/24 05/04/24 Rx estradiol 0.01% (0.1 mg/gram) 1 g vaginal DAILY #42.5 grams 03/22/24 05/04/24 Rx vaginal cream amlodipine 2.5 mg tablet 2.5 mg PO DAILY #90 tabs 05/04/24 05/04/24 Rx metoprolol succinate 50 mg 50 mg PO DAILY #90 tabs 05/04/24 05/04/24 Rx tablet,extended release 24 hr omeprazole magnesium 20 mg 20 mg PO QDAY #90 tabs 06/15/24 Rx tablet,delayed release (Prilosec OTC) Allergies Allergy/AdvReac Type Severity Reaction Status Date / Time codeine AdvReac Mild N/V Verified 05/04/24 11:02 epinephrine AdvReac Mild N/V Verified 05/04/24 11:02 Review of Systems Review of Systems ROS: Yes All systems reviewed with the patient and are negative except as otherwise documented Exam Vital Signs (past 8 hours): - 06/17/24 22:52 06/17/24 22:53 06/17/24 22:53 Temperature Pulse Rate 93 H Respiratory Rate Blood Pressure 206/91 H Pulse Oximetry 96 98 Oxygen Delivery Method 06/17/24 23:00 06/17/24 23:00 06/17/24 23:02 Temperature 98.0 F Pulse Rate 89 77 Respiratory Rate 16 Blood Pressure 191/85 H 191/85 H Pulse Oximetry 98 97 Oxygen Delivery Method Room Air 06/17/24 23:37 06/18/24 00:00 06/18/24 00:30 Temperature Pulse Rate 82 72 69 Respiratory Rate 19 23 Blood Pressure Pulse Oximetry 97 95 94 Oxygen Delivery Method 06/18/24 00:50 06/18/24 00:50 06/18/24 01:00 Temperature Pulse Rate 77 69 Respiratory Rate 21 18 Blood Pressure 164/74 H Pulse Oximetry 96 96 Oxygen Delivery Method 06/18/24 01:52 06/18/24 01:52 06/18/24 02:00 Temperature Pulse Rate 84 73 Respiratory Rate 21 16 Blood Pressure 171/84 H Pulse Oximetry 95 96 Oxygen Delivery Method 06/18/24 02:00 06/18/24 02:05 06/18/24 02:30 Temperature Pulse Rate Respiratory Rate Blood Pressure 175/87 H 154/70 H 151/70 H Pulse Oximetry Oxygen Delivery Method 06/18/24 02:30 06/18/24 03:07 06/18/24 03:07 Temperature Pulse Rate 68 83 Respiratory Rate 19 23 Blood Pressure 175/79 H Pulse Oximetry 95 94 Oxygen Delivery Method 06/18/24 03:12 06/18/24 03:30 06/18/24 03:30 Temperature Pulse Rate 76 Respiratory Rate 20 21 Blood Pressure 171/71 H Pulse Oximetry 95 Oxygen Delivery Method 06/18/24 04:00 06/18/24 04:00 Temperature Pulse Rate 73 Respiratory Rate 18 Blood Pressure 154/68 H Pulse Oximetry 95 Oxygen Delivery Method Oxygen Delivery Method Room Air Narrative Exam Narrative: Physical Exam: GENERAL: The patient is not in any acute distressed. Awake and alert. HEENT: Nonicteric sclerae, PERRLA, EOMI. Oropharynx clear. Moist mucous membranes. Conjunctivae appear well perfused. HEART: Regular rate and rhythm without murmurs. No lower extremities edema. LUNGS: Clear to auscultation bilaterally. No wheezing, crackles or rhonchi ABDOMEN: Soft, positive bowel sounds, nontender. SKIN: No rash, no excessive bruising, petechiae, or purpura. NEUROLOGIC: AxO x 3. Cranial nerves II-XII intact without motor/sensory deficit. Objective Labs 06/17/24 22:57 06/17/24 22:57 Labs: Laboratory Results - last 24 hr 06/17/24 06/18/24 22:57 01:16 WBC 6.3 RBC 4.09 Hgb 12.9 Hct 37.7 MCV 92.2 MCH 31.6 MCHC 34.2 RDW 13.2 Plt Count 180 Neut % (Auto) 41.0 L Lymph % (Auto) 40.2 H Reagan % (Auto) 15.5 H Eos % (Auto) 2.5 Baso % (Auto) 0.8 Neut # (Auto) 2600 Lymph # (Auto) 2500 Reagan # (Auto) 1000 H Eos # (Auto) 200 Baso # (Auto) 100 Sodium 137 Potassium 4.3 Chloride 103 Carbon Dioxide 23 BUN 29 H Creatinine 1.14 H Estimated GFR 47 L BUN/Creatinine Ratio 25.4 H Glucose 112 H Calcium 9.0 Total Bilirubin 0.5 AST 32 ALT 21 Alkaline Phosphatase 64 Total Creatine Kinase 57 Troponin I < 0.012 < 0.012 Total Protein 7.6 Albumin 4.3 Globulin 3.3 Albumin/Globulin Ratio 1.3 Lipase 44 Assessment & Plan Assessment & Plan narrative: Vertigo with prior history of stroke. Admit the patient to medical telemetry under observation. Continue as needed meclizine and IV fluid. PT OT. Brain MRI with brainstem ordered. Of note CT and CT angio of the head and neck are negative for signs of acute stroke. Hypertensive urgency. Of note the patient systolic blood pressure in the 200s. Resume home blood pressure medication with as needed IV hydralazine. Monitor blood pressure closely. Depression. Resume home antidepressant medication. GERD. Resume home PPI. DVT prophylaxis heparin subcu. CODE STATUS full code. Disposition likely home in 1 to 2 days - As the provider of this telehealth evaluation, requested by the patient's evaluating physician, I attest that I introduced myself to the patient, provided my credentials and determined that telemedicine via a real-time, 2 way interactive audio and video platform is an appropriate and effective means of providing this service. - I reviewed the patient's chart and had a discussion with the member of the patient's treatment team. - The patient and I mutually agreed with continuation of this evaluation via telemedicine. The patient consented for the telemedicine evaluation. - This virtual encounter was taken place from [place]. The encounter was approximately 35 minutes. The nurse was present during the entire time of the encounter and was able to move the stethoscope in appropriate directions. The patient was evaluated at [facility]. Time-Based Coding :: [TOTAL MINUTES] spent with patient and on the chart (including review of chart, obtaining history, exam, reviewing outside data, placing orders, documenting exam and treatment plan, and counseling patient) on [DATE].
[2024-06-18] MEDS: hydrALAZINE 20 MG/ML VIAL 10 MG IV (05:59)
[2024-06-18] MEDS: SODIUM CHLORIDE 0.9% 1,000 ML 75 ML IV (06:00)
[2024-06-18] MEDS: BUDESONIDE 0.5 MG/2 ML NEB INH (08:54)
[2024-06-18] MEDS: ALBUTEROL 2.5 MG/3 ML NEB (ADULT) INH ×2 (08:54→13:05)
[2024-06-18] MEDS: DULOXETINE 20 MG CAPSULE PO (09:18)
[2024-06-18] MEDS: AMLODIPINE 5 MG TABLET 2.5 MG PO (09:18)
[2024-06-18] MEDS: METOPROLOL ER 50 MG TABLET PO (09:18)
[2024-06-18 09:27] LABS: TSH w/ Reflex to FT4 3.41 uIU/mL (0.47-4.68)
--- NOTE | 2024-06-18 09:54 | PT.IIE ---
Surgical History (Last Updated 04/18/23 @ 19:01 by Dian Zapata) Anesthesia Cataract extraction status, unspecified eye (08/18/10) History of back surgery (~2021) History of carpal tunnel surgery (~1999) History of knee replacement (~2011) History of shoulder replacement (~2018) Medical History (Last Updated 04/18/23 @ 19:01 by Dian Zapata) Actinic keratosis Acute nasopharyngitis (05/08/05) Allergic rhinitis, cause unspecified (08/18/10) Alopecia, unspecified (08/18/10) Melendez's esophagus Central hearing loss (08/18/10) Cerumen impaction (01/01/03) Colon polyps Cough (05/08/05) Depressive disorder, not elsewhere classified (01/01/03) Dry eyes, bilateral Fecal incontinence GERD (gastroesophageal reflux disease) Hearing loss Hemorrhage of lower esophageal segment due to erosive gastroesophageal reflux disease (01/01/03) Hemorrhoid History of basal cell cancer History of gastroesophageal reflux (GERD) History of urinary incontinence Hormone replacement therapy (postmenopausal) (08/18/10) Hypertension Irritable bowel syndrome (04/17/02) Joint pain in the shoulder/clavicle region (07/11/03) Joint pain, knee (07/11/03) Lower urinary tract symptoms (LUTS) Menopause (01/05/05) Other voice and resonance disorders (04/17/02) Postmenopausal atrophic vaginitis Rosacea Secondary hypertension, unspecified (01/05/05) Sleep apnea Spasm of muscle (10/02/03) Tinnitus Upper respiratory infection, acute (12/20/03) Vertigo Physical Therapy Inpatient Evaluation/Re-Eval M1 PT/OT-IP Prior Functional Status Start: 06/18/24 08:47 Freq: NEEDED Status: Active Protocol: Document 06/18/24 08:58 MB (Rec: 06/18/24 09:54 MB Desktop) Medical Review Prior Functional Status Medical History Reviewed Yes Communication Unsure baseline diet and pt is [place] Mobility and Gait Pt reports I to mod I with rollator, history of falls with a fall outside last week Social History Household Members none Living Arrangements House Number of Floors (Floors) One Floor Number of Stairs To Enter/Railing? 2 steps and right rail to enter Home Environment Standard Height Toilet,Tub/ Shower Home Equipment Four Wheel Walker,Hand Held Shower,Grab Bars In Shower Employment Status Retired M2 PT-IP Current Condition Start: 06/18/24 08:47 Freq: NEEDED Status: Active Protocol: Document 06/18/24 08:58 MB (Rec: 06/18/24 09:54 MB Desktop) Physical Therapy Current Condition Current Condition Evaluation Date 06/18/24 Treatment Diagnosis Acute onset of spinning dizziness, history of dizziness in the past M3 PT-IP Subjective Start: 06/18/24 08:47 Freq: NEEDED Status: Active Protocol: Document 06/18/24 08:58 MB (Rec: 06/18/24 09:54 MB Desktop) Subjective Physical Therapy Visit Type Type Initial Evaluation Visit Start Time 08:58 Visit Stop Time 09:34 Number of DATA SERVICES DEVELOPER Visits 0 Physical Therapy Visit Comments Patient Comments Pt is very anxious, prefers to give a long history about all dizziness, orthopedic issues in the past, PT redirects. Therapy Pain Assessment Pain When Pain Assessed At Rest Pain Present Pain Present Denied Pain M4 PT-IP Mobility and Gait Start: 06/18/24 08:47 Freq: NEEDED Status: Active Protocol: Document 06/18/24 08:58 MB (Rec: 06/18/24 09:54 MB Desktop) PT-Bed Mobility Assessment Rolling Type of Rolling Roll to Right Level of Assist Contact Guard Assistance Supine to Sit Supine to Sit Contact Guard Assistance,1 Person Assistance,Head of Bed Elevated,Bedrails Sit to Supine Sit to Supine Contact Guard Assistance,1 Person Assistance,Head of Bed Elevated,Bedrails Scooting Scooting to Edge of Bed Contact Guard Assistance PT-Transfer Assessment Sit to and From Stand Sit to and from Stand Minimal Assistance,1 Person Assistance,Use of Upper Extremities Equipment Transfer Assistive Device Gait Belt,Front Wheeled Walker Transfers Transfer Destination Chair Transfer Technique Ambulation Transfer Ability Level of Assist Contact Guard Assistance,1 Person Assistance,Use of Upper Extremities Comments Mobility Comments +2 max A for bed mobility with BPPV testing: Roll Test, B [place]. Pt with mild downbeat nystagmus with first left [place], negative right, negative roll test. Pt treated for left BPPV and nystagmus is then rotatory upbeat and so PT feels change is d/t neck position, pt rigidly guards and has trouble tolerating and following commands for modified Diane and so PT does not feel that it was successful. She is unable to tolerate another check and treatment with +2 max A Positive orthostatic hypotension with BP and HR in RUE: supine 148/75, 82; standing 105/63, 113; standing 1' 145/74, 104. Gait Assessment Gait Gait Assistance Required: Contact Guard Assist Distance (Feet) 20 Able to Maintain Weight Bearing Status Yes During Gait Assistive Devices Assistive Device Gait Belt,Front Wheeled Walker Orthotic/Prosthetic Devices or Brace: No Gait Deviations General Gait Pattern Decreased Stride Length, Decreased Feet Clearance, Flexed Trunk Factors Limiting Gait Function Factors Limiting Gait Function Decreased Activity Tolerance, Poor Balance,Poor Safety Awareness PT-Balance Assessment Sitting Balance and Reactions Static Sitting Balance Ability Fair Dynamic Sitting Balance Ability Fair Standing Balance and Reactions Static Standing Balance Ability Fair Dynamic Standing Balance Ability Fair Device Used RW M5 PT-IP Objective Assessments Start: 06/18/24 08:47 Freq: NEEDED Status: Active Protocol: Document 06/18/24 08:58 MB (Rec: 06/18/24 09:54 MB Desktop) Orientation Orientation/Cognition Level of Alertness Alert Language Function Ability Hard of Hearing Safety Awareness Decreased Safety Awareness Memory Description No Deficits Noted Gross Range of Motion Upper Extremity ROM Impairments Defer to OT Lower Extremity ROM Impairments Functional for mobility today and pt c/o B quad weakness Strength Comments Strength Comments Functional for mobility today Coordination Assessment Assessment Coordination Comments NT Sensation Assessment Comments Sensation Comments NT Other Assessments Other Other Assessments Normal eye tracking and ROM and no spontaneous nystagmus M6 PT-IP Treatment Start: 06/18/24 08:47 Freq: NEEDED Status: Active Protocol: Document 06/18/24 08:58 MB (Rec: 06/18/24 09:54 MB Desktop) Physical Therapy Treatment Other Treatments Other Treatment Performed BPPV assessment and treatment M7 PT-IP Assessment and Plan Start: 06/18/24 08:47 Freq: NEEDED Status: Active Protocol: Document 06/18/24 08:58 MB (Rec: 06/18/24 09:54 MB Desktop) PT Summary Assessment and Plan Potential Rehabilitation Potential Fair Status of Condition at Evaluation Evolving Summary Impairments ROM,Balance,Bed Mobility, Transfers,Gait,Activity Tolerance Assessment Summary Pt is an 83 y/o female presenting with dizziness. She had a fall and struck her head last week, per her reports. She also reports a history of positional vertigo in [place] in 2022 and that she received outpatient vestibular PT and was d/cd d/t meeting goals and vertigo was not diagnosed. Pt is [place] and very anxious. It is challenging getting a clear history from her today as she has trouble answering yes and no questions. Pt presents with orthostatic hypotension and BPPV. Treatment for BPPV was likely unsuccessful as pt has a hard time tolerating the positioning, following commands and tends to keep her neck rigid. This could be further evaluated when she is able to tolerate in an outpatient setting. Recommend 24 hour superv at d/c, ongoing PT: HH vs SNF at this time. Pt states she is checking to see if her daughter is going to be able to stay with her at d/c. Con't acute PT for mobility, gait and stair assessment. Goals Bed Mobility Goal Independent Transfer Goal Independent,Front Wheeled Walker,Four Wheeled Walker Gait Goal Independent,Front Wheel Walker ,Four Wheel Walker Gait Distance 100 Other Goals Pt will ascend and descend 2 steps with right rail and no more than SBA to allow safe home entrance. Days to Meet Goals 5 Frequency of Treatment Frequency Of Treatment Once a Day Treatment Plan Physical Therapy Treatment Plan Bed Mobility Training,Transfer Training,Gait Training, Therapeutic Exercise,Balance Retraining,Discharge Planning, Hot or Cold Pack,Neuromuscular Re-ed,Coordination Retraining ,Manual Therapy Precautions Other Precautions Fall risk, orthostasis, BPPV Recommendations To Nursing Amount of Assist Needed 1 Person Assist Discharge Recommendations PT Discharge Recommendations Home with Assistance,Home with 24/7 Assist Available,Home vs SNF Transportation Needs at Discharge Private Vehicle - PT assist x1-2
[2024-06-18] MEDS: MECLIZINE HCL 12.5 MG TABLET 25 MG PO (15:27)
--- NOTE | 2024-06-18 15:32 | CM.DANOTE ---
Initial DCP Assessment Note Pt is a 83 yo female, resident of [place], admitted OBS for dizziness/vertigo. PCP: Laura Thomson Payer: [facility]/Leroy duran Cate Reviewed chart, pt discussed in multidisciplinary rounds this morning. Patient medically ready for discharge, walking the hallway with walker. According to bedside RN, daughter and family are not able to attend to patient's needs presently as they have the Flu. Of note, family warns that patient lives with severe anxiety and needs much reassurance. Met w/patient to update that discharge order had been placed and to review discharge plan. Patient resistant to going home. Explained patient OBS and cannot appeal discharge. Patient reports being shaky when walking and needs to get up her stairs once home. Discussed private pay SNF, HH and in home care givers, patient resistant to all these options. Says she cannot afford private pay. Reviewed this conversation with Dr Asencio and with CHET Rosas. Patient is walking the hallway, medically stable for discharge, patient reported to Dr Asencio that yesterday she drove herself to and from [facility] without problem. Team suspects an element of anxiety in patient's hesitation to discharge home today. CM team following closely. Likely return home via [employer] taxi- Taxi voucher. KIRA Carcamo Discharge Planning/Care Management CM Discharge Assessment Start: 06/18/24 15:30 Freq: Status: Active Protocol: Document 06/18/24 15:30 GRISELDA (Rec: 06/18/24 15:32 GRISELDA Desktop) Discharge Planning Assessment Assigned Insurance Salesman KIRA Oscar DPOA/Assigned Designee Name Silva Munoz, daughter (Nestor) Contact Information [phone] Advance Directives? Yes Advance Directives on File Yes History Provided By Patient,Medical Record Has Patient been admitted in last 30 No days? Prior Living Arrangements House Household Members none Type of transporation used prior to Relies on Others admit Independent with ADL's Yes Is patient alert and oriented? Yes Needs Assistance With Home Chores / Shopping Barriers to Discharge Yes Comment Patient reports she cannot make it to the BR w/walker without shaking, how am I going to go home alone? Discharge Plan Home Transportation Arrangement Unknown
--- NOTE | 2024-06-18 16:05 | CM.DPNOTE ---
DC Note According to CHET rosas, patient is walking the hallway with walker and feeling more confident. Family has agreed to pick patient up and get her settled at home. Order for FWW placed. CHET Rosas attempting to distribute walker as PT has left for the day. Plan: Discharge home w/family, FWW from [facility] next week when they open again. Family to transport. JW
--- NOTE | 2024-06-18 17:09 | PC.NURSE ---
Pt is dressed and ready for discharge home with Daughter. IV has been removed. Prescription written for FWW and one was issued to Pt. Went over d/c instructions with Pt - discussed d/c meds, time of last dose, reviewed stroke education, encouraged Pt to Portal her PCP to discuss her admission and when she can resume driving, a life alert necklace, discussed bp meds and the potential for hypotension when getting up so reminded Pt to get up slowly from bed or chair to decreased dizziness, discussed getting a bsc to assist with night time voiding since she states she voids frequently at night, a shower chair, and home safety. Encouraged fluid intake to prevent constipation or dehydration. Pt denied further questions and will be ready to discharge home when daughter arrives, with all belongings.
--- NOTE | 2024-07-10 12:30 | P.DS_ITS ---
History of Present Illness History of Present Illness Date Patient Seen: 06/18/24 Chief complaint: dizzy Narrative: Per H&P: 83-year-old female with past medical history of depression, hypertension, vertigo, obstructive sleep [id number] bowel syndrome and GERD presents with complaint of vertigo. Per the patient's report, started this afternoon the patient has increasing vertigo when moving from a sitting to a standing position. The patient states that this vertigo is worse than the ones she had before. The patient however denies any vomiting but admits to have some nausea. The patient also denies any fever, chills, headache, chest pain, coughing, dysuria, diarrhea or shortness of breath. The patient denies any focal weakness, slurred speech or facial drooping. In the emergency room, the patient was hemodynamically stable. CT and CTA head and neck shows no acute finding the patient did receive meclizine without much improvement. IV fluids given. The patient has no signs of sepsis or infection. Due to ongoing vertigo and high fall risk ER physician request admission to continue to treat vertigo and obtain brain MRI tomorrow to rule out stroke. Note patient's systolic blood pressure was in the 200s. IV antihypertensive medication given. Discharge Providers Provider Date of admission: 06/18/24 03:34 Discharge Date: 06/18/24 Primary care physician: Laura Thomson MD Consults: 06/18/24 03:33 Consult to Occupational Therapy Evaluate & Treat Comment: Physician Instructions: Evaluate and treat 06/18/24 07:20 Consult to Physical Therapy Evaluate & Treat Comment: Vertigo - [place] Maneuvers? Physician Instructions: Evaluate and Treat 06/18/24 16:02 Consult to Physical Therapy Evaluate & Treat Comment: Physician Instructions: FWW for home use Discharge provider: Nan Asencio MD Summary Hospital Course Discharge Diagnosis: 1) Vertigo 2) HTN 3) Depression 4) GERD Hospital Course: Pt was admitted with acute onset of vertigo and presented to the ED. Work-up ruled out stroke or other cause for vertigo. She responded well to meclizine. Symptoms were significantly better by the afternoon following admission. She was evaluated by PT w/recommendations for f/u with HHPT. Although she expressed anxiety about discharging home as she lives alone, she agreed she was ready to go home and her family agreed to come pick her up and stay with her until she was feeling more comfortable. Pt is d/c'd in stable condition. Status at Discharge Cognitive/behavioral status at discharge: at baseline, oriented Functional status at discharge: independent ambulation Overall status at discharge: patient is progressing back to baseline Time Spent with Patient Time spent: Greater than 30 minutes Exam Vital Signs (past 8 hours): Oxygen Delivery Method Room Air Oxygen Flow Rate 0 Const General: cooperative, healthy appearing, well developed and No acute distress HENHI Head: normocephalic Face and sinus: face symmetric Resp Auscultation: clear to auscultation bilaterally Cardio Rate: regular rate Rhythm: regular rhythm GI Palpation: soft and No tender Auscultation: normal bowel sounds Skin General: no rashes or lesions noted Neuro General: patient alert and patient oriented x3 Objective Labs 06/17/24 22:57 06/17/24 22:57 [facility] Medical History (Updated 06/30/24 @ 17:36 by Laura Thomson MD) Dry eyes, bilateral Hearing loss Rosacea Actinic keratosis Sleep apnea Vertigo Tinnitus History of urinary incontinence Fecal incontinence Hemorrhoid GERD (gastroesophageal reflux disease) Colon polyps Melendez's esophagus Joint pain in the shoulder/clavicle region (07/11/03) Upper respiratory infection, acute (12/20/03) Spasm of muscle (10/02/03) Other voice and resonance disorders (04/17/02) Menopause (01/05/05) Joint pain, knee (07/11/03) Irritable bowel syndrome (04/17/02) Secondary hypertension, unspecified (01/05/05) Hormone replacement therapy (postmenopausal) (08/18/10) Hemorrhage of lower esophageal segment due to erosive gastroesophageal reflux disease (01/01/03) Depressive disorder, not elsewhere classified (01/01/03) Cough (05/08/05) Cerumen impaction (01/01/03) Central hearing loss (08/18/10) Alopecia, unspecified (08/18/10) Allergic rhinitis, cause unspecified (08/18/10) Acute nasopharyngitis (05/08/05) Postmenopausal atrophic vaginitis Lower urinary tract symptoms (LUTS) History of basal cell cancer History of gastroesophageal reflux (GERD) Hypertension Surgical History (Updated 04/18/23 @ 19:01 by Dina Zapata) Anesthesia History of carpal tunnel surgery (~1999) Cataract extraction status, unspecified eye (08/18/10) History of shoulder replacement (~2018) History of back surgery (~2021) History of knee replacement (~2011) Family History (Updated 04/18/23 @ 19:05 by Dian Zapata) Family/Other FH: CVA (cerebrovascular accident) Hearing impairment Sister Kidney stones Brother Stroke History of heart disease Mother Congestive heart failure Parkinson's disease Father History of heart disease Brother Cystic fibrosis Social History marital status: household members: none alcohol intake: current Discharge Plan Discharge Plan Patient Disposition: Home Health Service Provider Discharge Comment: 1) You were admitted with Benign Positional Vertigo. Your CT and MRI showed no evidence of stroke or brain bruise from your falls. 2) Continue to use meclizine as needed for your vertigo symptoms. 3) Avoid driving and rapid head movements until your vertigo is fully resolved. 4) Home health has been ordered for physical and occupational therapy to work on your strength and balance, as well as to teach you how to get back up in the event of a fall. Return to the ED: Worsening dizziness Increased falls Inability to hold down food or fluids Discharge orders & Medications Prescriptions: New meclizine 25 mg tablet 12.5 mg PO Q6HR PRN (Reason: dizziness/vertigo) Qty: 30 0RF Rx Instructions: May take a full tab if 1/2 tab is ineffective Continued budesonide-formoterol 80-4.5 mcg/actuation HFA aerosol inhaler 2 puff inhalation DAILY Qty: 10.2 3RF metoprolol succinate 50 mg tablet extended release 24 hr 50 mg PO DAILY Qty: 90 3RF amlodipine 2.5 mg tablet 2.5 mg PO DAILY Qty: 90 3RF Bioflavonoid/Ca/Hesperidin/R (#THEO C) 1 tab PO QDAY Qty: 0 Zinc, Chelated (#ZINC) 10 mg PO QDAY Qty: 0 CALCIUM CITRATE (CITRACAL ) 200 mg PO BIDCC Qty: 0 B.ANI/L.ACI/L.SAKSHI/L.PLAN/L.KANA (Probiotic Formula Capsule) 1 cap PO QDAY Qty: 0 CHOLECALCIFEROL (VITAMIN D3) 400 iu PO QDAY Qty: 0 metronidazole 0.75 % cream 1 applic topical BEDTIME Qty: 45 1RF Rx Instructions: Use nightly as needed for rosacea duloxetine 20 mg capsule,delayed release(DR/EC) 20 mg PO DAILY Qty: 90 3RF amitriptyline 10 mg tablet 10 mg PO HS Qty: 180 1RF irbesartan 75 mg tablet 75 mg PO DAILY Qty: 90 3RF estradiol 0.01 % (0.1 mg/gram) cream 1 g vaginal DAILY Qty: 42.5 0RF Rx Instructions: use 1g vaginally every night for two weeks, then use 1 gram twice weekly omeprazole magnesium [Prilosec OTC] 20 mg tablet,delayed release (DR/EC) 20 mg PO QDAY Qty: 90 0RF magnesium citrate Solution 150 ml PO DAILY PRN (Reason: constipation) Qty: 296 0RF No Action omeprazole 20 mg capsule,delayed release(DR/EC) 20 mg PO BID Qty: 90 3RF fluticasone propionate 110 mcg/actuation HFA aerosol inhaler 1 puff inhalation BID Qty: 12 0RF Follow up/Referrals: Laura Thomson MD [Primary Care Provider] - Diet/Activity/Treatments Diet: Diet as Tolerated and Regular Activity: As Tolerated Oxygen: N/A Visit Report/Discharge Packet Instructions: DI for Vertigo, DI for Benign Paroxysmal Positional Vertigo, Meclizine Stand Alone Forms: Patient Portal/API, Stroke Signs & Symptoms, Patient Portal/API/Survey Discharge Data Primary Care Provider: Laura Thomson Attending Provider: Gavino Vegas Admit Date/Time: 06/18/24 03:34 Quality VTE Deep Vein Thrombosis/Pulmonary Embolism Present on Admission: No
== END 2024-06-18 17:17 | disposition home health service (06) ==
LOC: ED 06-18 03:16 → AC 06-18 03:34
PROVIDERS: Family Medicine; Admitting Provider Internal Medicine; Emergency Provider Emergency Medicine; Family Provider Physician Assistant; PCP Student in an Organized Health Care Education/Training Program; Referring Provider Emergency Medicine; Visit Provider Internal Medicine
DX: R42 Dizziness and giddiness (principal); R11.0 Nausea; I16.0 Hypertensive urgency; F32.A Depression, unspecified; K21.9 Gastro-esophageal reflux disease without esophagitis; G47.33 Obstructive sleep apnea (adult) (pediatric); Z86.73 Personal history of transient ischemic attack (TIA), and cerebral infarction without residual deficits
CPT/HCPCS: 70450; 70496; 70498; 70551; 71045; 80053; 82550; 83690; 84443; 84484; 85025; 93005; 93010; 94640; 95992; 96361; 96374; 97163; 99283; 99284; G0378; J0360; J7613; Q9967

== ENCOUNTER → 2024-06-26 15:51 | Outpatient (CLI) | payer MEDICARE, OTHER, SELFPAY ==
[2024-06-18 05:26] VITALS: BMI 29.9
--- NOTE | 2024-06-26 15:54 | DI.RAD.S_ITS ---
PROCEDURE: XR CHEST 2V INDICATIONS: acute cough, wheezing TECHNIQUE: 2 views of the chest were acquired. COMPARISON: [facility], [place], XR CHEST 1V, 06/17/2024, 23:27. [facility], CR, XR CHEST 2V, 04/28/2022, 10:01. FINDINGS: Surgical changes and devices: Right shoulder arthroplasty is noted. Lungs and pleura: Lungs are clear. No pleural effusions or pneumothorax. Mediastinum: Mediastinal contours are normal. Heart size is normal. Bones and chest wall: No suspicious bony abnormalities. Soft tissues appear unremarkable. IMPRESSION: No acute cardiopulmonary abnormality is seen. Approved by: Nahum Campbell M.D. on 06/26/2024 at 17:53
== END ==
PROVIDERS: Family Provider Physician Assistant; PCP Student in an Organized Health Care Education/Training Program; Referring Provider Physician Assistant; Visit Provider Physician Assistant
DX: R05.1 Acute cough (principal)
CPT/HCPCS: 71046

== ENCOUNTER → 2024-08-07 10:33 | Outpatient (CLI) | payer MEDICARE, OTHER, SELFPAY ==
[2024-07-27 11:38] VITALS: BMI 29.9
[2024-08-07 13:10] LABS: Appearance Urine UA CLEAR; Bilirubin Urine UA NEGATIVE (NEGATIVE); Color Urine UA YELLOW; Glucose Urine UA NEGATIVE (Negative); Ketones Urine UA NEGATIVE (NEGATIVE); Leukocyte Esterase Urine UA NEGATIVE (NEGATIVE); Nitrite Urine UA NEGATIVE (Negative); Occult Blood Urine UA NEGATIVE (Negative); Protein Urine UA NEGATIVE (Negative); Specific Gravity Urine UA <=1.005 (1.000-1.035); Urobilinogen Urine UA 0.2 E.U./dL (0.2)
[2024-08-07 13:21] LABS: Urine Volume 10mL (spun)
[2024-08-07 13:22] LABS: Amorphous Sediment Urine 1+; Bacteria Urine None Seen; Culture Indicated Urine Cult Not Indicated; RBC Urine None Seen (0-5/HPF); Squamous Epithelial Cell Urine None Seen (0-5/HPF); WBC Urine None Seen (0-5/HPF)
== END ==
PROVIDERS: Family Provider Physician Assistant; PCP Student in an Organized Health Care Education/Training Program; Visit Provider Obstetrics & Gynecology Gynecology
DX: N39.41 Urge incontinence (principal); N32.81 Overactive bladder
CPT/HCPCS: 81001